=== PATIENT | male | born 1950 | race Caucasian/White ===

== ENCOUNTER → 2017-05-09 | Outpatient (CLI) | payer MEDICARE ==
--- NOTE | 2017-05-09 14:29 | NM ---
EXAMINATION TYPE: NM stress cardiolite complete DATE OF EXAM: 05/09/2017 COMPARISON: NONE HISTORY: Chest pain, R07.9 TECHNIQUE: After the intravenous administration of 10.3 mCi Tc 99m Sestamibi - Rest images obtained 45 minutes post injection. The patient exercised using a HANNAH protocol and 1 minute prior to peak exercise was injected with 27 mCi Tc 99m Sestamibi - Stress images obtained 10 minutes post injection . FINDINGS: Targeted heart rate was achieved during performance of the study. Review of stress and rest SPECT elissa ges demonstrates mild increased radio pharmaceutical uptake along the lateral wall of left ventricle at stress as compared to rest images although this could be technical. Gated analysis shows question able paradoxical wall motion at the apex with an estimated left ventricular ejection fraction of 65 % . IMPRESSION: Findings along the anterolateral wall the left ventricle is described. Consider echocardiography for evaluation of wall motion and ejection fraction which is elevated, suspect paradoxical wall motion as described. A Yellow message has been communicated to Patricio Burch DO via the [employer] system on 05/09/2017 2:26 PM, Message ID [id number].
--- NOTE | 2017-05-10 11:56 | P.STRESS ---
- Stress Test Note Stress Test Results/Findings: Exam Performed: NM stress cardiolite complete Exam Date: 05/09/17 Reason for Exam: Short of breath Height: 5 ft 11 in Weight: 79.379 kg Protocol: Cardiolite Stage: 1 Duration of Exercise: 4:00 Resting Heart Rate: 88 Resting Blood Pressure: 138/90 Maximum Achieved Heart Rate: 143 Maximum Achieved Blood Pressure: 204/107 85% PMHR: 129 100% PMHR: 152 METS: 5.8 Technologist Comment: Stress Test Results/Findings: Resting EKG shows normal sinus rhythm with normal ND interval and QRS duration and normal S Marques no ST segment depression suggestive ischemia was noted during exercise patient did not complain of any chest pain during the te Conclusion exercise EKG is not suggestive ischemia. Patient's exercise tolerance is below average. The results of the nuclear study will follow.
--- NOTE | 2017-05-10 15:56 | EST ---
Stress Test Results/Findings: Exam Performed: NM stress cardiolite complete Exam Date: 05/09/17 Reason for Exam: Short of breath Height: 5 ft 11 in Weight: 79.379 kg Protocol: Cardiolite Stage: 1 Duration of Exercise: 4:00 Resting Heart Rate: 88 Resting Blood Pressure: 138/90 Maximum Achieved Heart Rate: 143 Maximum Achieved Blood Pressure: 204/107 85% PMHR: 129 100% PMHR: 152 METS: 5.8 Technologist Comment: Stress Test Results/Findings: Resting EKG shows normal sinus rhythm with normal MT interval and QRS duration and normal S Marques no ST segment depression suggestive ischemia was noted during exercise patient did not complain of any chest pain during the te Conclusion exercise EKG is not suggestive ischemia. Patient's exercise tolerance is below average. The results of the nuclear study will follow. LE
== END | disposition home or self-care (01) ==
LOC: RADNMMAIN 10:44
PROVIDERS: ATTEND Family Medicine
DX: R07.89 Other chest pain (principal)
CPT/HCPCS: 93017; 78452; A9500

== ENCOUNTER → 2017-05-29 | Outpatient (CLI) | payer MEDICARE ==
--- NOTE | 2017-05-30 11:13 | ECHOF ---
Referral Reason:R94.39 abn results MEASUREMENTS -------- HEIGHT: 180.3 cm WEIGHT: 77.1 kg BP: 155/87 RVIDd: 3.0 cm (< 3.3) IVSd: 1.2 cm (0.6 - 1.1) LVIDd: 4.4 cm (3.9 - 5.3) LVPWd: 1.2 cm (0.6 - 1.1) IVSs: 1.5 cm LVIDs: 3.6 cm LVPWs: 1.5 cm LAESV Index (A-L): 15.59 ml/m Ao Diam: 3.4 cm (2.0 - 3.7) AV Cusp: 1.8 cm (1.5 - 2.6) LA Diam: 3.3 cm (2.7 - 3.8) MV EXCURSION: 16.659 mm (> 18.000) MV EF SLOPE: 119 mm/s (70 - 150) EPSS: 1.2 cm MV E Francisco: 0.46 m/s MV DecT: 235 ms MV A Francisco: 0.60 m/s MV E/A Ratio: 0.76 RAP: 5.00 mmHg RVSP: 8.72 mmHg FINDINGS -------- Sinus rhythm. This was a technically adequate study. There is mild concentric left ventricular hypertrophy. Overall left ventricular systolic function is normal with, an EF between 55 - 60 %. The right ventricle is normal in size and function. Normal LA size by volume 22+/-6 ml/m2. The right atrium is normal in size. Aortic valve is trileaflet and is mildly thickened. There is no evidence of aortic regurgitation. There is no evidence of aortic stenosis. The mitral valve is normal. There is trace mitral regurgitation. Trace tricuspid regurgitation present. There is no evidence of pulmonary hypertension. The right ventricular systolic pressure, as measured by Doppler, is 8.72mmHg. The pulmonic valve was not well visualized. The aortic root size is normal. Normal inferior vena cava with normal inspiratory collapse consistent with estimated right atrial pressure of 5 mmHg. The pericardium is normal. Echo free space indicative of a pericardial fat pad. There is no pericardial effusion. CONCLUSIONS -------- 1. Sinus rhythm. 2. The right ventricular systolic pressure, as measured by Doppler, is 8.72mmHg. 3. The pulmonic valve was not well visualized. 4. The aortic root size is normal. 5. There is no pericardial effusion. 6. This was a technically adequate study. 7. There is mild concentric left ventricular hypertrophy. 8. Overall left ventricular systolic function is normal with, an EF between 55 - 60 %. 9. Normal LA size by volume 22+/-6 ml/m2. 10. Aortic valve is trileaflet and is mildly thickened. 11. There is trace mitral regurgitation. 12. Trace tricuspid regurgitation present. 13. There is no evidence of pulmonary hypertension. AWNING HANGER SUPERVISOR: Nahum Epstein RDCS
== END | disposition home or self-care (01) ==
LOC: RADECHMAIN 12:47
PROVIDERS: ATTEND Family Medicine
DX: I35.8 Other nonrheumatic aortic valve disorders (principal); I51.7 Cardiomegaly
CPT/HCPCS: 93306

== ENCOUNTER 2018-02-02 18:56 | Emergency (ER) | payer MEDICARE, OTHER ==
[2018-02-02 19:03] VITALS: RESP 18
[2018-02-02] MEDS ORDERED: RX INFO: IV CONTRAST WAS GIVEN 1 EACH MISC MISCELLANE PRN (19:25)
[2018-02-02] MEDS ORDERED: IBUPROFEN IV 600 MG in SODIUM CHLORIDE 0.9% 250 ML IV STA (19:25)
[2018-02-02] MEDS ORDERED: cefTRIAXone IN SWFI 1,000 MG/10 ML SYRINGE IVP STA (19:25)
[2018-02-02] MEDS ORDERED: methylPREDNISolone SOD SUCCI 125 MG/2 ML VIAL IV STA (19:25)
--- NOTE | 2018-02-02 19:33 | ED ---
ENT HPI - General Chief complaint: ENT Stated complaint: Abscess on Throat, Sore throat Time Seen by Provider: 02/02/18 19:01 Source: patient, RN notes reviewed Mode of arrival: ambulatory Limitations: no limitations - History of Present Illness Initial comments: This is a 67-year-old male who presents to the emergency department with chief complaint of sore throat. Patient states that he has had a sore throat for the past 2 weeks. He states that [facility] [place] [facility] He states that they did a throat culture but he has not heard anything back about that. Patient states that he was evaluated at [facility] prior to arrival to the emergency department. He was told that they believed he had a peritonsillar abscess and needed to present to the emergency department for further evaluation and treatment. Patient states that he has difficulty swallowing, pain with swallowing and some difficulty breathing. He states that he has not eaten or drank anything in the last 3 days. Denies fevers or chills , chest pain or shortness breath, abdominal pain, nausea or vomiting, diarrhea or constipation, headache or dizziness. - Related Data Home Medications Medication Instructions Recorded Confirmed Aspirin 81 mg PO DAILY 08/06/14 02/02/18 Amoxic-Pot Clav 875-125Mg 1 tab PO Q12HR 02/02/18 02/02/18 [Augmentin 875-125] Previous Rx's Medication Instructions Recorded Amoxicillin/Potassium Clav 1 tab PO Q12HR #20 tab 02/02/18 [Augmentin Xr 1,000-62.5 Tab] Allergies Allergy/AdvReac Type Severity Reaction Status Date / Time No Known Allergies Allergy Verified 02/02/18 19:30 Review of Systems ROS Statement: Those systems with pertinent positive or pertinent negative responses have been documented in the HPI. ROS Other: All systems not noted in ROS Statement are negative. Past Medical History Past Medical History: CVA/TIA History of Any Multi-Drug Resistant Organisms: None Reported Past Surgical History: Orthopedic Surgery Past Anesthesia/Blood Transfusion Reactions: No Reported Reaction Past Psychological History: No Psychological Hx Reported Smoking Status: Current every day smoker Past Alcohol Use History: Occasional Past Drug Use History: None Reported General Exam - General Exam Comments Initial Comments: General: Awake and alert, well-developed; in no apparent distress. HEENT: Head atraumatic, normocephalic. Pupils are equal, round and reactive to light. Extraocular movements intact. Oropharynx moist. Left-sided soft palate and tonsil extremely erythematous and swollen with deviation of the uvula to the right side. Neck: Supple. Normal ROM. Cardiovascular: Regular rate and rhythm. No murmurs, rubs or gallops. Chest symmetrical. Respiratory: Lungs clear to auscultation bilaterally. No wheezes, rales or rhonchi. Normal respiratory effort with no use of accessory muscles. Musculoskeletal: Normal ROM, no tenderness bilateral upper and lower extremities. Ambulating normally. Skin: [place], warm and dry without rashes or lesions. Neurological: Alert and oriented x3. CN II-XII 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. Speech is fluent and answers are appropriate. No focal neuro deficits. Psychiatric: Normal mood and affect. No overt signs of depression or anxiety noted. Limitations: no limitations Course Vital Signs 02/02/18 02/02/18 02/02/18 19:01 20:08 21:44 Temperature 99 F Pulse Rate 128 H 116 H 97 Respiratory 18 18 Rate Blood Pressure 140/95 141/82 O2 Sat by Pulse 96 96 97 Oximetry 02/02/18 23:36 Temperature 98 F Pulse Rate 96 Respiratory 18 Rate Blood Pressure 164/92 O2 Sat by Pulse 97 Oximetry - Reevaluation(s) Reevaluation #1: This case was discussed with attending physician, Dr. Lanza. He was in contact with Dr. Manley who will be arriving shortly to drain peritonsillar abscess. 02/02/18 21:46 Medical Decision Making - Medical Decision Making This is a 67-year-old male who presents to the emergency department with chief complaint of sore throat. On physical examination, there appears to be a left peritonsillar mass with deviation of the uvula to the right. Patient complains of difficulty and pain while swallowing. Computed tomography scan soft tissue neck was obtained and revealed evidence for a 2.5 cm peritonsillar abscess. This case was discussed with attending physician, Dr. Lanza. He was in contact with Dr. Manley who came to the Emergency Department and drained the abscess. Recommended starting patient on Augmentin 1 g twice a day. Recommended following up with him this coming week. Wound culture was obtained and is pending. Patient's vital signs are stable and he is in no acute distress. He will be discharged home at this time. All questions answered. - Lab Data Result diagrams: 02/02/18 19:42 02/02/18 19:42 Lab Results 02/02/18 02/02/18 02/02/18 Range/Units 19:42 19:42 19:42 WBC 16.1 H (3.8-10.6) k/uL RBC 5.22 (4.30-5.90) m/uL Hgb 17.7 H (13.0-17.5) gm/dL Hct 51.8 (39.0-53.0) % MCV 99.3 (80.0-100.0) fL MCH 33.9 (25.0-35.0) pg MCHC 34.1 (31.0-37.0) g/dL RDW 12.8 (11.5-15.5) % Plt Count 255 (150-450) k/uL Neutrophils % 78 % Lymphocytes % 12 % Monocytes % 6 % Eosinophils % 2 % Basophils % 0 % Neutrophils # 12.5 H (1.3-7.7) k/uL Lymphocytes # 1.9 (1.0-4.8) k/uL Monocytes # 0.9 (0-1.0) k/uL Eosinophils # 0.4 (0-0.7) k/uL Basophils # 0.1 (0-0.2) k/uL PT (9.0-12.0) sec INR (<1.2) APTT (22.0-30.0) sec Sodium 143 (137-145) mmol/L Potassium 4.1 (3.5-5.1) mmol/L Chloride 101 (98-107) mmol/L Carbon Dioxide 23 (22-30) mmol/L Anion Gap 19 mmol/L BUN 18 (9-20) mg/dL Creatinine 1.40 H (0.66-1.25) mg/dL Est GFR (CKD-EPI)AfAm 60 (>60 ml/min/1.73 sqM) Est GFR (CKD-EPI)NonAf 51 (>60 ml/min/1.73 sqM) Glucose 101 H (74-99) mg/dL Plasma Lactic Acid Aydin 1.4 (0.7-2.0) mmol/L Calcium 9.4 (8.4-10.2) mg/dL Total Bilirubin 1.0 (0.2-1.3) mg/dL AST 24 (17-59) U/L ALT 23 (21-72) U/L Alkaline Phosphatase 112 (38-126) U/L Total Protein 7.9 (6.3-8.2) g/dL Albumin 4.5 (3.5-5.0) g/dL 02/02/18 Range/Units 19:42 WBC (3.8-10.6) k/uL RBC (4.30-5.90) m/uL Hgb (13.0-17.5) gm/dL Hct (39.0-53.0) % MCV (80.0-100.0) fL MCH (25.0-35.0) pg MCHC (31.0-37.0) g/dL RDW (11.5-15.5) % Plt Count (150-450) k/uL Neutrophils % % Lymphocytes % % Monocytes % % Eosinophils % % Basophils % % Neutrophils # (1.3-7.7) k/uL Lymphocytes # (1.0-4.8) k/uL Monocytes # (0-1.0) k/uL Eosinophils # (0-0.7) k/uL Basophils # (0-0.2) k/uL PT 9.8 (9.0-12.0) sec INR 1.0 (<1.2) APTT 25.3 (22.0-30.0) sec Sodium (137-145) mmol/L Potassium (3.5-5.1) mmol/L Chloride (98-107) mmol/L Carbon Dioxide (22-30) mmol/L Anion Gap mmol/L BUN (9-20) mg/dL Creatinine (0.66-1.25) mg/dL Est GFR (CKD-EPI)AfAm (>60 ml/min/1.73 sqM) Est GFR (CKD-EPI)NonAf (>60 ml/min/1.73 sqM) Glucose (74-99) mg/dL Plasma Lactic Acid Aydin (0.7-2.0) mmol/L Calcium (8.4-10.2) mg/dL Total Bilirubin (0.2-1.3) mg/dL AST (17-59) U/L ALT (21-72) U/L Alkaline Phosphatase (38-126) U/L Total Protein (6.3-8.2) g/dL Albumin (3.5-5.0) g/dL - Radiology Data Radiology results: report reviewed CT soft tissue neck with contrast impression: There is a mass density in the region of the left tonsil with mixed fluid and intermediate density consistent with inflammatory mass and 2.5 cm abscess. Disposition Clinical Impression: Peritonsillar abscess Disposition: HOME SELF-CARE Condition: Good Instructions: Peritonsillar Abscess (ED) Additional Instructions: Please follow-up with Dr. Manley within 1-2 days. Please take medications as prescribed. Please follow up with primary care provider within 1- 2 days. Return to emergency department if symptoms should worsen or any concerns arise. Prescriptions: Amoxicillin/Potassium Clav [Augmentin Xr 1,000-62.5 Tab] 1 tab PO Q12HR #20 tab Is patient prescribed a controlled substance at d/c from ED?: No Referrals: [facility],Clinic [Primary Care Provider] - 1-2 days Satish Manley DO [Doctor of Osteopathic Medicine] - 1-2 days Time of Disposition: 23:06
[2018-02-02 19:55] LABS: Basophils # (A) 0.1 k/uL (0-0.2); Basophils % (A) 0 %; Eosinophils # (A) 0.4 k/uL (0-0.7); Eosinophils % (A) 2 %; HCT 51.8 % (39.0-53.0); HGB 17.7 gm/dL (13.0-17.5); Lymphocytes # (A) 1.9 k/uL (1.0-4.8); Lymphocytes % (A) 12 %; MCH 33.9 pg (25.0-35.0); MCHC 34.1 g/dL (31.0-37.0); MCV 99.3 fL (80.0-100.0); Mean Platelet Volume 6.8; Monocytes # (A) 0.9 k/uL (0-1.0); Monocytes % (A) 6 %; Neutrophils # (A) 12.5 k/uL (1.3-7.7); Neutrophils % (A) 78 %; Platelet Count 255 k/uL (150-450); RBC 5.22 m/uL (4.30-5.90); RDW 12.8 % (11.5-15.5); WBC 16.1 k/uL (3.8-10.6)
[2018-02-02] MEDS: SODIUM CHLORIDE 0.9% 500 ML IV SCH ×4 (19:58→22:50)
[2018-02-02 20:04] LABS: Partial Thromboplastin Time 25.3 sec (22.0-30.0); Prothrombin Time 9.8 sec (9.0-12.0)
[2018-02-02 20:10] LABS: Albumin 4.5 g/dL (3.5-5.0); Calcium 9.4 mg/dL (8.4-10.2); Potassium 4.1 mmol/L (3.5-5.1); Total Protein 7.9 g/dL (6.3-8.2)
--- NOTE | 2018-02-02 21:07 | CT ---
EXAMINATION TYPE: CT soft tissue neck w con DATE OF EXAM: 02/02/2018 8:46 PM COMPARISON: NONE HISTORY: Throat abscess. CT DLP: 397.8 mGycm Automated exposure control for dose reduction was used. CONTRAST: CT scan of the neck is performed following with IV Contrast, patient injected with 100 mL of Isovue 3 00. Axial images are obtained, coronal and sagittal reformatted images are reviewed. FINDINGS: Parotid glands are symmetric. Submandibular salivary glands are symmetric. There is normal contrast o pacification of the carotid arteries and jugular veins. Thyroid gland is symmetric. There is arterial flow in both vertebral arteries. Trachea appears normal. Epiglottis appears normal. There is asymmet rosario increased density on the left side of the oropharynx compared to the right in the region of the l eft tonsil. This measures 3 x 2 cm. There is some hypodensity and intermediate density. The right ton tamara appears normal. There is some spondylotic change in the lower cervical spine. There is fairly normal aeration of the ethmoid maxillary and sphenoid sinuses. Evaluation of the tons ils is difficult because of the metal artifact from the dental work. IMPRESSION: There is mass density in the region of left tonsil with mixed fluid and intermediate den sity consistent with inflammatory mass and 2.5 cm abscess. Normal epiglottis. Atheromatous aorta. There is some soft plaque at the aortic arch.
[2018-02-02] MEDS ORDERED: PIPERACILLIN-TAZOBACTAM 3.375 GM in DEXTROSE/WATER 1 50ML.BAG IVPB STA (21:16)
[2018-02-02 23:37] VITALS: BP 164/92; PULSE 96; TEMP 98
--- NOTE | 2018-02-02 23:53 | CONS ---
CONSULTATION DATE OF SERVICE: 02/02/2018. CONSULTING PHYSICIAN: Satish Manley DO. CHIEF COMPLAINT: Trismus, sore throat, hot potato voice. HISTORY OF PRESENT ILLNESS: This is a 67-year-old white male who has had 3 weeks of persistent throat pain, discomfort and dysphagia. He [facility] evaluated [facility], had a throat culture, was treated. Unfortunately, he continued to worsen. He has not eaten for the last 3 days or even drank anything. He is a somewhat anxious and is complaining of throat pain and trismus. CT scan evaluation reveals a possible abscess. PAST MEDICAL HISTORY: Positive for CVA, TIA. PAST SURGICAL HISTORY: Positive for orthopedic surgery. SOCIAL HISTORY: Smoker and drinker for many years. REVIEW OF SYSTEMS: See H and P. PHYSICAL EXAMINATION: Vital signs are stable. HEAD AND FACE: Head is normocephalic. The face is symmetric. Ears: Auricles are well-formed. Nose is patent. Mouth and throat: The patient has an asymmetrical swelling with a bulging above the left tonsil. Peritonsillar abscess is noted. Trismus is noted. NECK: Cervical lymphadenopathy is noted. IMPRESSIONS: Left acute tonsillitis with associated peritonsillar abscess. PLAN OF TREATMENT: Incision and drainage is recommended for drainage of this abscess. All risks, benefits, alternative therapies and complications were discussed and the patient was verbally agreed to this drainage procedure. MMODL / IJN: [id number] /
--- NOTE | 2018-02-02 23:59 | PCN ---
PROCEDURE NOTE DATE OF SERVICE: 02/02/2018. SURGEON: Satish Manley D.O. Anesthesia is a local. PREOPERATIVE DIAGNOSES: 1. Left peritonsillar abscess. 2. Trismus. 3. Dysphagia. POSTOPERATIVE DIAGNOSES: 1. Left peritonsillar abscess. 2. Trismus. 3. Dysphagia. OPERATIVE PROCEDURE: Needle aspiration followed by an incision and drainage of a left peritonsillar abscess. OPERATIVE INDICATIONS: This patient has a very large 3-cm left peritonsillar abscess. Drainage is indicated. He has not been able to eat or drink for 3 days. PROCEDURE: This area was topically anesthetized with benzocaine. We did inject this area with lidocaine 1% with epinephrine 1:100,000. Needle aspiration was performed and 5 mL were extracted by needle aspiration. A 15 blade was placed into the abscess and opened and widened with a hemostat. A large amount of purulence was expressed from this abscess and was sent for culture. The patient tolerated this well. Followup will be in the office in 1 week. The patient is being discharged on Augmentin and pain medication. MMODL / IJN: [id number] /
== END 2018-02-02 23:36 | disposition home or self-care (01) ==
LOC: EC 18:56
DX: J36 Peritonsillar abscess (principal); F17.200 Nicotine dependence, unspecified, uncomplicated; Z86.73 Personal history of transient ischemic attack (TIA), and cerebral infarction without residual deficits; Z79.82 Long term (current) use of aspirin
CPT/HCPCS: 99284; 42700; 96365; 96366; 96367; 96375; 36415; 80053; 83605; 85025; 85610; 85730; 87040; 87070; 87205; 70491; J2930; J2543; J1741; Q9967

== ENCOUNTER → 2018-07-05 | Outpatient (CLI) | payer OTHER ==
--- NOTE | 2018-07-05 18:07 | US ---
EXAMINATION TYPE: US carotid duplex BILAT DATE OF EXAM: 07/05/2018 COMPARISON: NONE CLINICAL HISTORY: 68-year-old male Z86.73 CVA. TIA x 5 years ago. Borderline HTN and cholesterol-- n o meds. TECHNIQUE: Carotid duplex ultrasound examination. Indirect Doppler criteria was utilized. EXAM MEASUREMENTS: RIGHT: Peak Systolic Velocity (PSV) cm/sec ----- Right CCA: 63.8 ----- Right ICA: 73.2 ----- Right ECA: 191.9 ICA/CCA ratio: 1.1 RIGHT: End Diastole cm/sec ----- Right CCA: 14.7 ----- Right ICA: 23.7 ----- Right ECA: 20.0 LEFT: Peak Systolic Velocity (PSV) cm/sec ----- Left CCA: 73.3 ----- Left ICA: 94.3 ----- Left ECA: 163.6 ICA/CCA ratio: 1.3 LEFT: End Diastole cm/sec ----- Left CCA: 22.9 ----- Left ICA: 32.2 ----- Left ECA: 15.5 VERTEBRALS (direction of flow): Right Vertebral: Antegrade Left Vertebral: Antegrade Rhythm: Normal Bilateral wall thickening. No significant stenosis. Elevated bilateral ECA velocities. Mild plaque seen at bulbs. IMPRESSION: No hemodynamically significant stenosis appreciated in either internal carotid artery. Atherosclerotic narrowing is incidentally noted at the bilateral ECAs. Criteria for Assigning % of Stenosis / Diameter reduction (Estimation based on the indirect measurements of the internal carotid artery velocities (ICA PSV). 1. Normal (no stenosis)=ICA PSV < 125 cm/s: ratio < 2.0: ICA EDV<40 cm/s. 2. Less than 50% stenosis=ICA PSV < 125 cm/s: ratio < 2.0: ICA EDV<40 cm/s. 3. 50 to 69% stenosis=ICA PSV of 125 to 230 cm/s: ration 2.0 ? 4.0: ICA EDV 40-100 cm/s. 4. Greater than 70% stenosis to near occlusion= ICA PSV > 230 cm/s: ratio > 4.0: ICA EDV > 100 cm/s. 5. Near occlusion= ICA PSV velocities may be low or undetectable: variable ratio and ICA EDV. 6. Total occlusion=unable to detect flow.
== END | disposition home or self-care (01) ==
LOC: RADUSWWP 15:08
DX: Z09 Encounter for follow-up examination after completed treatment for conditions other than malignant neoplasm (principal); Z86.73 Personal history of transient ischemic attack (TIA), and cerebral infarction without residual deficits
CPT/HCPCS: 93880

== ENCOUNTER 2019-07-23 06:32 | Day surgery (SDC) | payer OTHER ==
[2019-07-19 10:19] VITALS: BMI 24.3
[~2019-07-23 06:32] MED LIST: LACTATED RINGERS 1,000 ML IV SCH
[2019-07-23 07:08] VITALS: TEMP 97.9
[2019-07-23] MEDS ORDERED: PROPOFOL 10 MG/ML 20 ML VIAL IV ONE (08:01)
[2019-07-23] MEDS ORDERED: LIDOCAINE 1% INJ 10MG/ML (20 ML MDV) ONE (08:01)
--- NOTE | 2019-07-23 08:48 | P.PCN ---
Date of Procedure: 07/23/19 Description of Procedure: BRIEF HISTORY: Patient is a 69-year-old pleasant male scheduled for an elective colonoscopy as a part of surveillance after a history of personal colon polyps on prior colonoscopy. Patient denies any change in bowel habits, blood per rectum or pain in the abdomen. He did have stool testing which was positive for blood. PROCEDURE PERFORMED: Colonoscopy with polypectomy. PREOPERATIVE DIAGNOSIS: Personal history of colon polyps, stool positive for occult blood, patient believes last colonoscopy was approximately 4 years ago. ESTIMATED BLOOD LOSS: Minimal. IV sedation per Anesthesia. PROCEDURE: After informed consent was obtained, the patient, was brought into the endoscopy unit. IV sedation was administered by Anesthesia under continuous monitoring. Digital rectal examination was normal. Initially the Olympus CF-190 flexible video colonoscope was then inserted in the rectum, gradually advanced into the cecum without any difficulty. Careful examination was performed as the scope was gradually being withdrawn. Ileocecal valve and the appendiceal orifice were visualized and appeared normal. The terminal ileum was intubated and appeared normal, and retroflexion was performed in the cecum with no polyps or masses noted. Prep was excellent. Mucosa of the cecum, ascending colon, transverse colon, descending colon, sigmoid colon, and rectum appeared normal. Diminutive 2 mm sessile polyps in the sigmoid colon and the rectum removed with cold forcep polypectomy. Retroflexion was performed in the rectum and no lesions were seen, low-grade internal hemorrhoids noted. The patient tolerated the procedure well. IMPRESSION: Two diminutive polyps removed with cold forceps from the rectum and sigmoid. Low-grade internal hemorrhoids. RECOMMENDATIONS: Findings of this examination were discussed with the patient and his friend. Okay to resume diet. Okay to resume medications. Would recommend repeat colonoscopy in 5 years for a personal history of colon polyps.
[2019-07-23 09:01] VITALS: BP 132/74; PULSE 73; RESP 18
== END 2019-07-23 09:04 | disposition home or self-care (01) ==
LOC: ORWHC2ENDO 06:32
PROVIDERS: ATTEND Internal Medicine
DX: Z12.11 Encounter for screening for malignant neoplasm of colon (principal); D12.5 Benign neoplasm of sigmoid colon; K64.8 Other hemorrhoids; Z86.010 Personal history of colon polyps; F17.200 Nicotine dependence, unspecified, uncomplicated; Z86.73 Personal history of transient ischemic attack (TIA), and cerebral infarction without residual deficits; Z79.82 Long term (current) use of aspirin
CPT/HCPCS: 88305; 45380; J2001; J2704

== ENCOUNTER 2023-08-19 16:02 | Inpatient (IN) | payer OTHER, MEDICARE ==
--- NOTE | 2023-08-19 16:31 | ED ---
General Adult HPI - General Chief complaint: Chest Pain Stated complaint: Chest pain; left arm pain Time Seen by Provider: 08/19/23 16:09 Source: patient Mode of arrival: wheelchair Limitations: no limitations - History of Present Illness Initial comments: Dictation was produced using [employer] dictation software. please excuse any grammatical, word or spelling errors. Chief Complaint: 73-year-old male presents with 2 weeks of chest pressure History of Present Illness: 73-year-old male presents emergency department for 2 weeks of chest pressure states that his pain has been ongoing for the last 2 weeks. He was seen by [facility]ral boss and was to undergo outpatient stress test. Patient denies any history of cardiac disease. He reports having had negative stress test 4-5 years ago. Describes the pain as a pressure the substernal area. Nonradiating. Not associated with shortness of breath. Not exacerbated by exertion. No associated nausea or diaphoresis. Patient states that his pain seems slightly worse whenever he lays flat. The ROS documented in this emergency department record has been reviewed and confirmed by me. Those systems with pertinent positive or negative responses have been documented in the HPI. All other systems are other negative and/or noncontributory. - Related Data Home Medications Medication Instructions Recorded Confirmed Aspirin 81 mg PO DAILY 08/06/14 07/23/19 Allergies Allergy/AdvReac Type Severity Reaction Status Date / Time No Known Allergies Allergy Verified 08/19/23 16:04 Review of Systems ROS Statement: Those systems with pertinent positive or pertinent negative responses have been documented in the HPI. ROS Other: All systems not noted in ROS Statement are negative. Past Medical History Past Medical History: CVA/TIA Additional Past Medical History / Comment(s): TIA-no residual approx 2013 History of Any Multi-Drug Resistant Organisms: None Reported Past Surgical History: Back Surgery Past Anesthesia/Blood Transfusion Reactions: No Reported Reaction Past Psychological History: No Psychological Hx Reported Past Alcohol Use History: Occasional Past Drug Use History: None Reported - Past Family History Mother Family Medical History: No Reported History General Exam - General Exam Comments Initial Comments: PHYSICAL EXAM: General Impression: Alert and oriented x3, not in acute distress HEENT: Normocephalic atraumatic, extra-ocular movements intact, pupils equal and reactive to light bilaterally, mucous membranes moist. Cardiovascular: Heart regular rate and rhythm Chest: Able to complete full sentences, no retractions, no tachypnea Abdomen: abdomen soft, non-tender, non-distended, no organomegaly Musculoskeletal: Pulses present and equal in all extremities, no peripheral edema Motor: no focal deficits noted Neurological: CN II-XII 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, no focal motor or sensory deficits noted Skin: Intact with no visualized rashes Psych: Normal affect and mood Limitations: no limitations Course Vital Signs 08/19/23 08/19/23 16:04 16:41 Temperature 98.3 F Pulse Rate 96 81 Respiratory 18 16 Rate Blood Pressure 174/82 143/89 O2 Sat by Pulse 98 98 Oximetry EKG Findings - EKG Comments: EKG Findings:: My EKG interpretation: Ventricular rate 69, sinus rhythm,. 169, QRS 86, QTC 387. No [place] prolongation, no QTC prolongation. EKG compared to EKG for comparison showing no changes. T-wave inversions in anterior precordial leads, and aVL. Overall this EKG is nonspecific over likely represents ischemic changes Medical Decision Making - Medical Decision Making Was pt. sent in by a medical professional or institution (Dr. PA, [employer], urgent care, hospital, or prison...) When possible be specific @ -No Did you speak to anyone other than the patient for history (EMS, parent, family, police, friend...)? What history was obtained from this source @ -No Did you review nursing and triage notes (agree or disagree)? Why? @ -I reviewed and agree with nursing and triage notes Were old charts reviewed (outside hosp., previous admission, EMS record, old EKG, old radiological studies, urgent care reports/EKG's, prison records)? Report findings @ -No old charts were reviewed Differential Diagnosis (chest pain, altered mental status, abdominal pain women, abdominal pain men, vaginal bleeding, musculoskeletal, weakness, fever, dyspnea, syncope, headache, dizziness, GI bleed, back pain, seizure, CVA, palpatations, mental health)? @ -Differential Chest Pain: Stable Angina, Unstable Angina, STEMI, NSTEMI Aortic Dissection, Pneumothorax, Musculoskeletal, Esophageal Spasm GERD, Cholecystitis, Pancreatitis, Zoster, this is not meant to be an all-inclusive list. EKG interpreted by me (3pts min.). @ -As above X-rays interpreted by me (1pt min.). @ -Chest x-ray shows no acute processes CT interpreted by me (1pt min.). @ -None done U/S interpreted by me (1pt. min.). @ -None done What testing was considered but not performed or refused? (CT, X-rays, U/S, labs)? Why? @ -None What meds were considered but not given or refused? Why? @ -None Did you discuss the management of the patient with other professionals (professionals i.e. DrDebo, PA, [employer], lab, RT, psych nurse, marriage and family social worker, corporate lawyer, teacher, aviation tactical readiness officer, showcase trimmer)? Give summary @ -Case discussed with hospitalist for admission Was smoking cessation discussed for >3mins.? @ -No Was critical care preformed (if so, how long)? @ -No Were there social determinants of health that impacted care today? How? (Homelessness, low income, unemployed, alcoholism, drug addiction, transportation, low edu. Level, literacy, decrease access to med. care, assisted, rehab)? @ -No Was there de-escalation of care discussed even if they declined (Discuss DNR or withdrawal of care, Hospice)? DNR status @ -No What co-morbidities impacted this encounter? (DM, HTN, Smoking, COPD, CAD, Cancer, CVA, ARF, Chemo, Hep., AIDS, mental health diagnosis, sleep apnea, morbid obesity)? @ -None Was patient admitted / discharged? Hospital course, mention meds given and route, prescriptions, significant lab abnormalities, going to OR and other pertinent info. @ -73-year-old male presents to emergency department with atypical chest pain with typical features. He does have features of worsening and persistent symptoms increasing clinical suspicion of unstable angina. Vital signs upon arrival the acceptable limits. EKG is nonspecific however can be interpreted as ischemic. Laboratory evaluation unremarkable. Patient be admitted to observation with cardiology consultation Undiagnosed new problem with uncertain prognosis? @ -No Drug Therapy requiring intensive monitoring for toxicity (Heparin, Nitro, Insulin, Cardizem)? @ -No Were any procedures done? @ -No Diagnosis/symptom? Acute, or Chronic, or Acute on Chronic? Uncomplicated (without systemic symptoms) or Complicated (systemic symptoms)? @ - Chest pain Side effects of treatment? @ -No Exacerbation, Progression, or Severe Exacerbation? @ -No Poses a threat to life or bodily function? How? (Chest pain, USA, PA, pneumonia, PE, COPD, DKA, ARF, appy, cholecystitis, CVA, Diverticulitis, Homicidal, Suicidal, threat to staff... and all critical care pts) @ -yes - Lab Data Result diagrams: 08/19/23 16:33 08/19/23 16:33 Lab Results 08/19/23 08/19/23 08/19/23 Range/Units 16:33 16:33 16:33 WBC 8.9 (3.8-10.6) k/uL RBC 4.35 (4.30-5.90) m/uL Hgb 14.2 (13.0-17.5) gm/dL Hct 42.4 (39.0-53.0) % MCV 97.4 (80.0-100.0) fL MCH 32.7 (25.0-35.0) pg MCHC 33.6 (31.0-37.0) g/dL RDW 12.2 (11.5-15.5) % Plt Count 226 (150-450) k/uL MPV 8.0 Neutrophils % 55 % Lymphocytes % 31 % Monocytes % 6 % Eosinophils % 5 % Basophils % 0 % Neutrophils # 4.9 (1.3-7.7) k/uL Lymphocytes # 2.8 (1.0-4.8) k/uL Monocytes # 0.6 (0-1.0) k/uL Eosinophils # 0.4 (0-0.7) k/uL Basophils # 0.0 (0-0.2) k/uL PT 10.2 (10.0-12.5) sec INR 0.9 (<1.2) APTT 25.2 (22.0-30.0) sec Sodium 140 (137-145) mmol/L Potassium 4.7 (3.5-5.1) mmol/L Chloride 105 (98-107) mmol/L Carbon Dioxide 23 (22-30) mmol/L Anion Gap 12 mmol/L BUN 33 H (9-20) mg/dL Creatinine 1.60 H (0.66-1.25) mg/dL Est GFR (CKD-EPI)AfAm 49 (>60 ml/min/1.73 sqM) Est GFR (CKD-EPI)NonAf 42 (>60 ml/min/1.73 sqM) Glucose 85 (74-99) mg/dL Calcium 9.2 (8.4-10.2) mg/dL Magnesium 2.0 (1.6-2.3) mg/dL Total Bilirubin 0.4 (0.2-1.3) mg/dL AST 21 (17-59) U/L ALT 18 (4-49) U/L Alkaline Phosphatase 99 (38-126) U/L Troponin I (0.000-0.034) ng/mL Total Protein 7.1 (6.3-8.2) g/dL Albumin 3.9 (3.5-5.0) g/dL 08/19/23 Range/Units 16:33 WBC (3.8-10.6) k/uL RBC (4.30-5.90) m/uL Hgb (13.0-17.5) gm/dL Hct (39.0-53.0) % MCV (80.0-100.0) fL MCH (25.0-35.0) pg MCHC (31.0-37.0) g/dL RDW (11.5-15.5) % Plt Count (150-450) k/uL MPV Neutrophils % % Lymphocytes % % Monocytes % % Eosinophils % % Basophils % % Neutrophils # (1.3-7.7) k/uL Lymphocytes # (1.0-4.8) k/uL Monocytes # (0-1.0) k/uL Eosinophils # (0-0.7) k/uL Basophils # (0-0.2) k/uL PT (10.0-12.5) sec INR (<1.2) APTT (22.0-30.0) sec Sodium (137-145) mmol/L Potassium (3.5-5.1) mmol/L Chloride (98-107) mmol/L Carbon Dioxide (22-30) mmol/L Anion Gap mmol/L BUN (9-20) mg/dL Creatinine (0.66-1.25) mg/dL Est GFR (CKD-EPI)AfAm (>60 ml/min/1.73 sqM) Est GFR (CKD-EPI)NonAf (>60 ml/min/1.73 sqM) Glucose (74-99) mg/dL Calcium (8.4-10.2) mg/dL Magnesium (1.6-2.3) mg/dL Total Bilirubin (0.2-1.3) mg/dL AST (17-59) U/L ALT (4-49) U/L Alkaline Phosphatase (38-126) U/L Troponin I <0.012 (0.000-0.034) ng/mL Total Protein (6.3-8.2) g/dL Albumin (3.5-5.0) g/dL Disposition Clinical Impression: Chest pain Disposition: ADMITTED IP TO THIS HOSP Condition: Fair Referrals: [facility],Clinic [Primary Care Provider] - 1-2 days Decision Time: 18:00
[2023-08-19 17:17] LABS: ALT 18 U/L (4-49); AST 21 U/L (17-59); African American GFR (CKD) 49 (>60 ml/min/1.73 sqM); Albumin 3.9 g/dL (3.5-5.0); Alkaline Phosphatase 99 U/L (38-126); Anion Gap 12 mmol/L; Blood Urea Nitrogen 33 mg/dL (9-20); Calcium 9.2 mg/dL (8.4-10.2); Carbon Dioxide 23 mmol/L (22-30); Chloride 105 mmol/L (98-107); Glucose 85 mg/dL (74-99); Non-African American GFR(CKD) 42 (>60 ml/min/1.73 sqM); Potassium 4.7 mmol/L (3.5-5.1); Sodium 140 mmol/L (137-145); Total Bilirubin 0.4 mg/dL (0.2-1.3); Total Protein 7.1 g/dL (6.3-8.2)
--- NOTE | 2023-08-19 17:19 | XR ---
EXAMINATION TYPE: XR chest 2V DATE OF EXAM: 08/19/2023 5:05 PM CLINICAL INDICATION:Male, 73 years old with history of Chest Pain; [facility] COMPARISON: Chest radiographs from 05/23/2014 TECHNIQUE: XR chest 2V Frontal and lateral views of the chest. FINDINGS: Lungs/Pleura: Prominent interstitial lung markings are seen scattered throughout the lungs with lalitha ening of the diaphragm and increased lucency of the lung apices. No evidence of focal consolidation, pneumothorax or pleural effusion. Similar left midlung lateral probable calcification. Pulmonary vascularity: Unremarkable. Heart/mediastinum: Cardiomediastinal silhouette is unremarkable. Musculoskeletal: No acute osseous pathology. IMPRESSION: 1. No acute cardiopulmonary disease process. 2. COPD changes.
[2023-08-19 17:36] LABS: INR 0.9 (<1.2); Partial Thromboplastin Time 25.2 sec (22.0-30.0); Prothrombin Time 10.2 sec (10.0-12.5)
[2023-08-19 17:46] LABS: Basophils % (A) 0 %; Eosinophils # (A) 0.4 k/uL (0-0.7); Eosinophils % (A) 5 %; HCT 42.4 % (39.0-53.0); HGB 14.2 gm/dL (13.0-17.5); Lymphocytes # (A) 2.8 k/uL (1.0-4.8); Lymphocytes % (A) 31 %; MCH 32.7 pg (25.0-35.0); MCHC 33.6 g/dL (31.0-37.0); MCV 97.4 fL (80.0-100.0); Monocytes # (A) 0.6 k/uL (0-1.0); Monocytes % (A) 6 %; Neutrophils # (A) 4.9 k/uL (1.3-7.7); Neutrophils % (A) 55 %; Platelet Count 226 k/uL (150-450); RBC 4.35 m/uL (4.30-5.90); RDW 12.2 % (11.5-15.5); WBC 8.9 k/uL (3.8-10.6)
[2023-08-19] MEDS ORDERED: NITROGLYCERIN SL TABS 0.4 MG TAB SUBLINGUAL PRN (18:33)
[2023-08-19] MEDS ORDERED: ATORVASTATIN 80 MG TAB PO STA (23:51)
--- NOTE | 2023-08-19 23:52 | P.HPIM ---
History of Present Illness H&P Date: 08/19/23 Patient is a 73-year-old male with a PMH of hypertension, chronic kidney disease, and BPH who presents to the emergency room with complaints of chest discomfort. The patient reports that over the past 2 weeks, he's been experiencing intermittent epigastric and substernal chest tightness, nonradiati ng, 7 out of 10 on maximal intensity, with exertional dyspnea. Also reports palpitations. Notes that the pain occurs 2-3 times a day with no clear inciting events, nonpleuritic, lasting for a few minutes at a time and then resolving spontaneously. Denies nausea, vomiting, diaphoresis, or dizziness. Patient previously had a negative stress test 5 years ago and is currently scheduled for repeat stress test versus cardiac cath. He reports being pain free at the time of interview. In the emergency room a chest x-ray was unremarkable. EKG revealed sinus rhythm at 69 bpm with T-wave inversion in leads V1 and V2 with no additional ST/T-wave changes orders reviewed by me. Laboratory evaluation revealed a troponin less than 0.012, creatinine 1.60, and BUN 33. ED documentation reviewed and case discussed with ED provider. Review of systems: Pertinent positives and negatives as discussed in HPI, a complete review of systems was performed and all other systems are negative. Physical examination: Vital signs reviewed General: non toxic, no distress, appears at stated age, normal weight Derm: no unusual rashes/lesions, warm Head: atraumatic, normocephalic, symmetric Eyes: EOMI, no lid lag, anicteric sclera, pupils equal round reactive to light ENT: Nose and ears atraumatic Neck: No cervical lymphadenopathy, trachea midline, supple Mouth: no lip lesion, mucus membranes moist Cardiovascular: S1S2 reg, no murmur, positive dorsalis pedis pulse bilateral, no edema Lungs: CTA bilateral, no rhonchi, no rales, no accessory muscle use Abdominal: soft, nontender to palpation, no guarding Ext: muscle strength 5 out of 5 in all 4 extremities grossly, no gross muscle atrophy, no contractures, Neuro: CN II-XI 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, no gross focal neuro deficits Psych: Alert, oriented, appropriate affect Assessment: Chest pain, rule out ACS Kidney injury, acute versus chronic Chronic conditions: BPH, hypertension Imaging: In the emergency room a chest x-ray was unremarkable. EKG revealed sinus rhythm at 69 bpm with T-wave inversion in leads V1 and V2 with no additional ST/T-wave changes orders reviewed by me. Data Review: Laboratory evaluation revealed a troponin less than 0.012, creatinine 1.60, and BUN 33. Plan: Trend troponin Cardiology consult Cardiac monitoring Echocardiogram Continue with aspirin, statin Continue with home medications: Flomax, Norvasc Monitor BMP DVT prophylaxis: Lovenox subcu The patient is admitted with an anticipated less than 2 midnight stay for evaluation of chest pain CODE STATUS: Full Code Discussed with: Patient Anticipated discharge place: Home Past Medical History Past Medical History: CVA/TIA Additional Past Medical History / Comment(s): TIA-no residual approx 2013 History of Any Multi-Drug Resistant Organisms: None Reported Past Surgical History: Back Surgery Past Anesthesia/Blood Transfusion Reactions: No Reported Reaction Past Psychological History: No Psychological Hx Reported Smoking Status: Former smoker Past Alcohol Use History: Occasional Additional Past Alcohol Use History / Comment(s): started smoking at age 18,<1ppd Past Drug Use History: None Reported - Past Family History Mother Family Medical History: No Reported History Medications and Allergies Home Medications Medication Instructions Recorded Confirmed Type Aspirin 81 mg PO MOWEFR 08/06/14 08/19/23 History Tamsulosin HCl [Flomax] 0.4 mg PO HS 08/19/23 08/19/23 History amLODIPine [Norvasc] 10 mg PO HS 08/19/23 08/19/23 History Allergies Allergy/AdvReac Type Severity Reaction Status Date / Time No Known Allergies Allergy Verified 08/19/23 19:22 Physical Exam Vitals: Vital Signs Temp Pulse Pulse Resp BP BP Pulse Ox 08/19/23 20:40 97.7 F 81 16 130/72 98 08/19/23 19:00 72 17 138/82 98 08/19/23 18:00 73 17 119/89 98 08/19/23 17:00 73 18 143/89 99 08/19/23 16:41 81 16 143/89 98 08/19/23 16:12 70 16 08/19/23 16:04 98.3 F 96 18 174/82 98 Intake and Output 08/19/23 08/19/23 08/20/23 14:59 22:59 06:59 Other: Weight 77.111 kg Results CBC & Chem 7: 08/19/23 16:33 08/19/23 16:33 Labs: Abnormal Lab Results - Last 24 Hours (Table) 08/19/23 Range/Units 16:33 BUN 33 H (9-20) mg/dL Creatinine 1.60 H (0.66-1.25) mg/dL Thrombosis Risk Factor Assmnt - Choose All That Apply Any of the Below Risk Factors Present?: No Other Risk Factors: Yes Each Risk Factor Represents 2 Points: Age 61-74 years Other congenital or acquired thrombophilia - If yes, enter type in comment: No Thrombosis Risk Factor Assessment Total Risk Factor Score: 2 Thrombosis Risk Factor Assessment Level: Low Risk
[2023-08-19] MEDS: amLODIPine 10 MG TAB PO SCH (23:56)
[2023-08-19] MEDS: TAMSULOSIN 0.4 MG CAP.ER.24H PO SCH (23:56)
[2023-08-20] MEDS: ENOXAPARIN 40 MG/0.4 ML SYRINGE SQ SCH (08:31)
[2023-08-20] MEDS ORDERED: SODIUM CHLORIDE 0.9% 500 ML 250 ML IV ONE (08:53)
[2023-08-20] MEDS ORDERED: ASPIRIN 325 MG TAB PO SCH (09:00)
[2023-08-20] MEDS: NITROGLYCERIN OINT 1 INCH/GM PACKET TOPICAL SCH ×2 (09:07→16:49)
[2023-08-20 10:19] LABS: LDL Cholesterol,Calculated 143.3 mg/dL (0.0-131.0)
[2023-08-20] MEDS: SODIUM CHLORIDE 0.9% 1,000 ML IV SCH ×2 (10:24→19:51)
[2023-08-20] MEDS ORDERED: LIDOCAINE 1% INJ 10MG/ML (20 ML MDV) ONE (10:30)
[2023-08-20] MEDS ORDERED: VERAPAMIL 2.5 MG/ML 2 ML AMP ONE (10:30)
--- NOTE | 2023-08-20 10:50 | P.CRDCN ---
History of Present Illness Consult date: 08/20/23 History of present illness: This pleasant 73-year-old gentleman with a known history of hypertension, BPH, chronic kidney disease, and a former smoker, quit 3 weeks ago presented to the emergency room with chest discomfort. Patient was recently seen in office by Dr. Fernandez. Patient reports his chest pain has been intermittent over the last 2 weeks pain and some epigastric, substernal area radiating into the left arm. and only lasts for a few minutes. His EKG shows sinus rhythm with an inverted T in the inferior leads. Patient underwent a stress test 5 years ago and was told everything was normal at that time. Troponin negative 3, cholesterol is elevated at 2:15, LDL is 143, triglycerides 185, HDL 34. Kidney function is elevated, BUN is 33 creatinine is 1.6. Patient has an outpatient stress test scheduled. However due to ongoing symptoms suggestive of unstable angina, labs showing hyperlipidemia, and history of hypertension and recent smoker. patient will undergo a cardiac cath today. Will hydrate patient with a 250 mL bolus, start fluids at 100 mL per hour. Patient is agreeable to the plan. Review of Systems REVIEW OF SYSTEMS At the time of my exam: CONSTITUTIONAL: Denies fever or chills. EYES: Negative for vision changes ENT: Negative for hearing loss CARDIOVASCULAR: Reports intermittent pericardial chest pain Denies shortness of breath, diaphoresis, orthopnea, PND or palpitations. VASCULAR: Denies edema RESPIRATORY: Denies cough. GASTROINTESTINAL: Denies abdominal pain, diarrhea, constipation, nausea or vomiting. MUSCULOSKELETAL: Denies myalgias. NEUROLOGIC: Denies numbness, tingling, headache or weakness. ENDOCRINE: Denies fatigue, weight change, polydipsia or polyurina. GENITOURINARY: Denies burning, hematuria or urgency with micturation. HEMATOLOGIC: Denies history of anemia or bleeding. DERMATOLOGY: Denies rash or skin sores PSYCH: Negative for depression or hallucinations. Past Medical History Past Medical History: CVA/TIA Additional Past Medical History / Comment(s): TIA-no residual approx 2013 History of Any Multi-Drug Resistant Organisms: None Reported Past Surgical History: Back Surgery Past Anesthesia/Blood Transfusion Reactions: No Reported Reaction Past Psychological History: No Psychological Hx Reported Smoking Status: Former smoker Past Alcohol Use History: Occasional Additional Past Alcohol Use History / Comment(s): started smoking at age 18,<1ppd Past Drug Use History: None Reported - Past Family History Mother Family Medical History: No Reported History Medications and Allergies Home Medications Medication Instructions Recorded Confirmed Type Aspirin 81 mg PO MOWEFR 08/06/14 08/19/23 History Tamsulosin HCl [Flomax] 0.4 mg PO HS 08/19/23 08/19/23 History amLODIPine [Norvasc] 10 mg PO HS 08/19/23 08/19/23 History Allergies Allergy/AdvReac Type Severity Reaction Status Date / Time No Known Allergies Allergy Verified 08/19/23 19:22 Physical Exam Vitals: Vital Signs Temp Pulse Pulse Resp BP BP BP 08/20/23 07:00 97.6 F 95 16 94/56 08/20/23 02:00 75 08/20/23 01:54 97.5 F L 75 16 107/59 08/19/23 23:59 75 130/73 08/19/23 22:30 75 08/19/23 20:40 97.7 F 81 16 130/72 08/19/23 19:00 72 17 138/82 08/19/23 18:00 73 17 119/89 08/19/23 17:00 73 18 143/89 08/19/23 16:41 81 16 143/89 08/19/23 16:12 70 16 08/19/23 16:04 98.3 F 96 18 174/82 Pulse Ox 08/20/23 07:00 99 08/20/23 02:00 08/20/23 01:54 97 08/19/23 23:59 08/19/23 22:30 08/19/23 20:40 98 08/19/23 19:00 98 08/19/23 18:00 98 08/19/23 17:00 99 08/19/23 16:41 98 08/19/23 16:12 08/19/23 16:04 98 Intake and Output 08/19/23 08/20/23 08/20/23 22:59 06:59 14:59 Other: # Voids 2 1 Weight 77.111 kg General: The patient is awake and alert, in no distress, and does not appear acutely ill. Skin: Skin is warm and dry and no rashes or lesions are noted. Eye: Pupils are equal, round and reactive to light, extra-ocular movements are intact; there is normal conjunctiva bilaterally. Ears, nose, mouth and throat: There are moist mucous membranes and no oral lesions. Neck: The neck is supple, there is no tenderness or JVD. Cardiovascular: There is irregular regular rate and rhythm. No murmur, rub or gallop is appreciated. Respiratory: Lungs are clear to auscultation, respirations are non-labored, breath sounds are equal. Gastrointestinal: Soft, non-distended, non-tender abdomen without masses or organomegaly noted. There is no rebound or guarding present. Bowel sounds are unremarkable. Back: There is no tenderness to palpation in the midline. There is no obvious deformity. Musculoskeletal: Normal ROM, no tenderness, There is no pedal edema. There is no calf tenderness or swelling. Extremities: Mild bilateral pitting edema Vascular: Femoral pulse is normal. Posterior tibial pulses are normal .Dorsalis pedis is palpable. Neurological: CN II-XII intact. There are no obvious motor or sensory deficits. Speech is normal. Psychiatric: Cooperative, appropriate mood & affect, normal judgment Results 08/19/23 16:33 08/19/23 16:33 Cardiac Enzymes 08/19/23 08/19/23 08/19/23 Range/Units 16:33 16:33 19:05 AST 21 (17-59) U/L Troponin I <0.012 <0.012 (0.000-0.034) ng/mL 08/19/23 Range/Units 21:13 AST (17-59) U/L Troponin I <0.012 (0.000-0.034) ng/mL Coagulation 08/19/23 Range/Units 16:33 PT 10.2 (10.0-12.5) sec APTT 25.2 (22.0-30.0) sec Lipids 08/19/23 Range/Units 16:33 Triglycerides 185.00 H (0.00-149.00) mg/dL Cholesterol 215.00 H (0.00-200.00) mg/dL HDL Cholesterol 34.70 L (40.00-60.00) mg/dL Cholesterol/HDL Ratio 6.20 Ratio CBC 08/19/23 Range/Units 16:33 WBC 8.9 (3.8-10.6) k/uL RBC 4.35 (4.30-5.90) m/uL Hgb 14.2 (13.0-17.5) gm/dL Hct 42.4 (39.0-53.0) % Plt Count 226 (150-450) k/uL Comprehensive Metabolic Panel 08/19/23 Range/Units 16:33 Sodium 140 (137-145) mmol/L Potassium 4.7 (3.5-5.1) mmol/L Chloride 105 (98-107) mmol/L Carbon Dioxide 23 (22-30) mmol/L BUN 33 H (9-20) mg/dL Creatinine 1.60 H (0.66-1.25) mg/dL Glucose 85 (74-99) mg/dL Calcium 9.2 (8.4-10.2) mg/dL AST 21 (17-59) U/L ALT 18 (4-49) U/L Alkaline Phosphatase 99 (38-126) U/L Total Protein 7.1 (6.3-8.2) g/dL Albumin 3.9 (3.5-5.0) g/dL Current Medications Generic Name Dose Route Start Last Admin Trade Name Freq PRN Reason Stop Dose Admin Amlodipine Besylate 10 mg 08/19/23 23:45 08/19/23 23:56 Amlodipine 10 Mg Tab PO 10 mg HS GOVIND Administration Aspirin 81 mg 08/21/23 09:00 Aspirin 81 Mg PO MOWEFR [facility] Atorvastatin Calcium 80 mg 08/20/23 21:00 Atorvastatin 80 Mg Tab PO HS [facility] Enoxaparin Sodium 40 mg 08/20/23 09:00 08/20/23 08:31 Enoxaparin 40 Mg/0.4 Ml Syringe SQ 40 mg DAILY GOVIND Administration Sodium Chloride 1,000 mls @ 100 mls/hr 08/20/23 09:00 08/20/23 10:24 Saline 0.9% IV 100 mls/hr .Q10H GOVIND Administration Nitroglycerin 0.4 mg 08/19/23 18:33 Nitroglycerin Sl Tabs 0.4 Mg Tab SUBLINGUAL Q5M PRN Chest Pain Nitroglycerin 1 inch 08/20/23 16:00 08/20/23 09:07 Nitroglycerin Oint 1 Inch/Gm Packet TOPICAL 1 inch Q8HR GOVIND Administration Tamsulosin HCl 0.4 mg 08/19/23 23:45 08/19/23 23:56 Tamsulosin 0.4 Mg Cap.Er.24h PO 0.4 mg HS GOVIND Administration Intake and Output 08/19/23 08/20/23 08/20/23 22:59 06:59 14:59 Other: # Voids 2 1 Weight 77.111 kg 08/19/23 16:33 08/19/23 16:33 Assessment and Plan Assessment: Pericardial chest pain Unstable angina Hypertension Hyperlipidemia History of tobacco abuse Chronic kidney disease Plan: Will hydrate patient with a 250 mL bolus and start saline at 100 mL per hour. Patient will undergo a heart catheterization today Labs reviewed The above impression and plan of care have been discussed and directed by the signing physician. Nayla Elmore, nurse practitioner, acting as scribe for signing physician.
[2023-08-20] MEDS ORDERED: IV FLUID CONTINUATION 1,000 ML IV ONE (10:55)
[2023-08-20] MEDS ORDERED: fentaNYL (PF) 50 MCG/ML 2 ML AMP ONE (10:57)
[2023-08-20] MEDS ORDERED: HEPARIN SODIUM 1,000 UN/ML (10ML VL) ONE (10:57)
[2023-08-20] MEDS ORDERED: MIDAZOLAM 2 MG/2 ML VIAL IVP ONE (11:06)
[2023-08-20] MEDS ORDERED: fentaNYL (PF) 50 MCG/ML 2 ML AMP IVP ONE (11:07)
[2023-08-20] MEDS ORDERED: LIDOCAINE 1% INJ 10MG/ML (20 ML MDV) SQ ONE (11:09)
[2023-08-20] MEDS ORDERED: VERAPAMIL SYRINGE (5 MG/10 ML) INTRAARTER ONE (11:12)
[2023-08-20] MEDS ORDERED: HEPARIN SODIUM 1,000 UN/ML (10ML VL) IV ONE (11:17)
[2023-08-20] MEDS ORDERED: IOPAMIDOL-370 200ML BTL INJ ONE (11:26)
[2023-08-20] MEDS: METOPROLOL SUCCINATE (ER) 25 MG TAB.ER.24H PO SCH (12:46)
--- NOTE | 2023-08-20 13:12 | US ---
EXAMINATION TYPE: US carotid duplex BILAT DATE OF EXAM: 08/20/2023 COMPARISON: US CLINICAL INDICATION: Male, 73 years old with history of PVD; Pre-OP CABG TECHNIQUE: Carotid duplex ultrasound examination. Indirect Doppler criteria was utilized. FINDINGS: EXAM MEASUREMENTS: RIGHT: Peak Systolic Velocity (PSV) cm/sec ----- Right CCA: 180 ----- Right ICA: 143 ----- Right ECA: 403 ICA/CCA ratio: 0.8 RIGHT: End Diastole cm/sec ----- Right CCA: 20.3 ----- Right ICA: 13.9 ----- Right ECA: 0.0 LEFT: Peak Systolic Velocity (PSV) cm/sec ----- Left CCA: 173 ----- Left ICA: 305 ----- Left ECA: 354 ICA/CCA ratio: 1.8 LEFT: End Diastole cm/sec ----- Left CCA: 27.2 ----- Left ICA: 41.3 ----- Left ECA: 22.1 VERTEBRALS (direction of flow): Right Vertebral: Unable to visualize Left Vertebral: Antegrade Rhythm: Normal HOSPICE ENTRANCE ATTENDANT NOTES: Heterogeneous plaque bilaterally with elevated velocities throughout entire hall tid system bilaterally IMPRESSION: Greater than 70% stenosis of the bilateral carotid bifurcations by peak systolic velocity. Criteria for Assigning % of Stenosis / Diameter reduction (Estimation based on the indirect measurements of the internal carotid artery velocities (ICA PSV). 1. Normal (no stenosis)=ICA PSV < 125 cm/s: ratio < 2.0: ICA EDV<40 cm/s. 2. Less than 50% stenosis=ICA PSV < 125 cm/s: ratio < 2.0: ICA EDV<40 cm/s. 3. 50 to 69% stenosis=ICA PSV of 125 to 230 cm/s: ration 2.0 ? 4.0: ICA EDV 40-100 cm/s. 4. Greater than 70% stenosis to near occlusion= ICA PSV > 230 cm/s: ratio > 4.0: ICA EDV > 100 cm/s. 5. Near occlusion= ICA PSV velocities may be low or undetectable: variable ratio and ICA EDV. 6. Total occlusion=unable to detect flow.
--- NOTE | 2023-08-20 14:16 | CC ---
CARDIAC CATHETERIZATION REPORT INDICATION: Unstable angina. A 73-year-old gentleman with hypertension and smoking, has coronary risk factors, who developed intermittent episodes of chest pain and precordial EKG changes and was evaluated by my associate Dr. Fernandez in the office, and was to undergo stress test and echocardiogram over the next 2 months. He came into hospital with chest pain, described it as intermittent episodes of precordial chest pressure with left arm pain, consistent with a diagnosis of unstable angina, due to which I advised him to undergo cardiac catheterization. Understanding the risks, benefits, and alternatives, he agreed to proceed with it. PROCEDURE NOTE: After obtaining informed consent, left heart catheterization and coronary angiogram were performed via the right radial artery using standard Codie catheters. The patient tolerated the procedure well without any obvious immediate complications, received heparin and verapamil per protocol. Right radial artery access was obtained using Seldinger technique, a 6-Yi sheath was placed. Catheters and wires were floated into the ascending aorta under fluoroscopic guidance. A TR band will be used for hemostasis. The patient received moderate conscious sedation. Total sedation time was 19 minutes. FINDINGS: 1. Hemodynamics: Left ventricular end-diastolic pressure is 18 mmHg. There is no significant gradient across the aortic valve. 2. Left ventriculogram: The left ventriculogram is not performed. 3. Angiographic data: a.Right coronary artery: Right coronary artery is a large dominant vessel that shows a long segment of narrowing in the proximal to midportion, at its worst, it is 90% stenosed. b.Left main coronary artery appears calcified, but is free of significant stenosis, divides into left anterior descending coronary artery and circumflex coronary artery. LAD shows a long segment of tubular narrowing, at its worst, it seems to be 90% stenosed. OM branch has a 90% focal stenosis. CONCLUSIONS: Severe three-vessel coronary artery disease as described above. PLAN: I reviewed angiographic data with Dr. Abrams, the on-call nuclear radiation engineer. I will consult a surgeon to evaluate him for surgical revascularization, and if they think he is not an ideal candidate for surgery, we will ask Dr. Fernandez to perform multivessel angioplasty. I discussed these issues at length with the patient. He understands and is in agreement with the plans. MMODL / IJN: [id number] /
--- NOTE | 2023-08-20 14:34 | P.GSCN ---
History of Present Illness Consult date: 08/20/23 Reason for Consult: Triple-vessel coronary artery disease Requesting physician: Clif Madrid History of present illness: This is a 73-year-old gentleman follows outpatient with the [facility] clinic for primary care. He has a previous medical history of hypertension, hyperlipidemia, chronic kidney disease stage III, previous tobacco dependence with recent cessation, TIA in 2013 with no residual, BPH, and bilateral vein stripping in the . He presented to [facility] emergency room yesterday with complaints of intermittent chest pain over the last couple of weeks with radiation to his left arm. States he is also had shortness of breath going back even further, as well as dizziness with walking fast. He saw Dr. Fernandez in the office last week, was scheduled for stress and echo but not scheduled until the end of September. He didn't think his symptoms could wait that long so he came into the emergency room. EKG demonstrated sinus rhythm with T-wave inversion in leads aVL, V1-V3. Troponins were negative. Chest x- ray demonstrated COPD changes but no acute cardiopulmonary process. The patient was admitted for evaluation and treatment. He underwent heart catheterization today by Dr. Madrid which revealed triple-vessel coronary artery disease with proximal LAD stenosis 80%, circumflex stenosis 90%, and right coronary artery stenosis 80-90%. Due to these findings consultation was placed to Dr. Jacobs from cardiothoracic surgery for revascularization recommendations. Review of Systems Review of systems was completed and was negative except as noted - Cardiovascular Reports as per HPI, Reports chest pain, Reports lightheadedness, Reports shortness of breath Past Medical History Past Medical History: Coronary Artery Disease (CAD), Chest Pain / Angina, CVA/TIA, Hyperlipidemia, Hypertension, Renal Disease Additional Past Medical History / Comment(s): TIA-no residual approx 2013 History of Any Multi-Drug Resistant Organisms: None Reported Past Surgical History: Back Surgery Past Anesthesia/Blood Transfusion Reactions: No Reported Reaction Past Psychological History: No Psychological Hx Reported Smoking Status: Former smoker Past Alcohol Use History: Occasional Additional Past Alcohol Use History / Comment(s): started smoking at age 18,<1ppd Past Drug Use History: None Reported - Past Family History Mother Family Medical History: No Reported History Medications and Allergies Home Medications Medication Instructions Recorded Confirmed Type Aspirin 81 mg PO MOWEFR 08/06/14 08/19/23 History Tamsulosin HCl [Flomax] 0.4 mg PO HS 08/19/23 08/19/23 History amLODIPine [Norvasc] 10 mg PO HS 08/19/23 08/19/23 History Allergies Allergy/AdvReac Type Severity Reaction Status Date / Time No Known Allergies Allergy Verified 08/19/23 19:22 Surgical - Exam Vital Signs Temp Pulse Resp BP Pulse Ox 98.3 F 96 18 174/82 98 08/19/23 16:04 08/19/23 16:04 08/19/23 16:04 08/19/23 16:04 08/19/23 16:04 CONSTITUTIONAL: Awake and alert, appears comfortable, cooperative, well- developed, well-nourished, no pain, no acute distress EYES: Pupils equal, round, reactive to light, normal ocular movement ENT: Moist mucous membranes without oral lesions present NECK: No masses, no bruits, trachea midline RESPIRATORY: Lungs sounds diminished to auscultation bilaterally. Respirations even, nonlabored. Currently on room air with oxygen saturation 96%. Strong cough. No chest wall deformities. No clubbing or cyanosis present CARDIOVASCULAR: S1, S2 present. Regular rate and rhythm, sinus rhythm on telemetry. Palpable peripheral pulses bilaterally. No edema present. No calf pain or tenderness noted GASTROINTESTINAL: Abdomen soft, nontender, nondistended without masses or organomegaly noted. There is no rebound or guarding present. Active bowel sounds present 4 quadrants. GENITOURINARY: Deferred INTEGUMENTARY: Skin is warm and dry with evidence of good perfusion. Right radial T band in place NEUROLOGIC: Cranial nerves II through XII intact, normal coordination, no obvious motor or sensory deficits, speech is normal MUSKULOSKELETAL: Able to move all extremities, strength equal bilaterally, normal posture PSYCHIATRIC: Alert and oriented to person place and time, appropriate affect, intact judgment and insight Results - Labs 08/19/23 16:33 08/20/23 14:54 Abnormal Lab Results - Last 24 Hours (Table) 08/19/23 08/19/23 Range/Units 16:33 16:33 BUN 33 H (9-20) mg/dL Creatinine 1.60 H (0.66-1.25) mg/dL Triglycerides 185.00 H (0.00-149.00) mg/dL Cholesterol 215.00 H (0.00-200.00) mg/dL LDL Cholesterol, Calc 143.3 H (0.0-131.0) mg/dL HDL Cholesterol 34.70 L (40.00-60.00) mg/dL Diabetes panel 08/19/23 08/19/23 Range/Units 16:33 16:33 Sodium 140 (137-145) mmol/L Potassium 4.7 (3.5-5.1) mmol/L Chloride 105 (98-107) mmol/L Carbon Dioxide 23 (22-30) mmol/L BUN 33 H (9-20) mg/dL Creatinine 1.60 H (0.66-1.25) mg/dL Glucose 85 (74-99) mg/dL Calcium 9.2 (8.4-10.2) mg/dL AST 21 (17-59) U/L ALT 18 (4-49) U/L Alkaline Phosphatase 99 (38-126) U/L Total Protein 7.1 (6.3-8.2) g/dL Albumin 3.9 (3.5-5.0) g/dL Triglycerides 185.00 H (0.00-149.00) mg/dL HDL Cholesterol 34.70 L (40.00-60.00) mg/dL Calcium panel 08/19/23 Range/Units 16:33 Calcium 9.2 (8.4-10.2) mg/dL Albumin 3.9 (3.5-5.0) g/dL Pituitary panel 08/19/23 Range/Units 16:33 Sodium 140 (137-145) mmol/L Potassium 4.7 (3.5-5.1) mmol/L Chloride 105 (98-107) mmol/L Carbon Dioxide 23 (22-30) mmol/L BUN 33 H (9-20) mg/dL Creatinine 1.60 H (0.66-1.25) mg/dL Glucose 85 (74-99) mg/dL Calcium 9.2 (8.4-10.2) mg/dL Adrenal panel 08/19/23 Range/Units 16:33 Sodium 140 (137-145) mmol/L Potassium 4.7 (3.5-5.1) mmol/L Chloride 105 (98-107) mmol/L Carbon Dioxide 23 (22-30) mmol/L BUN 33 H (9-20) mg/dL Creatinine 1.60 H (0.66-1.25) mg/dL Glucose 85 (74-99) mg/dL Calcium 9.2 (8.4-10.2) mg/dL Total Bilirubin 0.4 (0.2-1.3) mg/dL AST 21 (17-59) U/L ALT 18 (4-49) U/L Alkaline Phosphatase 99 (38-126) U/L Total Protein 7.1 (6.3-8.2) g/dL Albumin 3.9 (3.5-5.0) g/dL - Imaging Chest x-ray: report reviewed, image reviewed EKG: image reviewed Additional studies: Heart catheterization films, carotid Dopplers reviewed Assessment and Plan Assessment: Triple-vessel coronary artery disease, unstable angina Hypertension Hyperlipidemia, cholesterol 215, LDL 143, triglycerides 185 Chronic kidney disease stage III Previous tobacco dependence with recent cessation TIA in 2013 with no residual BPH on Flomax Bilateral vein stripping in the Bilateral carotid stenosis by carotid Doppler Plan: The patient was seen and examined at the bedside on the cardiac stepdown unit laying in bed in no acute distress. Denies any chest pain or shortness of breath currently. Chart/diagnostics were reviewed, the case was discussed in great detail with Dr. Jacobs who did review the patient's heart catheterization films. The usual perioperative course of open heart surgery was discussed in detail with the patient, risks and benefits were reviewed, all questions were answered. The patient does consent to surgery if that is deemed to be the most appropriate course. Preoperative testing was initiated, once completed will calculate STS risk score and discuss with the patient. 5 m walk test was completed, 4.13 seconds, 3.57 seconds, 3.77 seconds. Carotid Dopplers read as greater than 70% stenosis to bilateral carotid bifurcations with inability to visualize right vertebral flow, unable to have a CT angiogram of the head/neck at this time due to diet load from heart catheterization today as well as elevated creatinine. Patient does have a history of bilateral vein stripping which may limit conduit availability, will ultrasound radial arteries for suitability as conduits. Once all testing completed will make further determination regarding timing of surgery. Recommend continuing to maximize medical therapy with aspirin, statin, beta maria luisa therapy. Patient encouraged to continue smoking cessation. Pulmonology consulted for pulmonary clearance, bedside spirometry pending. Medical management of other comorbidities per internal medicine, cardiology. More recommendations to follow. Thank you Dr. Madrid for this consult, we will continue to follow along with you and make further recommendations as appropriate. I have personally seen and examined the patient, performed the documentation and the assessment and plan as written. Number of minutes spent on the visit: 30. Steph Tomlinson NP-C Attending Addendum: Pt seen and evaluated with POST COMMANDER above. Agree with her assessment and plan. This is a 73 y/o M with a hx of htn, hld, ckd and TIA in the past who presents with anginal symptoms and cardiac cath reveals 3v disease. We will order pre-operative testing and plan for CABG this admission. I spent 35 minutes reviewing the data and discussing the plan of care with team. Time with Patient: Greater than 30
--- NOTE | 2023-08-20 14:46 | CT ---
EXAMINATION TYPE: CT chest wo con CT DLP: 321.8 mGycm, Automated exposure control for dose reduction was used. DATE OF EXAM: 08/20/2023 1:50 PM COMPARISON: Chest radiograph from 08/19/2023. CT chest 06/04/2014 CLINICAL INDICATION:Male, 73 years old with history of eval aorta for calcification; PHH, Eval aorta for calcification TECHNIQUE: Multiple axial images were obtained through the chest. Sagittal and coronal reformats were created for review. Contrast used: mL of (None if empty) Oral contrast used: (None if empty) FINDINGS: Exam limited by lack of IV contrast. LUNGS/ PLEURA: No evidence of an acute infiltrate, pleural effusion, or pneumothorax. A few calcified pleural plaques bilaterally, one with a somewhat nodular configuration anteriorly along the left upp er lobe, suggesting sequela of prior asbestos exposure. AIRWAY: Patent and unremarkable. HEART: Size within normal limits. Mild/moderate three-vessel coronary artery calcifications. MEDIASTINUM: No gross evidence of adenopathy. VASCULATURE: Mild/moderate atherosclerotic calcification throughout the aorta and proximal left subc lavian artery. No gross evidence of aneurysm. Ascending aorta measures up to 3.3 cm. MUSCULOSKELETAL: No acute osseous abnormalities. Mild degenerative changes. SOFT TISSUES/LYMPH NODES: Unremarkable. LOWER NECK: No significant findings. UPPER ABDOMEN: Contrast seen in the bilateral renal collecting systems without hydronephrosis. Mild b ilateral perinephric stranding appears chronic. Hypodense nodules in the upper kidneys, most likely c ysts. Mild/moderate calcification of the visualized upper abdominal aorta. A 1.4 cm hypodense nodule in the right hepatic lobe appears stable to marginally increased in size since 2013, highly likely be nign. Faint sludge and/or small calculi in the gallbladder. A cystic appearing 2.8 cm nodule in the p roximal pancreatic body extends superiorly along the lesser curvature of the stomach. IMPRESSION: 1. Limited unenhanced study. 2. Mild/moderate three-vessel coronary artery calcifications. Heart is not enlarged. 3. Mild/moderate atherosclerotic calcification throughout the aorta and proximal left subclavian art soumya. No gross evidence of aneurysm. 4. A few calcified pleural plaques bilaterally, suggesting sequela of prior asbestos exposure. 5. Partially seen hypodense nodules in the upper kidneys, most likely cysts. Further evaluation coul d include outpatient ultrasound as warranted. 6. Cystic appearing 2.8 cm nodule in the proximal pancreatic body, nonspecific. Likely consideration s include side branch IPM and. Further evaluation could include pancreatic MRI as an outpatient. 7. Incidental 1.4 cm hypodense nodule in the right hepatic lobe appears stable to marginally increas ed in size since 2013, highly likely benign. 8. Faint sludge and/or small calculi in the gallbladder.
[2023-08-20 15:14] LABS: Appearance,Urine Clear (Clear); Bilirubin,Urine Negative (Negative); Blood,Urine Moderate (Negative); Color,Urine Light Yellow; Glucose,Urine (UA) Negative (Negative); Ketones,Urine Negative (Negative); Leukocyte Esterase,Urine Negative (Negative); Nitrite,Urine Negative (Negative); PH, Urine 6.5 (5.0-8.0); Protein,Urine Negative (Negative); RBC,Urine 72 /hpf (0-5); Urobilinogen,Urine <2.0 mg/dL (<2.0); WBC,Urine <1 /hpf (0-5)
[2023-08-20 15:41] LABS: African American GFR (CKD) 51 (>60 ml/min/1.73 sqM); Anion Gap 9 mmol/L; Blood Urea Nitrogen 27 mg/dL (9-20); Carbon Dioxide 23 mmol/L (22-30); Chloride 109 mmol/L (98-107); Glucose 90 mg/dL (74-99); Non-African American GFR(CKD) 44 (>60 ml/min/1.73 sqM); Potassium 4.5 mmol/L (3.5-5.1); Sodium 141 mmol/L (137-145)
[2023-08-20 15:43] LABS: Calcium 8.5 mg/dL (8.4-10.2)
--- NOTE | 2023-08-20 15:55 | P.PN ---
Subjective Progress Note Date: 08/20/23 Hospital course: Patient is a very pleasant 73-year-old male with a past medical history of hypertension, chronic kidney disease, and BPH. Patient presented to the emergency department on 08/19/23 with a chief complaint of chest pain. He underwent full evaluation in the emergency department. Vital signs upon arrival show patient to have hypertension and blood pressure 174/82, heart rate 96, respiratory rate 18, temp 98.3F, and SpO2 of 98% on room air. EKG was completed showing normal sinus rhythm at 69 bpm with T-wave inversion in leads aVL, V1, and V2 with no noted ST abnormalities showing no signs of acute ischemia. Chest x-ray completed showing changes of COPD with flattening of the diaphragms and increased lucency of the lungs, but negative for acute cardiopulmonary process. Labs completed and reviewed. CBC and coagulation profile were unremarkable. BMP revealing elevated renal function with BUN of 33, creatinine 1.60, and GFR 42 unclear baseline creatinine levels as previous labs drawn 02/02/2018 revealed creatinine level of 1.40 and patient does have history of CKD unclear stage, so these results may indicate chronic stage III PCKD or an acute kidney injury on chronic kidney disease. Liver profile unremarkable. Troponin was negative at less than 0.012. Patient was admitted to our services with consultation to cardiology. Troponins trended overnight all negative at less than 0.0123 draws. Repeat morning EKG also completed and reviewed showing normal sinus rhythm at 73 bpm again with nonspecific T-wave inversion in leads aVL, V1, V2, and V3. Pt evaluated by cardiology and they are taking patient for cardiac cath this morning. Physical exam: Patient seen and fully evaluated at bedside this morning. Patient preparing to go down for cardiac cath. He reports severe chest pain has improved but continues to have just a subtle pressure across his chest. Patient currently denies having any headache, lightheadedness, dizziness, palpitations, shortness of breath, or experiencing any numbness/tingling/weakness/swelling in his extremities. Vital signs reviewed and stable. General: Nontoxic, no distress and appears stated age. Derm: Skin warm and dry, normal coloration for ethnicity. Head: Atraumatic, normocephalic and symmetric. Eyes: EOMs intact, no lid lag, and anicteric sclera Mouth: no lip lesions, mucus membranes moist Cardiovascular: regular rate and rhythm with normal S1S2, no murmur noted, positive posterior tibial pulses bilaterally, and cap refill < 2 seconds. Lungs: Respirations even, regular, and unlabored on room air. Lungs CTA bilaterally, no rhonchi, no rales, no wheezing, and no accessory muscle usage. Abdominal: soft, nontender to palpation, no guarding, no appreciable organomegaly Ext: ROM intact. No gross muscle atrophy, no edema, no contractures Neuro: Speech clear, face symmetrical and CN II-XII 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 with no noted focal neuro deficits Psych: Alert and oriented to person, place, time, and situation. Appropriate and pleasant affect. Assessment and Plan of Care: Chest pain secondary to Unstable angina Elevated renal function, acute kidney injury on chronic kidney disease vs w orsening chronic kidney disease Hypertension BPH -Cardiology following and treating patient for cardiac catheterization this morning.. -Recent remain on continuous Telemetry monitoring -Troponins trended overnight all negative at less than 0.0123 draws. -Repeat morning EKG also completed and reviewed showing normal sinus rhythm at 73 bpm again with nonspecific T-wave inversion in leads aVL, V1, V2, and V3. -Continue daily medication regimen with aspirin 81 mg daily, amlodipine 10 mg daily, and Flomax 0.4 mg daily. Patient was started on atorvastatin 80 mg nightly pending lipid profile results and further evaluation by cardiology. -Lipid profile pending -Echocardiogram to be completed. Data and imaging reviewed: -Troponins trended overnight all negative at less than 0.0123 draws. -Repeat morning EKG also completed and reviewed showing normal sinus rhythm at 73 bpm again with nonspecific T-wave inversion in leads aVL, V1, V2, and V3. -Vital signs reviewed. Blood pressure 94/56, heart rate 95, respiratory rate 16, temperature 97.6F, SpO2 99% on room air. CODE STATUS: Full code DVT prophylaxis: Lovenox Anticipated discharge date: Clinical course to determine Anticipated discharge place: Home Patient was seen independently by Nurse Pracitioner. This document was prepared using Sgnam dictation software. Please allow for errors in community outreach coordinator, while rare they do occur. Jad Kincaid NP rendered care for this patient independently, reviewed the findings and plan as documented in the note above. I did not physically speak with or examine the patient on this date. Objective - Vital Signs Vital signs: Vital Signs Temp 97.6 F 08/20/23 07:00 Pulse 95 08/20/23 07:00 Resp 16 08/20/23 07:00 BP 94/56 08/20/23 07:00 Pulse Ox 99 08/20/23 07:00 FiO2 Intake & Output 08/19/23 08/20/23 08/20/23 18:59 06:59 18:59 Weight 77.111 kg 77.111 kg Other: # Voids 1 - Labs CBC & Chem 7: 08/21/23 07:36 08/21/23 07:36 Labs: Abnormal Lab Results - Last 24 Hours (Table) 08/19/23 Range/Units 16:33 BUN 33 H (9-20) mg/dL Creatinine 1.60 H (0.66-1.25) mg/dL
--- NOTE | 2023-08-20 16:50 | US ---
EXAMINATION TYPE: Pre-Operative Non-Invasive Evaluation of the hand for Potential Radial Artery Linda , Measurements only DATE OF EXAM: 08/20/2023 2:35 PM CLINICAL INDICATION: Male, 73 years old with history of measurements only; Pre-OP CABG SIDE PERFORMED: Left TECHNIQUE: Radial artery is measured utilizing real time linear array sonography. Dominant hand: Left Duplex Findings: Radial Artery: Color flow seen Measurements in mm, transverse view: Left Radial: Proximal: 3.2 x 3.7 mm Mid: 2.7 x 2.8 mm Distal: 2.8 x 3.1 mm IMPRESSION: 1. Left radial artery measurements listed above. 2. Performing surgeon to determine viability as conduit.
--- NOTE | 2023-08-20 16:50 | US ---
EXAMINATION TYPE: US vein mapping BILAT DATE OF EXAM: 08/20/2023 2:35 PM COMPARISON: NONE CLINICAL INDICATION: Male, 73 years old with history of triple vessel workup; Pre-OP CABG SIDE PERFORMED: Bilateral TECHNIQUE: Lower extremity saphenous vein is examined and measured utilizing real time linear array sonography. DUPLEX FINDINGS: Greater Saphenous: Not visualized- pt states prior bilateral GSV stripping Lesser Saphenous: Color flow seen Measurements in mm: Right Greater Saphenous: Not visualized Right Lesser Saphenous: Knee: 4.4 x 5.1 mm Below Knee: 4.9 x 5.9 mm Mid Calf: 2.6 x 2.7 mm At Ankle: Too small to visualize Left Greater Saphenous: Not visualized Left Lesser Saphenous: Knee: 5.7 x 6.4 mm Below Knee: 5.1 x 5.3 mm Mid Calf: 5.3 x 5.2 mm At Ankle: Tortuous varicose veins visualized IMPRESSION: 1. Bilateral LSV measurements listed above. 2. Performing surgeon to determine viability as conduit.
[2023-08-20] MEDS: amLODIPine 10 MG TAB PO SCH (19:50)
[2023-08-20] MEDS: TAMSULOSIN 0.4 MG CAP.ER.24H PO SCH (19:50)
[2023-08-20] MEDS: ATORVASTATIN 80 MG TAB PO SCH (19:51)
[2023-08-20] MEDS: MUPIROCIN 2% OINT 22 GM TUBE NASAL SCH (21:27)
[2023-08-21] MEDS: NITROGLYCERIN OINT 1 INCH/GM PACKET TOPICAL SCH ×3 (00:05→15:16)
[2023-08-21 00:09] LABS: Hepatitis A Antibody IgM Nonreactive; Hepatitis B Core IgM Nonreactive; Hepatitis B Surface Antigen Nonreactive; Hepatitis C IgG Antibody Nonreactive
[2023-08-21] MEDS: SODIUM CHLORIDE 0.9% 1,000 ML IV SCH ×3 (04:28→15:16)
--- NOTE | 2023-08-21 04:56 | P.CNPUL ---
History of Present Illness Consult date: 08/21/23 Requesting physician: Steph Tomlinson Reason for consult: other (Pulmonary clearance in preparation for open heart) Chief complaint: Chest pain History of present illness: I am seeing this patient in new consultation today 08/21/2023 in regard to pulmonary clearance for a tentative surgical myocardial revascularization. Patient is a 73-year-old white male with past medical history significant for hypertension, hyperlipidemia, TIA, chronic kidney disease stage III, and recent ex-smoker of about 3 weeks ago. He does have a significant smoking history of over 50 pack-years prior to quiting. Denies being diagnosed with any pulmonary diseases. Patient's primary care provider is a Leti Bledsoe from the [facility] in [place]. Patient presented to [facility] 2 days ago complaining of intermittent chest pain over the last 3-4 months. The pain was described as substernal radiating to his left arm. Patient states that he also had associated exertional dyspnea. Symptoms would usually subside with rest, but occasionally will occur/persist at rest. His friend, finally convinced him to come to the emergency room 2 days ago. EKG done on arrival showed T-wave inversion in leads aVL, V1 through V3. Troponins non-elevated. Chest x-ray demonstrated COPD like changes without any acute cardiopulmonary process. Patient did undergo heart catheterization yesterday which showed triple-vessel coronary artery disease with proximal LAD stenosis 90%, left circumflex stenosis 90%, and right coronary artery 90% stenosis. Patient is currently undergoing an extensive preoperative workup for a tentative cardiothoracic surgery. A pulmonary consultation was placed for this reason. Bedside spirometry was obtained showing an FEV1 2.07 L or 65% of predicted. Based on this, there is no increased operative risk based on his pulmonary status. The CT of the chest without contrast demonstrated mild to moderate atherosclerosis, a few classified pleural plaques bilaterally suggesting prior asbestosis exposure, hypodense nodules partially seen in the bilateral upper kidneys most likely cysts, a cystic appearing nodule measuring 2.8 cm within the pancreatic body, a 1.4 cm hypodense nodule in the right hepatic lobe appearing stable. patient does admit prior exposure, sleeping next to asbestos wrapped pipes while in the [place]. Patient is currently sitting in the bed, on room air, in no acute distress. He denies any significant chest pain at this time. He does have nitro paste on. He denies any heart palpitations, lightheadedness, syncope. Denies any lower extremity edema. Denies any shortness of breath. Most recent CBC from 2 days ago was unremarkable. BMP from yesterday shows sodium 141, potassium 4.5, chloride 100, serum bicarbonate 23, BUN 27, creatinine 1.53, glucose 90. Vital signs are stable. We will continue to follow the patient postoperatively in the intensive care unit and during his liberation from the mechanical ventilator. Review of Systems REVIEW OF SYSTEMS: CONSTITUTIONAL: Denies any recent significant weight loss or weight gain. Denies fevers. EYES: Denies change in vision. EARS, NOSE, MOUTH, THROAT: Denies headaches, denies sore throat. CARDIOVASCULAR: Denies palpitations, lightheadedness, syncopal episodes lower extremity swelling, orthopnea, PND. Admits intermittent chest pain that radiates down left arm as described in HPI. No current chest pain. RESPIRATORY: Denies any current shortness of breath, cough, congestion or hemoptysis. GASTROINTESTINAL: Denies change in appetite, abdominal pain, nausea and vomiting, or diarrhea GENITOURINARY: Denies hematuria, denies infections. MUSKULOSKELETAL: Denies pain, denies swelling. INTEGUMENTARY: Denies rash, denies eczema. NEUROLOGICAL: Denies recent memory loss, no recent seizure activity. PSYCHIATRIC: Denies anxiety, denies depression. HEMATOLOGIC/LYMPHATIC: Denies anemia, denies enlarged lymph node Past Medical History Past Medical History: Coronary Artery Disease (CAD), Chest Pain / Angina, CVA/TIA, Hyperlipidemia, Hypertension, Renal Disease Additional Past Medical History / Comment(s): TIA-no residual approx 2013 History of Any Multi-Drug Resistant Organisms: None Reported Past Surgical History: Back Surgery Past Anesthesia/Blood Transfusion Reactions: No Reported Reaction Past Psychological History: No Psychological Hx Reported Smoking Status: Former smoker Past Alcohol Use History: Occasional Additional Past Alcohol Use History / Comment(s): started smoking at age 18,<1ppd Past Drug Use History: None Reported - Past Family History Mother Family Medical History: No Reported History Medications and Allergies Home Medications Medication Instructions Recorded Confirmed Type Aspirin 81 mg PO MOWEFR 08/06/14 08/19/23 History Tamsulosin HCl [Flomax] 0.4 mg PO HS 08/19/23 08/19/23 History amLODIPine [Norvasc] 10 mg PO HS 08/19/23 08/19/23 History Allergies Allergy/AdvReac Type Severity Reaction Status Date / Time No Known Allergies Allergy Verified 08/19/23 19:22 Physical Exam Vitals: Vital Signs Temp Pulse Pulse Resp BP BP Pulse Ox 08/21/23 00:00 79 18 112/52 97 08/20/23 20:00 97.8 F 82 18 111/56 97 08/20/23 15:00 98 F 84 17 120/70 97 08/20/23 12:37 75 16 135/68 96 08/20/23 12:22 71 16 124/69 96 08/20/23 12:05 70 16 125/68 96 08/20/23 11:52 69 17 121/57 99 08/20/23 07:00 97.6 F 95 16 94/56 99 Intake and Output 08/20/23 08/20/23 08/21/23 14:59 22:59 06:59 Intake Total 175 240 Output Total 200 Balance -25 240 Intake: IV 175 Oral 240 Output: Urine 200 Other: # Voids 1 GENERAL EXAM: Alert, 73-year-old white male , comfortable in no apparent distress. HEAD: Normocephalic and atraumatic EYES: Normal reaction of pupils, equal size. NOSE: Clear with pink turbinates. THROAT: No erythema or exudates. NECK: No masses, no JVD. CHEST: No chest wall deformity. LUNGS: Equal air entry with no crackles, wheeze, rhonchi or dullness. On room air. No conversational dyspnea or accessory muscle use.. CVS: S1 and S2 normal with no audible murmur, regular rhythm. No extra heart sounds ABDOMEN: No hepatosplenomegaly, active bowel sounds, no guarding or rigidity. SPINE: No scoliosis or deformity SKIN: No rashes CENTRAL NERVOUS SYSTEM: No focal deficits, tone is normal in all 4 extremities. EXTREMITIES: There is no peripheral edema, clubbing, or cyanosis. Peripheral pulses are intact. Results - Laboratory Findings CBC and BMP: 08/21/23 07:36 08/21/23 07:36 PT/INR, D-dimer PT 10.2 sec (10.0-12.5) 08/19/23 16:33 INR 0.9 (<1.2) 08/19/23 16:33 Abnormal lab findings: Abnormal Labs 08/19/23 08/19/23 08/20/23 16:33 16:33 14:02 APTT Chloride BUN 33 H Creatinine 1.60 H Triglycerides 185.00 H Cholesterol 215.00 H LDL Cholesterol, Calc 143.3 H HDL Cholesterol 34.70 L Ur Specific [place] 1.050 H Urine Blood Moderate H Urine RBC 72 H Crossmatch 08/20/23 08/20/23 08/20/23 14:54 14:54 14:59 APTT 37.3 H Chloride 109 H BUN 27 H Creatinine 1.53 H Triglycerides Cholesterol LDL Cholesterol, Calc HDL Cholesterol Ur Specific [place] Urine Blood Urine RBC Crossmatch See Detail - Diagnostic Findings Chest x-ray: image reviewed CT scan - chest: image reviewed Assessment and Plan Assessment: Triple-vessel coronary artery disease, currently undergoing preoperative workup for open-heart/CABG Unstable angina, secondary to above Benign essential hypertension Hyperlipidemia History of TIA Bilateral carotid artery stenosis, with greater than 70% stenosis bilaterally per carotid duplex ultrasound Chronic kidney disease stage III Significant history of tobacco dependence, over 50 pack years History of asbestos exposure, with pleural plaquing noted on chest CT Benign prosthetic hyperplasia Plan: Patient's medications, labs, imaging reviewed Patient has tentative plan for open-heart/CABG, and is currently undergoing preoperative workup Based on the patient's limited bedside spirometry, the patient is at no increased pulmonary risk for surgery Encourage incentive spirometer Patient is being monitored on the cardiac stepdown unit. We will continue to follow, and assist in the patient's liberation from the mechanical ventilator postoperatively I have personally seen and examined the patient, performed the documentation and the assessment and plan as written. Number of minutes spent on the visit:20 r visited joint evaluation that was done along with the nurse practitioner. His evaluation was done in more than 30 minutes. The patient has symptomatic, less of coronary artery disease and the patient has exertional dyspnea and angina. Currently free of any chest pain. Clinically and hemodynamically stable. The patient is being evaluated for open-heart coronary artery bypass surgery. He is using the senna spirometer. The patient is an ex-smoker. The CAT scan of the chest also showed some few calcified pleural plaques suggestive of previous asbestos exposure. No other significant abnormalities other than some mild COPD. Awaiting a bedside spirometry. We'll continue to follow. Time with Patient: Greater than 30
[2023-08-21 08:19] LABS: HCT 36.7 % (39.0-53.0); HGB 12.2 gm/dL (13.0-17.5); MCH 32.7 pg (25.0-35.0); MCHC 33.2 g/dL (31.0-37.0); MCV 98.5 fL (80.0-100.0); Mean Platelet Volume 7.5; Platelet Count 192 k/uL (150-450); RBC 3.73 m/uL (4.30-5.90); RDW 12.5 % (11.5-15.5); WBC 7.7 k/uL (3.8-10.6)
--- NOTE | 2023-08-21 08:34 | P.PN ---
Subjective Progress Note Date: 08/21/23 Principal diagnosis: Triple-vessel coronary artery disease, unstable angina. History of hypertension, hyperlipidemia, chronic kidney disease stage III, previous tobacco dependence with recent cessation, mild COPD, TIA in 2014 with no residual, BPH, bilateral vein stripping, bilateral carotid stenosis The patient was seen and examined this morning with Dr. Jacobs sitting up in bed in no acute distress. Denies any chest pain or shortness of breath currently. Remains in sinus rhythm, hemodynamically stable. Dr. Jacobs did discuss our recommendation for open heart surgery with the patient despite his increased risk for stroke as well as renal failure. The patient does understand the risks. In addition the patient expressed concerns about discharge as he lives alone without any help, we discussed rehab at discharge which the patient is agreeable to. Timing for surgery pending Objective - Vital Signs Vital signs: Vital Signs Temp 97.8 F 08/20/23 20:00 Pulse 78 08/21/23 04:00 Resp 18 08/21/23 04:00 BP 107/59 08/21/23 04:00 Pulse Ox 98 08/21/23 04:00 FiO2 Intake & Output 08/20/23 08/21/23 08/21/23 18:59 06:59 18:59 Intake Total 415 Output Total 200 Balance 215 Intake: IV 175 Oral 240 Output: Urine 200 Other: # Voids 1 - Exam CONSTITUTIONAL: Appears comfortable, cooperative, no acute distress RESPIRATORY: Lungs sounds diminished bilaterally. Respirations even, nonlabored. Currently on room air with oxygen saturation 98%. Able to achieve 2500 mL on incentive spirometry. Strong cough. CARDIOVASCULAR: S1, S2 present. Regular rate and rhythm, sinus rhythm on telemetry. Palpable peripheral pulses bilaterally. No edema present. No calf pain or tenderness noted GASTROINTESTINAL: Abdomen soft, nontender, nondistended. Active bowel sounds present 4 quadrants. Tolerating diet GENITOURINARY: Continues to void INTEGUMENTARY: Skin is warm and dry NEUROLOGIC: Cranial nerves II through XII intact MUSKULOSKELETAL: Able to move all extremities, strength equal bilaterally, gait normal PSYCHIATRIC: Alert and oriented to person place and time, appropriate affect, intact judgment and insight - Labs CBC & Chem 7: 08/21/23 07:36 08/20/23 14:54 Labs: Abnormal Lab Results - Last 24 Hours (Table) 08/19/23 08/20/23 08/20/23 Range/Units 16:33 14:02 14:54 RBC (4.30-5.90) m/uL Hgb (13.0-17.5) gm/dL Hct (39.0-53.0) % APTT (22.0-30.0) sec Chloride 109 H (98-107) mmol/L BUN 27 H (9-20) mg/dL Creatinine 1.53 H (0.66-1.25) mg/dL Triglycerides 185.00 H (0.00-149.00) mg/dL Cholesterol 215.00 H (0.00-200.00) mg/dL LDL Cholesterol, Calc 143.3 H (0.0-131.0) mg/dL HDL Cholesterol 34.70 L (40.00-60.00) mg/dL Ur Specific [place] 1.050 H (1.001-1.035) Urine Blood Moderate H (Negative) Urine RBC 72 H (0-5) /hpf Crossmatch 08/20/23 08/20/23 08/21/23 Range/Units 14:54 14:59 07:36 RBC 3.73 L (4.30-5.90) m/uL Hgb 12.2 L (13.0-17.5) gm/dL Hct 36.7 L (39.0-53.0) % APTT 37.3 H (22.0-30.0) sec Chloride (98-107) mmol/L BUN (9-20) mg/dL Creatinine (0.66-1.25) mg/dL Triglycerides (0.00-149.00) mg/dL Cholesterol (0.00-200.00) mg/dL LDL Cholesterol, Calc (0.0-131.0) mg/dL HDL Cholesterol (40.00-60.00) mg/dL Ur Specific [place] (1.001-1.035) Urine Blood (Negative) Urine RBC (0-5) /hpf Crossmatch See Detail - Imaging and Cardiology CT scan - chest: report reviewed, image reviewed Heart catheterization and echocardiogram films reviewed with Dr. Jacobs, carotid Dopplers/vein mapping/left radial artery mapping reviewed with Dr. Jacobs Assessment and Plan Assessment: Triple-vessel coronary artery disease, unstable angina Hypertension Hyperlipidemia, cholesterol 215, LDL 143, triglycerides 185 Chronic kidney disease stage III Previous tobacco dependence with recent cessation Mild COPD, preoperative FEV1 of 65% of predicted TIA in 2013 with no residual BPH on Flomax Bilateral vein stripping in the Bilateral carotid stenosis by carotid Doppler, greater than 70% on the left, 50- 69% on the right based on velocities Plan: Continue to maximize medical therapy with aspirin, statin, beta maria luisa Increase activity, ambulate as tolerated We'll obtain blood pressures on bilateral arms as well as orthostatic blood pressures Encourage continued smoking cessation Our recommendation is for surgical myocardial revascularization, timing to be determined STS risk score calculated and discussed with the patient as well as the in creased risk of stroke and renal failure Medical management of other comorbidities per internal medicine, cardiology More recommendations to follow
[2023-08-21 08:37] LABS: ALT 15 U/L (4-49); AST 21 U/L (17-59); African American GFR (CKD) 56 (>60 ml/min/1.73 sqM); Alkaline Phosphatase 80 U/L (38-126); Anion Gap 8 mmol/L; Blood Urea Nitrogen 22 mg/dL (9-20); Calcium 8.5 mg/dL (8.4-10.2); Carbon Dioxide 22 mmol/L (22-30); Chloride 111 mmol/L (98-107); Glucose 109 mg/dL (74-99); Magnesium 1.9 mg/dL (1.6-2.3); Non-African American GFR(CKD) 49 (>60 ml/min/1.73 sqM); Potassium 4.4 mmol/L (3.5-5.1); Sodium 141 mmol/L (137-145); Total Bilirubin 0.6 mg/dL (0.2-1.3); Total Protein 5.7 g/dL (6.3-8.2)
[2023-08-21] MEDS: ENOXAPARIN 40 MG/0.4 ML SYRINGE SQ SCH (08:55)
[2023-08-21] MEDS: ASPIRIN 81 MG PO SCH (08:55)
[2023-08-21] MEDS: METOPROLOL SUCCINATE (ER) 25 MG TAB.ER.24H PO SCH (08:56)
[2023-08-21] MEDS: MUPIROCIN 2% OINT 22 GM TUBE NASAL SCH ×2 (08:56→20:30)
[2023-08-21] MEDS ORDERED: ASPIRIN 81 MG PO SCH (09:00)
--- NOTE | 2023-08-21 09:54 | CA ---
Transthoracic Echo Report Name: Judah aClvo Age: 73 Gender: M : 1950 Exam Date: 08/20/2023 13:30 Exam Location: [facility] Ht (in): 71 Wt (lb): 170 Ordering Physician: Steph Tomlinson Attending/Referring Phys: [id number], [facility] Analyst Jeanine Chase RDCS Procedure CPT: Indications: triple vessel Cardiac Hx: Technical Quality: Good Contrast 1: Total Dose (mL): Contrast 2: Total Dose (mL): MEASUREMENTS (Male / Female) Normal Values 2D ECHO LV Diastolic Diameter PLAX 4.9 cm 4.2 - 5.9 / 3.9 - 5.3 cm LV Systolic Diameter PLAX 3.2 cm IVS Diastolic Thickness 1.2 cm 0.6 - 1.0 / 0.6 - 0.9 cm LVPW Diastolic Thickness 1.3 cm 0.6 - 1.0 / 0.6 - 0.9 cm LV Relative Wall Thickness 0.5 RV Internal Dim ED PLAX 3.1 cm LA Systolic Diameter LX 3.6 cm 3.0 - 4.0 / 2.7 - 3.8 cm LV Diastolic Volume MOD 4C 77.2 cm??? LV Systolic Volume MOD 4C 35.5 cm??? LV Ejection Fraction MOD 4C 53.9 % LV Cardiac Index MOD 4C 1627.6 cm???/min???m??? LV Diastolic Length 4C 8.2 cm LV Systolic Length 4C 6.9 cm LV Diastolic Volume MOD 2C 46.9 cm??? LV Systolic Volume MOD 2C 17.4 cm??? LV Ejection Fraction MOD 2C 62.9 % LV Cardiac Index MOD 2C 1152.0 cm???/min???m??? LV Diastolic Length 2C 7.7 cm LV Systolic Length 2C 6.6 cm LA Volume 42.1 cm??? 18 - 58 / 22 - 52 cm??? LA Volume Index 21.4 cm???/m??? 16 - 28 cm???/m??? M-MODE Aortic Root Diameter MM 3.9 cm MV E Point Septal Separation 0.4 cm AV Cusp Separation MM 2.0 cm DOPPLER AV Peak Velocity 127.1 cm/s AV Peak Gradient 6.5 mmHg MV Area PHT 3.7 cm??? Mitral E Point Velocity 89.0 cm/s Mitral A Point Velocity 75.0 cm/s Mitral E to A Ratio 1.2 MV Deceleration Time 206.6 ms FINDINGS Left Ventricle Left ventricular ejection fraction is estimated at 55-60 %. Left ventricular cavity size normal. Mildly increased septal wall thickness. No obvious regional wall motion abnormalities. Right Ventricle Normal right ventricular size. Unable to estimate the right ventricular systolic pressure. Right Atrium Normal right atrial size. Left Atrium Normal left atrial size. Mitral Valve Structurally normal mitral valve. No mitral stenosis, regurgitation or prolapse. Aortic Valve Trileaflet aortic valve. No aortic valve stenosis or regurgitation. Tricuspid Valve Structurally normal tricuspid valve. No tricuspid regurgitation. Pulmonic Valve Structurally normal pulmonic valve. No pulmonic regurgitation. Pericardium Anterior fat pad noted cannot exclude small pericardial effusion Aorta Mild aortic dilatation at the level of the sinuses of valsalva 39 mm CONCLUSIONS Normal LV size and systolic function. No significant abnormality on the Doppler exam. Prominent aortic root. Small pericardial effusion or a fat pad. Previewed by: Dr. Juliana Vega MD (Electronically Signed) Final Date: 21 August 2023 09:53
--- NOTE | 2023-08-21 11:12 | P.PN ---
Subjective HISTORY OF PRESENT ILLNESS: This pleasant 73-year-old gentleman with a known history of hypertension, BPH, chronic kidney disease, and a former smoker, quit 3 weeks ago presented to the emergency room with chest discomfort. Patient was recently seen in office by Dr. Fernandez. Patient reports his chest pain has been intermittent over the last 2 weeks pain and some epigastric, substernal area radiating into the left arm. and only lasts for a few minutes. His EKG shows sinus rhythm with an inverted T in the inferior leads. Patient underwent a stress test 5 years ago and was told everything was normal at that time. Troponin negative 3, cholesterol is elevated at 2:15, LDL is 143, triglycerides 185, HDL 34. Kidney function is elevated, BUN is 33 creatinine is 1.6. Patient has an outpatient stress test scheduled. However due to ongoing symptoms suggestive of unstable angina, labs showing hyperlipidemia, and history of hypertension and recent smoker. patient will undergo a cardiac cath today. Will hydrate patient with a 250 mL bolus, start fluids at 100 mL per hour. Patient is agreeable to the plan. 08/21/2023 Patient examined this morning at the bedside. Patient denies any further episodes of chest pain or pressure. He currently denies shortness of breath. He does report some occasional dizziness with ambulation. Vital signs are stable. Telemetry reveals sinus mechanism. PHYSICAL EXAM: VITAL SIGNS: Reviewed. GENERAL: Well-developed in no acute distress. NECK: Supple. No JVD or thyromegaly LUNGS: Respirations even and unlabored. Lungs essentially clear to auscultation bilaterally. HEART: Regular rate and rhythm. S1 and S2 heard. EXTREMITIES: Normal range of motion. No clubbing or cyanosis. Peripheral pulses intact. No lower extremity edema ASSESSMENT: Unstable angina, status post cardiac catheterization revealing triple vessel coronary artery disease Hypertension Hyperlipidemia Chronic kidney disease COPD Former nicotine dependence Bilateral carotid stenosis PLAN: Continue current cardiac medications Continue nitro paste CT surgery following. Plan for CABG this admission. Timing to be determined Further recommendations pending patient's course Nurse practitioner note has been reviewed by physician. Signing provider agrees with the documented findings, assessment, and plan of care. Objective - Vital Signs Vital signs: Vital Signs Temp 97.4 F L 08/21/23 08:51 Pulse 74 08/21/23 11:03 Resp 18 08/21/23 11:03 BP 112/67 08/21/23 11:03 Pulse Ox 97 08/21/23 11:03 FiO2 Intake & Output 08/20/23 08/21/23 08/21/23 18:59 06:59 18:59 Intake Total 415 110 Output Total 200 Balance 215 110 Intake: IV 175 Oral 240 110 Output: Urine 200 Other: # Voids 1 - Labs CBC & Chem 7: 08/21/23 07:36 08/21/23 07:36 Labs: Abnormal Lab Results - Last 24 Hours (Table) 08/20/23 08/20/23 08/20/23 Range/Units 14:02 14:54 14:54 RBC (4.30-5.90) m/uL Hgb (13.0-17.5) gm/dL Hct (39.0-53.0) % APTT 37.3 H (22.0-30.0) sec Chloride 109 H (98-107) mmol/L BUN 27 H (9-20) mg/dL Creatinine 1.53 H (0.66-1.25) mg/dL Glucose (74-99) mg/dL Total Protein (6.3-8.2) g/dL Albumin (3.5-5.0) g/dL Ur Specific [place] 1.050 H (1.001-1.035) Urine Blood Moderate H (Negative) Urine RBC 72 H (0-5) /hpf Crossmatch 08/20/23 08/21/23 08/21/23 Range/Units 14:59 07:36 07:36 RBC 3.73 L (4.30-5.90) m/uL Hgb 12.2 L (13.0-17.5) gm/dL Hct 36.7 L (39.0-53.0) % APTT (22.0-30.0) sec Chloride 111 H (98-107) mmol/L BUN 22 H (9-20) mg/dL Creatinine 1.42 H (0.66-1.25) mg/dL Glucose 109 H (74-99) mg/dL Total Protein 5.7 L (6.3-8.2) g/dL Albumin 3.0 L (3.5-5.0) g/dL Ur Specific [place] (1.001-1.035) Urine Blood (Negative) Urine RBC (0-5) /hpf Crossmatch See Detail
--- NOTE | 2023-08-21 12:33 | US ---
EXAMINATION TYPE: Pre-Operative Non-Invasive Evaluation of the hand for Potential Radial Artery Linda mercedes, Measurements only DATE OF EXAM: 08/21/2023 11:17 AM CLINICAL INDICATION: Male, 73 years old with history of preop cabg-conduit; SIDE PERFORMED: Right TECHNIQUE: Radial artery is measured utilizing real time linear array sonography. Duplex Findings: Radial Artery: Color flow seen Measurements in mm, transverse view: Right Radial Proximal: 38 x 33 mm Mid: 33 x 29 mm Distal: 32 x 27 mm IMPRESSION: . 1. Performing surgeon to determine viability as conduit.
--- NOTE | 2023-08-21 13:59 | P.PN ---
Subjective Progress Note Date: 08/21/23 Hospital course: Patient is a very pleasant 73-year-old male with a past medical history of hypertension, chronic kidney disease, and BPH. Patient presented to the emergency department on 08/19/23 with a chief complaint of chest pain. He underwent full evaluation in the emergency department. Vital signs upon arrival show patient to have hypertension and blood pressure 174/82, heart rate 96, respiratory rate 18, temp 98.3F, and SpO2 of 98% on room air. EKG was completed showing normal sinus rhythm at 69 bpm with T-wave inversion in leads aVL, V1, and V2 with no noted ST abnormalities showing no signs of acute ischemia. Chest x-ray completed showing changes of COPD with flattening of the diaphragms and increased lucency of the lungs, but negative for acute cardiopulmonary process. Labs completed and reviewed. CBC and coagulation profile were unremarkable. BMP revealing elevated renal function with BUN of 33, creatinine 1.60, and GFR 42 unclear baseline creatinine levels as previous labs drawn 02/02/2018 revealed creatinine level of 1.40 and patient does have history of CKD unclear stage, so these results may indicate chronic stage III PCKD or an acute kidney injury on chronic kidney disease. Liver profile unremarkable. Troponin was negative at less than 0.012. Patient was admitted to our services with consultation to cardiology. Troponins trended overnight all negative at less than 0.0123 draws. Repeat morning EKG also completed and reviewed showing normal sinus rhythm at 73 bpm again with nonspecific T-wave inversion in leads aVL, V1, V2, and V3. Pt evaluated by cardiology and was taken for a cardiac cath on 08/20/23. Cardiac cath revealed significant multivessel coronary artery disease with findings of right coronary artery stenosis up to 90%, left main coronary artery calcification but not significant stenosis, LAD l bibi segment of stenosis up to 90%, and obtuse marginal also with area of 90% focal stenosis.. Cardiology recommended evaluation by cardiothoracic surgery for possible CABG. Carotid Dopplers were completed showing greater than 70% stenosis of bilateral carotid bifurcations. Cardiothoracic surgery evaluated and reviewed perioperative testing, calculated STS risk score and further discussed with patient the risks including increased risk of stroke and renal failure, cardiothoracic surgery recommending patient proceed with cardiac revascularization surgery and timing for surgery is pending. Physical exam: Patient seen and fully evaluated at bedside this morning. Patient reports the last 24 hours has been a lot to take in, but that he is managing well and states that his family is coming up this afternoon to see him and he definitely wants to proceed with the recommended cardiac bypass for revascularization. Patient currently denies having any complaints at this time. Reports intermittent heavy sensation to his chest but states currently resolved and denies having any shortness of breath, headache, lightheadedness, palpitations, or experiencing any numbness/tingling/weakness in his extremities. Vital signs reviewed and stable. General: Nontoxic, no distress and appears stated age. Derm: Skin warm and dry, normal coloration for ethnicity. Head: Atraumatic, normocephalic and symmetric. Eyes: EOMs intact, no lid lag, and anicteric sclera Mouth: no lip lesions, mucus membranes moist Cardiovascular: regular rate and rhythm with normal S1S2, no murmur noted, positive posterior tibial pulses bilaterally, and cap refill < 2 seconds. Lungs: Respirations even, regular, and unlabored on room air. Lungs CTA bilaterally, no rhonchi, no rales, no wheezing, and no accessory muscle usage. Abdominal: soft, nontender to palpation, no guarding, no appreciable organomegaly Ext: ROM intact. No gross muscle atrophy, no edema, no contractures Neuro: Speech clear, face symmetrical and CN II-XII 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 with no noted focal neuro deficits Psych: Alert and oriented to person, place, time, and situation. Appropriate and pleasant affect. Assessment and Plan of Care: Unstable angina with severe multivessel coronary artery disease Elevated renal function, acute kidney injury on chronic kidney disease vs worsening chronic kidney disease Hypertension -Cardiology following and took patient for a cardiac cath on 08/20/23, finding triple-vessel coronary artery disease recommending evaluation by cardiothoracic surgery for possible CABG. -Cardiac cath revealed significant multivessel coronary artery disease with findings of right coronary artery stenosis up to 90%, left main coronary artery calcification but not significant stenosis, LAD long segment of stenosis up to 90%, and obtuse marginal also with area of 90% focal stenosis.. -Cardiothoracic surgery evaluated in reviewing perioperative testing, once completed to calculate an STS risk score and further discussed with patient and he will be a candidate for cardiac revascularization surgery. -Carotid Dopplers were completed showing greater than 70% stenosis of bilateral carotid bifurcations. -Patient to remain on continuous Telemetry monitoring -Continue daily medication regimen with aspirin 81 mg daily, amlodipine 10 mg daily, metoprolol 25 mg daily, and atorvastatin 80 mg nightly. -Echocardiogram to be completed. BPH -Continue daily medication regimen with Flomax 0.4 mg nightly. Incidental findings on imaging... Renal cysts Pancreatic cyst Liver nodule CT completed during perioperative testing for potential CABG. CT revealed partially seen hypodense nodules in the upper kidneys most likely cysts recommend further evaluation via outpatient ultrasound, cystic-appearing 2.8 cm nodule in the proximal pancreatic body, recommending pancreatic MRI as an ou tpatient, and incidental 1.4 cm hypodense nodule in the right hepatic lobe reported to appear stable to marginally increased in size since 2014 likely benign. For renal cysts patient will need to follow up outpatient with PCP for outpatient renal ultrasound for further evaluation. For findings of pancreatic cyst, again patient will need to follow up outpatient with PCP for scheduling of pancreatic MRI. Per CT report liver nodule appears stable and is likely benign, however recommend continued long-term outpatient monitoring/management by PCP with repeat imaging Data and imaging reviewed: -Cardiac cath revealed significant multivessel coronary artery disease with findings of right coronary artery stenosis up to 90%, left main coronary artery calcification but not significant stenosis, LAD long segment of stenosis up to 90%, and obtuse marginal also with area of 90% focal stenosis.. -Carotid Dopplers were completed showing greater than 70% stenosis of bilateral carotid bifurcations. -Vital signs reviewed. Blood pressure 124/67, heart rate 79, respiratory rate 18, temp 97.4F, and SpO2 is 96% on room air. -Morning labs completed and reviewed. CBC showing normocytic anemia with hemoglobin of 12.2. BMP showing slightly improved renal function with BUN of 22, creatinine of 1.42, and GFR 49. Liver profile unremarkable and magnesium are also normal findings at 1.9. CODE STATUS: Full code DVT prophylaxis: Lovenox Anticipated discharge date: Clinical course to determine Anticipated discharge place: Home Patient was seen independently by Nurse Pracitioner. This document was prepared using [employer] dictation software. Please allow for errors in nutrition and dietetics instructor, while rare they do occur. Jad Kincaid NP rendered care for this patient independently, reviewed the findings and plan as documented in the note above. I did not physically speak with or examine the patient on this date. Objective - Vital Signs Vital signs: Vital Signs Temp 97.8 F 08/20/23 20:00 Pulse 78 11/13/23 04:00 Resp 18 08/21/23 04:00 BP 107/59 08/21/23 04:00 Pulse Ox 98 08/21/23 04:00 FiO2 Intake & Output 08/20/23 08/21/23 08/21/23 18:59 06:59 18:59 Intake Total 415 Output Total 200 Balance 215 Intake: IV 175 Oral 240 Output: Urine 200 Other: # Voids 1 - Labs CBC & Chem 7: 08/21/23 07:36 08/21/23 07:36 Labs: Abnormal Lab Results - Last 24 Hours (Table) 08/19/23 08/20/23 08/20/23 Range/Units 16:33 14:02 14:54 APTT (22.0-30.0) sec Chloride 109 H (98-107) mmol/L BUN 27 H (9-20) mg/dL Creatinine 1.53 H (0.66-1.25) mg/dL Triglycerides 185.00 H (0.00-149.00) mg/dL Cholesterol 215.00 H (0.00-200.00) mg/dL LDL Cholesterol, Calc 143.3 H (0.0-131.0) mg/dL HDL Cholesterol 34.70 L (40.00-60.00) mg/dL Ur Specific [place] 1.050 H (1.001-1.035) Urine Blood Moderate H (Negative) Urine RBC 72 H (0-5) /hpf Crossmatch 08/20/23 08/20/23 Range/Units 14:54 14:59 APTT 37.3 H (22.0-30.0) sec Chloride (98-107) mmol/L BUN (9-20) mg/dL Creatinine (0.66-1.25) mg/dL Triglycerides (0.00-149.00) mg/dL Cholesterol (0.00-200.00) mg/dL LDL Cholesterol, Calc (0.0-131.0) mg/dL HDL Cholesterol (40.00-60.00) mg/dL Ur Specific [place] (1.001-1.035) Urine Blood (Negative) Urine RBC (0-5) /hpf Crossmatch See Detail
--- NOTE | 2023-08-21 17:52 | CT ---
EXAMINATION TYPE: CT angio head neck CT DLP: 1634.9 mGycm, Automated exposure control for dose reduction was used. DATE OF EXAM: 08/21/2023 5:25 PM COMPARISON: Ultrasound 08/20/2023.. CLINICAL INDICATION:Male, 73 years old with history of bilateral carotid stenosis on doppler; PHH, Bi lateral carotid stenosis on doppler. TECHNIQUE: Axially acquired helical CT angiogram of the head and neck was obtained with contrast. Axi al images are supplemented with 3D reconstructions [facility]ET criteria used. Contrast used:65 mL of Isovue 370 without and with IV Contrast, Oral contrast used: None. FINDINGS: CTA HEAD: No evidence of acute intracranial hemorrhage, mass effect, or midline shift. The ventricles, sulci, a nd cisterns are unremarkable. Prior injury to the left nasal ganglia. The visualized portions of the internal carotid arteries, middle cerebral arteries, anterior cerebral arteries, and posterior cerebral arteries are patent. Hypoplastic right A1 segment. The basilar and vertebral arteries are patent. CTA NECK: Right Carotid System: Common carotid artery is patent. There is at least 25% stenosis secondary to and 25% stenosis at the carotid bifurcation and 50% stenosis at the proximal internal carotid artery. Noncalcified plaque. Th e carotid bifurcation has up to 25% stenosis at the bifurcation and 50% stenosis in the proximal port ion of the internal carotid artery secondary to noncalcified plaque. Remainder of the internal caroti d arteries patent. Calcifications of the carotid siphon with at least 25% stenosis. Left Carotid System: Severe atherosclerosis of the arterial vasculature with at least 25-50% narrowin g of the left common carotid artery near its origin. There is at least 50% stenosis at the carotid bi furcation. The internal carotid arteries patent. There is carotid siphon atherosclerosis with at leas t 25% narrowing. Vertebral arteries are patent without evidence hemodynamically significant stenosis. There is a three-vessel aortic arch. The origins of the great vessels are patent. No evidence of hemo dynamically significant stenosis. Upper thorax: Mild centrilobular emphysema changes in the lung apices. Right upper lung posterior to millimeter pulmonary nodule. IMPRESSION: 1. Left carotid system atherosclerosis with at least 25-50% stenosis of the left common carotid christina ry near its origin, 50% stenosis at the left common carotid artery bifurcation and 25% stenosis of th e carotid siphon on the left. 2. Right carotid system atherosclerosis with at least 25% stenosis of the common carotid artery and 50% stenosis of the proximal portion of the internal carotid artery secondary to noncalcified plaque. 3. No evidence for high-grade stenosis intracranially or aneurysm. 4. Mild emphysema changes.
[2023-08-21] MEDS: amLODIPine 10 MG TAB PO SCH (20:30)
[2023-08-21] MEDS: ATORVASTATIN 80 MG TAB PO SCH (20:30)
[2023-08-21] MEDS: TAMSULOSIN 0.4 MG CAP.ER.24H PO SCH (20:30)
[2023-08-22] MEDS: NITROGLYCERIN OINT 1 INCH/GM PACKET TOPICAL SCH ×3 (00:03→15:22)
[2023-08-22] MEDS: ENOXAPARIN 40 MG/0.4 ML SYRINGE SQ SCH (07:40)
[2023-08-22] MEDS: ASPIRIN 81 MG PO SCH (07:40)
[2023-08-22] MEDS: METOPROLOL SUCCINATE (ER) 25 MG TAB.ER.24H PO SCH (07:40)
[2023-08-22] MEDS: SODIUM CHLORIDE 0.9% 1,000 ML IV SCH ×2 (07:41→15:22)
[2023-08-22] MEDS: MUPIROCIN 2% OINT 22 GM TUBE NASAL SCH ×2 (07:41→21:55)
--- NOTE | 2023-08-22 08:56 | P.PN ---
Subjective Progress Note Date: 08/22/23 Principal diagnosis: Triple-vessel coronary artery disease, unstable angina. History of hypertension, hyperlipidemia, chronic kidney disease stage III, previous tobacco dependence with recent cessation, mild COPD, TIA in 2013 with no residual, BPH, bilateral vein stripping, bilateral carotid stenosis The patient was seen and examined this morning sitting up in bed in no acute distress. Denies any chest pain or shortness of breath currently, patient did have episode of chest pain last night after ambulating to the bathroom, resolved without intervention. Remains in sinus rhythm, hemodynamically stable. Dr. Jacobs did discuss our recommendation for open heart surgery with the patient despite his increased risk for stroke as well as renal failure. The patient does understand the risks. CTA of the head/neck completed yesterday, reports proximal right ICA stenosis 50%, left ICA stenosis 50% at the bifurcation with patent vertebrals bilaterally. Orthostatic BPs recorded with drop in blood pressure when going from laying to standing. Ruddy's test completed yesterday, bilateral arms are radial artery dependent so unable to use radial arteries nor greater saphenous veins for conduit. Our plan for surgery will be off pump CABG with CAZARES/MARÍA grafts, timing to be determined but anticipate in the next 24-48 hours. Objective - Vital Signs Vital signs: Vital Signs Temp 97.6 F 08/22/23 07:32 Pulse 82 08/22/23 07:32 Resp 18 08/22/23 07:32 BP 129/62 08/22/23 07:32 Pulse Ox 95 08/22/23 07:32 FiO2 Intake & Output 08/21/23 08/22/23 08/22/23 18:59 06:59 18:59 Intake Total 346 118 Output Total 0 Balance 346 0 118 Intake: Oral 346 118 Output: Stool 0 Other: # Voids 2 1 1 # Bowel Movements 1 - Exam CONSTITUTIONAL: Appears comfortable, cooperative, no acute distress RESPIRATORY: Lungs sounds diminished bilaterally. Respirations even, nonlabored. Currently on room air with oxygen saturation 95%. Able to achieve 2500 mL on incentive spirometry. Strong cough. CARDIOVASCULAR: S1, S2 present. Regular rate and rhythm, sinus rhythm on telemetry. Palpable peripheral pulses bilaterally. No edema present. No calf pain or tenderness noted GASTROINTESTINAL: Abdomen soft, nontender, nondistended. Active bowel sounds present 4 quadrants. Tolerating diet GENITOURINARY: Continues to void INTEGUMENTARY: Skin is warm and dry NEUROLOGIC: Cranial nerves II through XII intact MUSKULOSKELETAL: Able to move all extremities, strength equal bilaterally, gait normal PSYCHIATRIC: Alert and oriented to person place and time, appropriate affect, intact judgment and insight - Labs CBC & Chem 7: 08/21/23 07:36 08/21/23 07:36 - Imaging and Cardiology CT Scan - head: report reviewed, image reviewed Assessment and Plan Assessment: Triple-vessel coronary artery disease, unstable angina Hypertension Hyperlipidemia, cholesterol 215, LDL 143, triglycerides 185 Chronic kidney disease stage III Previous tobacco dependence with recent cessation Mild COPD, preoperative FEV1 of 65% of predicted TIA in 2013 with no residual BPH on Flomax Bilateral vein stripping in the Bilateral carotid stenosis by carotid Doppler, greater than 70% on the left, 50- 69% on the right based on velocities; 50% proximal ROMMEL stenosis and 50% left carotid artery stenosis at the bifurcation per CTA Plan: Continue to maximize medical therapy with aspirin, statin, beta maria luisa Increase activity, ambulate as tolerated Encourage continued smoking cessation Our recommendation is for off pump myocardial revascularization with CAZARES, MARÍA, exclusion of the left atrial appendage, timing to be determined but anticipate in the next 24-48 hours STS risk score calculated and discussed with the patient as well as the in creased risk of stroke and renal failure Medical management of other comorbidities per internal medicine, cardiology More recommendations to follow
[2023-08-22] MEDS ORDERED: METOPROLOL SUCCINATE (ER) 50 MG TAB.ER.24H PO SCH (09:00)
[2023-08-22] MEDS ORDERED: MD COMMUNICATION TO PHARMACY 1 EACH MISC PO ONE (09:31)
[2023-08-22] MEDS ORDERED: METOPROLOL SUCCINATE (ER) 25 MG TAB.ER.24H PO STA (09:36)
[2023-08-22 09:45] LABS: HCT 34.3 % (39.0-53.0); HGB 11.6 gm/dL (13.0-17.5); MCH 33.3 pg (25.0-35.0); MCHC 33.9 g/dL (31.0-37.0); MCV 98.3 fL (80.0-100.0); Mean Platelet Volume 7.8; Platelet Count 180 k/uL (150-450); RBC 3.49 m/uL (4.30-5.90); RDW 12.9 % (11.5-15.5); WBC 7.9 k/uL (3.8-10.6)
[2023-08-22 10:03] LABS: ALT 16 U/L (4-49); AST 23 U/L (17-59); African American GFR (CKD) 63 (>60 ml/min/1.73 sqM); Albumin 3.1 g/dL (3.5-5.0); Alkaline Phosphatase 81 U/L (38-126); Anion Gap 7 mmol/L; Blood Urea Nitrogen 17 mg/dL (9-20); Calcium 8.2 mg/dL (8.4-10.2); Carbon Dioxide 21 mmol/L (22-30); Chloride 113 mmol/L (98-107); Glucose 96 mg/dL (74-99); Magnesium 1.9 mg/dL (1.6-2.3); Non-African American GFR(CKD) 54 (>60 ml/min/1.73 sqM); Potassium 4.4 mmol/L (3.5-5.1); Sodium 141 mmol/L (137-145); Total Bilirubin 0.5 mg/dL (0.2-1.3); Total Protein 5.7 g/dL (6.3-8.2)
--- NOTE | 2023-08-22 10:55 | P.PN ---
Subjective Progress Note Date: 08/22/23 I am seeing this patient in new consultation today 08/21/2023 in regard to pulmonary clearance for a tentative surgical myocardial revascularization. Patient is a 73-year-old white male with past medical history significant for hypertension, hyperlipidemia, TIA, chronic kidney disease stage III, and recent ex-smoker of about 3 weeks ago. He does have a significant smoking history of over 50 pack-years prior to quiting. Denies being diagnosed with any pulmonary diseases. Patient's primary care provider is a Leti Bledsoe from the [facility] in [place]. Patient presented to [facility] 2 days ago complaining of intermittent chest pain over the last 3-4 months. The pain was described as substernal radiating to his left arm. Patient states that he also had associated exertional dyspnea. Symptoms would usually subside with rest, but occasionally will occur/persist at rest. His friend, finally convinced him to come to the emergency room 2 days ago. EKG done on arrival showed T-wave in version in leads aVL, V1 through V3. Troponins non-elevated. Chest x-ray demonstrated COPD like changes without any acute cardiopulmonary process. Patient did undergo heart catheterization yesterday which showed triple-vessel coronary artery disease with proximal LAD stenosis 90%, left circumflex stenosis 90%, and right coronary artery 90% stenosis. Patient is currently undergoing an extensive preoperative workup for a tentative cardiothoracic surgery. A pulmonary consultation was placed for this reason. Bedside spirometry was obtained showing an FEV1 2.07 L or 65% of predicted. Based on this, there is no increased operative risk based on his pulmonary status. The CT of the chest wit hout contrast demonstrated mild to moderate atherosclerosis, a few classified pleural plaques bilaterally suggesting prior asbestosis exposure, hypodense nodules partially seen in the bilateral upper kidneys most likely cysts, a cystic appearing nodule measuring 2.8 cm within the pancreatic body, a 1.4 cm hypodense nodule in the right hepatic lobe appearing stable. patient does admit prior exposure, sleeping next to asbestos wrapped pipes while in the [place]. Patient is currently sitting in the bed, on room air, in no acute distress. He denies any significant chest pain at this time. He does have nitro paste on. He denies any heart palpitations, lightheadedness, syncope. Denies any lower extremity edema. Denies any shortness of breath. Most recent CBC from 2 days ago was unremarkable. BMP from yesterday shows sodium 141, potassium 4.5, chloride 100, serum bicarbonate 23, BUN 27, creatinine 1.53, glucose 90. Vital signs are stable. We will continue to follow the patient postoperatively in the intensive care unit and during his liberation from the mechanical ventilator. On today's evaluation of 08/22/2023, the patient is stable. See of any chest pain. He is on room air oxygen. Using incentive spirometer. Hemodynamically stable. The plan is to proceed with coronary artery bypass surgery within next 24 hours. The hemoglobin 11.6, white cell count is at 7.9, BUN is at 70 with a creatinine of 1.29. The CT angiograph of the brain showed a left carotid artery stenosis in the order of 25-50% and 50% stenosis of the left common carotid artery and 25% and the carotid siphon. The right coronary artery showed 50% stenosis in the proximal internal carotid artery. Objective - Vital Signs Vital signs: Vital Signs Temp 97.6 F 08/22/23 07:32 Pulse 82 08/22/23 07:32 Resp 18 08/22/23 07:32 BP 129/62 08/22/23 07:32 Pulse Ox 95 08/22/23 07:32 FiO2 Intake & Output 08/21/23 08/22/23 08/22/23 18:59 06:59 18:59 Intake Total 346 118 Output Total 0 Balance 346 0 118 Intake: Oral 346 118 Output: Stool 0 Other: # Voids 2 1 1 # Bowel Movements 1 - Exam GENERAL EXAM: Alert, 73-year-old white male , comfortable in no apparent distress. HEAD: Normocephalic and atraumatic EYES: Normal reaction of pupils, equal size. NOSE: Clear with pink turbinates. THROAT: No erythema or exudates. NECK: No masses, no JVD. CHEST: No chest wall deformity. LUNGS: Equal air entry with no crackles, wheeze, rhonchi or dullness. On room air. No conversational dyspnea or accessory muscle use.. CVS: S1 and S2 normal with no audible murmur, regular rhythm. No extra heart sounds ABDOMEN: No hepatosplenomegaly, active bowel sounds, no guarding or rigidity. SPINE: No scoliosis or deformity SKIN: No rashes CENTRAL NERVOUS SYSTEM: No focal deficits, tone is normal in all 4 extremities. EXTREMITIES: There is no peripheral edema, clubbing, or cyanosis. Peripheral pulses are intact. - Labs CBC & Chem 7: 08/22/23 09:29 08/22/23 09:29 Assessment and Plan Assessment: Triple-vessel coronary artery disease, currently undergoing preoperative workup for open-heart/CABG Unstable angina, secondary to above Benign essential hypertension Hyperlipidemia History of TIA Chronic kidney disease stage III Significant history of tobacco dependence, over 50 pack years History of asbestos exposure, with pleural plaquing noted on chest CT Benign prosthetic hyperplasia Nonobstructive carotid artery disease based on CT angiogram, bilateral in the order of 50% Plan: Clinically stable Renal function continues to improve Cardiac workup is in progress Coronary bypass surgery within next 24 hours. The patient is an ex-smoker. The CAT scan of the chest also showed some few calcified pleural plaques suggestive of previous asbestos exposure. No other significant abnormalities other than some mild COPD. Awaiting a bedside spirometry. We'll continue to follow.
--- NOTE | 2023-08-22 11:03 | P.PN ---
Subjective HISTORY OF PRESENT ILLNESS: This pleasant 73-year-old gentleman with a known history of hypertension, BPH, chronic kidney disease, and a former smoker, quit 3 weeks ago presented to the emergency room with chest discomfort. Patient was recently seen in office by Dr. Fernandez. Patient reports his chest pain has been intermittent over the last 2 weeks pain and some epigastric, substernal area radiating into the left arm. and only lasts for a few minutes. His EKG shows sinus rhythm with an inverted T in the inferior leads. Patient underwent a stress test 5 years ago and was told everything was normal at that time. Troponin negative 3, cholesterol is elevated at 2:15, LDL is 143, triglycerides 185, HDL 34. Kidney function is elevated, BUN is 33 creatinine is 1.6. Patient has an outpatient stress test scheduled. However due to ongoing symptoms suggestive of unstable angina, labs showing hyperlipidemia, and history of hypertension and recent smoker. patient will undergo a cardiac cath today. Will hydrate patient with a 250 mL bolus, start fluids at 100 mL per hour. Patient is agreeable to the plan. 08/21/2023 Patient examined this morning at the bedside. Patient denies any further episodes of chest pain or pressure. He currently denies shortness of breath. He does report some occasional dizziness with ambulation. Vital signs are stable. Telemetry reveals sinus mechanism. 08/22/2023 Patient examined this morning at the bedside. Patient currently denies any chest pain or pressure. He denies shortness of breath. He does report having mild chest pain yesterday when he was up ambulating to the bathroom. Blood pressure this morning is stable. Monitor reveals sinus mechanism. PHYSICAL EXAM: VITAL SIGNS: Reviewed. GENERAL: Well-developed in no acute distress. NECK: Supple. No JVD or thyromegaly LUNGS: Respirations even and unlabored. Lungs essentially clear to auscultation bilaterally. HEART: Regular rate and rhythm. S1 and S2 heard. EXTREMITIES: Normal range of motion. No clubbing or cyanosis. Peripheral pulses intact. No lower extremity edema ASSESSMENT: Unstable angina, status post cardiac catheterization revealing triple vessel coronary artery disease Hypertension Hyperlipidemia Chronic kidney disease COPD Former nicotine dependence Bilateral carotid stenosis PLAN: Continue current cardiac medications Decrease amlodipine to 5 mg daily Increase metoprolol succinate to 50 mg daily Continue nitro paste CT surgery following. Plan for CABG tomorrow morning. Further recommendations pending patient's course Nurse practitioner note has been reviewed by physician. Signing provider agrees with the documented findings, assessment, and plan of care. Objective - Vital Signs Vital signs: Vital Signs Temp 97.6 F 08/22/23 09:22 Pulse 82 08/22/23 09:22 Resp 12 08/22/23 09:22 BP 129/62 08/22/23 09:22 Pulse Ox 95 08/22/23 09:22 FiO2 Intake & Output 08/21/23 08/22/23 08/22/23 18:59 06:59 18:59 Intake Total 346 118 Output Total 0 Balance 346 0 118 Intake: Oral 346 118 Output: Stool 0 Other: # Voids 2 1 1 # Bowel Movements 1 - Labs CBC & Chem 7: 08/22/23 09:29 08/22/23 09:29 Labs: Abnormal Lab Results - Last 24 Hours (Table) 08/20/23 08/22/23 08/22/23 Range/Units 14:59 09:29 09:29 RBC 3.49 L (4.30-5.90) m/uL Hgb 11.6 L (13.0-17.5) gm/dL Hct 34.3 L (39.0-53.0) % Chloride 113 H (98-107) mmol/L Carbon Dioxide 21 L (22-30) mmol/L Creatinine 1.29 H (0.66-1.25) mg/dL Calcium 8.2 L (8.4-10.2) mg/dL Total Protein 5.7 L (6.3-8.2) g/dL Albumin 3.1 L (3.5-5.0) g/dL Crossmatch See Detail Microbiology - Last 24 Hours (Table) 08/20/23 12:48 Nasal Screen MRSA/MSSA - Final Nasal Swab
--- NOTE | 2023-08-22 11:19 | P.PN ---
Subjective Progress Note Date: 08/22/23 Hospital course: Patient is a very pleasant 73-year-old male with a past medical history of hypertension, chronic kidney disease, and BPH. Patient presented to the emergency department on 08/19/23 with a chief complaint of chest pain. He underwent full evaluation in the emergency department. Vital signs upon arrival show patient to have hypertension and blood pressure 174/82, heart rate 96, respiratory rate 18, temp 98.3F, and SpO2 of 98% on room air. EKG was completed showing normal sinus rhythm at 69 bpm with T-wave inversion in leads aVL, V1, and V2 with no noted ST abnormalities showing no signs of acute ischemia. Chest x-ray completed showing changes of COPD with flattening of the diaphragms and increased lucency of the lungs, but negative for acute cardiopulmonary process. Labs completed and reviewed. CBC and coagulation profile were unremarkable. BMP revealing elevated renal function with BUN of 33, creatinine 1.60, and GFR 42 unclear baseline creatinine levels as previous labs drawn 02/02/2018 revealed creatinine level of 1.40 and patient does have history of CKD unclear stage, so these results may indicate chronic stage III PCKD or an acute kidney injury on chronic kidney disease. Liver profile unremarkable. Troponin was negative at less than 0.012. Patient was admitted to our services with consultation to cardiology. Troponins trended overnight all negative at less than 0.0123 draws. Repeat morning EKG also completed and reviewed showing normal sinus rhythm at 73 bpm again with nonspecific T-wave inversion in leads aVL, V1, V2, and V3. Pt evaluated by cardiology and was taken for a cardiac cath on 08/20/23. Cardiac cath revealed significant multivessel coronary artery disease with findings of right coronary artery stenosis up to 90%, left main coronary artery calcification but not significant stenosis, LAD l bibi segment of stenosis up to 90%, and obtuse marginal also with area of 90% focal stenosis.. Cardiology recommended evaluation by cardiothoracic surgery for possible CABG. Carotid Dopplers were completed showing greater than 70% stenosis of bilateral carotid bifurcations. Cardiothoracic surgery evaluated and reviewed perioperative testing, calculated STS risk score and further discussed with patient the risks including increased risk of stroke and renal failure, cardiothoracic surgery recommending patient proceed with cardiac revascularization surgery and pt in full agreement with this plan. CABG is scheduled for tomorrow morning. Physical exam: Patient seen and fully evaluated at bedside this morning. He was sitting up at [facility] visiting with his [id number]. Pt reports feeling good this morning and denies having any complaints of chest pain, palpitations, shortness of breath, or any other discomfort at this time. Vital signs reviewed and stable. General: Nontoxic, no distress and appears stated age. Derm: Skin warm and dry, normal coloration for ethnicity. Head: Atraumatic, normocephalic and symmetric. Eyes: EOMs intact, no lid lag, and anicteric sclera Mouth: no lip lesions, mucus membranes moist Cardiovascular: regular rate and rhythm with normal S1S2, no murmur noted, positive posterior tibial pulses bilaterally, and cap refill < 2 seconds. Lungs: Respirations even, regular, and unlabored on room air. Lungs CTA bilaterally, no rhonchi, no rales, no wheezing, and no accessory muscle usage. Abdominal: soft, nontender to palpation, no guarding, no appreciable organomegaly Ext: ROM intact. No gross muscle atrophy, no edema, no contractures Neuro: Speech clear, face symmetrical and CN II-XII 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 with no noted focal neuro deficits Psych: Alert and oriented to person, place, time, and situation. Appropriate and pleasant affect. Assessment and Plan of Care: Unstable angina with severe multivessel coronary artery disease Elevated renal function, acute kidney injury on chronic kidney disease vs worsening chronic kidney disease Hypertension Carotid artery stenosis -Cardiology following and took patient for a cardiac cath on 08/20/23, finding triple-vessel coronary artery disease recommending evaluation by cardiothoracic surgery for possible CABG. -Cardiac cath revealed significant multivessel coronary artery disease with findings of right coronary artery stenosis up to 90%, left main coronary artery calcification but not significant stenosis, LAD long segment of stenosis up to 90%, and obtuse marginal also with area of 90% focal stenosis.. -Cardiothoracic surgery following and discussed plan of care with cardiothoracic MANAGER DATABASE ADMINISTRATION, after completion of perioperative testing and calculated STS risk score, it was decided to proceed with cardiac revascularization surgery which is scheduled for tomorrow morning. -Patient to remain on continuous Telemetry monitoring -Continue daily medication regimen with aspirin 81 mg daily, amlodipine 10 mg daily, metoprolol 25 mg daily, and atorvastatin 80 mg nightly. -Echocardiogram to be completed. BPH -Continue daily medication regimen with Flomax 0.4 mg nightly. Incidental findings on imaging... Renal cysts Pancreatic cyst Liver nodule CT completed during perioperative testing for potential CABG. CT revealed partially seen hypodense nodules in the upper kidneys most likely cysts recommend further evaluation via outpatient ultrasound, cystic-appearing 2.8 cm nodule in the proximal pancreatic body, recommending pancreatic MRI as an outpatient, and incidental 1.4 cm hypodense nodule in the right hepatic lobe reported to appear stable to marginally increased in size since 2013 likely benign. For renal cysts patient will need to follow up outpatient with PCP for outpatient renal ultrasound for further evaluation. For findings of pancreatic cyst, again patient will need to follow up outpatient with PCP for scheduling of pancreatic MRI. Per CT report liver nodule appears stable and is likely benign, however recommend continued long-term outpatient monitoring/management by PCP with repeat imaging Data and imaging reviewed: -Vital signs reviewed. Blood pressure 129/62, heart rate 82, respiratory rate 12, temp 97.6F, SpO2 of 95% on room air. -Morning labs completed and reviewed. CBC showing normocytic anemia with hemoglobin stable at 11.6. BMP showing continued improvement of renal function with BUN 17, creatinine 1.29, and GFR 54.. Liver profile unremarkable and magnesium remains normal at 1.9. CODE STATUS: Full code DVT prophylaxis: Lovenox Anticipated discharge date: Clinical course to determine Anticipated discharge place: Home Patient was seen independently by Nurse Pracitioner. This document was prepared using [employer] dictation software. Please allow for errors in poising inspector, while rare they do occur. Jad Kincaid NP rendered care for this patient independently, reviewed the findings and plan as documented in the note above. I did not physically speak with or examine the patient on this date. Objective - Vital Signs Vital signs: Vital Signs Temp 97.6 F 08/22/23 07:32 Pulse 82 08/22/23 07:32 Resp 18 08/22/23 07:32 BP 129/62 08/22/23 07:32 Pulse Ox 95 08/22/23 07:32 FiO2 Intake & Output 08/21/23 08/22/23 08/22/23 18:59 06:59 18:59 Intake Total 346 118 Output Total 0 Balance 346 0 118 Intake: Oral 346 118 Output: Stool 0 Other: # Voids 2 1 1 # Bowel Movements 1 - Labs CBC & Chem 7: 08/30/23 12:00 08/30/23 03:57 Labs: Abnormal Lab Results - Last 24 Hours (Table) 08/21/23 08/21/23 Range/Units 07:36 07:36 RBC 3.73 L (4.30-5.90) m/uL Hgb 12.2 L (13.0-17.5) gm/dL Hct 36.7 L (39.0-53.0) % Chloride 111 H (98-107) mmol/L BUN 22 H (9-20) mg/dL Creatinine 1.42 H (0.66-1.25) mg/dL Glucose 109 H (74-99) mg/dL Total Protein 5.7 L (6.3-8.2) g/dL Albumin 3.0 L (3.5-5.0) g/dL
[2023-08-22] MEDS ORDERED: amLODIPine 5 MG TAB PO SCH (21:00)
[2023-08-22] MEDS: ATORVASTATIN 80 MG TAB PO SCH (21:54)
[2023-08-22] MEDS: TAMSULOSIN 0.4 MG CAP.ER.24H PO SCH (21:54)
[2023-08-23] MEDS: NITROGLYCERIN OINT 1 INCH/GM PACKET TOPICAL SCH (00:28)
[2023-08-23] MEDS ORDERED: CHLORHEXIDINE GLUCONATE 15 ML CUP MUCOUS MEM ONE (05:00)
[2023-08-23] MEDS ORDERED: SODIUM BICARB 8.4% 50 ML SYR (1 MEQ/ML) IV ONE (05:00)
[2023-08-23] MEDS ORDERED: NITROGLYCERIN-D5W PMX 25 MG/250 ML BTL IV ONE (05:00)
[2023-08-23] MEDS ORDERED: NOREPINEPHRINE 4 MG in SODIUM CHLORIDE 0.9% 250 ML IV SCH ×2 (05:00→16:00)
[2023-08-23] MEDS ORDERED: METOPROLOL TARTRATE 12.5 MG TAB PO ONE (05:00)
[2023-08-23] MEDS ORDERED: PHENYLEPHRINE 10 MG/ML VIAL IV ONE (05:00)
[2023-08-23] MEDS ORDERED: ALBUMIN HUMAN 5% 500 ML in EMPTY BAG 1 BAG IVPB ONE ×6 (05:00)
[2023-08-23] MEDS ORDERED: CLEVIDIPINE BUTYRATE 25 MG in EMPTY BAG 1 BAG IV SCH (05:00)
[2023-08-23] MEDS ORDERED: TRANEXAMIC ACID 2,000 MG in SODIUM CHLORIDE 0.9% 80 ML IV ONE (05:00)
[2023-08-23] MEDS ORDERED: CALCIUM CHLORIDE 100 MG/ML 10 ML SYRINGE IVP ONE (05:00)
[2023-08-23] MEDS ORDERED: MANNITOL 25% 12.5 GM/50 ML VIAL IV ONE ×2 (05:00)
[2023-08-23] MEDS ORDERED: LACTATED RINGERS 1,000 ML IV SCH (05:00)
[2023-08-23] MEDS ORDERED: MAGNESIUM SULFATE 16.24 MEQ in EMPTY SYRINGE 1 SYR IV ONE (05:00)
[2023-08-23] MEDS ORDERED: PHENYLEPHRINE 40 MG in SODIUM CHLORIDE 0.9% 250 ML IV ONE (05:00)
[2023-08-23] MEDS ORDERED: ATORVASTATIN 10 MG TAB PO ONE (05:00)
[2023-08-23] MEDS ORDERED: INSULIN REGULAR 100 UNIT in SODIUM CHLORIDE 0.9% 100 ML IV SCH ×2 (05:00→16:00)
[2023-08-23] MEDS ORDERED: ELECTROLYTE-A SOLUTION 1,000 ML with POTASSIUM CHLORIDE 40 MEQ, MAGNESIUM SULFATE 16 ME... IV ONE ×5 (05:00)
[2023-08-23] MEDS ORDERED: HEPARIN SODIUM,PORCINE (1 ML) 5,000 UNIT in SODIUM CHLORIDE 0.9% 500 ML 500 ML IV ONE (05:00)
[2023-08-23] MEDS ORDERED: PAPAVERINE 360 MG in SODIUM CHLORIDE 0.9% 90 ML IV ONE ×2 (05:00→08:53)
[2023-08-23] MEDS ORDERED: ceFAZolin 1,000 MG in SODIUM CHLORIDE 0.9% IRRIGATIO 1,000 ML IRRIGATION ONE (05:00)
[2023-08-23] MEDS ORDERED: NITROGLYCERIN-D5W PMX 50 MG in DEXTROSE/WATER 1 250ML.BAG IV SCH (05:00)
[2023-08-23] MEDS ORDERED: ASPIRIN 325 MG TAB PO ONE (05:00)
[2023-08-23] MEDS ORDERED: PROTAMINE SULFATE 250 MG in EMPTY BAG 1 BAG IV ONE (05:00)
[2023-08-23] MEDS ORDERED: ELECTROLYTE-A SOLUTION 1,000 ML with POTASSIUM CHLORIDE 100 MEQ, MAGNESIUM SULFATE 16 M... IV ONE ×5 (05:00)
[2023-08-23] MEDS ORDERED: ALBUMIN HUMAN 25% 50 ML in EMPTY BAG 1 BAG IVPB ONE (05:00)
[2023-08-23] MEDS ORDERED: PROTAMINE SULFATE 10 MG/ML 25 ML VIAL IV ONE ×2 (05:00→07:19)
[2023-08-23] MEDS ORDERED: HEPARIN SODIUM 1,000 UN/ML (10ML VL) IV ONE (05:00)
[2023-08-23] MEDS ORDERED: ePHEDrine 50 MG/ML 1 ML VIAL ONE (07:19)
[2023-08-23] MEDS ORDERED: SUCCINYLCHOLINE CHLORIDE 200 MG/10 ML VIAL IV ONE (07:19)
[2023-08-23] MEDS ORDERED: LIDOCAINE 2% SYG (PF) 100 MG/5 ML ONE (07:19)
[2023-08-23] MEDS ORDERED: SODIUM BICARB 8.4% 50 ML SYR (1 MEQ/ML) ONE (07:19)
[2023-08-23] MEDS ORDERED: fentaNYL (PF) 50 MCG/ML 50 ML VIAL ONE (07:19)
[2023-08-23] MEDS ORDERED: WATER FOR INJECTION, STERILE 10 ML VIAL IV ONE (07:19)
[2023-08-23] MEDS ORDERED: EPINEPHrine 10 ML SYRINGE (0.1 MG/ML) ONE (07:19)
[2023-08-23] MEDS ORDERED: PROPOFOL 10 MG/ML 20 ML VIAL IV ONE (07:19)
[2023-08-23] MEDS ORDERED: CALCIUM CHLORIDE 100 MG/ML 10 ML SYRINGE ONE (07:19)
[2023-08-23] MEDS ORDERED: MIDAZOLAM HCL 10 MG/10 ML VIAL ONE (07:19)
[2023-08-23] MEDS ORDERED: VECURONIUM 10 MG VIAL IV ONE (07:19)
[2023-08-23] MEDS ORDERED: ALBUMIN HUMAN 5% (25gm) 500 ML VIAL IVPB ONE (07:19)
[2023-08-23] MEDS ORDERED: VASOPRESSIN 20 UNIT/ML 1 ML VIAL ONE (07:19)
[2023-08-23] MEDS ORDERED: NITROGLYCERIN-D5W PMX 50 MG/250 ML BOTTLE IV ONE (07:19)
[2023-08-23] MEDS ORDERED: HEPARIN SODIUM,PORCINE 10,000 UNIT/ML 1 ML VIAL ONE (07:19)
[2023-08-23] MEDS ORDERED: GLYCOPYRROLATE 0.2 MG/ML 2 ML VIAL ONE (07:19)
[2023-08-23 08:23] LABS: ABG Glucose Whole Blood 83 mg/dL (75-99); ABG Hematocrit 33 % (34.0-46.0); ABG Ionized Calcium 4.6 mg/dL (4.5-5.3); ABG Lactic Acid Whole Blood 0.7 mmol/L (0.5-1.6); ABG PH 7.35 (7.35-7.45); ABG Potassium Whole Blood 4.7 mmol/L (3.4-4.5); ABG Sodium Whole Blood 142 mmol/L (135-146)
[2023-08-23] MEDS ORDERED: ceFAZolin 1,000 MG in SODIUM CHLORIDE 0.9% 1,000 ML IRRIGATION ONE (08:53)
[2023-08-23] MEDS ORDERED: SODIUM CHLORIDE 0.9% 500 ML 500 ML with HEPARIN SODIUM,PORCINE (1 ML) 5,000 UNIT IV ONE ×2 (08:53)
[2023-08-23 10:23] LABS: ABG Glucose Whole Blood 90 mg/dL (75-99); ABG Hematocrit 30 % (34.0-46.0); ABG Ionized Calcium 4.6 mg/dL (4.5-5.3); ABG Lactic Acid Whole Blood 0.7 mmol/L (0.5-1.6); ABG Oxygen Saturation 99.8 % (94-97); ABG PH 7.28 (7.35-7.45); ABG PO2 264 mmHg (83-108); ABG Potassium Whole Blood 4.2 mmol/L (3.4-4.5); ABG Sodium Whole Blood 142 mmol/L (135-146)
[2023-08-23 10:50] LABS: ABG Glucose Whole Blood 95 mg/dL (75-99); ABG Hematocrit 27 % (34.0-46.0); ABG Ionized Calcium 4.3 mg/dL (4.5-5.3); ABG Oxygen Saturation 99.8 % (94-97); ABG PO2 250 mmHg (83-108); ABG Potassium Whole Blood 4.1 mmol/L (3.4-4.5); ABG Sodium Whole Blood 143 mmol/L (135-146)
[2023-08-23 11:19] LABS: ABG Glucose Whole Blood 95 mg/dL (75-99); ABG Hematocrit 25 % (34.0-46.0); ABG Ionized Calcium 4.7 mg/dL (4.5-5.3); ABG Oxygen Saturation 99.9 % (94-97); ABG PH 7.35 (7.35-7.45); ABG PO2 214 mmHg (83-108); ABG Potassium Whole Blood 3.7 mmol/L (3.4-4.5); ABG Sodium Whole Blood 145 mmol/L (135-146)
[2023-08-23 11:48] LABS: ABG Glucose Whole Blood 104 mg/dL (75-99); ABG Hematocrit 25 % (34.0-46.0); ABG Ionized Calcium 4.4 mg/dL (4.5-5.3); ABG Lactic Acid Whole Blood 1.1 mmol/L (0.5-1.6); ABG Oxygen Saturation 99.6 % (94-97); ABG PH 7.37 (7.35-7.45); ABG PO2 153 mmHg (83-108); ABG Potassium Whole Blood 3.7 mmol/L (3.4-4.5); ABG Sodium Whole Blood 146 mmol/L (135-146)
[2023-08-23 12:32] LABS: ABG Base Excess -4.2 mmol/L; ABG Glucose Whole Blood 116 mg/dL (75-99); ABG HCO3 22 mmol/L (21-25); ABG Ionized Calcium 4.6 mg/dL (4.5-5.3); ABG Lactic Acid Whole Blood 1.6 mmol/L (0.5-1.6); ABG Oxygen Saturation 88.7 % (94-97); ABG PCO2 46 mmHg (35-45); ABG PH 7.29 (7.35-7.45); ABG Potassium Whole Blood 3.7 mmol/L (3.4-4.5); ABG Sodium Whole Blood 146 mmol/L (135-146); ABG TCO2 24 mmol/L (19-24)
[2023-08-23 13:12] LABS: ABG Base Excess -3.4 mmol/L; ABG Glucose Whole Blood 136 mg/dL (75-99); ABG HCO3 23 mmol/L (21-25); ABG Oxygen Saturation 96.9 % (94-97); ABG PCO2 45 mmHg (35-45); ABG PH 7.31 (7.35-7.45); ABG PO2 78 mmHg (83-108); ABG Potassium Whole Blood 3.6 mmol/L (3.4-4.5); ABG Sodium Whole Blood 147 mmol/L (135-146); ABG TCO2 24 mmol/L (19-24)
[2023-08-23 13:21] LABS: HCT 21.9 % (39.0-53.0); MCH 32.4 pg (25.0-35.0); MCHC 33.8 g/dL (31.0-37.0); MCV 95.9 fL (80.0-100.0); RBC 2.28 m/uL (4.30-5.90); RDW 12.9 % (11.5-15.5); WBC 9.8 k/uL (3.8-10.6)
[2023-08-23 13:27] LABS: HGB 7.4 gm/dL (13.0-17.5)
[2023-08-23 13:29] LABS: ABG Base Excess -6.6 mmol/L; ABG Glucose Whole Blood 146 mg/dL (75-99); ABG HCO3 20 mmol/L (21-25); ABG Ionized Calcium 4.8 mg/dL (4.5-5.3); ABG Oxygen Saturation 99.7 % (94-97); ABG PCO2 42 mmHg (35-45); ABG PH 7.28 (7.35-7.45); ABG PO2 168 mmHg (83-108); ABG Sodium Whole Blood 148 mmol/L (135-146); ABG TCO2 21 mmol/L (19-24)
[2023-08-23 13:42] LABS: ABG Base Excess -3.6 mmol/L; ABG Glucose Whole Blood 151 mg/dL (75-99); ABG HCO3 21 mmol/L (21-25); ABG Ionized Calcium 3.7 mg/dL (4.5-5.3); ABG PCO2 37 mmHg (35-45); ABG PH 7.37 (7.35-7.45); ABG Potassium Whole Blood 3.7 mmol/L (3.4-4.5); ABG Sodium Whole Blood 148 mmol/L (135-146); ABG TCO2 23 mmol/L (19-24)
[2023-08-23 13:46] LABS: ABG Base Excess -4.5 mmol/L; ABG Glucose Whole Blood 155 mg/dL (75-99); ABG HCO3 20 mmol/L (21-25); ABG Ionized Calcium 3.8 mg/dL (4.5-5.3); ABG PCO2 35 mmHg (35-45); ABG PH 7.37 (7.35-7.45); ABG Potassium Whole Blood 3.8 mmol/L (3.4-4.5); ABG Sodium Whole Blood 147 mmol/L (135-146); ABG TCO2 21 mmol/L (19-24)
[2023-08-23 13:56] LABS: Platelet Count 62 k/uL (150-450)
[2023-08-23 13:58] LABS: ABG Base Excess -5.5 mmol/L; ABG HCO3 20 mmol/L (21-25); ABG PCO2 36 mmHg (35-45); ABG PO2 >420 mmHg (83-108); ABG TCO2 21 mmol/L (19-24)
[2023-08-23 13:58] LABS: Lymphocytes % (A) 27 %; Neutrophils % (A) 64 %
[2023-08-23 13:59] LABS: Basophils % (A) 0 %; Eosinophils % (A) 2 %; Monocytes % (A) 5 %
[2023-08-23 13:59] LABS: ABG Base Excess -7.8 mmol/L; ABG HCO3 18 mmol/L (21-25); ABG PCO2 39 mmHg (35-45); ABG TCO2 20 mmol/L (19-24)
[2023-08-23 14:00] LABS: ABG HCO3 20 mmol/L (21-25); ABG PCO2 36 mmHg (35-45)
[2023-08-23 14:00] LABS: Lymphocytes # (A) 2.6 k/uL (1.0-4.8); Neutrophils # (A) 6.2 k/uL (1.3-7.7)
[2023-08-23 14:00] LABS: ABG Base Excess -7.5 mmol/L; ABG HCO3 18 mmol/L (21-25); ABG PCO2 37 mmHg (35-45); ABG TCO2 19 mmol/L (19-24)
[2023-08-23 14:01] LABS: Eosinophils # (A) 0.2 k/uL (0-0.7); Monocytes # (A) 0.5 k/uL (0-1.0)
[2023-08-23 14:01] LABS: ABG Base Excess -3.3 mmol/L; ABG HCO3 22 mmol/L (21-25); ABG PCO2 38 mmHg (35-45); ABG TCO2 23 mmol/L (19-24)
[2023-08-23 14:01] LABS: ABG Base Excess -4.9 mmol/L; ABG TCO2 21 mmol/L (19-24)
[2023-08-23 14:01] LABS: ABG Base Excess -1.6 mmol/L; ABG Glucose Whole Blood 151 mg/dL (75-99); ABG HCO3 23 mmol/L (21-25); ABG Ionized Calcium 3.8 mg/dL (4.5-5.3); ABG PCO2 35 mmHg (35-45); ABG PH 7.42 (7.35-7.45); ABG Potassium Whole Blood 3.8 mmol/L (3.4-4.5); ABG Sodium Whole Blood 149 mmol/L (135-146); ABG TCO2 24 mmol/L (19-24)
[2023-08-23 14:02] LABS: ABG Hematocrit 23 % (34.0-46.0); ABG PO2 53 mmHg (83-108)
[2023-08-23 14:02] LABS: ABG Hematocrit 22 % (34.0-46.0); ABG Lactic Acid Whole Blood 2.8 mmol/L (0.5-1.6)
[2023-08-23 14:03] LABS: ABG Hematocrit 20 % (34.0-46.0); ABG Lactic Acid Whole Blood 2.7 mmol/L (0.5-1.6); ABG Potassium Whole Blood 2.8 mmol/L (3.4-4.5)
[2023-08-23 14:04] LABS: ABG Hematocrit 20 % (34.0-46.0); ABG Lactic Acid Whole Blood 3.1 mmol/L (0.5-1.6); ABG PO2 >420 mmHg (83-108)
[2023-08-23 14:05] LABS: ABG Hematocrit 22 % (34.0-46.0); ABG PO2 >420 mmHg (83-108)
[2023-08-23 14:30] LABS: ABG Base Excess -4.4 mmol/L; ABG Glucose Whole Blood 158 mg/dL (75-99); ABG HCO3 21 mmol/L (21-25); ABG Oxygen Saturation 99.9 % (94-97); ABG PCO2 40 mmHg (35-45); ABG PH 7.33 (7.35-7.45); ABG PO2 249 mmHg (83-108); ABG Potassium Whole Blood 3.5 mmol/L (3.4-4.5); ABG Sodium Whole Blood 148 mmol/L (135-146); ABG TCO2 22 mmol/L (19-24)
[2023-08-23] MEDS ORDERED: VASOPRESSIN 60 UNIT in SODIUM CHLORIDE 0.9% 150 ML IV SCH (14:30)
[2023-08-23 14:44] LABS: ABG Hematocrit 23 % (34.0-46.0); ABG Lactic Acid Whole Blood 2.8 mmol/L (0.5-1.6)
[2023-08-23 14:45] LABS: ABG Hematocrit 24 % (34.0-46.0); ABG Lactic Acid Whole Blood 3.1 mmol/L (0.5-1.6); ABG PO2 >420 mmHg (83-108)
--- NOTE | 2023-08-23 15:02 | P.ANPRN ---
Procedure Note - Anesthesia - Invasive Line Right [place] Time Out Performed: Yes Date of Procedure: 08/23/23 Time of Procedure: 07:18 Location of Patient: PreOp Preparation: Sterile Prep, Sterile Dressing Central Line Location: Internal Jugular Ultrasound Used: No Purpose - Visualization and Identification of Vasculature: No Image Stored and Saved: No Narrative: Central line placement per sterile protocol utilized.
--- NOTE | 2023-08-23 15:02 | P.ANPRN ---
Procedure Note - Anesthesia - Invasive Line Right Central Line Time Out Performed: Yes Date of Procedure: 08/23/23 Time of Procedure: 07:14 Location of Patient: PreOp Preparation: Sterile Prep, Sterile Dressing Central Line Location: Internal Jugular Ultrasound Used: No Purpose - Visualization and Identification of Vasculature: No Image Stored and Saved: No Narrative: Central line placement per sterile protocol utilized.
[2023-08-23] MEDS ORDERED: ALBUMIN HUMAN 5% 250 ML in EMPTY BAG 1 BAG IVPB PRN (15:33)
[2023-08-23] MEDS ORDERED: CALCIUM GLUCONATE IN NACL 2 GM in SALINE 1 100ML.BAG IVPB PRN (15:33)
[2023-08-23] MEDS ORDERED: Potassium Replacement Protocol 1 EACH MISC MISCELLANE PRN (15:33)
[2023-08-23] MEDS ORDERED: Magnesium Replacement Protocol 1 EACH MISC MISCELLANE PRN (15:33)
[2023-08-23] MEDS ORDERED: DEXTROSE 50% SYRINGE 50 ML IVP PRN ×2 (15:33)
[2023-08-23] MEDS ORDERED: DEXMEDETOMIDINE/0.9% NACL(PMX) 400 MCG in EMPTY BAG 1 BAG IV SCH (15:33)
[2023-08-23] MEDS ORDERED: METOCLOPRAMIDE 5 MG/ML 2 ML VIAL IVP PRN (15:33)
[2023-08-23] MEDS ORDERED: IPRATROPIUM-ALBUTEROL 3 ML NEB INHALATION PRN (15:33)
[2023-08-23] MEDS ORDERED: BENZOCAINE/MENTHOL LOZENG 1 EACH LOZENGE MUCOUS MEM PRN (15:33)
[2023-08-23] MEDS: SODIUM CHLORIDE 0.9% 1,000 ML IV SCH (15:49)
[2023-08-23] MEDS: LACTATED RINGERS 1,000 ML IV SCH (15:52)
[2023-08-23] MEDS ORDERED: DEXTROSE/WATER 1 250ML.BAG with DOPamine DRIP 800 MG IV SCH ×2 (16:00→21:00)
[2023-08-23 16:10] LABS: Glucose,Whole Blood 178 mg/dL (70-110)
[2023-08-23] MEDS ORDERED: AMIODARONE 360 MG in DEXTROSE 5% IN WATER 200 ML IV ONE ×2 (16:10)
[2023-08-23] MEDS: VASOPRESSIN 20 UNIT in SODIUM CHLORIDE 0.9% 50 ML IV SCH (16:12)
--- NOTE | 2023-08-23 16:19 | P.OP ---
Date of Procedure: 08/23/23 Preoperative Diagnosis: 3v CAD Postoperative Diagnosis: Same Procedure(s) Performed: 1. Off pump converted to cardiopulmonary bypass assisted coronary artery bypass grafting x 3. Right internal thoracic artery (in-situ) to left anterior descending coronary artery. Left anterior descending coronary artery (in-situ) to obtuse marginal artery #3. Reversed lesser saphenous vein from aorta to distal right coronary artery. 2. Left atrial appendage ligation using #35mm AtriClip 3. Endoscopic right lesser saphenous vein harvest. 4. Graft flow measurements using the Medi-Stim flow meter 5. Trans-esophageal echo Anesthesia: GETA Surgeon: Adan Jacobs Contract Associate Manager #1: Dorian Roy Contract Associate Manager #2: Rashad Santo Estimated Blood Loss (ml): 500 IV fluids (ml): 3,500 Pathology: none sent Condition: critical Disposition: ICU Indications for Procedure: This patient is 73 year-old male with a hx of htn, hld, ckd III, TIA in 2013 who presented with chest pain over the last several weeks. He was diagnosed with N STEMI and coronary cath revealed 90% lesions in RCA, LAD and OM#3. Of note, the patient had bilateral greater saphenous vein stripping in 1974 and both of his radial arteries were dependent based on allens test. In addition, the patient underwent carotid duplex which revealed 70% bilateral carotid stenosis. CTA was obtained which revealed 50% bilateral carotid stenosis. In 2018 he did not have any carotid stenosis. Therefore off pump cabg was recommended. HIs STS risk of morbidity and mortality was discussed with the patient and he was in agreement to proceed. Operative Findings: Pt unable to tolerate positioning of heart to position proximal obtuse marginal artery requiring requiring initiation of cardiopulmonary bypass. Graft flows: MARÍA-LAD flow 50ml/min, P.I. 1.4 CAZARES-OM3 flow 39ml/min, P.I. 2.2 LSV-RCA flow 149ml/min, P.I. 2.0 Description of Procedure: The patient underwent swan paz, radial arterial line and venous access in the pre-operative suite. He was brought back to the operating room and placed in the supine position. General anesthesia was induced and the patient was prepped from the chin to the ankles in the usual sterile fashion. Bedside ultrasound evaluation of the legs did reveal some greater saphenous vein in the left thigh. Antibiotics were given. I made a midline incision and performed a median sternotomy. Hemostasis on the bone was achieved with electrocautery and minimal bone wax. The left pleura was entered and the left internal thoracic artery was harvested in a skeletonized fashion. Simultaneously an speech assistant explored the left thigh endocscopically for vein which was not suitable to be used for bypass. He then harvested the lesser saphenous vein on the right endoscopically. 3000 units of heparin was given and the SEEMA was transected and placed in a papaverine jacuzzi. Attention was then turned to the right pleura which was opened. The right internal thoracic artery was harvested in a skeletonized fashion and transected distally and placed in a papverine jacuzzi after additional 8,000 units of heparin. Bilateral aditi drains were placed. The pericardium was incised in a reverse T-fashion and pericardial stay sutures were placed. The patient did become bradycardic after mild manipulation. At this point ventricular wires were placed on the inferior RV and the patient was paced and hydrodynamics improved. Next, the targets and conduits were examined and all seemed excellent including the lesser saphenous vein. Once the ACT was > 250, a heartstring device was used to perform the proximal anastomosis between the lesser saphenous vein and ascending aorta using a running 5-0 prolene suture. Next attention was turned to the LAD which was 1.5mm and a great target. It was stabilized using the octopus stabilizer. It was opened and 1.5mm flow through inserted. An end to side anastomosis between the MARÍA and the LAD was performed using a running 7-0 prolene suture. The flow through was removed prior to tieing down the anastmosis. Next the proximal right coronary artery was exposed and stabilized using the octopus. A silastic vessel loop was placed proximally. The artery was opened, and 2.5mm flow through was inserted. It was a good target. An end to side anastomosis between the lesser saphenous vein and RCA was constructed using a running 7-0 prolene. The anstomosis was de-aired and flow through removed prior to tieing down the suture. Next a deep pericardial suture was placed in the oblique sinus to help expose the lateral wall. A 35mm AtriClip was placed on the appendage effectively ligating it. The mid to distal portion of the 3rd obtuse marginal artery was small. This artery was exposed proximally and stabilized where it was a better target. At this point, the patient was in a-fib. The OM3 was opened and 1.5mm flow through was inserted. It was a good target here measuring 1.5mm. An end to side anastmosis between the CAZARES and OM3 was begun using a running 7-0 prolene. Although prior to finishing this anastomosis the patient was hypotensive and not responding to resuscitation. The heart was left down and hemodynamics improved. In addition an attempt was made to try to cardiovert the patient which was unsuccessful. The heart was once again re-positioned and OM3 stabilized. At this point the patient was hypotensive again and fibrillated. The heart was let down and paddles were used to defibrillate which was successful. Despite this the patient continued to be hypotensive briefly so the decision was made to go on cardiopulmonary bypass. Full dose heparin was given. The ascending aorta and right atrial appendage were cannulated using pledgeted 3-0 prolene. Once ACT was > 480 CBP was initiated. The lateral wall was then exposed using the octopus stabilizer and the partial anastomosis was taken down and re-done using a running 7-0 prolene suture. The flow through was removed prior to tieing down the suture. The patient was then weaned from cardiopulmonary bypass and protamine was given to reverse heparin. The patient was decannulated and hemostasis was secured. The graft flows were measured and the were excellent. A 32F chest tube was placed in the mediastinum and the sternum was re-approximated using pioneer cables. The patient did not have any prolonged period of hypotension but did return to the ICU requiring vasopressin and levophed. Post bypass COLLIN revealed excellent LV function of 60%, and no MR. His atrial fibrillation resolved after the CPB run.
[2023-08-23 16:20] LABS: Basophils % (A) 0 %; Eosinophils # (A) 0.1 k/uL (0-0.7); Eosinophils % (A) 1 %; HCT 23.8 % (39.0-53.0); HGB 8.1 gm/dL (13.0-17.5); Lymphocytes % (A) 13 %; MCH 32.4 pg (25.0-35.0); MCV 95.1 fL (80.0-100.0); Mean Platelet Volume 9.1; Monocytes # (A) 0.6 k/uL (0-1.0); Monocytes % (A) 8 %; Neutrophils # (A) 5.7 k/uL (1.3-7.7); Neutrophils % (A) 75 %; RBC 2.51 m/uL (4.30-5.90); RDW 14.3 % (11.5-15.5); WBC 7.6 k/uL (3.8-10.6)
[2023-08-23 16:28] LABS: ABG Base Excess -2.4 mmol/L; ABG HCO3 24 mmol/L (21-25); ABG Oxygen Saturation 98.5 % (94-97); ABG PCO2 51 mmHg (35-45); ABG PH 7.28 (7.35-7.45); ABG PO2 112 mmHg (83-108); ABG TCO2 26 mmol/L (19-24)
[2023-08-23 16:29] LABS: INR 1.8 (<1.2); Ionized Calcium 4.2 mg/dL (4.5-5.3); Partial Thromboplastin Time 65.3 sec (22.0-30.0); Prothrombin Time 18.5 sec (10.0-12.5)
[2023-08-23 16:32] LABS: Allen Test Performed? no
[2023-08-23 16:34] LABS: Platelet Count 69 k/uL (150-450)
[2023-08-23 16:43] LABS: ALT 19 U/L (4-49); AST 40 U/L (17-59); African American GFR (CKD) 73 (>60 ml/min/1.73 sqM); Albumin 2.9 g/dL (3.5-5.0); Alkaline Phosphatase 21 U/L (38-126); Anion Gap 14 mmol/L; Blood Urea Nitrogen 17 mg/dL (9-20); Calcium 7.2 mg/dL (8.4-10.2); Carbon Dioxide 22 mmol/L (22-30); Chloride 111 mmol/L (98-107); Glucose 158 mg/dL (74-99); Magnesium 1.6 mg/dL (1.6-2.3); Non-African American GFR(CKD) 63 (>60 ml/min/1.73 sqM); Potassium 4.3 mmol/L (3.5-5.1); Sodium 147 mmol/L (137-145); Total Bilirubin 1.5 mg/dL (0.2-1.3); Total Protein 4.2 g/dL (6.3-8.2)
[2023-08-23] MEDS: IPRATROPIUM-ALBUTEROL 3 ML NEB INHALATION SCH ×2 (16:50→20:20)
[2023-08-23] MEDS ORDERED: PROTAMINE SULFATE 25 MG in SODIUM CHLORIDE 0.9% 50 ML IVPB STA (16:56)
--- NOTE | 2023-08-23 17:01 | XR ---
EXAMINATION TYPE: XR chest 1V portable DATE OF EXAM: 08/23/2023 4:36 PM CLINICAL INDICATION:Male, 73 years old with history of Post Operative Cardiac Surgery; [facility] COMPARISON: Chest radiographs from 08/19/2023. TECHNIQUE: XR chest 1V portable Frontal view of the chest. FINDINGS: Lungs/Pleura: There is no evidence of pleural effusion, focal consolidation, or pneumothorax. Pulmonary vascularity: Pulmonary vascular congestion. Heart/mediastinum: Cardiomediastinal silhouette is prominent in size. Left atrial appendage occlusion device is present. Musculoskeletal: No acute osseous pathology. Midline sternotomy wires are noted. Other findings: None Lines/Tubes: Endotracheal tube with distal tip 3.0 cm above the sally. Nasogastric tube with its distal tip and side-port projecting under the diaphragm. Drainage tubes with tips projecting over the mediastinum. Bilateral thoracotomy tubes are present without evidence of pneumothorax. Drainage tubes with tips projecting over the mediastinum. There is a [place] catheter with tip projecting over the spine. IMPRESSION: Postoperative change. No evidence for pneumothorax or definitive acute process.
[2023-08-23 17:16] LABS: Glucose,Whole Blood 196 mg/dL (70-110)
[2023-08-23 17:55] LABS: Glucose,Whole Blood 202 mg/dL (70-110)
[2023-08-23] MEDS: HEPARIN SODIUM,PORCINE 5,000 UNIT/ML 1 ML VIAL SQ SCH (18:09)
[2023-08-23] MEDS: ACETAMINOPHEN IV (For NPO) 1,000 MG in EMPTY BAG 1 BAG IVPB SCH (18:09)
[2023-08-23] MEDS: FUROSEMIDE 10 MG/ML 2 ML VIAL IV SCH (18:23)
[2023-08-23] MEDS: AMIODARONE 450 MG in DEXTROSE 5% IN WATER 250 ML IV SCH ×2 (18:31)
[2023-08-23 18:34] LABS: Basophils % (A) 0 %; Eosinophils % (A) 0 %; HCT 25.1 % (39.0-53.0); HGB 8.7 gm/dL (13.0-17.5); Lymphocytes # (A) 0.8 k/uL (1.0-4.8); Lymphocytes % (A) 10 %; MCH 32.6 pg (25.0-35.0); MCHC 34.8 g/dL (31.0-37.0); MCV 93.8 fL (80.0-100.0); Monocytes # (A) 0.7 k/uL (0-1.0); Monocytes % (A) 9 %; Neutrophils # (A) 6.7 k/uL (1.3-7.7); Neutrophils % (A) 79 %; RBC 2.68 m/uL (4.30-5.90); RDW 14.7 % (11.5-15.5); WBC 8.5 k/uL (3.8-10.6)
[2023-08-23 18:40] LABS: Platelet Count 78 k/uL (150-450)
--- NOTE | 2023-08-23 18:51 | P.PN ---
Subjective Progress Note Date: 08/23/23 Patient is a 73-year-old male with hypertension, chronic kidney disease, BPH initially presented to the emergency department with complaints of chest pain. He was subsequently admitted for chest pain observation. Troponins were trended and remained negative. Patient was seen by cardiology and was subsequently taken for cardiac cath on 08/20/23 which showed significant multivessel coronary artery disease. Cardiothoracic surgery was subsequently consulted and patient was worked up for possible CABG. Carotid Dopplers were completed showing greater than 75% stenosis of bilateral carotids. Patient underwent off pump coronary artery bypass grafting 3 on 08/23/23. Patient seen and examined at bedside. Sedated on vent. He got back 7 L of fluids introp, 1 of plt and 2 units of blood. Vital signs reviewed General: ill appearing, mild distress, appears at stated age Cardiovascular: S1S2 reg, no murmur Lungs: Course bs b/l bilateral, no rhonchi, no rales , no accessory muscle use Abdominal: soft, nontender to palpation, no guarding, no appreciable organomegaly Ext: no gross muscle atrophy, no edema b/l lower extremities, no contractures Psych: sedated on vent, opens eyes to touch Lines: swan via cordis, b/l Cehst tube, mediastinal tubes, b/l LE ruth wraps, ET tube Assessment/Plan: Unstable angina with severe multivessel coronary artery disease status post CABG 3 on 08/23/23 Chronic kidney disease stage III Hypertension Carotid artery stenosis, 25-50% stenosis b/l on CTA neck - CVT sugery recs - on insulin gtt with q1 hours accuchecks, titrate per BS levels -Aspirin 81 mg daily, Plavix 75 mg daily -Metoprolol 12.5 mg twice daily -Pain control with options of oxycodone 5-10 mg as needed for pain Thrombocytopenia anticipated outcome of surgery Acute blood loss anemia, anticipated outcome of surgery -Patient is status post 2 units of packed red blood cells and 1 unit of platelets. -follow CBC -Transfuse as needed BPH -hold Flomax 0.4 mg nightly. Acute kidney injury, resolved Renal cysts- further evaluation via outpatient ultrasound Pancreatic cyst -pancreatic MRI as an outpatient Liver nodule- marginally increased in size since 2013 likely benign. Imaging: CXR post-op-ET tube in place. Sternal wires noted, bilateral chest tubes and mediastinal tube noted as well as swan in appropriate position Data Review: Laboratory today included CBC, coags, and CMP postoperatively which showed hemoglobin of 8.1, platelets 69, INR 1.8, sodium 147, calcium 7.2 with ionized calcium 4.2, bilirubin 1.5, lactic acid was 2.8 intraoperatively. DVT prophylaxis: Heparin Thank you for allowing us to participate in the care of this pleasant patient. Do not hesitate to contact us with questions. Someone can be reached from the [facility] hospitalist group all hours of the day at [phone] or via [employer]. This dictation was prepared using [employer] voice recognition software. Though every attempt is made to correct errors during dictation some may still exist. Objective - Vital Signs Vital signs: Vital Signs Temp 96.3 F L 08/23/23 16:00 Pulse 109 H 08/23/23 17:15 Resp 24 08/23/23 17:15 BP 104/52 08/23/23 06:02 Pulse Ox 95 08/23/23 17:15 FiO2 100 08/23/23 16:49 Intake & Output 08/22/23 08/23/23 08/23/23 18:59 06:59 18:59 Intake Total 319 518 8693.111 Output Total 0 4965 Balance 465 100 -3894.889 Intake: IV 100 403 ACETAMINOPHEN IV (For NPO 100 ) 1,000 mg In Empty Bag 1 bag @ 400 mls/hr IVPB Q6HR GOVIND Rx#:[id number] Calcium Gluconate in NaCl 100 2 gm In Saline 1 100ml. bag @ 100 mls/hr IVPB ONCE PRN Rx#:[id number] Lactated Ringers 1,000 ml 150 @ 50 mls/hr IV .Q20H GOVIND Rx#:[id number] ceFAZolin 2 gm In Sodium 50 Chloride 0.9% 50 ml @ 100 mls/hr IVPB Q8HR GOVIND Rx# :[id number] Intake, IV Titration 30.111 Amount Insulin Regular 100 unit 5.530 In Sodium Chloride 0.9% 100 ml @ Per Protocol IV .Q0M GOVIND Rx#:[id number] Norepinephrine 4 mg In 24.581 Sodium Chloride 0.9% 250 ml @ 0.02 MCG/KG/MIN 5. 876 mls/hr IV .Q24H GOVIND Rx#:[id number] Oral 465 Blood Product 637 Platelet Pheresis Pas 327 Psoralen Unit [id number] Rc As-1 Unit 310 [id number] Rc Irr As1 Unit 0 [id number] Output: Chest Tube Drainage 300 Mediastinal 110 Right/Left Pleural 190 Urine 665 Stool 0 Estimated Blood Loss 4000 Other: # Voids 2 1 # Bowel Movements 1 ABP, PAP, CO, CI - Last Documented Arterial Blood Pressure 142/61 Pulmonary Artery Pressure 34/21 Cardiac Output 8 Cardiac Index 4.1 - Labs CBC & Chem 7: 08/23/23 18:21 08/23/23 16:03 Labs: Abnormal Lab Results - Last 24 Hours (Table) 08/20/23 08/23/23 08/23/23 Range/Units 14:59 08:15 08:22 RBC (4.30-5.90) m/uL Hgb (13.0-17.5) gm/dL Hct (39.0-53.0) % Plt Count (150-450) k/uL Lymphocytes # (1.0-4.8) k/uL PT (10.0-12.5) sec INR (<1.2) APTT (22.0-30.0) sec Fibrinogen (200-500) mg/dL ABG pH (7.35-7.45) ABG pCO2 (35-45) mmHg ABG pO2 >420 H >420 H (83-108) mmHg ABG HCO3 20 L (21-25) mmol/L ABG Total CO2 (19-24) mmol/L ABG O2 Saturation 100.0 H 100.0 H (94-97) % ABG Hematocrit 24 L 33 L (34.0-46.0) % ABG Sodium 149 H (135-146) mmol/L ABG Potassium 4.7 H (3.4-4.5) mmol/L ABG Ionized Calcium 3.8 L (4.5-5.3) mg/dL ABG Glucose 151 H (75-99) mg/dL ABG Lactic Acid 3.1 H* (0.5-1.6) mmol/L Hemoglobin 7.8 L 10.8 L (13.0-17.5) gm/dL Sodium (137-145) mmol/L Chloride (98-107) mmol/L Glucose (74-99) mg/dL POC Glucose (mg/dL) (70-110) mg/dL Calcium (8.4-10.2) mg/dL Ionized Calcium Emanuel (4.5-5.3) mg/dL Total Bilirubin (0.2-1.3) mg/dL Alkaline Phosphatase (38-126) U/L Total Protein (6.3-8.2) g/dL Albumin (3.5-5.0) g/dL Arterial Blood Potassium 4.7 H (3.4-4.5) mmol/L Arterial Blood Glucose 151 H (75-99) mg/dL Crossmatch See Detail 08/23/23 08/23/23 08/23/23 Range/Units 10:22 10:49 11:19 RBC (4.30-5.90) m/uL Hgb (13.0-17.5) gm/dL Hct (39.0-53.0) % Plt Count (150-450) k/uL Lymphocytes # (1.0-4.8) k/uL PT (10.0-12.5) sec INR (<1.2) APTT (22.0-30.0) sec Fibrinogen (200-500) mg/dL ABG pH 7.28 L 7.30 L (7.35-7.45) ABG pCO2 (35-45) mmHg ABG pO2 264 H 250 H 214 H (83-108) mmHg ABG HCO3 18 L 18 L 20 L (21-25) mmol/L ABG Total CO2 (19-24) mmol/L ABG O2 Saturation 99.8 H 99.8 H 99.9 H (94-97) % ABG Hematocrit 30 L 27 L 25 L (34.0-46.0) % ABG Sodium (135-146) mmol/L ABG Potassium (3.4-4.5) mmol/L ABG Ionized Calcium 4.3 L (4.5-5.3) mg/dL ABG Glucose (75-99) mg/dL ABG Lactic Acid (0.5-1.6) mmol/L Hemoglobin 9.7 L 8.8 L 8.1 L (13.0-17.5) gm/dL Sodium (137-145) mmol/L Chloride (98-107) mmol/L Glucose (74-99) mg/dL POC Glucose (mg/dL) (70-110) mg/dL Calcium (8.4-10.2) mg/dL Ionized Calcium Emanuel (4.5-5.3) mg/dL Total Bilirubin (0.2-1.3) mg/dL Alkaline Phosphatase (38-126) U/L Total Protein (6.3-8.2) g/dL Albumin (3.5-5.0) g/dL Arterial Blood Potassium (3.4-4.5) mmol/L Arterial Blood Glucose (75-99) mg/dL Crossmatch 08/23/23 08/23/23 08/23/23 Range/Units 11:47 12:31 13:10 RBC (4.30-5.90) m/uL Hgb (13.0-17.5) gm/dL Hct (39.0-53.0) % Plt Count (150-450) k/uL Lymphocytes # (1.0-4.8) k/uL PT (10.0-12.5) sec INR (<1.2) APTT (22.0-30.0) sec Fibrinogen (200-500) mg/dL ABG pH 7.29 L 7.28 L (7.35-7.45) ABG pCO2 46 H (35-45) mmHg ABG pO2 153 H 53 L* 168 H (83-108) mmHg ABG HCO3 20 L (21-25) mmol/L ABG Total CO2 (19-24) mmol/L ABG O2 Saturation 99.6 H 88.7 L 99.7 H (94-97) % ABG Hematocrit 25 L 23 L 20 L* (34.0-46.0) % ABG Sodium 148 H (135-146) mmol/L ABG Potassium 2.8 L* (3.4-4.5) mmol/L ABG Ionized Calcium 4.4 L (4.5-5.3) mg/dL ABG Glucose 104 H 116 H 146 H (75-99) mg/dL ABG Lactic Acid 2.7 H* (0.5-1.6) mmol/L Hemoglobin 8.0 L 7.5 L 6.6 L* (13.0-17.5) gm/dL Sodium (137-145) mmol/L Chloride (98-107) mmol/L Glucose (74-99) mg/dL POC Glucose (mg/dL) (70-110) mg/dL Calcium (8.4-10.2) mg/dL Ionized Calcium Emanuel (4.5-5.3) mg/dL Total Bilirubin (0.2-1.3) mg/dL Alkaline Phosphatase (38-126) U/L Total Protein (6.3-8.2) g/dL Albumin (3.5-5.0) g/dL Arterial Blood Potassium 2.8 L* (3.4-4.5) mmol/L Arterial Blood Glucose 104 H 116 H 146 H (75-99) mg/dL Crossmatch 08/23/23 08/23/23 08/23/23 Range/Units 13:10 13:12 13:15 RBC 2.28 L (4.30-5.90) m/uL Hgb 7.4 L D (13.0-17.5) gm/dL Hct 21.9 L (39.0-53.0) % Plt Count 62 L D (150-450) k/uL Lymphocytes # (1.0-4.8) k/uL PT (10.0-12.5) sec INR (<1.2) APTT (22.0-30.0) sec Fibrinogen (200-500) mg/dL ABG pH 7.31 L (7.35-7.45) ABG pCO2 (35-45) mmHg ABG pO2 >420 H 78 L (83-108) mmHg ABG HCO3 (21-25) mmol/L ABG Total CO2 (19-24) mmol/L ABG O2 Saturation 100.0 H (94-97) % ABG Hematocrit 20 L* 22 L (34.0-46.0) % ABG Sodium 148 H 147 H (135-146) mmol/L ABG Potassium (3.4-4.5) mmol/L ABG Ionized Calcium 3.7 L 4.0 L (4.5-5.3) mg/dL ABG Glucose 151 H 136 H (75-99) mg/dL ABG Lactic Acid 3.1 H* 2.8 H* (0.5-1.6) mmol/L Hemoglobin 6.5 L* 7.1 L (13.0-17.5) gm/dL Sodium (137-145) mmol/L Chloride (98-107) mmol/L Glucose (74-99) mg/dL POC Glucose (mg/dL) (70-110) mg/dL Calcium (8.4-10.2) mg/dL Ionized Calcium Emanuel (4.5-5.3) mg/dL Total Bilirubin (0.2-1.3) mg/dL Alkaline Phosphatase (38-126) U/L Total Protein (6.3-8.2) g/dL Albumin (3.5-5.0) g/dL Arterial Blood Potassium (3.4-4.5) mmol/L Arterial Blood Glucose 151 H 136 H (75-99) mg/dL Crossmatch 08/23/23 08/23/23 08/23/23 Range/Units 13:45 14:28 16:03 RBC 2.51 L (4.30-5.90) m/uL Hgb 8.1 L (13.0-17.5) gm/dL Hct 23.8 L (39.0-53.0) % Plt Count 69 L (150-450) k/uL Lymphocytes # (1.0-4.8) k/uL PT (10.0-12.5) sec INR (<1.2) APTT (22.0-30.0) sec Fibrinogen (200-500) mg/dL ABG pH 7.33 L (7.35-7.45) ABG pCO2 (35-45) mmHg ABG pO2 >420 H 249 H (83-108) mmHg ABG HCO3 20 L (21-25) mmol/L ABG Total CO2 (19-24) mmol/L ABG O2 Saturation 100.0 H 99.9 H (94-97) % ABG Hematocrit 22 L 23 L (34.0-46.0) % ABG Sodium 147 H 148 H (135-146) mmol/L ABG Potassium (3.4-4.5) mmol/L ABG Ionized Calcium 3.8 L 4.0 L (4.5-5.3) mg/dL ABG Glucose 155 H 158 H (75-99) mg/dL ABG Lactic Acid 3.0 H* 2.8 H* (0.5-1.6) mmol/L Hemoglobin 7.1 L 7.6 L (13.0-17.5) gm/dL Sodium (137-145) mmol/L Chloride (98-107) mmol/L Glucose (74-99) mg/dL POC Glucose (mg/dL) (70-110) mg/dL Calcium (8.4-10.2) mg/dL Ionized Calcium Emanuel (4.5-5.3) mg/dL Total Bilirubin (0.2-1.3) mg/dL Alkaline Phosphatase (38-126) U/L Total Protein (6.3-8.2) g/dL Albumin (3.5-5.0) g/dL Arterial Blood Potassium (3.4-4.5) mmol/L Arterial Blood Glucose 155 H 158 H (75-99) mg/dL Crossmatch 08/23/23 08/23/23 08/23/23 Range/Units 16:03 16:03 16:08 RBC (4.30-5.90) m/uL Hgb (13.0-17.5) gm/dL Hct (39.0-53.0) % Plt Count (150-450) k/uL Lymphocytes # (1.0-4.8) k/uL PT 18.5 H (10.0-12.5) sec INR 1.8 H (<1.2) APTT 65.3 H (22.0-30.0) sec Fibrinogen (200-500) mg/dL ABG pH (7.35-7.45) ABG pCO2 (35-45) mmHg ABG pO2 (83-108) mmHg ABG HCO3 (21-25) mmol/L ABG Total CO2 (19-24) mmol/L ABG O2 Saturation (94-97) % ABG Hematocrit (34.0-46.0) % ABG Sodium (135-146) mmol/L ABG Potassium (3.4-4.5) mmol/L ABG Ionized Calcium (4.5-5.3) mg/dL ABG Glucose (75-99) mg/dL ABG Lactic Acid (0.5-1.6) mmol/L Hemoglobin (13.0-17.5) gm/dL Sodium 147 H (137-145) mmol/L Chloride 111 H (98-107) mmol/L Glucose 158 H (74-99) mg/dL POC Glucose (mg/dL) 178 H (70-110) mg/dL Calcium 7.2 L (8.4-10.2) mg/dL Ionized Calcium Emanuel 4.2 L (4.5-5.3) mg/dL Total Bilirubin 1.5 H (0.2-1.3) mg/dL Alkaline Phosphatase 21 L (38-126) U/L Total Protein 4.2 L (6.3-8.2) g/dL Albumin 2.9 L (3.5-5.0) g/dL Arterial Blood Potassium (3.4-4.5) mmol/L Arterial Blood Glucose (75-99) mg/dL Crossmatch 08/23/23 08/23/23 08/23/23 Range/Units 16:27 17:14 17:54 RBC (4.30-5.90) m/uL Hgb (13.0-17.5) gm/dL Hct (39.0-53.0) % Plt Count (150-450) k/uL Lymphocytes # (1.0-4.8) k/uL PT (10.0-12.5) sec INR (<1.2) APTT (22.0-30.0) sec Fibrinogen (200-500) mg/dL ABG pH 7.28 L (7.35-7.45) ABG pCO2 51 H (35-45) mmHg ABG pO2 112 H (83-108) mmHg ABG HCO3 (21-25) mmol/L ABG Total CO2 26 H (19-24) mmol/L ABG O2 Saturation 98.5 H (94-97) % ABG Hematocrit (34.0-46.0) % ABG Sodium (135-146) mmol/L ABG Potassium (3.4-4.5) mmol/L ABG Ionized Calcium (4.5-5.3) mg/dL ABG Glucose (75-99) mg/dL ABG Lactic Acid (0.5-1.6) mmol/L Hemoglobin (13.0-17.5) gm/dL Sodium (137-145) mmol/L Chloride (98-107) mmol/L Glucose (74-99) mg/dL POC Glucose (mg/dL) 196 H 202 H (70-110) mg/dL Calcium (8.4-10.2) mg/dL Ionized Calcium Emanuel (4.5-5.3) mg/dL Total Bilirubin (0.2-1.3) mg/dL Alkaline Phosphatase (38-126) U/L Total Protein (6.3-8.2) g/dL Albumin (3.5-5.0) g/dL Arterial Blood Potassium (3.4-4.5) mmol/L Arterial Blood Glucose (75-99) mg/dL Crossmatch 08/23/23 08/23/23 Range/Units 17:55 18:21 RBC 2.68 L (4.30-5.90) m/uL Hgb 8.7 L (13.0-17.5) gm/dL Hct 25.1 L (39.0-53.0) % Plt Count 78 L (150-450) k/uL Lymphocytes # 0.8 L (1.0-4.8) k/uL PT (10.0-12.5) sec INR (<1.2) APTT (22.0-30.0) sec Fibrinogen 110 L (200-500) mg/dL ABG pH (7.35-7.45) ABG pCO2 (35-45) mmHg ABG pO2 (83-108) mmHg ABG HCO3 (21-25) mmol/L ABG Total CO2 (19-24) mmol/L ABG O2 Saturation (94-97) % ABG Hematocrit (34.0-46.0) % ABG Sodium (135-146) mmol/L ABG Potassium (3.4-4.5) mmol/L ABG Ionized Calcium (4.5-5.3) mg/dL ABG Glucose (75-99) mg/dL ABG Lactic Acid (0.5-1.6) mmol/L Hemoglobin (13.0-17.5) gm/dL Sodium (137-145) mmol/L Chloride (98-107) mmol/L Glucose (74-99) mg/dL POC Glucose (mg/dL) (70-110) mg/dL Calcium (8.4-10.2) mg/dL Ionized Calcium Emanuel (4.5-5.3) mg/dL Total Bilirubin (0.2-1.3) mg/dL Alkaline Phosphatase (38-126) U/L Total Protein (6.3-8.2) g/dL Albumin (3.5-5.0) g/dL Arterial Blood Potassium (3.4-4.5) mmol/L Arterial Blood Glucose (75-99) mg/dL Crossmatch
--- NOTE | 2023-08-23 19:02 | P.PN ---
Subjective Progress Note Date: 08/23/23, the patient is being seen immediately following bypass surgery. The patient a complicated surgery. The patient will Off pump converted to cardiopulmonary bypass assisted coronary artery bypass grafting x 3. Right internal thoracic artery (in-situ) to left anterior descending coronary artery. Left anterior descending coronary artery (in-situ) to obtuse marginal artery #3. Reversed lesser saphenous vein from aorta to distal right coronary artery. The patient was brought into the intensive care unit and the patient is currently on propofol running at 20 mcg/kg/m. Intubated on a mechanical ventilator. Is currently on assist control mode at a rate of 12, tidal volume of 450, FiO2 of 100% with a PEEP of 5. Blood cultures showed a pH of 7.28 with a pCO2 of 51 and pO2 112. Chest x-ray shows adequate expansion of both lungs. No pneumothorax. The patient has a right pleural, left total and mediastinal chest tube. The patient's cardiac output is currently at 8.7 with an index of 4.4. Pulmonary artery pressure 34/23. The patient is on vasopressin physiologic dose, dopamine infusion running at 0.03 microvascular kilogram per minute and norepinephrine is running at 0.05 microvascular kilogram per minutes. the cardiac rhythm Is sinus and the patient is on amiodarone at 1 mg/m. Patient is also on insulin drip at 2.5 units an hour. The patient has increased output from the chest tube. The right pleural in the left pleural chest tubes are connected output has been in the order of 400 mL and the mediastinal chest tube has drained approximately 130 mL since arrival from the operating room. Intraoperatively, the patient received a total of 2 units of packed RBC, platelet concentrate, 4.5 L of albumin, 3 L of crystalloids and 2 L of Cell Savers. Estimated blood loss was around 4 L. The patient is currently hypothermic with a temperature of 35.7C. The CBC showed a hemoglobin of 8.7, white cell count of 8.5, platelet count of 78, and electrodes are still pending for now. Meanwhile, a cognition profile showed an INR of 1.8 with a PT of 18.5 and a PTT of 65.3. The patient was also given protamine. His well sedated and is, comfortable at this point in time. Surgical one-sided dry clean and intact. Objective - Vital Signs Vital signs: Vital Signs Temp 96.3 F L 08/23/23 16:00 Pulse 109 H 08/23/23 17:15 Resp 24 08/23/23 17:15 BP 104/52 08/23/23 06:02 Pulse Ox 95 08/23/23 17:15 FiO2 100 08/23/23 16:49 Intake & Output 08/22/23 08/23/23 08/23/23 18:59 06:59 18:59 Intake Total 857 847 6711.111 Output Total 0 4965 Balance 465 100 -3894.889 Intake: IV 100 403 ACETAMINOPHEN IV (For NPO 100 ) 1,000 mg In Empty Bag 1 bag @ 400 mls/hr IVPB Q6HR GOVIND Rx#:[id number] Calcium Gluconate in NaCl 100 2 gm In Saline 1 100ml. bag @ 100 mls/hr IVPB ONCE PRN Rx#:[id number] Lactated Ringers 1,000 ml 150 @ 50 mls/hr IV .Q20H GOVIND Rx#:[id number] ceFAZolin 2 gm In Sodium 50 Chloride 0.9% 50 ml @ 100 mls/hr IVPB Q8HR GOVIND Rx# :[id number] Intake, IV Titration 30.111 Amount Insulin Regular 100 unit 5.530 In Sodium Chloride 0.9% 100 ml @ Per Protocol IV .Q0M GOVIND Rx#:[id number] Norepinephrine 4 mg In 24.581 Sodium Chloride 0.9% 250 ml @ 0.02 MCG/KG/MIN 5. 876 mls/hr IV .Q24H GOVIND Rx#:[id number] Oral 465 Blood Product 637 Platelet Pheresis Pas 327 Psoralen Unit [id number] Rc As-1 Unit 310 [id number] Rc Irr As1 Unit 0 [id number] Output: Chest Tube Drainage 300 Mediastinal 110 Right/Left Pleural 190 Urine 665 Stool 0 Estimated Blood Loss 4000 Other: # Voids 2 1 # Bowel Movements 1 ABP, PAP, CO, CI - Last Documented Arterial Blood Pressure 142/61 Pulmonary Artery Pressure 34/21 Cardiac Output 8 Cardiac Index 4.1 - Exam GENERAL EXAM: Alert, 73-year-old white male , comfortable in no apparent distress. Sedated, calm and comfortable, intubated on a mechanical ventilator. Orogastric and orotracheal tube are both in place. HEAD: Normocephalic and atraumatic EYES: Normal reaction of pupils, equal size. NOSE: Clear with pink turbinates. THROAT: No erythema or exudates. NECK: No masses, no JVD. The patient has a [place]ay catheter in the right IJ. CHEST: No chest wall deformity. LUNGS: Equal air entry with no crackles, wheeze, rhonchi or dullness. Thoracotomy scar is dry clean and intact and the patient has a right pleural, left lower limb the mediastinal chest tube. CVS: S1 and S2 normal with no audible murmur, regular rhythm. No extra heart sounds ABDOMEN: No hepatosplenomegaly, active bowel sounds, no guarding or rigidity. SPINE: No scoliosis or deformity SKIN: No rashes CENTRAL NERVOUS SYSTEM: No focal deficits, and the patient is sedated currently with propofol. EXTREMITIES: There is no peripheral edema, clubbing, or cyanosis. Peripheral pulses are intact. - Labs CBC & Chem 7: 08/23/23 18:21 08/23/23 16:03 Labs: Abnormal Lab Results - Last 24 Hours (Table) 08/20/23 08/23/23 08/23/23 Range/Units 14:59 08:15 08:22 RBC (4.30-5.90) m/uL Hgb (13.0-17.5) gm/dL Hct (39.0-53.0) % Plt Count (150-450) k/uL Lymphocytes # (1.0-4.8) k/uL PT (10.0-12.5) sec INR (<1.2) APTT (22.0-30.0) sec Fibrinogen (200-500) mg/dL ABG pH (7.35-7.45) ABG pCO2 (35-45) mmHg ABG pO2 >420 H >420 H (83-108) mmHg ABG HCO3 20 L (21-25) mmol/L ABG Total CO2 (19-24) mmol/L ABG O2 Saturation 100.0 H 100.0 H (94-97) % ABG Hematocrit 24 L 33 L (34.0-46.0) % ABG Sodium 149 H (135-146) mmol/L ABG Potassium 4.7 H (3.4-4.5) mmol/L ABG Ionized Calcium 3.8 L (4.5-5.3) mg/dL ABG Glucose 151 H (75-99) mg/dL ABG Lactic Acid 3.1 H* (0.5-1.6) mmol/L Hemoglobin 7.8 L 10.8 L (13.0-17.5) gm/dL Sodium (137-145) mmol/L Chloride (98-107) mmol/L Glucose (74-99) mg/dL POC Glucose (mg/dL) (70-110) mg/dL Calcium (8.4-10.2) mg/dL Ionized Calcium Emanuel (4.5-5.3) mg/dL Total Bilirubin (0.2-1.3) mg/dL Alkaline Phosphatase (38-126) U/L Total Protein (6.3-8.2) g/dL Albumin (3.5-5.0) g/dL Arterial Blood Potassium 4.7 H (3.4-4.5) mmol/L Arterial Blood Glucose 151 H (75-99) mg/dL Crossmatch See Detail 08/23/23 08/23/23 08/23/23 Range/Units 10:22 10:49 11:19 RBC (4.30-5.90) m/uL Hgb (13.0-17.5) gm/dL Hct (39.0-53.0) % Plt Count (150-450) k/uL Lymphocytes # (1.0-4.8) k/uL PT (10.0-12.5) sec INR (<1.2) APTT (22.0-30.0) sec Fibrinogen (200-500) mg/dL ABG pH 7.28 L 7.30 L (7.35-7.45) ABG pCO2 (35-45) mmHg ABG pO2 264 H 250 H 214 H (83-108) mmHg ABG HCO3 18 L 18 L 20 L (21-25) mmol/L ABG Total CO2 (19-24) mmol/L ABG O2 Saturation 99.8 H 99.8 H 99.9 H (94-97) % ABG Hematocrit 30 L 27 L 25 L (34.0-46.0) % ABG Sodium (135-146) mmol/L ABG Potassium (3.4-4.5) mmol/L ABG Ionized Calcium 4.3 L (4.5-5.3) mg/dL ABG Glucose (75-99) mg/dL ABG Lactic Acid (0.5-1.6) mmol/L Hemoglobin 9.7 L 8.8 L 8.1 L (13.0-17.5) gm/dL Sodium (137-145) mmol/L Chloride (98-107) mmol/L Glucose (74-99) mg/dL POC Glucose (mg/dL) (70-110) mg/dL Calcium (8.4-10.2) mg/dL Ionized Calcium Emanuel (4.5-5.3) mg/dL Total Bilirubin (0.2-1.3) mg/dL Alkaline Phosphatase (38-126) U/L Total Protein (6.3-8.2) g/dL Albumin (3.5-5.0) g/dL Arterial Blood Potassium (3.4-4.5) mmol/L Arterial Blood Glucose (75-99) mg/dL Crossmatch 08/23/23 08/23/23 08/23/23 Range/Units 11:47 12:31 13:10 RBC (4.30-5.90) m/uL Hgb (13.0-17.5) gm/dL Hct (39.0-53.0) % Plt Count (150-450) k/uL Lymphocytes # (1.0-4.8) k/uL PT (10.0-12.5) sec INR (<1.2) APTT (22.0-30.0) sec Fibrinogen (200-500) mg/dL ABG pH 7.29 L 7.28 L (7.35-7.45) ABG pCO2 46 H (35-45) mmHg ABG pO2 153 H 53 L* 168 H (83-108) mmHg ABG HCO3 20 L (21-25) mmol/L ABG Total CO2 (19-24) mmol/L ABG O2 Saturation 99.6 H 88.7 L 99.7 H (94-97) % ABG Hematocrit 25 L 23 L 20 L* (34.0-46.0) % ABG Sodium 148 H (135-146) mmol/L ABG Potassium 2.8 L* (3.4-4.5) mmol/L ABG Ionized Calcium 4.4 L (4.5-5.3) mg/dL ABG Glucose 104 H 116 H 146 H (75-99) mg/dL ABG Lactic Acid 2.7 H* (0.5-1.6) mmol/L Hemoglobin 8.0 L 7.5 L 6.6 L* (13.0-17.5) gm/dL Sodium (137-145) mmol/L Chloride (98-107) mmol/L Glucose (74-99) mg/dL POC Glucose (mg/dL) (70-110) mg/dL Calcium (8.4-10.2) mg/dL Ionized Calcium Emanuel (4.5-5.3) mg/dL Total Bilirubin (0.2-1.3) mg/dL Alkaline Phosphatase (38-126) U/L Total Protein (6.3-8.2) g/dL Albumin (3.5-5.0) g/dL Arterial Blood Potassium 2.8 L* (3.4-4.5) mmol/L Arterial Blood Glucose 104 H 116 H 146 H (75-99) mg/dL Crossmatch 08/23/23 08/23/23 08/23/23 Range/Units 13:10 13:12 13:15 RBC 2.28 L (4.30-5.90) m/uL Hgb 7.4 L D (13.0-17.5) gm/dL Hct 21.9 L (39.0-53.0) % Plt Count 62 L D (150-450) k/uL Lymphocytes # (1.0-4.8) k/uL PT (10.0-12.5) sec INR (<1.2) APTT (22.0-30.0) sec Fibrinogen (200-500) mg/dL ABG pH 7.31 L (7.35-7.45) ABG pCO2 (35-45) mmHg ABG pO2 >420 H 78 L (83-108) mmHg ABG HCO3 (21-25) mmol/L ABG Total CO2 (19-24) mmol/L ABG O2 Saturation 100.0 H (94-97) % ABG Hematocrit 20 L* 22 L (34.0-46.0) % ABG Sodium 148 H 147 H (135-146) mmol/L ABG Potassium (3.4-4.5) mmol/L ABG Ionized Calcium 3.7 L 4.0 L (4.5-5.3) mg/dL ABG Glucose 151 H 136 H (75-99) mg/dL ABG Lactic Acid 3.1 H* 2.8 H* (0.5-1.6) mmol/L Hemoglobin 6.5 L* 7.1 L (13.0-17.5) gm/dL Sodium (137-145) mmol/L Chloride (98-107) mmol/L Glucose (74-99) mg/dL POC Glucose (mg/dL) (70-110) mg/dL Calcium (8.4-10.2) mg/dL Ionized Calcium Emanuel (4.5-5.3) mg/dL Total Bilirubin (0.2-1.3) mg/dL Alkaline Phosphatase (38-126) U/L Total Protein (6.3-8.2) g/dL Albumin (3.5-5.0) g/dL Arterial Blood Potassium (3.4-4.5) mmol/L Arterial Blood Glucose 151 H 136 H (75-99) mg/dL Crossmatch 08/23/23 08/23/23 08/23/23 Range/Units 13:45 14:28 16:03 RBC 2.51 L (4.30-5.90) m/uL Hgb 8.1 L (13.0-17.5) gm/dL Hct 23.8 L (39.0-53.0) % Plt Count 69 L (150-450) k/uL Lymphocytes # (1.0-4.8) k/uL PT (10.0-12.5) sec INR (<1.2) APTT (22.0-30.0) sec Fibrinogen (200-500) mg/dL ABG pH 7.33 L (7.35-7.45) ABG pCO2 (35-45) mmHg ABG pO2 >420 H 249 H (83-108) mmHg ABG HCO3 20 L (21-25) mmol/L ABG Total CO2 (19-24) mmol/L ABG O2 Saturation 100.0 H 99.9 H (94-97) % ABG Hematocrit 22 L 23 L (34.0-46.0) % ABG Sodium 147 H 148 H (135-146) mmol/L ABG Potassium (3.4-4.5) mmol/L ABG Ionized Calcium 3.8 L 4.0 L (4.5-5.3) mg/dL ABG Glucose 155 H 158 H (75-99) mg/dL ABG Lactic Acid 3.0 H* 2.8 H* (0.5-1.6) mmol/L Hemoglobin 7.1 L 7.6 L (13.0-17.5) gm/dL Sodium (137-145) mmol/L Chloride (98-107) mmol/L Glucose (74-99) mg/dL POC Glucose (mg/dL) (70-110) mg/dL Calcium (8.4-10.2) mg/dL Ionized Calcium Emanuel (4.5-5.3) mg/dL Total Bilirubin (0.2-1.3) mg/dL Alkaline Phosphatase (38-126) U/L Total Protein (6.3-8.2) g/dL Albumin (3.5-5.0) g/dL Arterial Blood Potassium (3.4-4.5) mmol/L Arterial Blood Glucose 155 H 158 H (75-99) mg/dL Crossmatch 08/23/23 08/23/23 08/23/23 Range/Units 16:03 16:03 16:08 RBC (4.30-5.90) m/uL Hgb (13.0-17.5) gm/dL Hct (39.0-53.0) % Plt Count (150-450) k/uL Lymphocytes # (1.0-4.8) k/uL PT 18.5 H (10.0-12.5) sec INR 1.8 H (<1.2) APTT 65.3 H (22.0-30.0) sec Fibrinogen (200-500) mg/dL ABG pH (7.35-7.45) ABG pCO2 (35-45) mmHg ABG pO2 (83-108) mmHg ABG HCO3 (21-25) mmol/L ABG Total CO2 (19-24) mmol/L ABG O2 Saturation (94-97) % ABG Hematocrit (34.0-46.0) % ABG Sodium (135-146) mmol/L ABG Potassium (3.4-4.5) mmol/L ABG Ionized Calcium (4.5-5.3) mg/dL ABG Glucose (75-99) mg/dL ABG Lactic Acid (0.5-1.6) mmol/L Hemoglobin (13.0-17.5) gm/dL Sodium 147 H (137-145) mmol/L Chloride 111 H (98-107) mmol/L Glucose 158 H (74-99) mg/dL POC Glucose (mg/dL) 178 H (70-110) mg/dL Calcium 7.2 L (8.4-10.2) mg/dL Ionized Calcium Emanuel 4.2 L (4.5-5.3) mg/dL Total Bilirubin 1.5 H (0.2-1.3) mg/dL Alkaline Phosphatase 21 L (38-126) U/L Total Protein 4.2 L (6.3-8.2) g/dL Albumin 2.9 L (3.5-5.0) g/dL Arterial Blood Potassium (3.4-4.5) mmol/L Arterial Blood Glucose (75-99) mg/dL Crossmatch 08/23/23 08/23/23 08/23/23 Range/Units 16:27 17:14 17:54 RBC (4.30-5.90) m/uL Hgb (13.0-17.5) gm/dL Hct (39.0-53.0) % Plt Count (150-450) k/uL Lymphocytes # (1.0-4.8) k/uL PT (10.0-12.5) sec INR (<1.2) APTT (22.0-30.0) sec Fibrinogen (200-500) mg/dL ABG pH 7.28 L (7.35-7.45) ABG pCO2 51 H (35-45) mmHg ABG pO2 112 H (83-108) mmHg ABG HCO3 (21-25) mmol/L ABG Total CO2 26 H (19-24) mmol/L ABG O2 Saturation 98.5 H (94-97) % ABG Hematocrit (34.0-46.0) % ABG Sodium (135-146) mmol/L ABG Potassium (3.4-4.5) mmol/L ABG Ionized Calcium (4.5-5.3) mg/dL ABG Glucose (75-99) mg/dL ABG Lactic Acid (0.5-1.6) mmol/L Hemoglobin (13.0-17.5) gm/dL Sodium (137-145) mmol/L Chloride (98-107) mmol/L Glucose (74-99) mg/dL POC Glucose (mg/dL) 196 H 202 H (70-110) mg/dL Calcium (8.4-10.2) mg/dL Ionized Calcium Emanuel (4.5-5.3) mg/dL Total Bilirubin (0.2-1.3) mg/dL Alkaline Phosphatase (38-126) U/L Total Protein (6.3-8.2) g/dL Albumin (3.5-5.0) g/dL Arterial Blood Potassium (3.4-4.5) mmol/L Arterial Blood Glucose (75-99) mg/dL Crossmatch 08/23/23 08/23/23 Range/Units 17:55 18:21 RBC 2.68 L (4.30-5.90) m/uL Hgb 8.7 L (13.0-17.5) gm/dL Hct 25.1 L (39.0-53.0) % Plt Count 78 L (150-450) k/uL Lymphocytes # 0.8 L (1.0-4.8) k/uL PT (10.0-12.5) sec INR (<1.2) APTT (22.0-30.0) sec Fibrinogen 110 L (200-500) mg/dL ABG pH (7.35-7.45) ABG pCO2 (35-45) mmHg ABG pO2 (83-108) mmHg ABG HCO3 (21-25) mmol/L ABG Total CO2 (19-24) mmol/L ABG O2 Saturation (94-97) % ABG Hematocrit (34.0-46.0) % ABG Sodium (135-146) mmol/L ABG Potassium (3.4-4.5) mmol/L ABG Ionized Calcium (4.5-5.3) mg/dL ABG Glucose (75-99) mg/dL ABG Lactic Acid (0.5-1.6) mmol/L Hemoglobin (13.0-17.5) gm/dL Sodium (137-145) mmol/L Chloride (98-107) mmol/L Glucose (74-99) mg/dL POC Glucose (mg/dL) (70-110) mg/dL Calcium (8.4-10.2) mg/dL Ionized Calcium Emanuel (4.5-5.3) mg/dL Total Bilirubin (0.2-1.3) mg/dL Alkaline Phosphatase (38-126) U/L Total Protein (6.3-8.2) g/dL Albumin (3.5-5.0) g/dL Arterial Blood Potassium (3.4-4.5) mmol/L Arterial Blood Glucose (75-99) mg/dL Crossmatch Assessment and Plan Assessment: Triple-vessel coronary artery disease, and the patient is status post Off pump converted to cardiopulmonary bypass assisted coronary artery bypass grafting x 3. Right internal thoracic artery (in-situ) to left anterior descending coronary artery. Left anterior descending coronary artery (in-situ) to obtuse marginal artery #3. Reversed lesser saphenous vein from aorta to distal right coronary artery. The patient is currently postop day #1. The patient is on a combination of pressors and the patient is currently on vasopressin, norepinephrine and dopamine. Patient is also on amiodarone for A. fib prophylaxis. Adequate cardiac output and index of this point in time Postthoracotomy, currently intubated on a mechanical ventilator. Chest x-ray was noted. Blood gas was noted and the necessity ventilator changes to be done. Coagulopathy, treated with protamine, fresh frozen plasma and platelet concentrate Hyperglycemia, expected outcome of surgery and the patient is currently on insulin drip at 2.5 units an hour for blood sugar control Blood loss Anemia, expected outcome of surgery and the patient was transfused with a total of 2 units of packed RBC, hemoglobin is stable for now Benign essential hypertension Hyperlipidemia History of TIA Chronic kidney disease stage III Significant history of tobacco dependence, over 50 pack years History of asbestos exposure, with pleural plaquing noted on chest CT Benign prosthetic hyperplasia Nonobstructive carotid artery disease based on CT angiogram, bilateral in the order of 50% Plan: Keep the patient sedated on propofol Increase the respiratory rate of 24 Gradually dropped down FiO2 to maintain a saturation above 90% Monitor output from the chest tube Monitor hemodynamics Continue pressors and the patient is currently on a combination of physiologic dose of vasopressin, dopamine renal dose and norepinephrine. Continue amiodarone drip at 1 mg an hour Titrate insulin drip for tight blood sugar control Monitor hemoglobin Obtain a set of electrolytes Chest x-ray was reviewed We'll obtain another blood gases within next few hours Condition is critical and we'll continue to follow, collaborate with the surgical team and will make further recommendations. Will consider extubation if his condition stabilizes further. Critical care evaluation that was done in more than 30 minutes. Time with Patient: Greater than 30
[2023-08-23 19:04] LABS: Glucose,Whole Blood 178 mg/dL (70-110)
[2023-08-23 19:56] LABS: Glucose,Whole Blood 150 mg/dL (70-110)
[2023-08-23 19:57] LABS: ABG Base Excess -0.5 mmol/L; ABG HCO3 24 mmol/L (21-25); ABG Oxygen Saturation 99.8 % (94-97); ABG PCO2 36 mmHg (35-45); ABG PH 7.43 (7.35-7.45); ABG PO2 268 mmHg (83-108); ABG TCO2 25 mmol/L (19-24); Allen Test Performed? Yes
[2023-08-23] MEDS: DEXTROSE 5% IN WATER 100 ML with AMIODARONE 150 MG IV PRN (20:31)
[2023-08-23 21:04] LABS: Glucose,Whole Blood 166 mg/dL (70-110)
[2023-08-23] MEDS: MAGNESIUM SULFATE-D5W PMX 1 GM in DEXTROSE/WATER 1 100ML.BAG IVPB SCH ×2 (21:07→21:56)
[2023-08-23] MEDS: SENNOSIDES-DOCUSATE SODIUM 1 EACH TAB PO SCH (21:08)
[2023-08-23 21:33] LABS: Basophils % (A) 0 %; Eosinophils % (A) 1 %; HCT 24.7 % (39.0-53.0); HGB 8.6 gm/dL (13.0-17.5); Lymphocytes # (A) 0.9 k/uL (1.0-4.8); Lymphocytes % (A) 10 %; MCH 32.5 pg (25.0-35.0); MCHC 34.8 g/dL (31.0-37.0); MCV 93.3 fL (80.0-100.0); Mean Platelet Volume 8.7; Monocytes # (A) 0.7 k/uL (0-1.0); Monocytes % (A) 8 %; Neutrophils # (A) 6.5 k/uL (1.3-7.7); Neutrophils % (A) 79 %; RBC 2.65 m/uL (4.30-5.90); WBC 8.2 k/uL (3.8-10.6)
[2023-08-23 21:39] LABS: Platelet Count 85 k/uL (150-450)
[2023-08-23 22:08] LABS: Glucose,Whole Blood 159 mg/dL (70-110)
[2023-08-23 23:08] LABS: Glucose,Whole Blood 142 mg/dL (70-110)
[2023-08-23] MEDS: ONDANSETRON 4 MG/2 ML VIAL IVP PRN (23:26)
[2023-08-23 23:42] LABS: ABG Base Excess 0.6 mmol/L; ABG HCO3 25 mmol/L (21-25); ABG Oxygen Saturation 98.1 % (94-97); ABG PCO2 39 mmHg (35-45); ABG PH 7.42 (7.35-7.45); ABG PO2 95 mmHg (83-108); ABG TCO2 26 mmol/L (19-24); Allen Test Performed? Yes
[2023-08-24 00:23] LABS: Glucose,Whole Blood 113 mg/dL (70-110)
[2023-08-24] MEDS: ACETAMINOPHEN IV (For NPO) 1,000 MG in EMPTY BAG 1 BAG IVPB SCH (00:37)
[2023-08-24] MEDS: HEPARIN SODIUM,PORCINE 5,000 UNIT/ML 1 ML VIAL SQ SCH ×3 (00:38→15:51)
[2023-08-24] MEDS: FUROSEMIDE 10 MG/ML 2 ML VIAL IV SCH ×3 (01:00→15:27)
[2023-08-24 01:31] LABS: Glucose,Whole Blood 131 mg/dL (70-110)
[2023-08-24 02:47] LABS: Glucose,Whole Blood 134 mg/dL (70-110)
[2023-08-24 03:34] LABS: Glucose,Whole Blood 123 mg/dL (70-110)
[2023-08-24] MEDS: VASOPRESSIN 20 UNIT in SODIUM CHLORIDE 0.9% 50 ML IV SCH (03:56)
[2023-08-24 04:36] LABS: Glucose,Whole Blood 92 mg/dL (70-110)
[2023-08-24 05:15] LABS: ALT 23 U/L (4-49); AST 83 U/L (17-59); African American GFR (CKD) 56 (>60 ml/min/1.73 sqM); Albumin 3.5 g/dL (3.5-5.0); Alkaline Phosphatase 33 U/L (38-126); Anion Gap 13 mmol/L; Blood Urea Nitrogen 18 mg/dL (9-20); Calcium 8.1 mg/dL (8.4-10.2); Carbon Dioxide 24 mmol/L (22-30); Chloride 108 mmol/L (98-107); Glucose 112 mg/dL (74-99); Non-African American GFR(CKD) 48 (>60 ml/min/1.73 sqM); Potassium 3.3 mmol/L (3.5-5.1); Sodium 145 mmol/L (137-145); Total Bilirubin 0.9 mg/dL (0.2-1.3); Total Protein 4.8 g/dL (6.3-8.2)
[2023-08-24 05:20] LABS: Glucose,Whole Blood 84 mg/dL (70-110)
[2023-08-24 05:20] LABS: Basophils % (A) 0 %; Eosinophils % (A) 0 %; HCT 27.5 % (39.0-53.0); HGB 9.4 gm/dL (13.0-17.5); Lymphocytes # (A) 0.8 k/uL (1.0-4.8); Lymphocytes % (A) 9 %; MCH 32.4 pg (25.0-35.0); MCHC 34.4 g/dL (31.0-37.0); MCV 94.3 fL (80.0-100.0); Mean Platelet Volume 8.3; Monocytes # (A) 0.6 k/uL (0-1.0); Monocytes % (A) 7 %; Neutrophils # (A) 6.9 k/uL (1.3-7.7); Neutrophils % (A) 83 %; RBC 2.91 m/uL (4.30-5.90); RDW 14.7 % (11.5-15.5); WBC 8.4 k/uL (3.8-10.6)
[2023-08-24 05:21] LABS: Platelet Count 99 k/uL (150-450)
[2023-08-24 05:23] LABS: Ionized Calcium 4.5 mg/dL (4.5-5.3)
[2023-08-24 06:28] LABS: Glucose,Whole Blood 94 mg/dL (70-110)
[2023-08-24 07:19] LABS: Glucose,Whole Blood 111 mg/dL (70-110)
[2023-08-24] MEDS: POTASSIUM CHLORIDE ER 20 MEQ TAB.ER PO SCH ×2 (07:33→08:54)
[2023-08-24] MEDS: IPRATROPIUM-ALBUTEROL 3 ML NEB INHALATION SCH ×4 (08:10→20:25)
--- NOTE | 2023-08-24 08:28 | XR ---
EXAMINATION TYPE: XR chest 1V portable DATE OF EXAM: 08/24/2023 COMPARISON: 08/23/2023 HISTORY: Postop TECHNIQUE: Single frontal view of the chest is obtained. FINDINGS: ET and NG tube have been removed. Postoperative change with cardiomegaly. Mediastinal drai n and chest tube noted. Interstitial pattern seen. Calcification of the left hemithorax likely relate d to granuloma. Lower lobe consolidation noted. Epicardial leads seen. IMPRESSION: 1. CHF with left lower lobe infiltrate.
[2023-08-24] MEDS: ASPIRIN 325 MG TAB PO SCH (08:53)
[2023-08-24] MEDS: METOPROLOL TARTRATE 12.5 MG TAB PO SCH ×2 (08:54→20:10)
[2023-08-24] MEDS: ONDANSETRON 4 MG/2 ML VIAL IVP PRN (08:54)
[2023-08-24] MEDS: CLOPIDOGREL 75 MG TAB PO SCH (08:54)
[2023-08-24] MEDS: AMIODARONE 200 MG TAB PO SCH ×2 (08:57→20:11)
[2023-08-24] MEDS ORDERED: PANTOPRAZOLE 40 MG/10 ML VIAL IVP SCH (09:00)
[2023-08-24] MEDS ORDERED: bisacodyL 10 MG SUPP RECTAL PRN (09:00)
--- NOTE | 2023-08-24 09:11 | P.PN ---
Subjective Progress Note Date: 08/24/23 The patient is 73-year-old male who follows in the office with Dr. Fernandez. He initially presented to the hospital with unstable angina. He underwent coronary angiogram revealing triple vessel disease. On 08/23/23 he underwent coronary bypass grafting 3 with left internal thoracic artery to LAD, OM1, and SVG to RCA. Intraoperative complications include converting from off-pump 2 on pump bypass as well as atrial fibrillation requiring defibrillation. The patient was successfully weaned from the ventilator and weaned from vasopressors. He remains on low-dose dopamine as well as amiodarone drip. Patient was interviewed and examined resting comfortably in the recliner chair. He reports some mild discomfort in his left lower extremity at his graft site. He also reports having some nausea this morning. No chest pain or difficulty breathing. GENERAL: Well-appearing, well-nourished and in no acute distress. NECK: Supple without JVD or thyromegaly. LUNGS: Breath sounds diminished to auscultation bilaterally. Respiration equal and unlabored. No wheezes, rales or rhonchi. HEART: Regular rate and rhythm without murmurs, rubs or gallops. S1 and S2 heard. EXTREMITIES: Normal range of motion, no edema. No clubbing or cyanosis. Peripheral pulses intact and strong. TELEMETRY: Currently in sinus rhythm LABS: WBC 8.4, hemoglobin 9.4, hematocrit 27.5, platelet 99, sodium 145, potassium 3.3, BUN 18, creatinine 1.43, magnesium 2.0, AST 83, ALT 23 IMPRESSION: Multivessel coronary artery disease Status post CABG 3 Hypertension Hyperlipidemia Chronic kidney disease COPD Bilateral carotid stenosis PLAN: Continue supportive treatment Aggressive pulmonary hygiene Further recommendations will be based on clinical course I am dictating on behalf of Dr Ken Capps's history/physical and assessment/plan. Objective - Vital Signs Vital signs: Vital Signs Temp 97.0 F L 08/24/23 04:00 Pulse 94 08/24/23 08:23 Resp 24 08/24/23 07:30 BP 126/57 08/24/23 07:30 Pulse Ox 99 08/24/23 07:30 FiO2 50 08/24/23 00:45 Intake & Output 08/23/23 08/24/23 08/24/23 18:59 06:59 18:59 Intake Total 0355.912 5500.860 59 Output Total 4965 2935 95 Balance -3884.478 -1703.140 -36 Weight 79.9 kg Intake: IV 403 1118 59 .9NS Pressure bag 108 9 ACETAMINOPHEN IV (For NPO 100 100 ) 1,000 mg In Empty Bag 1 bag @ 400 mls/hr IVPB Q6HR GOVIND Rx#:[id number] CO/CI 260 Calcium Gluconate in NaCl 100 2 gm In Saline 1 100ml. bag @ 100 mls/hr IVPB ONCE PRN Rx#:[id number] Lactated Ringers 1,000 ml 150 600 50 @ 50 mls/hr IV .Q20H GOVIND Rx#:[id number] ceFAZolin 2 gm In Sodium 50 50 Chloride 0.9% 50 ml @ 100 mls/hr IVPB Q8HR GOVIND Rx# :[id number] Intake, IV Titration 40.522 113.860 Amount Insulin Regular 100 unit 5.530 35.367 In Sodium Chloride 0.9% 100 ml @ Per Protocol IV .Q0M GOVIND Rx#:[id number] Norepinephrine 4 mg In 24.581 Sodium Chloride 0.9% 250 ml @ 0.02 MCG/KG/MIN 5. 876 mls/hr IV .Q24H GOV[facility] Rx#:[id number] Vasopressin 20 unit In 42.483 Sodium Chloride 0.9% 50 ml @ 0.03 UNITS/MIN 4.59 mls/hr IV .Q11H7M [facility] Rx# :[id number] propofoL 1,000 mg In 10.411 36.010 Empty Bag 1 bag @ Titrate IV .Q0M GOVIND Rx#: [id number] Blood Product 637 Platelet Pheresis Pas 327 Psoralen Unit [id number] Rc As-1 Unit 310 [id number] Rc Irr As1 Unit 0 [id number] Output: Chest Tube Drainage 300 580 20 Mediastinal 110 210 0 Right/Left Pleural 190 370 20 Urine 665 2355 75 Estimated Blood Loss 4000 Other: Voiding Method Indwelling Catheter Indwelling Catheter ABP, PAP, CO, CI - Last Documented Arterial Blood Pressure 92/57 Pulmonary Artery Pressure 26/9 Cardiac Output 5.3 Cardiac Index 2.7 - Labs CBC & Chem 7: 08/24/23 03:29 08/24/23 03:29 Labs: Abnormal Lab Results - Last 24 Hours (Table) 08/20/23 08/23/23 08/23/23 Range/Units 14:59 08:15 08:22 RBC (4.30-5.90) m/uL Hgb (13.0-17.5) gm/dL Hct (39.0-53.0) % Plt Count (150-450) k/uL Lymphocytes # (1.0-4.8) k/uL PT (10.0-12.5) sec INR (<1.2) APTT (22.0-30.0) sec Fibrinogen (200-500) mg/dL ABG pH (7.35-7.45) ABG pCO2 (35-45) mmHg ABG pO2 >420 H >420 H (83-108) mmHg ABG HCO3 20 L (21-25) mmol/L ABG Total CO2 (19-24) mmol/L ABG O2 Saturation 100.0 H 100.0 H (94-97) % ABG Hematocrit 24 L 33 L (34.0-46.0) % ABG Sodium 149 H (135-146) mmol/L ABG Potassium 4.7 H (3.4-4.5) mmol/L ABG Ionized Calcium 3.8 L (4.5-5.3) mg/dL ABG Glucose 151 H (75-99) mg/dL ABG Lactic Acid 3.1 H* (0.5-1.6) mmol/L Hemoglobin 7.8 L 10.8 L (13.0-17.5) gm/dL Sodium (137-145) mmol/L Potassium (3.5-5.1) mmol/L Chloride (98-107) mmol/L Creatinine (0.66-1.25) mg/dL Glucose (74-99) mg/dL POC Glucose (mg/dL) (70-110) mg/dL Calcium (8.4-10.2) mg/dL Ionized Calcium Emanuel (4.5-5.3) mg/dL Total Bilirubin (0.2-1.3) mg/dL AST (17-59) U/L Alkaline Phosphatase (38-126) U/L Total Protein (6.3-8.2) g/dL Albumin (3.5-5.0) g/dL Arterial Blood Potassium 4.7 H (3.4-4.5) mmol/L Arterial Blood Glucose 151 H (75-99) mg/dL Crossmatch See Detail 08/23/23 08/23/23 08/23/23 Range/Units 10:22 10:49 11:19 RBC (4.30-5.90) m/uL Hgb (13.0-17.5) gm/dL Hct (39.0-53.0) % Plt Count (150-450) k/uL Lymphocytes # (1.0-4.8) k/uL PT (10.0-12.5) sec INR (<1.2) APTT (22.0-30.0) sec Fibrinogen (200-500) mg/dL ABG pH 7.28 L 7.30 L (7.35-7.45) ABG pCO2 (35-45) mmHg ABG pO2 264 H 250 H 214 H (83-108) mmHg ABG HCO3 18 L 18 L 20 L (21-25) mmol/L ABG Total CO2 (19-24) mmol/L ABG O2 Saturation 99.8 H 99.8 H 99.9 H (94-97) % ABG Hematocrit 30 L 27 L 25 L (34.0-46.0) % ABG Sodium (135-146) mmol/L ABG Potassium (3.4-4.5) mmol/L ABG Ionized Calcium 4.3 L (4.5-5.3) mg/dL ABG Glucose (75-99) mg/dL ABG Lactic Acid (0.5-1.6) mmol/L Hemoglobin 9.7 L 8.8 L 8.1 L (13.0-17.5) gm/dL Sodium (137-145) mmol/L Potassium (3.5-5.1) mmol/L Chloride (98-107) mmol/L Creatinine (0.66-1.25) mg/dL Glucose (74-99) mg/dL POC Glucose (mg/dL) (70-110) mg/dL Calcium (8.4-10.2) mg/dL Ionized Calcium Emanuel (4.5-5.3) mg/dL Total Bilirubin (0.2-1.3) mg/dL AST (17-59) U/L Alkaline Phosphatase (38-126) U/L Total Protein (6.3-8.2) g/dL Albumin (3.5-5.0) g/dL Arterial Blood Potassium (3.4-4.5) mmol/L Arterial Blood Glucose (75-99) mg/dL Crossmatch 08/23/23 08/23/23 08/23/23 Range/Units 11:47 12:31 13:10 RBC (4.30-5.90) m/uL Hgb (13.0-17.5) gm/dL Hct (39.0-53.0) % Plt Count (150-450) k/uL Lymphocytes # (1.0-4.8) k/uL PT (10.0-12.5) sec INR (<1.2) APTT (22.0-30.0) sec Fibrinogen (200-500) mg/dL ABG pH 7.29 L 7.28 L (7.35-7.45) ABG pCO2 46 H (35-45) mmHg ABG pO2 153 H 53 L* 168 H (83-108) mmHg ABG HCO3 20 L (21-25) mmol/L ABG Total CO2 (19-24) mmol/L ABG O2 Saturation 99.6 H 88.7 L 99.7 H (94-97) % ABG Hematocrit 25 L 23 L 20 L* (34.0-46.0) % ABG Sodium 148 H (135-146) mmol/L ABG Potassium 2.8 L* (3.4-4.5) mmol/L ABG Ionized Calcium 4.4 L (4.5-5.3) mg/dL ABG Glucose 104 H 116 H 146 H (75-99) mg/dL ABG Lactic Acid 2.7 H* (0.5-1.6) mmol/L Hemoglobin 8.0 L 7.5 L 6.6 L* (13.0-17.5) gm/dL Sodium (137-145) mmol/L Potassium (3.5-5.1) mmol/L Chloride (98-107) mmol/L Creatinine (0.66-1.25) mg/dL Glucose (74-99) mg/dL POC Glucose (mg/dL) (70-110) mg/dL Calcium (8.4-10.2) mg/dL Ionized Calcium Emanuel (4.5-5.3) mg/dL Total Bilirubin (0.2-1.3) mg/dL AST (17-59) U/L Alkaline Phosphatase (38-126) U/L Total Protein (6.3-8.2) g/dL Albumin (3.5-5.0) g/dL Arterial Blood Potassium 2.8 L* (3.4-4.5) mmol/L Arterial Blood Glucose 104 H 116 H 146 H (75-99) mg/dL Crossmatch 08/23/23 08/23/23 08/23/23 Range/Units 13:10 13:12 13:15 RBC 2.28 L (4.30-5.90) m/uL Hgb 7.4 L D (13.0-17.5) gm/dL Hct 21.9 L (39.0-53.0) % Plt Count 62 L D (150-450) k/uL Lymphocytes # (1.0-4.8) k/uL PT (10.0-12.5) sec INR (<1.2) APTT (22.0-30.0) sec Fibrinogen (200-500) mg/dL ABG pH 7.31 L (7.35-7.45) ABG pCO2 (35-45) mmHg ABG pO2 >420 H 78 L (83-108) mmHg ABG HCO3 (21-25) mmol/L ABG Total CO2 (19-24) mmol/L ABG O2 Saturation 100.0 H (94-97) % ABG Hematocrit 20 L* 22 L (34.0-46.0) % ABG Sodium 148 H 147 H (135-146) mmol/L ABG Potassium (3.4-4.5) mmol/L ABG Ionized Calcium 3.7 L 4.0 L (4.5-5.3) mg/dL ABG Glucose 151 H 136 H (75-99) mg/dL ABG Lactic Acid 3.1 H* 2.8 H* (0.5-1.6) mmol/L Hemoglobin 6.5 L* 7.1 L (13.0-17.5) gm/dL Sodium (137-145) mmol/L Potassium (3.5-5.1) mmol/L Chloride (98-107) mmol/L Creatinine (0.66-1.25) mg/dL Glucose (74-99) mg/dL POC Glucose (mg/dL) (70-110) mg/dL Calcium (8.4-10.2) mg/dL Ionized Calcium Emanuel (4.5-5.3) mg/dL Total Bilirubin (0.2-1.3) mg/dL AST (17-59) U/L Alkaline Phosphatase (38-126) U/L Total Protein (6.3-8.2) g/dL Albumin (3.5-5.0) g/dL Arterial Blood Potassium (3.4-4.5) mmol/L Arterial Blood Glucose 151 H 136 H (75-99) mg/dL Crossmatch 08/23/23 08/23/23 08/23/23 Range/Units 13:45 14:28 16:03 RBC 2.51 L (4.30-5.90) m/uL Hgb 8.1 L (13.0-17.5) gm/dL Hct 23.8 L (39.0-53.0) % Plt Count 69 L (150-450) k/uL Lymphocytes # (1.0-4.8) k/uL PT (10.0-12.5) sec INR (<1.2) APTT (22.0-30.0) sec Fibrinogen (200-500) mg/dL ABG pH 7.33 L (7.35-7.45) ABG pCO2 (35-45) mmHg ABG pO2 >420 H 249 H (83-108) mmHg ABG HCO3 20 L (21-25) mmol/L ABG Total CO2 (19-24) mmol/L ABG O2 Saturation 100.0 H 99.9 H (94-97) % ABG Hematocrit 22 L 23 L (34.0-46.0) % ABG Sodium 147 H 148 H (135-146) mmol/L ABG Potassium (3.4-4.5) mmol/L ABG Ionized Calcium 3.8 L 4.0 L (4.5-5.3) mg/dL ABG Glucose 155 H 158 H (75-99) mg/dL ABG Lactic Acid 3.0 H* 2.8 H* (0.5-1.6) mmol/L Hemoglobin 7.1 L 7.6 L (13.0-17.5) gm/dL Sodium (137-145) mmol/L Potassium (3.5-5.1) mmol/L Chloride (98-107) mmol/L Creatinine (0.66-1.25) mg/dL Glucose (74-99) mg/dL POC Glucose (mg/dL) (70-110) mg/dL Calcium (8.4-10.2) mg/dL Ionized Calcium Emanuel (4.5-5.3) mg/dL Total Bilirubin (0.2-1.3) mg/dL AST (17-59) U/L Alkaline Phosphatase (38-126) U/L Total Protein (6.3-8.2) g/dL Albumin (3.5-5.0) g/dL Arterial Blood Potassium (3.4-4.5) mmol/L Arterial Blood Glucose 155 H 158 H (75-99) mg/dL Crossmatch 08/23/23 08/23/23 08/23/23 Range/Units 16:03 16:03 16:08 RBC (4.30-5.90) m/uL Hgb (13.0-17.5) gm/dL Hct (39.0-53.0) % Plt Count (150-450) k/uL Lymphocytes # (1.0-4.8) k/uL PT 18.5 H (10.0-12.5) sec INR 1.8 H (<1.2) APTT 65.3 H (22.0-30.0) sec Fibrinogen (200-500) mg/dL ABG pH (7.35-7.45) ABG pCO2 (35-45) mmHg ABG pO2 (83-108) mmHg ABG HCO3 (21-25) mmol/L ABG Total CO2 (19-24) mmol/L ABG O2 Saturation (94-97) % ABG Hematocrit (34.0-46.0) % ABG Sodium (135-146) mmol/L ABG Potassium (3.4-4.5) mmol/L ABG Ionized Calcium (4.5-5.3) mg/dL ABG Glucose (75-99) mg/dL ABG Lactic Acid (0.5-1.6) mmol/L Hemoglobin (13.0-17.5) gm/dL Sodium 147 H (137-145) mmol/L Potassium (3.5-5.1) mmol/L Chloride 111 H (98-107) mmol/L Creatinine (0.66-1.25) mg/dL Glucose 158 H (74-99) mg/dL POC Glucose (mg/dL) 178 H (70-110) mg/dL Calcium 7.2 L (8.4-10.2) mg/dL Ionized Calcium Emanuel 4.2 L (4.5-5.3) mg/dL Total Bilirubin 1.5 H (0.2-1.3) mg/dL AST (17-59) U/L Alkaline Phosphatase 21 L (38-126) U/L Total Protein 4.2 L (6.3-8.2) g/dL Albumin 2.9 L (3.5-5.0) g/dL Arterial Blood Potassium (3.4-4.5) mmol/L Arterial Blood Glucose (75-99) mg/dL Crossmatch 08/23/23 08/23/23 08/23/23 Range/Units 16:27 17:14 17:54 RBC (4.30-5.90) m/uL Hgb (13.0-17.5) gm/dL Hct (39.0-53.0) % Plt Count (150-450) k/uL Lymphocytes # (1.0-4.8) k/uL PT (10.0-12.5) sec INR (<1.2) APTT (22.0-30.0) sec Fibrinogen (200-500) mg/dL ABG pH 7.28 L (7.35-7.45) ABG pCO2 51 H (35-45) mmHg ABG pO2 112 H (83-108) mmHg ABG HCO3 (21-25) mmol/L ABG Total CO2 26 H (19-24) mmol/L ABG O2 Saturation 98.5 H (94-97) % ABG Hematocrit (34.0-46.0) % ABG Sodium (135-146) mmol/L ABG Potassium (3.4-4.5) mmol/L ABG Ionized Calcium (4.5-5.3) mg/dL ABG Glucose (75-99) mg/dL ABG Lactic Acid (0.5-1.6) mmol/L Hemoglobin (13.0-17.5) gm/dL Sodium (137-145) mmol/L Potassium (3.5-5.1) mmol/L Chloride (98-107) mmol/L Creatinine (0.66-1.25) mg/dL Glucose (74-99) mg/dL POC Glucose (mg/dL) 196 H 202 H (70-110) mg/dL Calcium (8.4-10.2) mg/dL Ionized Calcium Emanuel (4.5-5.3) mg/dL Total Bilirubin (0.2-1.3) mg/dL AST (17-59) U/L Alkaline Phosphatase (38-126) U/L Total Protein (6.3-8.2) g/dL Albumin (3.5-5.0) g/dL Arterial Blood Potassium (3.4-4.5) mmol/L Arterial Blood Glucose (75-99) mg/dL Crossmatch 08/23/23 08/23/23 08/23/23 Range/Units 17:55 18:21 19:03 RBC 2.68 L (4.30-5.90) m/uL Hgb 8.7 L (13.0-17.5) gm/dL Hct 25.1 L (39.0-53.0) % Plt Count 78 L (150-450) k/uL Lymphocytes # 0.8 L (1.0-4.8) k/uL PT (10.0-12.5) sec INR (<1.2) APTT (22.0-30.0) sec Fibrinogen 110 L (200-500) mg/dL ABG pH (7.35-7.45) ABG pCO2 (35-45) mmHg ABG pO2 (83-108) mmHg ABG HCO3 (21-25) mmol/L ABG Total CO2 (19-24) mmol/L ABG O2 Saturation (94-97) % ABG Hematocrit (34.0-46.0) % ABG Sodium (135-146) mmol/L ABG Potassium (3.4-4.5) mmol/L ABG Ionized Calcium (4.5-5.3) mg/dL ABG Glucose (75-99) mg/dL ABG Lactic Acid (0.5-1.6) mmol/L Hemoglobin (13.0-17.5) gm/dL Sodium (137-145) mmol/L Potassium (3.5-5.1) mmol/L Chloride (98-107) mmol/L Creatinine (0.66-1.25) mg/dL Glucose (74-99) mg/dL POC Glucose (mg/dL) 178 H (70-110) mg/dL Calcium (8.4-10.2) mg/dL Ionized Calcium Emanuel (4.5-5.3) mg/dL Total Bilirubin (0.2-1.3) mg/dL AST (17-59) U/L Alkaline Phosphatase (38-126) U/L Total Protein (6.3-8.2) g/dL Albumin (3.5-5.0) g/dL Arterial Blood Potassium (3.4-4.5) mmol/L Arterial Blood Glucose (75-99) mg/dL Crossmatch 08/23/23 08/23/23 08/23/23 Range/Units 19:53 19:55 20:57 RBC (4.30-5.90) m/uL Hgb (13.0-17.5) gm/dL Hct (39.0-53.0) % Plt Count (150-450) k/uL Lymphocytes # (1.0-4.8) k/uL PT (10.0-12.5) sec INR (<1.2) APTT (22.0-30.0) sec Fibrinogen (200-500) mg/dL ABG pH (7.35-7.45) ABG pCO2 (35-45) mmHg ABG pO2 268 H (83-108) mmHg ABG HCO3 (21-25) mmol/L ABG Total CO2 25 H (19-24) mmol/L ABG O2 Saturation 99.8 H (94-97) % ABG Hematocrit (34.0-46.0) % ABG Sodium (135-146) mmol/L ABG Potassium (3.4-4.5) mmol/L ABG Ionized Calcium (4.5-5.3) mg/dL ABG Glucose (75-99) mg/dL ABG Lactic Acid (0.5-1.6) mmol/L Hemoglobin (13.0-17.5) gm/dL Sodium (137-145) mmol/L Potassium (3.5-5.1) mmol/L Chloride (98-107) mmol/L Creatinine (0.66-1.25) mg/dL Glucose (74-99) mg/dL POC Glucose (mg/dL) 150 H 166 H (70-110) mg/dL Calcium (8.4-10.2) mg/dL Ionized Calcium Emanuel (4.5-5.3) mg/dL Total Bilirubin (0.2-1.3) mg/dL AST (17-59) U/L Alkaline Phosphatase (38-126) U/L Total Protein (6.3-8.2) g/dL Albumin (3.5-5.0) g/dL Arterial Blood Potassium (3.4-4.5) mmol/L Arterial Blood Glucose (75-99) mg/dL Crossmatch 08/23/23 08/23/23 08/23/23 Range/Units 21:24 22:07 23:07 RBC 2.65 L (4.30-5.90) m/uL Hgb 8.6 L (13.0-17.5) gm/dL Hct 24.7 L (39.0-53.0) % Plt Count 85 L (150-450) k/uL Lymphocytes # 0.9 L (1.0-4.8) k/uL PT (10.0-12.5) sec INR (<1.2) APTT (22.0-30.0) sec Fibrinogen (200-500) mg/dL ABG pH (7.35-7.45) ABG pCO2 (35-45) mmHg ABG pO2 (83-108) mmHg ABG HCO3 (21-25) mmol/L ABG Total CO2 (19-24) mmol/L ABG O2 Saturation (94-97) % ABG Hematocrit (34.0-46.0) % ABG Sodium (135-146) mmol/L ABG Potassium (3.4-4.5) mmol/L ABG Ionized Calcium (4.5-5.3) mg/dL ABG Glucose (75-99) mg/dL ABG Lactic Acid (0.5-1.6) mmol/L Hemoglobin (13.0-17.5) gm/dL Sodium (137-145) mmol/L Potassium (3.5-5.1) mmol/L Chloride (98-107) mmol/L Creatinine (0.66-1.25) mg/dL Glucose (74-99) mg/dL POC Glucose (mg/dL) 159 H 142 H (70-110) mg/dL Calcium (8.4-10.2) mg/dL Ionized Calcium Emanuel (4.5-5.3) mg/dL Total Bilirubin (0.2-1.3) mg/dL AST (17-59) U/L Alkaline Phosphatase (38-126) U/L Total Protein (6.3-8.2) g/dL Albumin (3.5-5.0) g/dL Arterial Blood Potassium (3.4-4.5) mmol/L Arterial Blood Glucose (75-99) mg/dL Crossmatch 08/23/23 08/24/23 08/24/23 Range/Units 23:38 00:21 01:29 RBC (4.30-5.90) m/uL Hgb (13.0-17.5) gm/dL Hct (39.0-53.0) % Plt Count (150-450) k/uL Lymphocytes # (1.0-4.8) k/uL PT (10.0-12.5) sec INR (<1.2) APTT (22.0-30.0) sec Fibrinogen (200-500) mg/dL ABG pH (7.35-7.45) ABG pCO2 (35-45) mmHg ABG pO2 (83-108) mmHg ABG HCO3 (21-25) mmol/L ABG Total CO2 26 H (19-24) mmol/L ABG O2 Saturation 98.1 H (94-97) % ABG Hematocrit (34.0-46.0) % ABG Sodium (135-146) mmol/L ABG Potassium (3.4-4.5) mmol/L ABG Ionized Calcium (4.5-5.3) mg/dL ABG Glucose (75-99) mg/dL ABG Lactic Acid (0.5-1.6) mmol/L Hemoglobin (13.0-17.5) gm/dL Sodium (137-145) mmol/L Potassium (3.5-5.1) mmol/L Chloride (98-107) mmol/L Creatinine (0.66-1.25) mg/dL Glucose (74-99) mg/dL POC Glucose (mg/dL) 113 H 131 H (70-110) mg/dL Calcium (8.4-10.2) mg/dL Ionized Calcium Emanuel (4.5-5.3) mg/dL Total Bilirubin (0.2-1.3) mg/dL AST (17-59) U/L Alkaline Phosphatase (38-126) U/L Total Protein (6.3-8.2) g/dL Albumin (3.5-5.0) g/dL Arterial Blood Potassium (3.4-4.5) mmol/L Arterial Blood Glucose (75-99) mg/dL Crossmatch 08/24/23 08/24/23 08/24/23 Range/Units 02:45 03:29 03:29 RBC 2.91 L (4.30-5.90) m/uL Hgb 9.4 L (13.0-17.5) gm/dL Hct 27.5 L (39.0-53.0) % Plt Count 99 L (150-450) k/uL Lymphocytes # 0.8 L (1.0-4.8) k/uL PT (10.0-12.5) sec INR (<1.2) APTT (22.0-30.0) sec Fibrinogen (200-500) mg/dL ABG pH (7.35-7.45) ABG pCO2 (35-45) mmHg ABG pO2 (83-108) mmHg ABG HCO3 (21-25) mmol/L ABG Total CO2 (19-24) mmol/L ABG O2 Saturation (94-97) % ABG Hematocrit (34.0-46.0) % ABG Sodium (135-146) mmol/L ABG Potassium (3.4-4.5) mmol/L ABG Ionized Calcium (4.5-5.3) mg/dL ABG Glucose (75-99) mg/dL ABG Lactic Acid (0.5-1.6) mmol/L Hemoglobin (13.0-17.5) gm/dL Sodium (137-145) mmol/L Potassium 3.3 L (3.5-5.1) mmol/L Chloride 108 H (98-107) mmol/L Creatinine 1.43 H (0.66-1.25) mg/dL Glucose 112 H (74-99) mg/dL POC Glucose (mg/dL) 134 H (70-110) mg/dL Calcium 8.1 L (8.4-10.2) mg/dL Ionized Calcium Emanuel (4.5-5.3) mg/dL Total Bilirubin (0.2-1.3) mg/dL AST 83 H (17-59) U/L Alkaline Phosphatase 33 L (38-126) U/L Total Protein 4.8 L (6.3-8.2) g/dL Albumin (3.5-5.0) g/dL Arterial Blood Potassium (3.4-4.5) mmol/L Arterial Blood Glucose (75-99) mg/dL Crossmatch 08/24/23 08/24/23 Range/Units 03:33 07:06 RBC (4.30-5.90) m/uL Hgb (13.0-17.5) gm/dL Hct (39.0-53.0) % Plt Count (150-450) k/uL Lymphocytes # (1.0-4.8) k/uL PT (10.0-12.5) sec INR (<1.2) APTT (22.0-30.0) sec Fibrinogen (200-500) mg/dL ABG pH (7.35-7.45) ABG pCO2 (35-45) mmHg ABG pO2 (83-108) mmHg ABG HCO3 (21-25) mmol/L ABG Total CO2 (19-24) mmol/L ABG O2 Saturation (94-97) % ABG Hematocrit (34.0-46.0) % ABG Sodium (135-146) mmol/L ABG Potassium (3.4-4.5) mmol/L ABG Ionized Calcium (4.5-5.3) mg/dL ABG Glucose (75-99) mg/dL ABG Lactic Acid (0.5-1.6) mmol/L Hemoglobin (13.0-17.5) gm/dL Sodium (137-145) mmol/L Potassium (3.5-5.1) mmol/L Chloride (98-107) mmol/L Creatinine (0.66-1.25) mg/dL Glucose (74-99) mg/dL POC Glucose (mg/dL) 123 H 111 H (70-110) mg/dL Calcium (8.4-10.2) mg/dL Ionized Calcium Emanuel (4.5-5.3) mg/dL Total Bilirubin (0.2-1.3) mg/dL AST (17-59) U/L Alkaline Phosphatase (38-126) U/L Total Protein (6.3-8.2) g/dL Albumin (3.5-5.0) g/dL Arterial Blood Potassium (3.4-4.5) mmol/L Arterial Blood Glucose (75-99) mg/dL Crossmatch
[2023-08-24 09:13] LABS: Glucose,Whole Blood 129 mg/dL (70-110)
--- NOTE | 2023-08-24 09:48 | P.PN ---
Subjective Progress Note Date: 08/24/23, the patient is being seen immediately following bypass surgery. The patient a complicated surgery. The patient will Off pump converted to cardiopulmonary bypass assisted coronary artery bypass grafting x 3. Right internal thoracic artery (in-situ) to left anterior descending coronary artery. Left anterior descending coronary artery (in-situ) to obtuse marginal artery #3. Reversed lesser saphenous vein from aorta to distal right coronary artery. The patient was brought into the intensive care unit and the patient is currently on propofol running at 20 mcg/kg/m. Intubated on a mechanical ventilator. Is currently on assist control mode at a rate of 12, tidal volume of 450, FiO2 of 100% with a PEEP of 5. Blood cultures showed a pH of 7.28 with a pCO2 of 51 and pO2 112. Chest x-ray shows adequate expansion of both lungs. No pneumothorax. The patient has a right pleural, left total and mediastinal chest tube. The patient's cardiac output is currently at 8.7 with an index of 4.4. Pulmonary artery pressure 34/23. The patient is on vasopressin physiologic dose, dopamine infusion running at 0.03 microvascular kilogram per minute and norepinephrine is running at 0.05 microvascular kilogram per minutes. the cardiac rhythm Is sinus and the patient is on amiodarone at 1 mg/m. Patient is also on insulin drip at 2.5 units an hour. The patient has increased output from the chest tube. The right pleural in the left pleural chest tubes are connected output has been in the order of 400 mL and the mediastinal chest tube has drained approximately 130 mL since arrival from the operating room. Intraoperatively, the patient received a total of 2 units of packed RBC, platelet concentrate, 4.5 L of albumin, 3 L of crystalloids and 2 L of Cell Savers. Estimated blood loss was around 4 L. The patient is currently hypothermic with a temperature of 35.7C. The CBC showed a hemoglobin of 8.7, white cell count of 8.5, platelet count of 78, and electrodes are still pending for now. Meanwhile, a cognition profile showed an INR of 1.8 with a PT of 18.5 and a PTT of 65.3. The patient was also given protamine. His well sedated and is, comfortable at this point in time. Surgical one-sided dry clean and intact. On 08/24/2023, the patient is extubated and sitting up on a chair and currently he is on oxygen at 4 L. He was quite unstable after he came into the ICU. His condition progressively stabilized with output from the chest to progressively dropped. His vaccination improved. He was gradually weaned off the mechanical ventilator and he was extubated without having any major difficulties. The chest x-ray from today shows atelectatic changes in the right upper lobe. Harriman- Vijay catheter still in place. He has cardiomegaly. He also has some mild pulm onary vascular congestion. The Harriman-Vijay catheter is in place. PA pressures are 24/10. Cardiac output is 5.8 with an index of 3.0. Adequate urine output. All of the pressors have been discontinued. He remains on insulin drip at 3 units an hour. Amiodarone drip has been discontinued and the patient is currently on oral amiodarone. He is also in a normal sinus rhythm. Is using the incentive spirometer. He is falling approximately 1250 mL. His only complaint is some nausea for which the patient was given Zofran. Chest tubes are in place. The patient has a right pleural, left pleural chest tube which are connected and there is no evidence of any air leak. The patient also has a mediastinal chest tube. Output from the chest tubes have been slowing down progressively. Objective - Vital Signs Vital signs: Vital Signs Temp 97.9 F 08/24/23 08:00 Pulse 98 08/24/23 09:00 Resp 29 H 08/24/23 09:00 BP 132/68 08/24/23 09:00 Pulse Ox 92 L 08/24/23 09:00 FiO2 50 08/24/23 00:45 Intake & Output 08/23/23 08/24/23 08/24/23 18:59 06:59 18:59 Intake Total 6142.829 4538.860 247 Output Total 4965 2935 465 Balance -3884.478 -1703.140 -218 Weight 79.9 kg Intake: IV 403 1118 247 .9NS Pressure bag 108 27 ACETAMINOPHEN IV (For NPO 100 100 ) 1,000 mg In Empty Bag 1 bag @ 400 mls/hr IVPB Q6HR [facility] Rx#:[id number] CO/CI 260 20 Calcium Gluconate in NaCl 100 2 gm In Saline 1 100ml. bag @ 100 mls/hr IVPB ONCE PRN Rx#:[id number] Lactated Ringers 1,000 ml 150 600 150 @ 20 mls/hr IV .Q24H [facility] Rx#:[id number] ceFAZolin 2 gm In Sodium 50 50 50 Chloride 0.9% 50 ml @ 100 mls/hr IVPB Q8HR [facility] Rx# :[id number] Intake, IV Titration 40.522 113.860 0 Amount Insulin Regular 100 unit 5.530 35.367 0 In Sodium Chloride 0.9% 100 ml @ Per Protocol IV .Q0M [facility] Rx#:[id number] Norepinephrine 4 mg In 24.581 Sodium Chloride 0.9% 250 ml @ 0.02 MCG/KG/MIN 5. 876 mls/hr IV .Q24H [facility] Rx#:[id number] Vasopressin 20 unit In 42.483 Sodium Chloride 0.9% 50 ml @ 0.03 UNITS/MIN 4.59 mls/hr IV .Q11H7M [facility] Rx# :[id number] propofoL 1,000 mg In 10.411 36.010 Empty Bag 1 bag @ Titrate IV .Q0M [facility] Rx#: [id number] Blood Product 637 Platelet Pheresis Pas 327 Psoralen Unit [id number] Rc As-1 Unit 310 [id number] Rc Irr As1 Unit 0 [id number] Output: Chest Tube Drainage 300 580 190 Mediastinal 110 210 80 Right/Left Pleural 190 370 110 Urine 665 2355 275 Estimated Blood Loss 4000 Other: Voiding Method Indwelling Catheter Indwelling Catheter ABP, PAP, CO, CI - Last Documented Arterial Blood Pressure 57/50 Pulmonary Artery Pressure 26/9 Cardiac Output 5.8 Cardiac Index 3.0 - Exam GENERAL EXAM: Alert, 73-year-old white male , comfortable in no apparent dist ress. , 4 liters/min HEAD: Normocephalic and atraumatic EYES: Normal reaction of pupils, equal size. NOSE: Clear with pink turbinates. THROAT: No erythema or exudates. NECK: No masses, no JVD. The patient has a Harriman-Vijay catheter in the right IJ. CHEST: No chest wall deformity. LUNGS: Equal air entry with no crackles, wheeze, rhonchi or dullness. Thoracotomy scar is dry clean and intact and the patient has a right pleural, left lower limb the mediastinal chest tube. CVS: S1 and S2 normal with no audible murmur, regular rhythm. No extra heart sounds ABDOMEN: No hepatosplenomegaly, active bowel sounds, no guarding or rigidity. SPINE: No scoliosis or deformity SKIN: No rashes CENTRAL NERVOUS SYSTEM: No focal deficits EXTREMITIES: There is no peripheral edema, clubbing, or cyanosis. Peripheral pulses are intact. - Labs CBC & Chem 7: 08/24/23 03:29 08/24/23 03:29 Labs: Abnormal Lab Results - Last 24 Hours (Table) 08/20/23 08/23/23 08/23/23 Range/Units 14:59 08:15 08:22 RBC (4.30-5.90) m/uL Hgb (13.0-17.5) gm/dL Hct (39.0-53.0) % Plt Count (150-450) k/uL Lymphocytes # (1.0-4.8) k/uL PT (10.0-12.5) sec INR (<1.2) APTT (22.0-30.0) sec Fibrinogen (200-500) mg/dL ABG pH (7.35-7.45) ABG pCO2 (35-45) mmHg ABG pO2 >420 H >420 H (83-108) mmHg ABG HCO3 20 L (21-25) mmol/L ABG Total CO2 (19-24) mmol/L ABG O2 Saturation 100.0 H 100.0 H (94-97) % ABG Hematocrit 24 L 33 L (34.0-46.0) % ABG Sodium 149 H (135-146) mmol/L ABG Potassium 4.7 H (3.4-4.5) mmol/L ABG Ionized Calcium 3.8 L (4.5-5.3) mg/dL ABG Glucose 151 H (75-99) mg/dL ABG Lactic Acid 3.1 H* (0.5-1.6) mmol/L Hemoglobin 7.8 L 10.8 L (13.0-17.5) gm/dL Sodium (137-145) mmol/L Potassium (3.5-5.1) mmol/L Chloride (98-107) mmol/L Creatinine (0.66-1.25) mg/dL Glucose (74-99) mg/dL POC Glucose (mg/dL) (70-110) mg/dL Calcium (8.4-10.2) mg/dL Ionized Calcium Emanuel (4.5-5.3) mg/dL Total Bilirubin (0.2-1.3) mg/dL AST (17-59) U/L Alkaline Phosphatase (38-126) U/L Total Protein (6.3-8.2) g/dL Albumin (3.5-5.0) g/dL Arterial Blood Potassium 4.7 H (3.4-4.5) mmol/L Arterial Blood Glucose 151 H (75-99) mg/dL Crossmatch See Detail 08/23/23 08/23/23 08/23/23 Range/Units 10:22 10:49 11:19 RBC (4.30-5.90) m/uL Hgb (13.0-17.5) gm/dL Hct (39.0-53.0) % Plt Count (150-450) k/uL Lymphocytes # (1.0-4.8) k/uL PT (10.0-12.5) sec INR (<1.2) APTT (22.0-30.0) sec Fibrinogen (200-500) mg/dL ABG pH 7.28 L 7.30 L (7.35-7.45) ABG pCO2 (35-45) mmHg ABG pO2 264 H 250 H 214 H (83-108) mmHg ABG HCO3 18 L 18 L 20 L (21-25) mmol/L ABG Total CO2 (19-24) mmol/L ABG O2 Saturation 99.8 H 99.8 H 99.9 H (94-97) % ABG Hematocrit 30 L 27 L 25 L (34.0-46.0) % ABG Sodium (135-146) mmol/L ABG Potassium (3.4-4.5) mmol/L ABG Ionized Calcium 4.3 L (4.5-5.3) mg/dL ABG Glucose (75-99) mg/dL ABG Lactic Acid (0.5-1.6) mmol/L Hemoglobin 9.7 L 8.8 L 8.1 L (13.0-17.5) gm/dL Sodium (137-145) mmol/L Potassium (3.5-5.1) mmol/L Chloride (98-107) mmol/L Creatinine (0.66-1.25) mg/dL Glucose (74-99) mg/dL POC Glucose (mg/dL) (70-110) mg/dL Calcium (8.4-10.2) mg/dL Ionized Calcium Emanuel (4.5-5.3) mg/dL Total Bilirubin (0.2-1.3) mg/dL AST (17-59) U/L Alkaline Phosphatase (38-126) U/L Total Protein (6.3-8.2) g/dL Albumin (3.5-5.0) g/dL Arterial Blood Potassium (3.4-4.5) mmol/L Arterial Blood Glucose (75-99) mg/dL Crossmatch 08/23/23 08/23/23 08/23/23 Range/Units 11:47 12:31 13:10 RBC (4.30-5.90) m/uL Hgb (13.0-17.5) gm/dL Hct (39.0-53.0) % Plt Count (150-450) k/uL Lymphocytes # (1.0-4.8) k/uL PT (10.0-12.5) sec INR (<1.2) APTT (22.0-30.0) sec Fibrinogen (200-500) mg/dL ABG pH 7.29 L 7.28 L (7.35-7.45) ABG pCO2 46 H (35-45) mmHg ABG pO2 153 H 53 L* 168 H (83-108) mmHg ABG HCO3 20 L (21-25) mmol/L ABG Total CO2 (19-24) mmol/L ABG O2 Saturation 99.6 H 88.7 L 99.7 H (94-97) % ABG Hematocrit 25 L 23 L 20 L* (34.0-46.0) % ABG Sodium 148 H (135-146) mmol/L ABG Potassium 2.8 L* (3.4-4.5) mmol/L ABG Ionized Calcium 4.4 L (4.5-5.3) mg/dL ABG Glucose 104 H 116 H 146 H (75-99) mg/dL ABG Lactic Acid 2.7 H* (0.5-1.6) mmol/L Hemoglobin 8.0 L 7.5 L 6.6 L* (13.0-17.5) gm/dL Sodium (137-145) mmol/L Potassium (3.5-5.1) mmol/L Chloride (98-107) mmol/L Creatinine (0.66-1.25) mg/dL Glucose (74-99) mg/dL POC Glucose (mg/dL) (70-110) mg/dL Calcium (8.4-10.2) mg/dL Ionized Calcium Emanuel (4.5-5.3) mg/dL Total Bilirubin (0.2-1.3) mg/dL AST (17-59) U/L Alkaline Phosphatase (38-126) U/L Total Protein (6.3-8.2) g/dL Albumin (3.5-5.0) g/dL Arterial Blood Potassium 2.8 L* (3.4-4.5) mmol/L Arterial Blood Glucose 104 H 116 H 146 H (75-99) mg/dL Crossmatch 08/23/23 08/23/23 08/23/23 Range/Units 13:10 13:12 13:15 RBC 2.28 L (4.30-5.90) m/uL Hgb 7.4 L D (13.0-17.5) gm/dL Hct 21.9 L (39.0-53.0) % Plt Count 62 L D (150-450) k/uL Lymphocytes # (1.0-4.8) k/uL PT (10.0-12.5) sec INR (<1.2) APTT (22.0-30.0) sec Fibrinogen (200-500) mg/dL ABG pH 7.31 L (7.35-7.45) ABG pCO2 (35-45) mmHg ABG pO2 >420 H 78 L (83-108) mmHg ABG HCO3 (21-25) mmol/L ABG Total CO2 (19-24) mmol/L ABG O2 Saturation 100.0 H (94-97) % ABG Hematocrit 20 L* 22 L (34.0-46.0) % ABG Sodium 148 H 147 H (135-146) mmol/L ABG Potassium (3.4-4.5) mmol/L ABG Ionized Calcium 3.7 L 4.0 L (4.5-5.3) mg/dL ABG Glucose 151 H 136 H (75-99) mg/dL ABG Lactic Acid 3.1 H* 2.8 H* (0.5-1.6) mmol/L Hemoglobin 6.5 L* 7.1 L (13.0-17.5) gm/dL Sodium (137-145) mmol/L Potassium (3.5-5.1) mmol/L Chloride (98-107) mmol/L Creatinine (0.66-1.25) mg/dL Glucose (74-99) mg/dL POC Glucose (mg/dL) (70-110) mg/dL Calcium (8.4-10.2) mg/dL Ionized Calcium Emanuel (4.5-5.3) mg/dL Total Bilirubin (0.2-1.3) mg/dL AST (17-59) U/L Alkaline Phosphatase (38-126) U/L Total Protein (6.3-8.2) g/dL Albumin (3.5-5.0) g/dL Arterial Blood Potassium (3.4-4.5) mmol/L Arterial Blood Glucose 151 H 136 H (75-99) mg/dL Crossmatch 08/23/23 08/23/23 08/23/23 Range/Units 13:45 14:28 16:03 RBC 2.51 L (4.30-5.90) m/uL Hgb 8.1 L (13.0-17.5) gm/dL Hct 23.8 L (39.0-53.0) % Plt Count 69 L (150-450) k/uL Lymphocytes # (1.0-4.8) k/uL PT (10.0-12.5) sec INR (<1.2) APTT (22.0-30.0) sec Fibrinogen (200-500) mg/dL ABG pH 7.33 L (7.35-7.45) ABG pCO2 (35-45) mmHg ABG pO2 >420 H 249 H (83-108) mmHg ABG HCO3 20 L (21-25) mmol/L ABG Total CO2 (19-24) mmol/L ABG O2 Saturation 100.0 H 99.9 H (94-97) % ABG Hematocrit 22 L 23 L (34.0-46.0) % ABG Sodium 147 H 148 H (135-146) mmol/L ABG Potassium (3.4-4.5) mmol/L ABG Ionized Calcium 3.8 L 4.0 L (4.5-5.3) mg/dL ABG Glucose 155 H 158 H (75-99) mg/dL ABG Lactic Acid 3.0 H* 2.8 H* (0.5-1.6) mmol/L Hemoglobin 7.1 L 7.6 L (13.0-17.5) gm/dL Sodium (137-145) mmol/L Potassium (3.5-5.1) mmol/L Chloride (98-107) mmol/L Creatinine (0.66-1.25) mg/dL Glucose (74-99) mg/dL POC Glucose (mg/dL) (70-110) mg/dL Calcium (8.4-10.2) mg/dL Ionized Calcium Emanuel (4.5-5.3) mg/dL Total Bilirubin (0.2-1.3) mg/dL AST (17-59) U/L Alkaline Phosphatase (38-126) U/L Total Protein (6.3-8.2) g/dL Albumin (3.5-5.0) g/dL Arterial Blood Potassium (3.4-4.5) mmol/L Arterial Blood Glucose 155 H 158 H (75-99) mg/dL Crossmatch 08/23/23 08/23/23 08/23/23 Range/Units 16:03 16:03 16:08 RBC (4.30-5.90) m/uL Hgb (13.0-17.5) gm/dL Hct (39.0-53.0) % Plt Count (150-450) k/uL Lymphocytes # (1.0-4.8) k/uL PT 18.5 H (10.0-12.5) sec INR 1.8 H (<1.2) APTT 65.3 H (22.0-30.0) sec Fibrinogen (200-500) mg/dL ABG pH (7.35-7.45) ABG pCO2 (35-45) mmHg ABG pO2 (83-108) mmHg ABG HCO3 (21-25) mmol/L ABG Total CO2 (19-24) mmol/L ABG O2 Saturation (94-97) % ABG Hematocrit (34.0-46.0) % ABG Sodium (135-146) mmol/L ABG Potassium (3.4-4.5) mmol/L ABG Ionized Calcium (4.5-5.3) mg/dL ABG Glucose (75-99) mg/dL ABG Lactic Acid (0.5-1.6) mmol/L Hemoglobin (13.0-17.5) gm/dL Sodium 147 H (137-145) mmol/L Potassium (3.5-5.1) mmol/L Chloride 111 H (98-107) mmol/L Creatinine (0.66-1.25) mg/dL Glucose 158 H (74-99) mg/dL POC Glucose (mg/dL) 178 H (70-110) mg/dL Calcium 7.2 L (8.4-10.2) mg/dL Ionized Calcium Emanuel 4.2 L (4.5-5.3) mg/dL Total Bilirubin 1.5 H (0.2-1.3) mg/dL AST (17-59) U/L Alkaline Phosphatase 21 L (38-126) U/L Total Protein 4.2 L (6.3-8.2) g/dL Albumin 2.9 L (3.5-5.0) g/dL Arterial Blood Potassium (3.4-4.5) mmol/L Arterial Blood Glucose (75-99) mg/dL Crossmatch 08/23/23 08/23/23 08/23/23 Range/Units 16:27 17:14 17:54 RBC (4.30-5.90) m/uL Hgb (13.0-17.5) gm/dL Hct (39.0-53.0) % Plt Count (150-450) k/uL Lymphocytes # (1.0-4.8) k/uL PT (10.0-12.5) sec INR (<1.2) APTT (22.0-30.0) sec Fibrinogen (200-500) mg/dL ABG pH 7.28 L (7.35-7.45) ABG pCO2 51 H (35-45) mmHg ABG pO2 112 H (83-108) mmHg ABG HCO3 (21-25) mmol/L ABG Total CO2 26 H (19-24) mmol/L ABG O2 Saturation 98.5 H (94-97) % ABG Hematocrit (34.0-46.0) % ABG Sodium (135-146) mmol/L ABG Potassium (3.4-4.5) mmol/L ABG Ionized Calcium (4.5-5.3) mg/dL ABG Glucose (75-99) mg/dL ABG Lactic Acid (0.5-1.6) mmol/L Hemoglobin (13.0-17.5) gm/dL Sodium (137-145) mmol/L Potassium (3.5-5.1) mmol/L Chloride (98-107) mmol/L Creatinine (0.66-1.25) mg/dL Glucose (74-99) mg/dL POC Glucose (mg/dL) 196 H 202 H (70-110) mg/dL Calcium (8.4-10.2) mg/dL Ionized Calcium Emanuel (4.5-5.3) mg/dL Total Bilirubin (0.2-1.3) mg/dL AST (17-59) U/L Alkaline Phosphatase (38-126) U/L Total Protein (6.3-8.2) g/dL Albumin (3.5-5.0) g/dL Arterial Blood Potassium (3.4-4.5) mmol/L Arterial Blood Glucose (75-99) mg/dL Crossmatch 08/23/23 08/23/23 08/23/23 Range/Units 17:55 18:21 19:03 RBC 2.68 L (4.30-5.90) m/uL Hgb 8.7 L (13.0-17.5) gm/dL Hct 25.1 L (39.0-53.0) % Plt Count 78 L (150-450) k/uL Lymphocytes # 0.8 L (1.0-4.8) k/uL PT (10.0-12.5) sec INR (<1.2) APTT (22.0-30.0) sec Fibrinogen 110 L (200-500) mg/dL ABG pH (7.35-7.45) ABG pCO2 (35-45) mmHg ABG pO2 (83-108) mmHg ABG HCO3 (21-25) mmol/L ABG Total CO2 (19-24) mmol/L ABG O2 Saturation (94-97) % ABG Hematocrit (34.0-46.0) % ABG Sodium (135-146) mmol/L ABG Potassium (3.4-4.5) mmol/L ABG Ionized Calcium (4.5-5.3) mg/dL ABG Glucose (75-99) mg/dL ABG Lactic Acid (0.5-1.6) mmol/L Hemoglobin (13.0-17.5) gm/dL Sodium (137-145) mmol/L Potassium (3.5-5.1) mmol/L Chloride (98-107) mmol/L Creatinine (0.66-1.25) mg/dL Glucose (74-99) mg/dL POC Glucose (mg/dL) 178 H (70-110) mg/dL Calcium (8.4-10.2) mg/dL Ionized Calcium Emanuel (4.5-5.3) mg/dL Total Bilirubin (0.2-1.3) mg/dL AST (17-59) U/L Alkaline Phosphatase (38-126) U/L Total Protein (6.3-8.2) g/dL Albumin (3.5-5.0) g/dL Arterial Blood Potassium (3.4-4.5) mmol/L Arterial Blood Glucose (75-99) mg/dL Crossmatch 08/23/23 08/23/23 08/23/23 Range/Units 19:53 19:55 20:57 RBC (4.30-5.90) m/uL Hgb (13.0-17.5) gm/dL Hct (39.0-53.0) % Plt Count (150-450) k/uL Lymphocytes # (1.0-4.8) k/uL PT (10.0-12.5) sec INR (<1.2) APTT (22.0-30.0) sec Fibrinogen (200-500) mg/dL ABG pH (7.35-7.45) ABG pCO2 (35-45) mmHg ABG pO2 268 H (83-108) mmHg ABG HCO3 (21-25) mmol/L ABG Total CO2 25 H (19-24) mmol/L ABG O2 Saturation 99.8 H (94-97) % ABG Hematocrit (34.0-46.0) % ABG Sodium (135-146) mmol/L ABG Potassium (3.4-4.5) mmol/L ABG Ionized Calcium (4.5-5.3) mg/dL ABG Glucose (75-99) mg/dL ABG Lactic Acid (0.5-1.6) mmol/L Hemoglobin (13.0-17.5) gm/dL Sodium (137-145) mmol/L Potassium (3.5-5.1) mmol/L Chloride (98-107) mmol/L Creatinine (0.66-1.25) mg/dL Glucose (74-99) mg/dL POC Glucose (mg/dL) 150 H 166 H (70-110) mg/dL Calcium (8.4-10.2) mg/dL Ionized Calcium Emanuel (4.5-5.3) mg/dL Total Bilirubin (0.2-1.3) mg/dL AST (17-59) U/L Alkaline Phosphatase (38-126) U/L Total Protein (6.3-8.2) g/dL Albumin (3.5-5.0) g/dL Arterial Blood Potassium (3.4-4.5) mmol/L Arterial Blood Glucose (75-99) mg/dL Crossmatch 08/23/23 08/23/23 08/23/23 Range/Units 21:24 22:07 23:07 RBC 2.65 L (4.30-5.90) m/uL Hgb 8.6 L (13.0-17.5) gm/dL Hct 24.7 L (39.0-53.0) % Plt Count 85 L (150-450) k/uL Lymphocytes # 0.9 L (1.0-4.8) k/uL PT (10.0-12.5) sec INR (<1.2) APTT (22.0-30.0) sec Fibrinogen (200-500) mg/dL ABG pH (7.35-7.45) ABG pCO2 (35-45) mmHg ABG pO2 (83-108) mmHg ABG HCO3 (21-25) mmol/L ABG Total CO2 (19-24) mmol/L ABG O2 Saturation (94-97) % ABG Hematocrit (34.0-46.0) % ABG Sodium (135-146) mmol/L ABG Potassium (3.4-4.5) mmol/L ABG Ionized Calcium (4.5-5.3) mg/dL ABG Glucose (75-99) mg/dL ABG Lactic Acid (0.5-1.6) mmol/L Hemoglobin (13.0-17.5) gm/dL Sodium (137-145) mmol/L Potassium (3.5-5.1) mmol/L Chloride (98-107) mmol/L Creatinine (0.66-1.25) mg/dL Glucose (74-99) mg/dL POC Glucose (mg/dL) 159 H 142 H (70-110) mg/dL Calcium (8.4-10.2) mg/dL Ionized Calcium Emanuel (4.5-5.3) mg/dL Total Bilirubin (0.2-1.3) mg/dL AST (17-59) U/L Alkaline Phosphatase (38-126) U/L Total Protein (6.3-8.2) g/dL Albumin (3.5-5.0) g/dL Arterial Blood Potassium (3.4-4.5) mmol/L Arterial Blood Glucose (75-99) mg/dL Crossmatch 08/23/23 08/24/23 08/24/23 Range/Units 23:38 00:21 01:29 RBC (4.30-5.90) m/uL Hgb (13.0-17.5) gm/dL Hct (39.0-53.0) % Plt Count (150-450) k/uL Lymphocytes # (1.0-4.8) k/uL PT (10.0-12.5) sec INR (<1.2) APTT (22.0-30.0) sec Fibrinogen (200-500) mg/dL ABG pH (7.35-7.45) ABG pCO2 (35-45) mmHg ABG pO2 (83-108) mmHg ABG HCO3 (21-25) mmol/L ABG Total CO2 26 H (19-24) mmol/L ABG O2 Saturation 98.1 H (94-97) % ABG Hematocrit (34.0-46.0) % ABG Sodium (135-146) mmol/L ABG Potassium (3.4-4.5) mmol/L ABG Ionized Calcium (4.5-5.3) mg/dL ABG Glucose (75-99) mg/dL ABG Lactic Acid (0.5-1.6) mmol/L Hemoglobin (13.0-17.5) gm/dL Sodium (137-145) mmol/L Potassium (3.5-5.1) mmol/L Chloride (98-107) mmol/L Creatinine (0.66-1.25) mg/dL Glucose (74-99) mg/dL POC Glucose (mg/dL) 113 H 131 H (70-110) mg/dL Calcium (8.4-10.2) mg/dL Ionized Calcium Emanuel (4.5-5.3) mg/dL Total Bilirubin (0.2-1.3) mg/dL AST (17-59) U/L Alkaline Phosphatase (38-126) U/L Total Protein (6.3-8.2) g/dL Albumin (3.5-5.0) g/dL Arterial Blood Potassium (3.4-4.5) mmol/L Arterial Blood Glucose (75-99) mg/dL Crossmatch 08/24/23 08/24/23 08/24/23 Range/Units 02:45 03:29 03:29 RBC 2.91 L (4.30-5.90) m/uL Hgb 9.4 L (13.0-17.5) gm/dL Hct 27.5 L (39.0-53.0) % Plt Count 99 L (150-450) k/uL Lymphocytes # 0.8 L (1.0-4.8) k/uL PT (10.0-12.5) sec INR (<1.2) APTT (22.0-30.0) sec Fibrinogen (200-500) mg/dL ABG pH (7.35-7.45) ABG pCO2 (35-45) mmHg ABG pO2 (83-108) mmHg ABG HCO3 (21-25) mmol/L ABG Total CO2 (19-24) mmol/L ABG O2 Saturation (94-97) % ABG Hematocrit (34.0-46.0) % ABG Sodium (135-146) mmol/L ABG Potassium (3.4-4.5) mmol/L ABG Ionized Calcium (4.5-5.3) mg/dL ABG Glucose (75-99) mg/dL ABG Lactic Acid (0.5-1.6) mmol/L Hemoglobin (13.0-17.5) gm/dL Sodium (137-145) mmol/L Potassium 3.3 L (3.5-5.1) mmol/L Chloride 108 H (98-107) mmol/L Creatinine 1.43 H (0.66-1.25) mg/dL Glucose 112 H (74-99) mg/dL POC Glucose (mg/dL) 134 H (70-110) mg/dL Calcium 8.1 L (8.4-10.2) mg/dL Ionized Calcium Emanuel (4.5-5.3) mg/dL Total Bilirubin (0.2-1.3) mg/dL AST 83 H (17-59) U/L Alkaline Phosphatase 33 L (38-126) U/L Total Protein 4.8 L (6.3-8.2) g/dL Albumin (3.5-5.0) g/dL Arterial Blood Potassium (3.4-4.5) mmol/L Arterial Blood Glucose (75-99) mg/dL Crossmatch 08/24/23 08/24/23 08/24/23 Range/Units 03:33 07:06 09:11 RBC (4.30-5.90) m/uL Hgb (13.0-17.5) gm/dL Hct (39.0-53.0) % Plt Count (150-450) k/uL Lymphocytes # (1.0-4.8) k/uL PT (10.0-12.5) sec INR (<1.2) APTT (22.0-30.0) sec Fibrinogen (200-500) mg/dL ABG pH (7.35-7.45) ABG pCO2 (35-45) mmHg ABG pO2 (83-108) mmHg ABG HCO3 (21-25) mmol/L ABG Total CO2 (19-24) mmol/L ABG O2 Saturation (94-97) % ABG Hematocrit (34.0-46.0) % ABG Sodium (135-146) mmol/L ABG Potassium (3.4-4.5) mmol/L ABG Ionized Calcium (4.5-5.3) mg/dL ABG Glucose (75-99) mg/dL ABG Lactic Acid (0.5-1.6) mmol/L Hemoglobin (13.0-17.5) gm/dL Sodium (137-145) mmol/L Potassium (3.5-5.1) mmol/L Chloride (98-107) mmol/L Creatinine (0.66-1.25) mg/dL Glucose (74-99) mg/dL POC Glucose (mg/dL) 123 H 111 H 129 H (70-110) mg/dL Calcium (8.4-10.2) mg/dL Ionized Calcium Emanuel (4.5-5.3) mg/dL Total Bilirubin (0.2-1.3) mg/dL AST (17-59) U/L Alkaline Phosphatase (38-126) U/L Total Protein (6.3-8.2) g/dL Albumin (3.5-5.0) g/dL Arterial Blood Potassium (3.4-4.5) mmol/L Arterial Blood Glucose (75-99) mg/dL Crossmatch Assessment and Plan Assessment: Triple-vessel coronary artery disease, and the patient is status post Off pump converted to cardiopulmonary bypass assisted coronary artery bypass grafting x 3. Right internal thoracic artery (in-situ) to left anterior descending coronary artery. Left anterior descending coronary artery (in-situ) to obtuse marginal artery #3. Reversed lesser saphenous vein from aorta to distal right coronary artery. The patient is currently postop day #2. The patient is on a combin ation of pressors and the patient is currently on vasopressin, norepinephrine and dopamine. Patient is also on amiodarone for A. fib prophylaxis. Adequate cardiac output and index of this point in time Postthoracotomy, currently intubated on a mechanical ventilator. Chest x-ray was noted. The patient is currently extubated on 4 L of oxygen by nasal cannula Coagulopathy, treated with protamine, fresh frozen plasma and platelet concentrate, improved Hyperglycemia, expected outcome of surgery and the patient is currently on insulin drip at 3 units an hour for blood sugar control Blood loss Anemia, expected outcome of surgery and the patient was transfused with a total of 2 units of packed RBC, hemoglobin is stable for now at 9.4 Benign essential hypertension Hyperlipidemia History of TIA Chronic kidney disease stage III Significant history of tobacco dependence, over 50 pack years History of asbestos exposure, with pleural plaquing noted on chest CT Benign prosthetic hyperplasia Nonobstructive carotid artery disease based on CT angiogram, bilateral in the order of 50% Plan: Incentive spirometer Continue 4 L of action by nasal cannula wean it off Gradually dropped down FiO2 to maintain a saturation above 90% Monitor output from the chest tube Monitor hemodynamics Harriman-Vijay catheter can be removed Patient is currently off pressors Patient is currently on oral amiodarone Patient was started on metoprolol 12.5 mg twice a day Titrate insulin drip for tight blood sugar control Monitor hemoglobin Chest x-ray was reviewed We'll obtain another blood gases within next few hours Condition is critical and we'll continue to follow, collaborate with the surgical team and will make further recommendations. Will consider extubation if his condition stabilizes further.
--- NOTE | 2023-08-24 09:50 | P.PN ---
Subjective Progress Note Date: 08/24/23 Principal diagnosis: Triple-vessel coronary artery disease, unstable angina. History of hypertension, hyperlipidemia, chronic kidney disease stage III, previous tobacco dependence with recent cessation, mild COPD, TIA in 2014 with no residual, BPH, bilateral vein stripping, bilateral carotid stenosis POD #1 off pump converted to cardiopulmonary bypass assisted coronary artery bypass grafting 3, right internal thoracic artery in situ to the left anterior descending coronary artery, left anterior coronary artery in situ to the third obtuse marginal artery, reverse lesser saphenous vein from the aorta to the distal right coronary artery, left atrial appendage ligation using a 35 mm AtriClip, endoscopic right tennis vein harvest, graft flow measurements using the Medistim flowmeter, intraoperative transesophageal echocardiogram Post operative acute blood loss anemia and thrombocytopenia, expected given significant hemodilution Intraoperative atrial fibrillation, unexpected but common after open heart surgery Intraoperative and postoperative hypotension expected due to vasoplegia, atrial fibrillation The patient was seen and examined this morning sitting up in a recliner in no acute distress. He was successfully extubated at 0100 this morning. Denies any chest pain or shortness of breath currently. Remains in sinus rhythm, hemodynamically stable on low dose dopamine only, weaned off levo and vaso. Was started on IV lasix due to the significant volume he received during surgery. Currently on IV amio for afib prophylaxis, will transition to oral. Currently on 2 LPM NC with oxygen saturation in the mid 90s, able to achieve 2306-9170 ml on incentive spirometry. Labs, CXR reviewed. Right internal jugular swan/cordis, right radial line, medastinal/right/left chest tubes remain although arterial line not functioning. No other new concerns. Objective - Vital Signs Vital signs: Vital Signs Temp 97.0 F L 08/24/23 04:00 Pulse 94 08/24/23 08:23 Resp 24 08/24/23 07:30 BP 126/57 08/24/23 07:30 Pulse Ox 99 08/24/23 07:30 FiO2 50 08/24/23 00:45 Intake & Output 08/23/23 08/24/23 08/24/23 18:59 06:59 18:59 Intake Total 8306.794 9783.860 59 Output Total 4965 2935 95 Balance -3884.478 -1703.140 -36 Weight 79.9 kg Intake: IV 403 1118 59 .9NS Pressure bag 108 9 ACETAMINOPHEN IV (For NPO 100 100 ) 1,000 mg In Empty Bag 1 bag @ 400 mls/hr IVPB Q6HR GOVIND Rx#:[id number] CO/CI 260 Calcium Gluconate in NaCl 100 2 gm In Saline 1 100ml. bag @ 100 mls/hr IVPB ONCE PRN Rx#:[id number] Lactated Ringers 1,000 ml 150 600 50 @ 50 mls/hr IV .Q20H GOVIND Rx#:[id number] ceFAZolin 2 gm In Sodium 50 50 Chloride 0.9% 50 ml @ 100 mls/hr IVPB Q8HR GOVIND Rx# :[id number] Intake, IV Titration 40.522 113.860 Amount Insulin Regular 100 unit 5.530 35.367 In Sodium Chloride 0.9% 100 ml @ Per Protocol IV .Q0M GOVIND Rx#:[id number] Norepinephrine 4 mg In 24.581 Sodium Chloride 0.9% 250 ml @ 0.02 MCG/KG/MIN 5. 876 mls/hr IV .Q24H GOVIND Rx#:[id number] Vasopressin 20 unit In 42.483 Sodium Chloride 0.9% 50 ml @ 0.03 UNITS/MIN 4.59 mls/hr IV .Q11H7M GOVIND Rx# :[id number] propofoL 1,000 mg In 10.411 36.010 Empty Bag 1 bag @ Titrate IV .Q0M GOVIND Rx#: [id number] Blood Product 637 Platelet Pheresis Pas 327 Psoralen Unit [id number] Rc As-1 Unit 310 [id number] Rc Irr As1 Unit 0 [id number] Output: Chest Tube Drainage 300 580 20 Mediastinal 110 210 0 Right/Left Pleural 190 370 20 Urine 665 2355 75 Estimated Blood Loss 4000 Other: Voiding Method Indwelling Catheter Indwelling Catheter ABP, PAP, CO, CI - Last Documented Arterial Blood Pressure 92/57 Pulmonary Artery Pressure 26/9 Cardiac Output 5.3 Cardiac Index 2.7 - Exam CONSTITUTIONAL: Appears comfortable, cooperative, no acute distress RESPIRATORY: Lungs sounds diminished bilaterally. Respirations even, nonlabored. Currently on 2 LPM NC with oxygen saturation 96%. Able to achieve 8470-2563 mL on incentive spirometry. Strong cough. CARDIOVASCULAR: S1, S2 present. Regular rate and rhythm, sinus rhythm on telemetry. Sternum stable. Palpable peripheral pulses bilaterally. No edema present. No calf pain or tenderness noted. Heart hugger in place with patient demonstrating appropriate use. Antiembolism stockings, SCDs present. GASTROINTESTINAL: Abdomen soft, nontender, nondistended. Hypoactive bowel sounds present 4 quadrants. Tolerating minimal clear liquids. Denies flatus GENITOURINARY: Rincon present draining clear, yellow urine. Output overnight 75-300 mL per hour INTEGUMENTARY: Skin is warm and dry with evidence of good perfusion. Anterior chest incision well approximated and covered with dry intact dressing. Right lower extremity EVH site well approximated without redness or drainage. NEUROLOGIC: Cranial nerves II through XII intact MUSKULOSKELETAL: Able to move all extremities, strength equal bilaterally PSYCHIATRIC: Alert and oriented to person place and time, appropriate affect, intact judgment and insight INVASIVE LINES AND TUBES: Mediastinal/left/right pleural chest tubes present and connected to wall suction, no air leaks present. Mediastinal tube with 120 mL serosanguineous drainage overnight, 400 mL since surgery. Left/right pleural chest tubes with 240 mL serosanguineous drainage overnight, 950 mL since surgery. V epicardial pacemaker wires present, connected to generator, backup rate 50 bpm. Right internal jugular Sanford/Cordis, right radial arterial line present. Last CO/CI 5.3/2.7, PA 26/10, CVP 6. - Allied health notes Allied health notes reviewed: nursing - Labs CBC & Chem 7: 08/24/23 03:29 08/24/23 03:29 Labs: Abnormal Lab Results - Last 24 Hours (Table) 08/20/23 08/23/23 08/23/23 Range/Units 14:59 08:15 08:22 RBC (4.30-5.90) m/uL Hgb (13.0-17.5) gm/dL Hct (39.0-53.0) % Plt Count (150-450) k/uL Lymphocytes # (1.0-4.8) k/uL PT (10.0-12.5) sec INR (<1.2) APTT (22.0-30.0) sec Fibrinogen (200-500) mg/dL ABG pH (7.35-7.45) ABG pCO2 (35-45) mmHg ABG pO2 >420 H >420 H (83-108) mmHg ABG HCO3 20 L (21-25) mmol/L ABG Total CO2 (19-24) mmol/L ABG O2 Saturation 100.0 H 100.0 H (94-97) % ABG Hematocrit 24 L 33 L (34.0-46.0) % ABG Sodium 149 H (135-146) mmol/L ABG Potassium 4.7 H (3.4-4.5) mmol/L ABG Ionized Calcium 3.8 L (4.5-5.3) mg/dL ABG Glucose 151 H (75-99) mg/dL ABG Lactic Acid 3.1 H* (0.5-1.6) mmol/L Hemoglobin 7.8 L 10.8 L (13.0-17.5) gm/dL Sodium (137-145) mmol/L Potassium (3.5-5.1) mmol/L Chloride (98-107) mmol/L Creatinine (0.66-1.25) mg/dL Glucose (74-99) mg/dL POC Glucose (mg/dL) (70-110) mg/dL Calcium (8.4-10.2) mg/dL Ionized Calcium Emanuel (4.5-5.3) mg/dL Total Bilirubin (0.2-1.3) mg/dL AST (17-59) U/L Alkaline Phosphatase (38-126) U/L Total Protein (6.3-8.2) g/dL Albumin (3.5-5.0) g/dL Arterial Blood Potassium 4.7 H (3.4-4.5) mmol/L Arterial Blood Glucose 151 H (75-99) mg/dL Crossmatch See Detail 08/23/23 08/23/23 08/23/23 Range/Units 10:22 10:49 11:19 RBC (4.30-5.90) m/uL Hgb (13.0-17.5) gm/dL Hct (39.0-53.0) % Plt Count (150-450) k/uL Lymphocytes # (1.0-4.8) k/uL PT (10.0-12.5) sec INR (<1.2) APTT (22.0-30.0) sec Fibrinogen (200-500) mg/dL ABG pH 7.28 L 7.30 L (7.35-7.45) ABG pCO2 (35-45) mmHg ABG pO2 264 H 250 H 214 H (83-108) mmHg ABG HCO3 18 L 18 L 20 L (21-25) mmol/L ABG Total CO2 (19-24) mmol/L ABG O2 Saturation 99.8 H 99.8 H 99.9 H (94-97) % ABG Hematocrit 30 L 27 L 25 L (34.0-46.0) % ABG Sodium (135-146) mmol/L ABG Potassium (3.4-4.5) mmol/L ABG Ionized Calcium 4.3 L (4.5-5.3) mg/dL ABG Glucose (75-99) mg/dL ABG Lactic Acid (0.5-1.6) mmol/L Hemoglobin 9.7 L 8.8 L 8.1 L (13.0-17.5) gm/dL Sodium (137-145) mmol/L Potassium (3.5-5.1) mmol/L Chloride (98-107) mmol/L Creatinine (0.66-1.25) mg/dL Glucose (74-99) mg/dL POC Glucose (mg/dL) (70-110) mg/dL Calcium (8.4-10.2) mg/dL Ionized Calcium Emanuel (4.5-5.3) mg/dL Total Bilirubin (0.2-1.3) mg/dL AST (17-59) U/L Alkaline Phosphatase (38-126) U/L Total Protein (6.3-8.2) g/dL Albumin (3.5-5.0) g/dL Arterial Blood Potassium (3.4-4.5) mmol/L Arterial Blood Glucose (75-99) mg/dL Crossmatch 08/23/23 08/23/23 08/23/23 Range/Units 11:47 12:31 13:10 RBC (4.30-5.90) m/uL Hgb (13.0-17.5) gm/dL Hct (39.0-53.0) % Plt Count (150-450) k/uL Lymphocytes # (1.0-4.8) k/uL PT (10.0-12.5) sec INR (<1.2) APTT (22.0-30.0) sec Fibrinogen (200-500) mg/dL ABG pH 7.29 L 7.28 L (7.35-7.45) ABG pCO2 46 H (35-45) mmHg ABG pO2 153 H 53 L* 168 H (83-108) mmHg ABG HCO3 20 L (21-25) mmol/L ABG Total CO2 (19-24) mmol/L ABG O2 Saturation 99.6 H 88.7 L 99.7 H (94-97) % ABG Hematocrit 25 L 23 L 20 L* (34.0-46.0) % ABG Sodium 148 H (135-146) mmol/L ABG Potassium 2.8 L* (3.4-4.5) mmol/L ABG Ionized Calcium 4.4 L (4.5-5.3) mg/dL ABG Glucose 104 H 116 H 146 H (75-99) mg/dL ABG Lactic Acid 2.7 H* (0.5-1.6) mmol/L Hemoglobin 8.0 L 7.5 L 6.6 L* (13.0-17.5) gm/dL Sodium (137-145) mmol/L Potassium (3.5-5.1) mmol/L Chloride (98-107) mmol/L Creatinine (0.66-1.25) mg/dL Glucose (74-99) mg/dL POC Glucose (mg/dL) (70-110) mg/dL Calcium (8.4-10.2) mg/dL Ionized Calcium Emanuel (4.5-5.3) mg/dL Total Bilirubin (0.2-1.3) mg/dL AST (17-59) U/L Alkaline Phosphatase (38-126) U/L Total Protein (6.3-8.2) g/dL Albumin (3.5-5.0) g/dL Arterial Blood Potassium 2.8 L* (3.4-4.5) mmol/L Arterial Blood Glucose 104 H 116 H 146 H (75-99) mg/dL Crossmatch 08/23/23 08/23/23 08/23/23 Range/Units 13:10 13:12 13:15 RBC 2.28 L (4.30-5.90) m/uL Hgb 7.4 L D (13.0-17.5) gm/dL Hct 21.9 L (39.0-53.0) % Plt Count 62 L D (150-450) k/uL Lymphocytes # (1.0-4.8) k/uL PT (10.0-12.5) sec INR (<1.2) APTT (22.0-30.0) sec Fibrinogen (200-500) mg/dL ABG pH 7.31 L (7.35-7.45) ABG pCO2 (35-45) mmHg ABG pO2 >420 H 78 L (83-108) mmHg ABG HCO3 (21-25) mmol/L ABG Total CO2 (19-24) mmol/L ABG O2 Saturation 100.0 H (94-97) % ABG Hematocrit 20 L* 22 L (34.0-46.0) % ABG Sodium 148 H 147 H (135-146) mmol/L ABG Potassium (3.4-4.5) mmol/L ABG Ionized Calcium 3.7 L 4.0 L (4.5-5.3) mg/dL ABG Glucose 151 H 136 H (75-99) mg/dL ABG Lactic Acid 3.1 H* 2.8 H* (0.5-1.6) mmol/L Hemoglobin 6.5 L* 7.1 L (13.0-17.5) gm/dL Sodium (137-145) mmol/L Potassium (3.5-5.1) mmol/L Chloride (98-107) mmol/L Creatinine (0.66-1.25) mg/dL Glucose (74-99) mg/dL POC Glucose (mg/dL) (70-110) mg/dL Calcium (8.4-10.2) mg/dL Ionized Calcium Emanuel (4.5-5.3) mg/dL Total Bilirubin (0.2-1.3) mg/dL AST (17-59) U/L Alkaline Phosphatase (38-126) U/L Total Protein (6.3-8.2) g/dL Albumin (3.5-5.0) g/dL Arterial Blood Potassium (3.4-4.5) mmol/L Arterial Blood Glucose 151 H 136 H (75-99) mg/dL Crossmatch 08/23/23 08/23/23 08/23/23 Range/Units 13:45 14:28 16:03 RBC 2.51 L (4.30-5.90) m/uL Hgb 8.1 L (13.0-17.5) gm/dL Hct 23.8 L (39.0-53.0) % Plt Count 69 L (150-450) k/uL Lymphocytes # (1.0-4.8) k/uL PT (10.0-12.5) sec INR (<1.2) APTT (22.0-30.0) sec Fibrinogen (200-500) mg/dL ABG pH 7.33 L (7.35-7.45) ABG pCO2 (35-45) mmHg ABG pO2 >420 H 249 H (83-108) mmHg ABG HCO3 20 L (21-25) mmol/L ABG Total CO2 (19-24) mmol/L ABG O2 Saturation 100.0 H 99.9 H (94-97) % ABG Hematocrit 22 L 23 L (34.0-46.0) % ABG Sodium 147 H 148 H (135-146) mmol/L ABG Potassium (3.4-4.5) mmol/L ABG Ionized Calcium 3.8 L 4.0 L (4.5-5.3) mg/dL ABG Glucose 155 H 158 H (75-99) mg/dL ABG Lactic Acid 3.0 H* 2.8 H* (0.5-1.6) mmol/L Hemoglobin 7.1 L 7.6 L (13.0-17.5) gm/dL Sodium (137-145) mmol/L Potassium (3.5-5.1) mmol/L Chloride (98-107) mmol/L Creatinine (0.66-1.25) mg/dL Glucose (74-99) mg/dL POC Glucose (mg/dL) (70-110) mg/dL Calcium (8.4-10.2) mg/dL Ionized Calcium Emanuel (4.5-5.3) mg/dL Total Bilirubin (0.2-1.3) mg/dL AST (17-59) U/L Alkaline Phosphatase (38-126) U/L Total Protein (6.3-8.2) g/dL Albumin (3.5-5.0) g/dL Arterial Blood Potassium (3.4-4.5) mmol/L Arterial Blood Glucose 155 H 158 H (75-99) mg/dL Crossmatch 08/23/23 08/23/23 08/23/23 Range/Units 16:03 16:03 16:08 RBC (4.30-5.90) m/uL Hgb (13.0-17.5) gm/dL Hct (39.0-53.0) % Plt Count (150-450) k/uL Lymphocytes # (1.0-4.8) k/uL PT 18.5 H (10.0-12.5) sec INR 1.8 H (<1.2) APTT 65.3 H (22.0-30.0) sec Fibrinogen (200-500) mg/dL ABG pH (7.35-7.45) ABG pCO2 (35-45) mmHg ABG pO2 (83-108) mmHg ABG HCO3 (21-25) mmol/L ABG Total CO2 (19-24) mmol/L ABG O2 Saturation (94-97) % ABG Hematocrit (34.0-46.0) % ABG Sodium (135-146) mmol/L ABG Potassium (3.4-4.5) mmol/L ABG Ionized Calcium (4.5-5.3) mg/dL ABG Glucose (75-99) mg/dL ABG Lactic Acid (0.5-1.6) mmol/L Hemoglobin (13.0-17.5) gm/dL Sodium 147 H (137-145) mmol/L Potassium (3.5-5.1) mmol/L Chloride 111 H (98-107) mmol/L Creatinine (0.66-1.25) mg/dL Glucose 158 H (74-99) mg/dL POC Glucose (mg/dL) 178 H (70-110) mg/dL Calcium 7.2 L (8.4-10.2) mg/dL Ionized Calcium Emanuel 4.2 L (4.5-5.3) mg/dL Total Bilirubin 1.5 H (0.2-1.3) mg/dL AST (17-59) U/L Alkaline Phosphatase 21 L (38-126) U/L Total Protein 4.2 L (6.3-8.2) g/dL Albumin 2.9 L (3.5-5.0) g/dL Arterial Blood Potassium (3.4-4.5) mmol/L Arterial Blood Glucose (75-99) mg/dL Crossmatch 08/23/23 08/23/23 08/23/23 Range/Units 16:27 17:14 17:54 RBC (4.30-5.90) m/uL Hgb (13.0-17.5) gm/dL Hct (39.0-53.0) % Plt Count (150-450) k/uL Lymphocytes # (1.0-4.8) k/uL PT (10.0-12.5) sec INR (<1.2) APTT (22.0-30.0) sec Fibrinogen (200-500) mg/dL ABG pH 7.28 L (7.35-7.45) ABG pCO2 51 H (35-45) mmHg ABG pO2 112 H (83-108) mmHg ABG HCO3 (21-25) mmol/L ABG Total CO2 26 H (19-24) mmol/L ABG O2 Saturation 98.5 H (94-97) % ABG Hematocrit (34.0-46.0) % ABG Sodium (135-146) mmol/L ABG Potassium (3.4-4.5) mmol/L ABG Ionized Calcium (4.5-5.3) mg/dL ABG Glucose (75-99) mg/dL ABG Lactic Acid (0.5-1.6) mmol/L Hemoglobin (13.0-17.5) gm/dL Sodium (137-145) mmol/L Potassium (3.5-5.1) mmol/L Chloride (98-107) mmol/L Creatinine (0.66-1.25) mg/dL Glucose (74-99) mg/dL POC Glucose (mg/dL) 196 H 202 H (70-110) mg/dL Calcium (8.4-10.2) mg/dL Ionized Calcium Emanuel (4.5-5.3) mg/dL Total Bilirubin (0.2-1.3) mg/dL AST (17-59) U/L Alkaline Phosphatase (38-126) U/L Total Protein (6.3-8.2) g/dL Albumin (3.5-5.0) g/dL Arterial Blood Potassium (3.4-4.5) mmol/L Arterial Blood Glucose (75-99) mg/dL Crossmatch 08/23/23 08/23/23 08/23/23 Range/Units 17:55 18:21 19:03 RBC 2.68 L (4.30-5.90) m/uL Hgb 8.7 L (13.0-17.5) gm/dL Hct 25.1 L (39.0-53.0) % Plt Count 78 L (150-450) k/uL Lymphocytes # 0.8 L (1.0-4.8) k/uL PT (10.0-12.5) sec INR (<1.2) APTT (22.0-30.0) sec Fibrinogen 110 L (200-500) mg/dL ABG pH (7.35-7.45) ABG pCO2 (35-45) mmHg ABG pO2 (83-108) mmHg ABG HCO3 (21-25) mmol/L ABG Total CO2 (19-24) mmol/L ABG O2 Saturation (94-97) % ABG Hematocrit (34.0-46.0) % ABG Sodium (135-146) mmol/L ABG Potassium (3.4-4.5) mmol/L ABG Ionized Calcium (4.5-5.3) mg/dL ABG Glucose (75-99) mg/dL ABG Lactic Acid (0.5-1.6) mmol/L Hemoglobin (13.0-17.5) gm/dL Sodium (137-145) mmol/L Potassium (3.5-5.1) mmol/L Chloride (98-107) mmol/L Creatinine (0.66-1.25) mg/dL Glucose (74-99) mg/dL POC Glucose (mg/dL) 178 H (70-110) mg/dL Calcium (8.4-10.2) mg/dL Ionized Calcium Emanuel (4.5-5.3) mg/dL Total Bilirubin (0.2-1.3) mg/dL AST (17-59) U/L Alkaline Phosphatase (38-126) U/L Total Protein (6.3-8.2) g/dL Albumin (3.5-5.0) g/dL Arterial Blood Potassium (3.4-4.5) mmol/L Arterial Blood Glucose (75-99) mg/dL Crossmatch 08/23/23 08/23/23 08/23/23 Range/Units 19:53 19:55 20:57 RBC (4.30-5.90) m/uL Hgb (13.0-17.5) gm/dL Hct (39.0-53.0) % Plt Count (150-450) k/uL Lymphocytes # (1.0-4.8) k/uL PT (10.0-12.5) sec INR (<1.2) APTT (22.0-30.0) sec Fibrinogen (200-500) mg/dL ABG pH (7.35-7.45) ABG pCO2 (35-45) mmHg ABG pO2 268 H (83-108) mmHg ABG HCO3 (21-25) mmol/L ABG Total CO2 25 H (19-24) mmol/L ABG O2 Saturation 99.8 H (94-97) % ABG Hematocrit (34.0-46.0) % ABG Sodium (135-146) mmol/L ABG Potassium (3.4-4.5) mmol/L ABG Ionized Calcium (4.5-5.3) mg/dL ABG Glucose (75-99) mg/dL ABG Lactic Acid (0.5-1.6) mmol/L Hemoglobin (13.0-17.5) gm/dL Sodium (137-145) mmol/L Potassium (3.5-5.1) mmol/L Chloride (98-107) mmol/L Creatinine (0.66-1.25) mg/dL Glucose (74-99) mg/dL POC Glucose (mg/dL) 150 H 166 H (70-110) mg/dL Calcium (8.4-10.2) mg/dL Ionized Calcium Emanuel (4.5-5.3) mg/dL Total Bilirubin (0.2-1.3) mg/dL AST (17-59) U/L Alkaline Phosphatase (38-126) U/L Total Protein (6.3-8.2) g/dL Albumin (3.5-5.0) g/dL Arterial Blood Potassium (3.4-4.5) mmol/L Arterial Blood Glucose (75-99) mg/dL Crossmatch 08/23/23 08/23/23 08/23/23 Range/Units 21:24 22:07 23:07 RBC 2.65 L (4.30-5.90) m/uL Hgb 8.6 L (13.0-17.5) gm/dL Hct 24.7 L (39.0-53.0) % Plt Count 85 L (150-450) k/uL Lymphocytes # 0.9 L (1.0-4.8) k/uL PT (10.0-12.5) sec INR (<1.2) APTT (22.0-30.0) sec Fibrinogen (200-500) mg/dL ABG pH (7.35-7.45) ABG pCO2 (35-45) mmHg ABG pO2 (83-108) mmHg ABG HCO3 (21-25) mmol/L ABG Total CO2 (19-24) mmol/L ABG O2 Saturation (94-97) % ABG Hematocrit (34.0-46.0) % ABG Sodium (135-146) mmol/L ABG Potassium (3.4-4.5) mmol/L ABG Ionized Calcium (4.5-5.3) mg/dL ABG Glucose (75-99) mg/dL ABG Lactic Acid (0.5-1.6) mmol/L Hemoglobin (13.0-17.5) gm/dL Sodium (137-145) mmol/L Potassium (3.5-5.1) mmol/L Chloride (98-107) mmol/L Creatinine (0.66-1.25) mg/dL Glucose (74-99) mg/dL POC Glucose (mg/dL) 159 H 142 H (70-110) mg/dL Calcium (8.4-10.2) mg/dL Ionized Calcium Emanuel (4.5-5.3) mg/dL Total Bilirubin (0.2-1.3) mg/dL AST (17-59) U/L Alkaline Phosphatase (38-126) U/L Total Protein (6.3-8.2) g/dL Albumin (3.5-5.0) g/dL Arterial Blood Potassium (3.4-4.5) mmol/L Arterial Blood Glucose (75-99) mg/dL Crossmatch 08/23/23 08/24/23 08/24/23 Range/Units 23:38 00:21 01:29 RBC (4.30-5.90) m/uL Hgb (13.0-17.5) gm/dL Hct (39.0-53.0) % Plt Count (150-450) k/uL Lymphocytes # (1.0-4.8) k/uL PT (10.0-12.5) sec INR (<1.2) APTT (22.0-30.0) sec Fibrinogen (200-500) mg/dL ABG pH (7.35-7.45) ABG pCO2 (35-45) mmHg ABG pO2 (83-108) mmHg ABG HCO3 (21-25) mmol/L ABG Total CO2 26 H (19-24) mmol/L ABG O2 Saturation 98.1 H (94-97) % ABG Hematocrit (34.0-46.0) % ABG Sodium (135-146) mmol/L ABG Potassium (3.4-4.5) mmol/L ABG Ionized Calcium (4.5-5.3) mg/dL ABG Glucose (75-99) mg/dL ABG Lactic Acid (0.5-1.6) mmol/L Hemoglobin (13.0-17.5) gm/dL Sodium (137-145) mmol/L Potassium (3.5-5.1) mmol/L Chloride (98-107) mmol/L Creatinine (0.66-1.25) mg/dL Glucose (74-99) mg/dL POC Glucose (mg/dL) 113 H 131 H (70-110) mg/dL Calcium (8.4-10.2) mg/dL Ionized Calcium Emanuel (4.5-5.3) mg/dL Total Bilirubin (0.2-1.3) mg/dL AST (17-59) U/L Alkaline Phosphatase (38-126) U/L Total Protein (6.3-8.2) g/dL Albumin (3.5-5.0) g/dL Arterial Blood Potassium (3.4-4.5) mmol/L Arterial Blood Glucose (75-99) mg/dL Crossmatch 08/24/23 08/24/23 08/24/23 Range/Units 02:45 03:29 03:29 RBC 2.91 L (4.30-5.90) m/uL Hgb 9.4 L (13.0-17.5) gm/dL Hct 27.5 L (39.0-53.0) % Plt Count 99 L (150-450) k/uL Lymphocytes # 0.8 L (1.0-4.8) k/uL PT (10.0-12.5) sec INR (<1.2) APTT (22.0-30.0) sec Fibrinogen (200-500) mg/dL ABG pH (7.35-7.45) ABG pCO2 (35-45) mmHg ABG pO2 (83-108) mmHg ABG HCO3 (21-25) mmol/L ABG Total CO2 (19-24) mmol/L ABG O2 Saturation (94-97) % ABG Hematocrit (34.0-46.0) % ABG Sodium (135-146) mmol/L ABG Potassium (3.4-4.5) mmol/L ABG Ionized Calcium (4.5-5.3) mg/dL ABG Glucose (75-99) mg/dL ABG Lactic Acid (0.5-1.6) mmol/L Hemoglobin (13.0-17.5) gm/dL Sodium (137-145) mmol/L Potassium 3.3 L (3.5-5.1) mmol/L Chloride 108 H (98-107) mmol/L Creatinine 1.43 H (0.66-1.25) mg/dL Glucose 112 H (74-99) mg/dL POC Glucose (mg/dL) 134 H (70-110) mg/dL Calcium 8.1 L (8.4-10.2) mg/dL Ionized Calcium Emanuel (4.5-5.3) mg/dL Total Bilirubin (0.2-1.3) mg/dL AST 83 H (17-59) U/L Alkaline Phosphatase 33 L (38-126) U/L Total Protein 4.8 L (6.3-8.2) g/dL Albumin (3.5-5.0) g/dL Arterial Blood Potassium (3.4-4.5) mmol/L Arterial Blood Glucose (75-99) mg/dL Crossmatch 08/24/23 08/24/23 Range/Units 03:33 07:06 RBC (4.30-5.90) m/uL Hgb (13.0-17.5) gm/dL Hct (39.0-53.0) % Plt Count (150-450) k/uL Lymphocytes # (1.0-4.8) k/uL PT (10.0-12.5) sec INR (<1.2) APTT (22.0-30.0) sec Fibrinogen (200-500) mg/dL ABG pH (7.35-7.45) ABG pCO2 (35-45) mmHg ABG pO2 (83-108) mmHg ABG HCO3 (21-25) mmol/L ABG Total CO2 (19-24) mmol/L ABG O2 Saturation (94-97) % ABG Hematocrit (34.0-46.0) % ABG Sodium (135-146) mmol/L ABG Potassium (3.4-4.5) mmol/L ABG Ionized Calcium (4.5-5.3) mg/dL ABG Glucose (75-99) mg/dL ABG Lactic Acid (0.5-1.6) mmol/L Hemoglobin (13.0-17.5) gm/dL Sodium (137-145) mmol/L Potassium (3.5-5.1) mmol/L Chloride (98-107) mmol/L Creatinine (0.66-1.25) mg/dL Glucose (74-99) mg/dL POC Glucose (mg/dL) 123 H 111 H (70-110) mg/dL Calcium (8.4-10.2) mg/dL Ionized Calcium Emanuel (4.5-5.3) mg/dL Total Bilirubin (0.2-1.3) mg/dL AST (17-59) U/L Alkaline Phosphatase (38-126) U/L Total Protein (6.3-8.2) g/dL Albumin (3.5-5.0) g/dL Arterial Blood Potassium (3.4-4.5) mmol/L Arterial Blood Glucose (75-99) mg/dL Crossmatch - Imaging and Cardiology Chest x-ray: report reviewed, image reviewed Assessment and Plan Assessment: Triple-vessel coronary artery disease, unstable angina, status post 3V CABG History of hypertension Hyperlipidemia, cholesterol 215, LDL 143, triglycerides 185 Chronic kidney disease stage III Previous tobacco dependence with recent cessation Mild COPD, preoperative FEV1 of 65% of predicted TIA in 2013 with no residual BPH on [place] Bilateral vein stripping in the Bilateral carotid stenosis by carotid Doppler, greater than 70% on the left, 50- 69% on the right based on velocities; 50% proximal ROMMEL stenosis and 50% left carotid artery stenosis at the bifurcation per CTA Post operative acute blood loss anemia and thrombocytopenia, expected given significant hemodilution Intraoperative atrial fibrillation, unexpected but common after open heart surgery Intraoperative and postoperative hypotension expected due to vasoplegia, atrial fibrillation Plan: Continue to maximize medical therapy with aspirin, statin, plavix, beta maria luisa. Will increase beta maria luisa as tolerated, Discontinue dopamine Continue amiodarone for afib prophylaxis, will transition to oral Wean oxygen as tolerated, encourage incentive spirometer use 10x every hour while awake, bronchodilators per pulmonology Increase activity, ambulate as tolerated. PT/OT/cardiac rehab consulted Will monitor daily labs/CXR. Electrolyte replacement per protocol. Continue IV lasix, potassium supplementation Pain control with current medication regimen, no toradol due to CKD Insulin management per internal medicine. Patient should remain on insulin gtt for 48 hours for tight blood sugar control, then may transition to subq insulin per protocol Likely will discontinue swan, connect cordis to continuous cvp monitoring DC arterial line as it is non-functioning Encourage continued smoking cessation Continue chest tubes for another 24 hours, monitor drainage Continue rincon for another 24 hours, continue to record strict accurate intake and output Daily weights More recommendations to follow
[2023-08-24 10:05] LABS: Glucose,Whole Blood 125 mg/dL (70-110)
[2023-08-24 10:26] VITALS: BMI 24.5
[2023-08-24 11:01] LABS: Glucose,Whole Blood 90 mg/dL (70-110)
[2023-08-24] MEDS ORDERED: POTASSIUM BICARBONATE/CIT AC 20 MEQ TABLET.EFF PO STA (12:22)
[2023-08-24 13:19] LABS: Glucose,Whole Blood 96 mg/dL (70-110)
[2023-08-24] MEDS: AMIODARONE 450 MG in DEXTROSE 5% IN WATER 250 ML IV SCH ×2 (13:55)
[2023-08-24] MEDS: ACETAMINOPHEN TAB 325 MG TAB PO PRN (14:07)
[2023-08-24 15:04] LABS: Glucose,Whole Blood 100 mg/dL (70-110)
[2023-08-24 15:56] LABS: Glucose,Whole Blood 109 mg/dL (70-110)
[2023-08-24] MEDS: LACTATED RINGERS 1,000 ML IV SCH (15:57)
[2023-08-24 17:56] LABS: Glucose,Whole Blood 121 mg/dL (70-110)
[2023-08-24] MEDS: TAMSULOSIN 0.4 MG CAP.ER.24H PO SCH (18:55)
[2023-08-24] MEDS: SENNOSIDES-DOCUSATE SODIUM 1 EACH TAB PO SCH (20:10)
[2023-08-24 20:18] LABS: Glucose,Whole Blood 100 mg/dL (70-110)
[2023-08-24] MEDS ORDERED: ATORVASTATIN 80 MG TAB PO SCH (21:00)
[2023-08-24] MEDS ORDERED: POTASSIUM BICARBONATE/CIT AC 20 MEQ TABLET.EFF PO SCH ×2 (21:00)
--- NOTE | 2023-08-24 21:02 | P.PN ---
Subjective Progress Note Date: 08/24/23 (delayed charating seen at 1115) Patient is a 73-year-old male with hypertension, chronic kidney disease, BPH initially presented to the emergency department with complaints of chest pain. He was subsequently admitted for chest pain observation. Troponins were trended and remained negative. Patient was seen by cardiology and was subsequently taken for cardiac cath on 08/20/23 which showed significant multivessel coronary artery disease. Cardiothoracic surgery was subsequently consulted and patient was worked up for possible CABG. Carotid Dopplers were completed showing greater than 75% stenosis of bilateral carotids. Patient underwent off pump coronary artery bypass grafting 3 on 08/23/23. Patient seen and examined at bedside. He is extubated. He is having mild shortness of breath and some chest discomfort but his oral medications are working well. He has no other complaints currently. Vital signs reviewed General:non toxic, no distress, appears at stated age Cardiovascular: S1S2 reg, no murmur Lungs: Course bs b/l bilateral, no rhonchi, no rales , no accessory muscle use Abdominal: soft, nontender to palpation, no guarding, no appreciable organomegaly Ext: no gross muscle atrophy, no edema b/l lower extremities, no contractures Psych: sedated on vent, opens eyes to touch Lines: swan via cordis, b/l Cehst tube, mediastinal tubes, b/l LE ruth wraps, ET tube Assessment/Plan: Unstable angina with severe multivessel coronary artery disease status post CABG 3 on 08/23/23 Chronic kidney disease stage III Hypertension Carotid artery stenosis, 25-50% stenosis b/l on CTA neck -Pulmonary note reviewed: Continue to wean O2 -CT surgery note reviewed: Continue to maximize medical therapy -Insulin drip for 48 hours. -Cardiology note reviewed: Continue supportive treatment. - on insulin gtt with q1 hours accuchecks, titrate per BS levels-- continue for another [address] surgery -Aspirin 81 mg daily, Plavix 75 mg daily, atorvstatin 80 mg at night -Metoprolol 12.5 mg twice daily -Pain control with options of oxycodone 5-10 mg as needed for pain - Lasix 20 mg IVP q8 hours Thrombocytopenia anticipated outcome of surgery Acute blood loss anemia, anticipated outcome of surgery -Patient is status post 2 units of packed red blood cells and 1 unit of platelets. -follow CBC -Transfuse as needed BPH -Flomax 0.4 mg nightly. Acute kidney injury, resolved Renal cysts- further evaluation via outpatient ultrasound Pancreatic cyst -pancreatic MRI as an outpatient Liver nodule- marginally increased in size since 2014 likely benign. Imaging: Data Review: Labs reviewed today include CBC, basic metabolic profile, and liver enzymes which are remarkable for hemoglobin 9.4, platelets 99, creatinine 1.43. DVT prophylaxis: Heparin Thank you for allowing us to participate in the care of this pleasant patient. Do not hesitate to contact us with questions. Someone can be reached from the [facility] hospitalist group all hours of the day at [phone] or via [employer]. This dictation was prepared using [employer] voice recognition software. Though every attempt is made to correct errors during dictation some may still exist. \ Active Medications Acetaminophen (Acetaminophen Tab 325 Mg Tab) 650 mg PO Q4HR PRN PRN Reason: Fever and/ or Pain Last Admin: 08/24/23 14:07 Dose: 650 mg Albuterol/Ipratropium (Ipratropium-Albuterol 3 Ml Neb) 3 ml INHALATION RT-Q2H PRN PRN Reason: Shortness Of Breath Or Wheezing Albuterol/Ipratropium (Ipratropium-Albuterol 3 Ml Neb) 3 ml INHALATION RT-QID [facility] Last Admin: 08/24/23 20:25 Dose: 3 ml Amiodarone HCl (Amiodarone 200 Mg Tab) 400 mg PO BID [facility] Last Admin: 08/24/23 20:11 Dose: 400 mg Aspirin (Aspirin 325 Mg Tab) 325 mg PO DAILY [facility] Last Admin: 08/24/23 08:53 Dose: 325 mg Atorvastatin Calcium (Atorvastatin 80 Mg Tab) 80 mg PO HS [facility] Last Admin: 08/24/23 20:10 Dose: 80 mg Benzocaine/Menthol (Benzocaine/Menthol Lozeng 1 Each Lozenge) 1 each MUCOUS MEM Q2H PRN PRN Reason: Sore Throat Bisacodyl (Bisacodyl 10 Mg Supp) 10 mg RECTAL DAILY PRN PRN Reason: Constipation Clopidogrel Bisulfate (Clopidogrel 75 Mg Tab) 75 mg PO DAILY [facility] Last Admin: 08/24/23 08:54 Dose: 75 mg Dextrose/Water (Dextrose 50% Syringe 50 Ml) 25 ml IVP PER PROTOCOL PRN; Protocol PRN Reason: Hypoglycemia Dextrose/Water (Dextrose 50% Syringe 50 Ml) 50 ml IVP PER PROTOCOL PRN; Protocol PRN Reason: Hypoglycemia Furosemide (Furosemide 10 Mg/Ml 2 Ml Vial) 20 mg IV Q8HR [facility] Last Admin: 08/24/23 15:27 Dose: 20 mg Heparin Sodium (Porcine) (Heparin Sodium,Porcine 5,000 Unit/Ml 1 Ml Vial) 5,000 unit SQ Q8HR [facility] Last Admin: 08/24/23 15:51 Dose: 5,000 unit Amiodarone HCl 150 mg/ (Dextrose/Water) 103 mls @ 618 mls/hr IV .Q10M PRN PRN Reason: A.FIB/FLUTTER Last Admin: 08/23/23 20:31 Dose: 618 mls/hr Albumin Human 250 ml/ IV (Solution) 250 mls @ 250 mls/hr IVPB Q1HR PRN; Protocol PRN Reason: For Volume Stop: 08/25/23 15:34 Lactated Ringer's (Lactated Ringers) 1,000 mls @ 20 mls/hr IV .Q24H [facility] Last Admin: 08/24/23 15:57 Dose: 20 mls/hr Insulin Human Regular 100 unit (/ Sodium Chloride) 101 mls @ 0 mls/hr IV .Q0M [facility]; Protocol Last Titration: 08/24/23 17:56 Dose: 2 units/hr, 2.02 mls/hr Magnesium Hydroxide (Magnesium Hydroxide 2,400 Mg/30 Ml Cup) 2,400 mg PO BID PRN PRN Reason: Constipation Metoclopramide HCl (Metoclopramide 5 Mg/Ml 2 Ml Vial) 10 mg IVP Q4H PRN PRN Reason: Nausea And Vomiting Last Admin: 08/24/23 06:42 Dose: 10 mg Metoprolol Tartrate (Metoprolol Tartrate 12.5 Mg Tab) 12.5 mg PO BID [facility] Last Admin: 08/24/23 20:10 Dose: 12.5 mg Miscellaneous Information (Potassium Replacement Protocol 1 Each Misc) 1 each MISCELLANE DAILY PRN; Protocol PRN Reason: Per Protocol Miscellaneous Information (Magnesium Replacement Protocol 1 Each Misc) 1 each MISCELLANE DAILY PRN; Protocol PRN Reason: Per Protocol Ondansetron HCl (Ondansetron 4 Mg/2 Ml Vial) 4 mg IVP Q6HR PRN PRN Reason: Nausea And Vomiting Last Admin: 08/24/23 08:54 Dose: 4 mg Oxycodone HCl (Oxycodone Hcl 5 Mg Tab) 5 mg PO Q4HR PRN PRN Reason: Moderate Pain (Scale 4 to 6) Last Admin: 08/24/23 18:54 Dose: 5 mg Oxycodone HCl (Oxycodone Hcl 5 Mg Tab) 10 mg PO Q4HR PRN PRN Reason: Severe Pain (Scale 7 to 10) Last Admin: 08/24/23 07:56 Dose: 10 mg Pantoprazole Sodium (Pantoprazole 40 Mg Tablet) 40 mg PO AC-BRKFST [facility] Potassium Bicarbonate (Potassium Bicarbonate/Cit Ac 20 Meq Tablet.Eff) 40 meq PO BID [facility] Last Admin: 08/24/23 20:11 Dose: 40 meq Senna/Docusate Sodium (Sennosides-Docusate Sodium 1 Each Tab) 2 each PO HS [facility] Last Admin: 08/24/23 20:10 Dose: 2 each Sodium Chloride (Sodium Chloride 0.9% Flush 10 Ml Syringe) 10 ml IV BID [facility] Last Admin: 08/24/23 20:11 Dose: 10 ml Tamsulosin HCl (Tamsulosin 0.4 Mg Cap.Er.24h) 0.4 mg PO PC-SUPPER [facility] Last Admin: 08/24/23 18:55 Dose: 0.4 mg Objective - Vital Signs Vital signs: Vital Signs Temp 97.6 F 08/24/23 16:00 Pulse 96 08/24/23 20:36 Resp 17 08/24/23 18:00 BP 101/50 08/24/23 18:00 Pulse Ox 93 L 08/24/23 18:00 FiO2 50 08/24/23 00:45 Intake & Output 08/24/23 08/24/23 08/25/23 06:59 18:59 06:59 Intake Total 1231.860 699.848 Output Total 2935 1045 Balance -1703.140 -345.152 Weight 79.9 kg 79.9 kg Intake: IV 1118 695 .9NS Pressure bag 108 75 ACETAMINOPHEN IV (For NPO 100 ) 1,000 mg In Empty Bag 1 bag @ 400 mls/hr IVPB Q6HR [facility] Rx#:[id number] CO/CI 260 20 Lactated Ringers 1,000 ml 600 550 @ 20 mls/hr IV .Q24H [facility] Rx#:[id number] ceFAZolin 2 gm In Sodium 50 50 Chloride 0.9% 50 ml @ 100 mls/hr IVPB Q8HR [facility] Rx# :[id number] Intake, IV Titration 113.860 4.848 Amount Insulin Regular 100 unit 35.367 4.848 In Sodium Chloride 0.9% 100 ml @ Per Protocol IV .Q0M [facility] Rx#:[id number] Vasopressin 20 unit In 42.483 Sodium Chloride 0.9% 50 ml @ 0.03 UNITS/MIN 4.59 mls/hr IV .Q11H7M [facility] Rx# :[id number] propofoL 1,000 mg In 36.010 Empty Bag 1 bag @ Titrate IV .Q0M [facility] Rx#: [id number] Output: Chest Tube Drainage 580 370 Mediastinal 210 170 Right/Left Pleural 370 200 Urine 2355 675 Other: Voiding Method Indwelling Catheter Indwelling Catheter ABP, PAP, CO, CI - Last Documented Arterial Blood Pressure 43/40 Pulmonary Artery Pressure 29/14 Cardiac Output 4.4 Cardiac Index 2.2 - Labs CBC & Chem 7: 08/24/23 03:29 08/24/23 11:29 Labs: Abnormal Lab Results - Last 24 Hours (Table) 08/23/23 08/23/23 08/23/23 Range/Units 20:57 21:24 22:07 RBC 2.65 L (4.30-5.90) m/uL Hgb 8.6 L (13.0-17.5) gm/dL Hct 24.7 L (39.0-53.0) % Plt Count 85 L (150-450) k/uL Lymphocytes # 0.9 L (1.0-4.8) k/uL ABG Total CO2 (19-24) mmol/L ABG O2 Saturation (94-97) % Potassium (3.5-5.1) mmol/L Chloride (98-107) mmol/L Creatinine (0.66-1.25) mg/dL Glucose (74-99) mg/dL POC Glucose (mg/dL) 166 H 159 H (70-110) mg/dL Calcium (8.4-10.2) mg/dL AST (17-59) U/L Alkaline Phosphatase (38-126) U/L Total Protein (6.3-8.2) g/dL 08/23/23 08/23/23 08/24/23 Range/Units 23:07 23:38 00:21 RBC (4.30-5.90) m/uL Hgb (13.0-17.5) gm/dL Hct (39.0-53.0) % Plt Count (150-450) k/uL Lymphocytes # (1.0-4.8) k/uL ABG Total CO2 26 H (19-24) mmol/L ABG O2 Saturation 98.1 H (94-97) % Potassium (3.5-5.1) mmol/L Chloride (98-107) mmol/L Creatinine (0.66-1.25) mg/dL Glucose (74-99) mg/dL POC Glucose (mg/dL) 142 H 113 H (70-110) mg/dL Calcium (8.4-10.2) mg/dL AST (17-59) U/L Alkaline Phosphatase (38-126) U/L Total Protein (6.3-8.2) g/dL 08/24/23 08/24/23 08/24/23 Range/Units 01:29 02:45 03:29 RBC 2.91 L (4.30-5.90) m/uL Hgb 9.4 L (13.0-17.5) gm/dL Hct 27.5 L (39.0-53.0) % Plt Count 99 L (150-450) k/uL Lymphocytes # 0.8 L (1.0-4.8) k/uL ABG Total CO2 (19-24) mmol/L ABG O2 Saturation (94-97) % Potassium (3.5-5.1) mmol/L Chloride (98-107) mmol/L Creatinine (0.66-1.25) mg/dL Glucose (74-99) mg/dL POC Glucose (mg/dL) 131 H 134 H (70-110) mg/dL Calcium (8.4-10.2) mg/dL AST (17-59) U/L Alkaline Phosphatase (38-126) U/L Total Protein (6.3-8.2) g/dL 08/24/23 08/24/23 08/24/23 Range/Units 03:29 03:33 07:06 RBC (4.30-5.90) m/uL Hgb (13.0-17.5) gm/dL Hct (39.0-53.0) % Plt Count (150-450) k/uL Lymphocytes # (1.0-4.8) k/uL ABG Total CO2 (19-24) mmol/L ABG O2 Saturation (94-97) % Potassium 3.3 L (3.5-5.1) mmol/L Chloride 108 H (98-107) mmol/L Creatinine 1.43 H (0.66-1.25) mg/dL Glucose 112 H (74-99) mg/dL POC Glucose (mg/dL) 123 H 111 H (70-110) mg/dL Calcium 8.1 L (8.4-10.2) mg/dL AST 83 H (17-59) U/L Alkaline Phosphatase 33 L (38-126) U/L Total Protein 4.8 L (6.3-8.2) g/dL 08/24/23 08/24/23 08/24/23 Range/Units 09:11 10:04 17:53 RBC (4.30-5.90) m/uL Hgb (13.0-17.5) gm/dL Hct (39.0-53.0) % Plt Count (150-450) k/uL Lymphocytes # (1.0-4.8) k/uL ABG Total CO2 (19-24) mmol/L ABG O2 Saturation (94-97) % Potassium (3.5-5.1) mmol/L Chloride (98-107) mmol/L Creatinine (0.66-1.25) mg/dL Glucose (74-99) mg/dL POC Glucose (mg/dL) 129 H 125 H 121 H (70-110) mg/dL Calcium (8.4-10.2) mg/dL AST (17-59) U/L Alkaline Phosphatase (38-126) U/L Total Protein (6.3-8.2) g/dL
[2023-08-24 21:57] LABS: Glucose,Whole Blood 95 mg/dL (70-110)
[2023-08-25 00:38] LABS: Glucose,Whole Blood 117 mg/dL (70-110)
[2023-08-25] MEDS: ACETAMINOPHEN TAB 325 MG TAB PO PRN ×2 (00:39→07:28)
[2023-08-25] MEDS: HEPARIN SODIUM,PORCINE 5,000 UNIT/ML 1 ML VIAL SQ SCH ×3 (00:40→16:01)
[2023-08-25] MEDS: FUROSEMIDE 10 MG/ML 2 ML VIAL IV SCH (00:40)
[2023-08-25 02:23] LABS: Glucose,Whole Blood 101 mg/dL (70-110)
[2023-08-25 04:06] LABS: Glucose,Whole Blood 97 mg/dL (70-110)
[2023-08-25 06:13] LABS: Glucose,Whole Blood 103 mg/dL (70-110)
[2023-08-25 06:52] LABS: Basophils % (A) 0 %; Eosinophils # (A) 0.1 k/uL (0-0.7); Eosinophils % (A) 1 %; HCT 26.5 % (39.0-53.0); HGB 9.1 gm/dL (13.0-17.5); Lymphocytes # (A) 1.6 k/uL (1.0-4.8); Lymphocytes % (A) 12 %; MCH 32.4 pg (25.0-35.0); MCHC 34.2 g/dL (31.0-37.0); MCV 94.6 fL (80.0-100.0); Mean Platelet Volume 8.6; Monocytes # (A) 0.8 k/uL (0-1.0); Monocytes % (A) 7 %; Neutrophils # (A) 10.1 k/uL (1.3-7.7); Neutrophils % (A) 78 %; Platelet Count 100 k/uL (150-450); RDW 14.8 % (11.5-15.5)
[2023-08-25] MEDS: PANTOPRAZOLE 40 MG TABLET PO SCH (06:55)
[2023-08-25] MEDS: IPRATROPIUM-ALBUTEROL 3 ML NEB INHALATION SCH ×4 (08:05→20:05)
[2023-08-25 08:06] LABS: AST 222 U/L (17-59); African American GFR (CKD) 30 (>60 ml/min/1.73 sqM); Albumin 3.3 g/dL (3.5-5.0); Alkaline Phosphatase 48 U/L (38-126); Anion Gap 11 mmol/L; Blood Urea Nitrogen 31 mg/dL (9-20); Calcium 7.9 mg/dL (8.4-10.2); Carbon Dioxide 25 mmol/L (22-30); Chloride 101 mmol/L (98-107); Glucose 94 mg/dL (74-99); Non-African American GFR(CKD) 26 (>60 ml/min/1.73 sqM); Potassium 4.5 mmol/L (3.5-5.1); Sodium 137 mmol/L (137-145); Total Bilirubin 0.9 mg/dL (0.2-1.3); Total Protein 5.2 g/dL (6.3-8.2)
[2023-08-25 08:07] LABS: Glucose,Whole Blood 92 mg/dL (70-110)
[2023-08-25 08:22] LABS: ALT 44 U/L (4-49)
[2023-08-25] MEDS ORDERED: HYDROcodone/APAP 5-325MG 1 EACH TAB PO PRN ×2 (08:35)
[2023-08-25] MEDS ORDERED: SODIUM CHLORIDE 0.9% 500 ML 500 ML IV SCH (08:45)
[2023-08-25] MEDS ORDERED: ALBUMIN HUMAN 5% 250 ML in EMPTY BAG 1 BAG IVPB ONE (09:00)
[2023-08-25] MEDS: AMIODARONE 200 MG TAB PO SCH ×2 (09:04→20:08)
--- NOTE | 2023-08-25 09:11 | P.PN ---
Subjective Progress Note Date: 08/25/23 The patient is 73-year-old male who follows in the office with Dr. Fernandez. He initially presented to the hospital with unstable angina. He underwent coronary angiogram revealing triple vessel disease. On 08/23/23 he underwent coronary bypass grafting 3 with left internal thoracic artery to LAD, left anterior coronary artery in situ to OM1, and SVG to RCA. Intraoperative complications include converting from off-pump 2 on pump bypass as well as atrial fibrillation requiring defibrillation. The patient was successfully weaned from the ventilator and weaned from vasopressors. He has been weaned off of all vasopressors and transition to oral amiodarone and beta blockers. Patient was interviewed and examined resting comfortably in the recliner chair. He is quite concerned this morning as he has been experiencing some confusion. He also reports having some pain from his graft sites. Denies any chest pain. No difficulty breathing. GENERAL: Well-appearing, well-nourished and in no acute distress. NECK: Supple without JVD or thyromegaly. LUNGS: Breath sounds diminished to auscultation bilaterally. Respiration equal and unlabored. No wheezes, rales or rhonchi. HEART: Regular rate and rhythm without murmurs, rubs or gallops. S1 and S2 heard. EXTREMITIES: Normal range of motion, no edema. No clubbing or cyanosis. Peripheral pulses intact and strong. TELEMETRY: Currently in sinus rhythm LABS: WBC 13.0, hemoglobin 9.1, hematocrit 26.5, platelet 100, sodium 137, potassium 4.5, BUN 31, creatinine 2.41, AST 222, ALT 44 IMPRESSION: Multivessel coronary artery disease Status post CABG 3 Hypertension Hyperlipidemia Chronic kidney disease COPD Bilateral carotid stenosis PLAN: Continue supportive treatment Aggressive pulmonary hygiene Further recommendations will be based on clinical course I am dictating on behalf of Dr Ken Capps's history/physical and assessment/plan. Objective - Vital Signs Vital signs: Vital Signs Temp 98.7 F 08/25/23 04:00 Pulse 102 H 08/25/23 08:20 Resp 16 08/25/23 07:00 BP 106/45 08/25/23 07:00 Pulse Ox 96 08/25/23 08:08 FiO2 50 08/24/23 00:45 Intake & Output 08/24/23 08/25/23 08/25/23 18:59 06:59 18:59 Intake Total 699.848 363 66 Output Total 1045 775 60 Balance -345.152 -412 6 Weight 79.9 kg 82.1 kg Intake: IV 695 363 66 .9NS Pressure bag 75 33 6 CO/CI 20 Lactated Ringers 1,000 ml 550 330 60 @ 20 mls/hr IV .Q24H [facility] Rx#:[id number] ceFAZolin 2 gm In Sodium 50 Chloride 0.9% 50 ml @ 100 mls/hr IVPB Q8HR [facility] Rx# :[id number] Intake, IV Titration 4.848 Amount Insulin Regular 100 unit 4.848 In Sodium Chloride 0.9% 100 ml @ Per Protocol IV .Q0M [facility] Rx#:[id number] Output: Chest Tube Drainage 370 270 0 Mediastinal 170 140 0 Right/Left Pleural 200 130 0 Urine 675 505 60 Other: Voiding Method Indwelling Catheter Indwelling Catheter ABP, PAP, CO, CI - Last Documented Arterial Blood Pressure 43/40 Pulmonary Artery Pressure 29/14 Cardiac Output 4.4 Cardiac Index 2.2 - Labs CBC & Chem 7: 08/25/23 05:52 08/25/23 05:52 Labs: Abnormal Lab Results - Last 24 Hours (Table) 08/20/23 08/24/23 08/24/23 Range/Units 14:59 09:11 10:04 WBC (3.8-10.6) k/uL RBC (4.30-5.90) m/uL Hgb (13.0-17.5) gm/dL Hct (39.0-53.0) % Plt Count (150-450) k/uL Neutrophils # (1.3-7.7) k/uL BUN (9-20) mg/dL Creatinine (0.66-1.25) mg/dL POC Glucose (mg/dL) 129 H 125 H (70-110) mg/dL Calcium (8.4-10.2) mg/dL AST (17-59) U/L Total Protein (6.3-8.2) g/dL Albumin (3.5-5.0) g/dL Crossmatch See Detail 08/24/23 08/25/23 08/25/23 Range/Units 17:53 00:37 05:52 WBC 13.0 H (3.8-10.6) k/uL RBC 2.80 L (4.30-5.90) m/uL Hgb 9.1 L (13.0-17.5) gm/dL Hct 26.5 L (39.0-53.0) % Plt Count 100 L (150-450) k/uL Neutrophils # 10.1 H (1.3-7.7) k/uL BUN (9-20) mg/dL Creatinine (0.66-1.25) mg/dL POC Glucose (mg/dL) 121 H 117 H (70-110) mg/dL Calcium (8.4-10.2) mg/dL AST (17-59) U/L Total Protein (6.3-8.2) g/dL Albumin (3.5-5.0) g/dL Crossmatch 08/25/23 Range/Units 05:52 WBC (3.8-10.6) k/uL RBC (4.30-5.90) m/uL Hgb (13.0-17.5) gm/dL Hct (39.0-53.0) % Plt Count (150-450) k/uL Neutrophils # (1.3-7.7) k/uL BUN 31 H (9-20) mg/dL Creatinine 2.41 H (0.66-1.25) mg/dL POC Glucose (mg/dL) (70-110) mg/dL Calcium 7.9 L (8.4-10.2) mg/dL AST 222 H (17-59) U/L Total Protein 5.2 L (6.3-8.2) g/dL Albumin 3.3 L (3.5-5.0) g/dL Crossmatch
[2023-08-25 09:14] LABS: Glucose,Whole Blood 98 mg/dL (70-110)
[2023-08-25] MEDS: METOPROLOL TARTRATE 25 MG TAB PO SCH ×2 (09:16→20:08)
[2023-08-25] MEDS: CLOPIDOGREL 75 MG TAB PO SCH (09:21)
[2023-08-25] MEDS: ASPIRIN 325 MG TAB PO SCH (09:21)
[2023-08-25] MEDS: DEXTROSE 5% IN WATER 100 ML with AMIODARONE 150 MG IV PRN ×2 (09:21→11:12)
--- NOTE | 2023-08-25 09:31 | P.PN ---
Subjective Progress Note Date: 08/25/23, the patient is being seen immediately following bypass surgery. The patient a complicated surgery. The patient will Off pump converted to cardiopulmonary bypass assisted coronary artery bypass grafting x 3. Right internal thoracic artery (in-situ) to left anterior descending coronary artery. Left anterior descending coronary artery (in-situ) to obtuse marginal artery #3. Reversed lesser saphenous vein from aorta to distal right coronary artery. The patient was brought into the intensive care unit and the patient is currently on propofol running at 20 mcg/kg/m. Intubated on a mechanical ventilator. Is currently on assist control mode at a rate of 12, tidal volume of 450, FiO2 of 100% with a PEEP of 5. Blood cultures showed a pH of 7.28 with a pCO2 of 51 and pO2 112. Chest x-ray shows adequate expansion of both lungs. No pneumothorax. The patient has a right pleural, left total and mediastinal chest tube. The patient's cardiac output is currently at 8.7 with an index of 4.4. Pulmonary artery pressure 34/23. The patient is on vasopressin physiologic dose, dopamine infusion running at 0.03 microvascular kilogram per minute and norepinephrine is running at 0.05 microvascular kilogram per minutes. the cardiac rhythm Is sinus and the patient is on amiodarone at 1 mg/m. Patient is also on insulin drip at 2.5 units an hour. The patient has increased output from the chest tube. The right pleural in the left pleural chest tubes are connected output has been in the order of 400 mL and the mediastinal chest tube has drained approximately 130 mL since arrival from the operating room. Intraoperatively, the patient received a total of 2 units of packed RBC, platelet concentrate, 4.5 L of albumin, 3 L of crystalloids and 2 L of Cell Savers. Estimated blood loss was around 4 L. The patient is currently hypothermic with a temperature of 35.7C. The CBC showed a hemoglobin of 8.7, white cell count of 8.5, platelet count of 78, and electrodes are still pending for now. Meanwhile, a cognition profile showed an INR of 1.8 with a PT of 18.5 and a PTT of 65.3. The patient was also given protamine. His well sedated and is, comfortable at this point in time. Surgical one-sided dry clean and intact. On 08/24/2023, the patient is extubated and sitting up on a chair and currently he is on oxygen at 4 L. He was quite unstable after he came into the ICU. His condition progressively stabilized with output from the chest to progressively dropped. His vaccination improved. He was gradually weaned off the mechanical ventilator and he was extubated without having any major difficulties. The chest x-ray from today shows atelectatic changes in the right upper lobe. [place]- Vijay catheter still in place. He has cardiomegaly. He also has some mild pulm onary vascular congestion. The [place]Vijay catheter is in place. PA pressures are 24/10. Cardiac output is 5.8 with an index of 3.0. Adequate urine output. All of the pressors have been discontinued. He remains on insulin drip at 3 units an hour. Amiodarone drip has been discontinued and the patient is currently on oral amiodarone. He is also in a normal sinus rhythm. Is using the incentive spirometer. He is falling approximately 1250 mL. His only complaint is some nausea for which the patient was given Zofran. Chest tubes are in place. The patient has a right pleural, left pleural chest tube which are connected and there is no evidence of any air leak. The patient also has a mediastinal chest tube. Output from the chest tubes have been slowing down progressively. On today's evaluation of 08/25/2022, the patient is slightly confused. Is having some difficulties in finding appropriate words. His we'll go 4 extremities. I feel that his mentation is waxing and waning. On certain occasions, is very much appropriate. Other times, he was noted to have some difficulties noted during words. No aphasia. No facial asymmetry. No headaches. In fact his blood pressure is soft and the patient is atrial fibrillation with a heart rate between 110 and 1:30, irregular. In same time the patient has of an acute kidney injury. Creatinine is up to 2.4 with a BUN of 31 and his sodium levels of 137. Hemoglobin stable at 9.1. The patient continues to have a right and a left pleural chest tube and a mediastinal chest tube. No evidence of any pneumothorax. Output from the chest abdomen 250 mL from MEDIASTINAL and the pleural chest tubes and there is no evidence of any air leak. Chest x-ray shows atelectatic changes in the right lung and the patient has a congested cough. Suspect a component of mucus plugging as the patient had some right upper lobe atelectasis immediately postop. He is currently on 7 L of oxygen high flow with a pulse ox of 92%. He is receiving a dose of IV albumin, 2 50 mL, 12.5 g. Urine output is in order of 30 mL an hour and the patient was given oxycodone 5 mg on 2 separate occasions for pain control. Using the incentive spirometer. Sternum is stable clean and intact. Objective - Vital Signs Vital signs: Vital Signs Temp 98.7 F 08/25/23 04:00 Pulse 102 H 08/25/23 08:20 Resp 16 08/25/23 07:00 BP 106/45 08/25/23 07:00 Pulse Ox 96 08/25/23 08:08 FiO2 50 08/24/23 00:45 Intake & Output 08/24/23 08/25/23 08/25/23 18:59 06:59 18:59 Intake Total 699.848 363 66 Output Total 1045 775 60 Balance -345.152 -412 6 Weight 79.9 kg 82.1 kg Intake: IV 695 363 66 .9NS Pressure bag 75 33 6 CO/CI 20 Lactated Ringers 1,000 ml 550 330 60 @ 20 mls/hr IV .Q24H [facility] Rx#:[id number] ceFAZolin 2 gm In Sodium 50 Chloride 0.9% 50 ml @ 100 mls/hr IVPB Q8HR [facility] Rx# :[id number] Intake, IV Titration 4.848 Amount Insulin Regular 100 unit 4.848 In Sodium Chloride 0.9% 100 ml @ Per Protocol IV .Q0M [facility] Rx#:[id number] Output: Chest Tube Drainage 370 270 0 Mediastinal 170 140 0 Right/Left Pleural 200 130 0 Urine 675 505 60 Other: Voiding Method Indwelling Catheter Indwelling Catheter ABP, PAP, CO, CI - Last Documented Arterial Blood Pressure 43/40 Pulmonary Artery Pressure 29/14 Cardiac Output 4.4 Cardiac Index 2.2 - Exam GENERAL EXAM: Alert, 73-year-old white male , comfortable in no apparent distress. ,7 liters/min HEAD: Normocephalic and atraumatic EYES: Normal reaction of pupils, equal size. NOSE: Clear with pink turbinates. THROAT: No erythema or exudates. NECK: No masses, no JVD. The patient has a [place]Vijay catheter in the right IJ. CHEST: No chest wall deformity. LUNGS: Equal air entry with no crackles, wheeze, rhonchi or dullness. Thoracotomy scar is dry clean and intact and the patient has a right pleural, left lower limb the mediastinal chest tube. CVS: S1 and S2 normal with no audible murmur, regular rhythm. No extra heart sounds ABDOMEN: No hepatosplenomegaly, active bowel sounds, no guarding or rigidity. SPINE: No scoliosis or deformity SKIN: No rashes CENTRAL NERVOUS SYSTEM: No focal deficits multiple occasional confusion is noted without any focal neurological deficits. EXTREMITIES: There is no peripheral edema, clubbing, or cyanosis. Peripheral pulses are intact. - Labs CBC & Chem 7: 08/25/23 05:52 08/25/23 05:52 Labs: Abnormal Lab Results - Last 24 Hours (Table) 08/20/23 08/24/23 08/24/23 Range/Units 14:59 10:04 17:53 WBC (3.8-10.6) k/uL RBC (4.30-5.90) m/uL Hgb (13.0-17.5) gm/dL Hct (39.0-53.0) % Plt Count (150-450) k/uL Neutrophils # (1.3-7.7) k/uL BUN (9-20) mg/dL Creatinine (0.66-1.25) mg/dL POC Glucose (mg/dL) 125 H 121 H (70-110) mg/dL Calcium (8.4-10.2) mg/dL AST (17-59) U/L Total Protein (6.3-8.2) g/dL Albumin (3.5-5.0) g/dL Crossmatch See Detail 08/25/23 08/25/23 08/25/23 Range/Units 00:37 05:52 05:52 WBC 13.0 H (3.8-10.6) k/uL RBC 2.80 L (4.30-5.90) m/uL Hgb 9.1 L (13.0-17.5) gm/dL Hct 26.5 L (39.0-53.0) % Plt Count 100 L (150-450) k/uL Neutrophils # 10.1 H (1.3-7.7) k/uL BUN 31 H (9-20) mg/dL Creatinine 2.41 H (0.66-1.25) mg/dL POC Glucose (mg/dL) 117 H (70-110) mg/dL Calcium 7.9 L (8.4-10.2) mg/dL AST 222 H (17-59) U/L Total Protein 5.2 L (6.3-8.2) g/dL Albumin 3.3 L (3.5-5.0) g/dL Crossmatch Assessment and Plan Assessment: Triple-vessel coronary artery disease, and the patient is status post Off pump converted to cardiopulmonary bypass assisted coronary artery bypass grafting x 3. Right internal thoracic artery (in-situ) to left anterior descending coronary artery. Left anterior descending coronary artery (in-situ) to obtuse marginal artery #3. Reversed lesser saphenous vein from aorta to distal right coronary ar peterson. The patient is currently postop day #3. No pressors for now. Postthoracotomy, currently intubated on a mechanical ventilator. Chest x-ray was noted. The patient is currently extubated on 7 L of oxygen by nasal cannula, chest tubes are still in place acute kidney injury, nonoliguric and the patient is producing 30 mL an hour of urine output Hyperglycemia, the patient is currently off insulin drip and he is on sliding- scale insulin coverage Blood loss Anemia, expected outcome of surgery and the patient was transfused with a total of 2 units of packed RBC, hemoglobin is stable since yesterday at 9.1 Benign essential hypertension Hyperlipidemia History of TIA Chronic kidney disease stage III Significant history of tobacco dependence, over 50 pack years History of asbestos exposure, with pleural plaquing noted on chest CT Benign prosthetic hyperplasia Nonobstructive carotid artery disease based on CT angiogram, bilateral in the order of 50% Encephalopathy, mild, no focal neurological deficit at this point in time. Plan: Incentive spirometer Continue 7 L of action by nasal cannula wean it off Gradually dropped down FiO2 to maintain a saturation above 90% Monitor output from the chest tube Stop Lasix for now Agree with IV albumin Metoprolol as been increased up to 25 mg twice a day Continue amiodarone Continue Plavix, no anticoagulants otherwise for now. Mucinex for pulmonary toileting and congestion Monitor the mental status. We believe that he is slightly encephalopathic related to oxycodone and development of an acute kidney injury. Monitor hemoglobin Chest x-ray was reviewed Condition is critical and we'll continue to follow, collaborate with the surgical team and will make further recommendations.
--- NOTE | 2023-08-25 09:39 | XR ---
EXAMINATION TYPE: XR chest 1V portable DATE OF EXAM: 08/25/2023 COMPARISON: 08/24/2023 HISTORY: Postop TECHNIQUE: Single frontal view of the chest is obtained. FINDINGS: Postoperative change with cardiomegaly. Mediastinal drain and chest tube noted. Interstiti al pattern seen. Calcification of the left hemithorax likely related to granuloma. Lower lobe consoli dation noted. Epicardial leads seen. [place]-Vijay catheter is been removed. Increasing consolidation rig ht midlung and left lower lobe. IMPRESSION: 1. Stable left lower lobe consolidation. 2. New or increasing right upper lobe area of atelectasis or infiltrate.
[2023-08-25] MEDS: guaiFENesin 600 MG TABLET.ER PO SCH ×2 (09:42→20:08)
[2023-08-25 10:29] LABS: Glucose,Whole Blood 96 mg/dL (70-110)
--- NOTE | 2023-08-25 11:01 | P.NPCON ---
History of Present Illness - Reason for Consult acute renal failure, chronic renal failure - History of Present Illness Reason for consultation: Acute kidney injury on chronic kidney disease History of present illness: Patient is a 73-year-old male seen in renal consultation for acute kidney injury on chronic kidney disease. Patient's creatinine in January 2018 was 1.4. This admission patient's creatinine was 1.6 and improved to 1.14 and is back up to 2.4 today. Patient has history of coronary artery disease and underwent CABG on 08/23/2023. Prior to that patient had been in A. fib and had received amiodarone bolus. He was changed to oral amiodarone but went back into A. fib and required amiodarone drip. This morning he received another amiodarone bolus. During CABG patient also had episodes of V. fib. He also received IV contrast dye for CT angiogram in 08/21/2023. Patient's urine output is 30-50 mL an hour. He was receiving IV Lasix 20 mg 3 times daily and was stopped last night. Patient also had 4 L blood loss during surgery and has received albumin FFP and packed red cells. He is currently on nasal cannula. Hemoglobin this morning was 9.1. He admits to soreness at the surgical site. Oral intake is poor. She isn't a clear liquid diet. He denies history of diabetes. Denies family history of renal disease. Vital signs are stable. General: No acute distress. HEENT: On nasal cannula. LUNGS: No audible rhonchi or wheezes. HEART: Irregular rate and rhythm. ABDOMEN: Nontender. EXTREMITITES: No edema. Past Medical History Past Medical History: Coronary Artery Disease (CAD), Chest Pain / Angina, CVA/TIA, Hyperlipidemia, Hypertension, Renal Disease Additional Past Medical History / Comment(s): TIA-no residual approx 2013 History of Any Multi-Drug Resistant Organisms: None Reported Past Surgical History: Back Surgery Past Anesthesia/Blood Transfusion Reactions: No Reported Reaction Past Psychological History: No Psychological Hx Reported Smoking Status: Former smoker Past Alcohol Use History: Occasional Additional Past Alcohol Use History / Comment(s): started smoking at age 18,<1ppd Past Drug Use History: None Reported - Past Family History Mother Family Medical History: No Reported History Medications and Allergies Home Medications Medication Instructions Recorded Confirmed Type Aspirin 81 mg PO MOWEFR 08/06/14 08/19/23 History Tamsulosin HCl [Flomax] 0.4 mg PO HS 08/19/23 08/19/23 History amLODIPine [Norvasc] 10 mg PO HS 08/19/23 08/19/23 History Allergies Allergy/AdvReac Type Severity Reaction Status Date / Time No Known Allergies Allergy Verified 08/19/23 19:22 Physical Exam Vitals: Vital Signs Temp Pulse Resp BP Pulse Ox 08/25/23 10:30 109 H 18 111/55 95 08/25/23 10:00 124 H 25 H 104/52 94 L 08/25/23 09:30 117 H 14 100/67 08/25/23 09:00 115 H 33 H 105/69 95 08/25/23 08:30 107 H 22 103/52 87 L 08/25/23 08:20 102 H 08/25/23 08:08 96 08/25/23 08:05 99 08/25/23 08:00 101 H 13 90/43 90 L 08/25/23 07:30 101 H 12 105/57 90 L 08/25/23 07:00 101 H 16 106/45 92 L 08/25/23 06:30 101 H 23 108/57 94 L 08/25/23 06:00 106 H 20 122/56 08/25/23 05:30 101 H 11 L 117/57 91 L 08/25/23 05:00 97 23 103/70 90 L 08/25/23 04:30 101 H 25 H 104/70 92 L 08/25/23 04:00 98.7 F 98 29 H 93 L 08/25/23 03:30 101 H 15 118/66 90 L 08/25/23 03:00 95 19 120/56 88 L 08/25/23 02:30 92 24 124/61 95 08/25/23 02:00 93 22 113/72 90 L 08/25/23 01:30 92 22 112/57 92 L 08/25/23 01:00 95 28 H 116/62 94 L 08/25/23 00:30 94 15 99/51 93 L 08/25/23 00:00 98.7 F 90 15 83/52 94 L 08/24/23 23:30 91 16 114/69 94 L 08/24/23 23:02 93 19 114/69 93 L 08/24/23 23:00 96 12 106/51 91 L 08/24/23 22:30 92 22 105/52 93 L 08/24/23 22:00 93 24 111/51 94 L 08/24/23 21:30 98 18 115/52 93 L 08/24/23 21:00 95 19 112/56 90 L 08/24/23 20:36 96 08/24/23 20:30 90 11 L 104/58 92 L 08/24/23 20:25 92 08/24/23 20:00 98.7 F 93 26 H 109/63 93 L 08/24/23 18:00 85 17 101/50 93 L 08/24/23 17:30 90 14 92/46 95 08/24/23 17:00 89 13 100/49 96 08/24/23 16:30 84 21 99/51 95 08/24/23 16:00 97.6 F 93 17 113/55 94 L 08/24/23 15:30 98 18 106/50 94 L 08/24/23 15:03 85 08/24/23 15:00 80 12 95/51 93 L 08/24/23 14:53 84 08/24/23 14:30 82 13 113/53 91 L 08/24/23 14:00 88 13 106/53 90 L 08/24/23 13:30 87 20 93/61 91 L 08/24/23 13:00 89 24 103/61 90 L 08/24/23 12:30 89 13 105/53 93 L 08/24/23 12:00 98.4 F 80 20 107/48 96 08/24/23 11:30 93 16 105/56 86 L 08/24/23 11:15 88 08/24/23 11:01 87 08/24/23 11:00 86 27 H 93/79 95 Intake and Output 08/24/23 08/25/23 08/25/23 22:59 06:59 14:59 Intake Total 271 264 452 Output Total 335 590 200 Balance -64 -326 252 Intake: IV 271 264 102 .9NS Pressure bag 21 24 12 Lactated Ringers 1,000 ml 250 240 90 @ 20 mls/hr IV .Q24H [facility] Rx#:[id number] Intake, IV Titration 0 350 Amount Albumin Human 5% 250 ml 250 In Empty Bag 1 bag @ 250 mls/hr IVPB ONCE ONE Rx#: [id number] Dextrose 5% in Water 100 100 ml @ 618 mls/hr IV .Q10M PRN with Amiodarone 150 mg Rx#:[id number] Insulin Regular 100 unit 0 In Sodium Chloride 0.9% 100 ml @ Per Protocol IV .Q0M [facility] Rx#:[id number] Output: Chest Tube Drainage 180 150 80 Mediastinal 90 80 30 Right/Left Pleural 90 70 50 Urine 155 440 120 Other: Voiding Method Indwelling Catheter Indwelling Catheter Weight 82.1 kg ABP, PAP, CO, CI - Last 8 Hours Cardiac Output 4.4 Cardiac Output 4.4 Cardiac Index 2.2 Cardiac Index 2.2 Results - Lab Results Most recent lab results ABG pH 7.42 (7.35-7.45) 08/23/23 23:38 ABG pCO2 39 mmHg (35-45) 08/23/23 23:38 ABG pO2 95 mmHg (83-108) 08/23/23 23:38 ABG HCO3 25 mmol/L (21-25) 08/23/23 23:38 ABG O2 Saturation 98.1 % (94-97) H 08/23/23 23:38 Calcium 7.9 mg/dL (8.4-10.2) L 08/25/23 05:52 Magnesium 2.0 mg/dL (1.6-2.3) 08/24/23 03:29 08/25/23 05:52 08/25/23 05:52 Assessment and Plan Plan: Assessment: 1. Acute kidney injury secondary to hemodynamic ATN. Also received IV contrast dye for a CTA done 08/21/2023. Creatinine 2.4 today. Nonoliguric. 2. Chronic kidney disease stage IIIa with creatinine near 1.4 in January 2018. Suspect nephrosclerosis. No proteinuria on UA. 3. Coronary artery disease status post CABG 08/23/2023. 4. A. fib with RVR maintained on oral amiodarone and received amiodarone bolus this morning. Plan: Status post IV albumin this morning. Continue to hold diuretics. Avoid nephrotoxins. Check renal ultrasound. Continue to monitor renal function and urine output. Thank you for the consultation. I will continue to follow the patient with you during his hospital stay.
[2023-08-25] MEDS: ACETYLCYSTEINE 800 MG/4 ML VIAL INHALATION SCH ×3 (11:07→20:05)
[2023-08-25] MEDS ORDERED: SODIUM CHLORIDE 0.9% 500 ML 500 ML IV ONE (11:13)
[2023-08-25] MEDS ORDERED: CALCIUM GLUCONATE IN NACL 2 GM in SALINE 1 100ML.BAG IVPB PRN (11:40)
--- NOTE | 2023-08-25 11:44 | P.PN ---
Subjective Progress Note Date: 08/25/23 Principal diagnosis: Triple-vessel coronary artery disease, unstable angina. History of hypertension, hyperlipidemia, chronic kidney disease stage III, previous tobacco dependence with recent cessation, mild COPD, TIA in 2014 with no residual, BPH, bilateral vein stripping, bilateral carotid stenosis POD #2 off pump converted to cardiopulmonary bypass assisted coronary artery bypass grafting 3, right internal thoracic artery in situ to the left anterior descending coronary artery, left anterior coronary artery in situ to the third obtuse marginal artery, reverse lesser saphenous vein from the aorta to the distal right coronary artery, left atrial appendage ligation using a 35 mm AtriClip, endoscopic right tennis vein harvest, graft flow measurements using the Medistim flowmeter, intraoperative transesophageal echocardiogram Post operative acute blood loss anemia and thrombocytopenia, expected given significant hemodilution. Paroxysmal atrial fibrillation, unexpected but a known common occurrence after open heart surgery. Intraoperative and postoperative hypotension expected due to vasoplegia, atrial fibrillation. The patient was seen and examined in follow-up today 08/25/2023 at his bedside in the intensive care unit. Currently sitting up to the bedside chair, is awake, alert, oriented 3, he is having episodes of some confusion and is in no acute distress. The patient has no focal neurological deficits. Oxygen saturations are 93% on 2 L nasal cannula and he is achieving 7790-8708 mL on his incentive spirometry with encouragement. Bedside telemetry showing normal sinus rhythm heart rate 98 BPM. Ventricular epicardial pacemaker wires remain in place are connected to bedside backup pacemaker generator on a VVI 50. Remains on amiodarone 400 mg by mouth twice a day for atrial fibrillation prophylaxis. He remains hemodynamically stable and is currently on no inotropic pressor support. Right IJ cordis remains in place with continuous CVP monitoring, current CVP pressure is 6 mmHg. The patient reports he has been up ambulating in the intensive care unit hallway with standby assistance of nursing and therapy staff. Laboratory results reviewed, his BUN and creatinine have trended up, and his BUN today is 31, creatinine 2.41. Mediastinal, left and right pleural chest tubes remain in place to low continuous wall suction -20 cm H2O. No air leak is present. Draining thin serosanguineous drainage. Mediastinal chest tube drained 80 mL output in the last 8 hours and 250 mL output in the last 24 hours. Right/left pleural chest tube drained 70 mL output in the last 8 hours and 250 mL output in the last 24 hours. Rincon catheter remains in place for accurate I's and O's, urine output 440 mL in the last 8 hours. Chest x-ray results reviewed. He's been afebrile the last 24 hours. Objective - Vital Signs Vital signs: Vital Signs Temp 98.7 F 08/25/23 04:00 Pulse 102 H 08/25/23 08:20 Resp 16 08/25/23 07:00 BP 106/45 08/25/23 07:00 Pulse Ox 96 08/25/23 08:08 FiO2 50 08/24/23 00:45 Intake & Output 08/24/23 08/25/23 08/25/23 18:59 06:59 18:59 Intake Total 699.848 363 66 Output Total 1045 775 60 Balance -345.152 -412 6 Weight 79.9 kg 82.1 kg Intake: IV 695 363 66 .9NS Pressure bag 75 33 6 CO/CI 20 Lactated Ringers 1,000 ml 550 330 60 @ 20 mls/hr IV .Q24H GOVIND Rx#:[id number] ceFAZolin 2 gm In Sodium 50 Chloride 0.9% 50 ml @ 100 mls/hr IVPB Q8HR GOVIND Rx# :[id number] Intake, IV Titration 4.848 Amount Insulin Regular 100 unit 4.848 In Sodium Chloride 0.9% 100 ml @ Per Protocol IV .Q0M GOVIND Rx#:[id number] Output: Chest Tube Drainage 370 270 0 Mediastinal 170 140 0 Right/Left Pleural 200 130 0 Urine 675 505 60 Other: Voiding Method Indwelling Catheter Indwelling Catheter ABP, PAP, CO, CI - Last Documented Arterial Blood Pressure 43/40 Pulmonary Artery Pressure 29/14 Cardiac Output 4.4 Cardiac Index 2.2 - Exam CONSTITUTIONAL: Sitting up to the bedside chair in the intensive care unit, appears comfortable, cooperative, no apparent acute distress. HEENT: Neck is supple, no JVD, no lymphadenopathy. Right IJ Cordis in place and functioning. RESPIRATORY: Lungs sounds essentially clear throughout, diminished to his bilateral bases, right greater than left. Respirations are symmetrical and nonlabored. Currently on 2 L nasal cannula with oxygen saturations 92%. Able to achieve 0506-1597 mL on his incentive spirometry. Strong cough, nonproductive and loose. CARDIOVASCULAR: Regular rhythm and rate. S1 and S2 present, negative for S3, gallop or murmur. Sternum is stable. Palpable peripheral pulses bilaterally, trace edema to his bilateral lower extremities. No calf pain or tenderness noted. Heart hugger in place with patient demonstrating appropriate use. Knee-high ALBERT hose and sequential compression devices in place to his bilateral lower extremities. GASTROINTESTINAL: Abdomen soft, nontender, nondistended. Active bowel sounds present 4 quadrants. Tolerating diet. Passing flatus. No guarding or rigidity. GENITOURINARY: Rincon present draining clear, yellow urine. 440 mL urine output in the last 8 hours. INTEGUMENTARY: Skin is warm and dry with no evidence of clubbing or cyanosis. Midline sternal incision clean dry and well approximated, covered with dry intact dressing. Bilateral lower extremity EVH sites well approximated without redness or drainage. No drainage or redness is present. NEUROLOGIC: Cranial nerves II through XII intact. No focal deficits. Episodes of confusion. MUSKULOSKELETAL: Able to move all extremities, strength equal bilaterally, generalized weakness. PSYCHIATRIC: Alert and oriented to person place and time, appropriate affect, intact judgment and insight. Episodes of confusion. INVASIVE LINES AND TUBES: Mediastinal/left/right pleural chest tubes present and connected to low continuous wall suction, no air leaks present. Mediastinal tube with 80 mL of thin serosanguineous drainage overnight, 250 mL output in the last 24 hours. Left/right pleural chest tube with 70 mL of thin serosanguineous drainage overnight, 250 mL output in the last 24 hours. Ventricular epicardial pacemaker wires present, connected to generator, VVI backup rate 50 bpm. Right internal jugular [place]/Cordis, right radial arterial line present. Current CVP 6 mmHg. - Allied health notes Allied health notes reviewed: nursing - Labs CBC & Chem 7: 08/25/23 05:52 08/25/23 05:52 Labs: Abnormal Lab Results - Last 24 Hours (Table) 08/20/23 08/24/23 08/24/23 Range/Units 14:59 09:11 10:04 WBC (3.8-10.6) k/uL RBC (4.30-5.90) m/uL Hgb (13.0-17.5) gm/dL Hct (39.0-53.0) % Plt Count (150-450) k/uL Neutrophils # (1.3-7.7) k/uL BUN (9-20) mg/dL Creatinine (0.66-1.25) mg/dL POC Glucose (mg/dL) 129 H 125 H (70-110) mg/dL Calcium (8.4-10.2) mg/dL AST (17-59) U/L Total Protein (6.3-8.2) g/dL Albumin (3.5-5.0) g/dL Crossmatch See Detail 08/24/23 08/25/23 08/25/23 Range/Units 17:53 00:37 05:52 WBC 13.0 H (3.8-10.6) k/uL RBC 2.80 L (4.30-5.90) m/uL Hgb 9.1 L (13.0-17.5) gm/dL Hct 26.5 L (39.0-53.0) % Plt Count 100 L (150-450) k/uL Neutrophils # 10.1 H (1.3-7.7) k/uL BUN (9-20) mg/dL Creatinine (0.66-1.25) mg/dL POC Glucose (mg/dL) 121 H 117 H (70-110) mg/dL Calcium (8.4-10.2) mg/dL AST (17-59) U/L Total Protein (6.3-8.2) g/dL Albumin (3.5-5.0) g/dL Crossmatch 08/25/23 Range/Units 05:52 WBC (3.8-10.6) k/uL RBC (4.30-5.90) m/uL Hgb (13.0-17.5) gm/dL Hct (39.0-53.0) % Plt Count (150-450) k/uL Neutrophils # (1.3-7.7) k/uL BUN 31 H (9-20) mg/dL Creatinine 2.41 H (0.66-1.25) mg/dL POC Glucose (mg/dL) (70-110) mg/dL Calcium 7.9 L (8.4-10.2) mg/dL AST 222 H (17-59) U/L Total Protein 5.2 L (6.3-8.2) g/dL Albumin 3.3 L (3.5-5.0) g/dL Crossmatch - Imaging and Cardiology Chest x-ray: report reviewed, image reviewed Assessment and Plan Assessment: Triple-vessel coronary artery disease, unstable angina, status post 3 vessel CABG History of hypertension Hyperlipidemia, cholesterol 215, LDL 143, triglycerides 185 Chronic kidney disease stage III, with a baseline creatinine of 1.4-1.6 Remote history of tobacco dependence with recent cessation Mild COPD, preoperative FEV1 of 65% of predicted TIA in 2013 with no residual BPH on Flomax Bilateral vein stripping in the Bilateral carotid stenosis by carotid Doppler, greater than 70% on the left, 50- 69% on the right based on velocities; 50% proximal ROMMEL stenosis and 50% left carotid artery stenosis at the bifurcation per CTA Post operative acute blood loss anemia and thrombocytopenia, expected given significant hemodilution Paroxysmal intraoperative and postoperative atrial fibrillation, unexpected but common after open heart surgery, status post exclusion left atrial appendage with a 35 mm Atriclip Intraoperative and postoperative hypotension expected due to vasoplegia, atrial fibrillation Acute kidney injury, nonoliguric, BUN 31 and creatinine 2.41 today Plan: Continue to maximize medical therapy with aspirin, statin, plavix, and beta maria luisa. Will increase metoprolol to artery to 25 mg by mouth twice a day with hold parameters. Continue amiodarone 400 mg by mouth twice a day for afib prophylaxis. Discontinue Lasix. Give albumin 5% 250 mL IV piggyback 1 now. Wean oxygen as tolerated, encourage incentive spirometer use 10x every hour while awake, bronchodilators per pulmonology. Start Mucinex and Mucomyst. Increase activity, ambulate as tolerated. PT/OT/cardiac rehab following. Will monitor daily labs and chest x-ray. Electrolyte replacement per protocol. Repeat CMP at 2 PM today. Consult nephrology for BUN and creatinine trending up. Baseline creatinine 1.4- 1.6. History of stage III chronic kidney disease. Pain control with current medication regimen, no toradol due to CKD. Discontinue oxycodone due to some episodes of confusion and start [place] 5/325 mg every 4 hours when necessary pain. Insulin management per internal medicine. Patient should remain on insulin gtt for 48 hours for tight blood sugar control, then may transition to subq insulin per protocol. Hemoglobin A1c 5.9% preoperatively. Keep right IJ Cordis in place with continuous CVP monitoring. Discussed the importance of risk modification including encouragement of Continued smoking cessation. Continue right/left pleural chest tubes for another 24 hours, monitor drainage. We will discontinue his mediastinal chest tube. Continue rincon for another 24 hours, continue to record strict accurate intake and output Daily weights. More recommendations to follow based on patient's clinical course. Time with Patient: Greater than 30
[2023-08-25] MEDS ORDERED: SODIUM CHLORIDE 0.9% 500 ML 250 ML IV ONE (11:45)
[2023-08-25 12:08] LABS: Glucose,Whole Blood 97 mg/dL (70-110)
[2023-08-25] MEDS ORDERED: CALCIUM GLUCONATE IN NACL 2 GM in SALINE 1 100ML.BAG IVPB ONE (12:45)
--- NOTE | 2023-08-25 13:01 | US ---
EXAMINATION TYPE: US kidneys/renal and bladder DATE OF EXAM: 08/25/2023 COMPARISON: None CLINICAL INDICATION: Male, 73 years old with history of bakari; EXAM MEASUREMENTS: Right Kidney: 11.2 x 6.2 x 5.3 cm indentation mid lower pole; patient denies any injuries or surger ies Left Kidney: 10.6 x 5.0 x 4.6 cm cyst - 5.6 x 4.6 x 5.5 cm Bladder: Not fully distended - rincon noted within Bilateral Jets seen: not able to assess Normal Post Void Residual: not able to assess There is no evidence for hydronephrosis at this point in time. No nephrolithiasis is seen. IMPRESSION: 1. No evidence for obstructive uropathy. Cortical medullary differentiation maintained. 2. Simple appearing renal cysts. 3. Limited evaluation of bladder due to Rincon catheter.
[2023-08-25 14:21] LABS: Glucose,Whole Blood 88 mg/dL (70-110)
[2023-08-25 14:51] LABS: Basophils % (A) 0 %; Eosinophils # (A) 0.1 k/uL (0-0.7); Eosinophils % (A) 1 %; HCT 21.1 % (39.0-53.0); HGB 7.3 gm/dL (13.0-17.5); Lymphocytes # (A) 1.4 k/uL (1.0-4.8); Lymphocytes % (A) 13 %; MCH 32.6 pg (25.0-35.0); MCHC 34.5 g/dL (31.0-37.0); MCV 94.7 fL (80.0-100.0); Mean Platelet Volume 8.6; Monocytes # (A) 0.6 k/uL (0-1.0); Monocytes % (A) 6 %; Neutrophils % (A) 77 %; RBC 2.23 m/uL (4.30-5.90); RDW 14.6 % (11.5-15.5); WBC 10.5 k/uL (3.8-10.6)
[2023-08-25 14:53] LABS: ALT 26 U/L (4-49); AST 195 U/L (17-59); African American GFR (CKD) 27 (>60 ml/min/1.73 sqM); Albumin 3.1 g/dL (3.5-5.0); Alkaline Phosphatase 37 U/L (38-126); Anion Gap 11 mmol/L; Blood Urea Nitrogen 34 mg/dL (9-20); Calcium 8.3 mg/dL (8.4-10.2); Carbon Dioxide 23 mmol/L (22-30); Chloride 100 mmol/L (98-107); Glucose 76 mg/dL (74-99); Non-African American GFR(CKD) 24 (>60 ml/min/1.73 sqM); Potassium 4.5 mmol/L (3.5-5.1); Sodium 134 mmol/L (137-145); Total Bilirubin 1.3 mg/dL (0.2-1.3); Total Protein 4.7 g/dL (6.3-8.2)
[2023-08-25] MEDS ORDERED: FUROSEMIDE 10 MG/ML 10 ML VIAL IV STA (15:28)
[2023-08-25 15:38] LABS: Large Platelets Present; Platelet Count 81 k/uL (150-450); Polychromasia Present
--- NOTE | 2023-08-25 15:44 | XR ---
EXAMINATION TYPE: XR chest 1V portable DATE OF EXAM: 08/25/2023 Comparison: Earlier today Clinical History: 73-year-old male shortness of breath, assess lungs Findings: Median sternotomy wires are present post CABG clips. Bilateral chest tubes remain in place. No apprec iable pneumothorax. Right IJ sheath noted. Heart mildly enlarged. Focal retrocardiac and left basilar opacity as well as focal right midlung airspace disease both persist without significant change. Ret ained epicardial pacer lead. Hyperinflation. Impression: Similar cardiomegaly and COPD. Airspace disease right mid lung and left base are unchanged.
--- NOTE | 2023-08-25 15:53 | P.PN ---
Subjective Progress Note Date: 08/25/23 Patient is a 73-year-old male with hypertension, chronic kidney disease, BPH initially presented to the emergency department with complaints of chest pain. He was subsequently admitted for chest pain observation. Troponins were trended and remained negative. Patient was seen by cardiology and was subsequently taken for cardiac cath on 08/20/23 which showed significant multivessel coronary artery disease. Cardiothoracic surgery was subsequently consulted and patient was worked up for possible CABG. Carotid Dopplers were completed showing greater than 75% stenosis of bilateral carotids. Patient underwent off pump coronary artery bypass grafting 3 on 08/23/23. Patient seen and examined at bedside. He is pleasantly confused. Apparently earlier he disconnected the tubing from his cordis. denies any chest pain, SOB, or nausea. Vital signs reviewed General:non toxic, no distress, appears at stated age Cardiovascular: S1S2 reg, no murmur Lungs: Course bs b/l bilateral, no rhonchi, no rales , no accessory muscle use Abdominal: soft, nontender to palpation, no guarding, no appreciable organomegaly Ext: no gross muscle atrophy, no edema b/l lower extremities, no contractures Psych: Awake, follows commands, unable to answer year Lines: cordis, b/l Chest tube, mediastinal tubes Assessment/Plan: Unstable angina with severe multivessel coronary artery disease status post CABG 3 on 08/23/23 KATHY on chronic kidney disease stage IIIA, likely secondary to ATN versus contrast-induced Hypertension Carotid artery stenosis, 25-50% stenosis b/l on CTA neck -Pulmonary note reviewed: Continue to wean oxygen as able, stop Lasix, IV albumin -CT surgery note reviewed: Continue to maximize medical therapy -Nephrology consultation reviewed: Continue to hold diuretics, check renal ultrasound -CT surgery no reviewed: Increase metoprolol to 25 mg twice daily, DC Lasix, mediastinal chest tube discontinued -Cardiology note reviewed: Continue current course -Aspirin 81 mg daily, Plavix 75 mg daily, atorvstatin 80 mg at night -Metoprolol 25 mg twice daily Thrombocytopenia anticipated outcome of surgery Acute blood loss anemia, anticipated outcome of surgery Coagulopathy AST elevation -Patient is status post 2 units of packed red blood cells and 1 unit of platelets. - follow CBC - Stat pt/ptt/fibrinogen, stat CK given AST elevation BPH -Flomax 0.4 mg nightly. Renal cysts- further evaluation via outpatient ultrasound Pancreatic cyst -pancreatic MRI as an outpatient Liver nodule- marginally increased in size since 2014 likely benign. Data Review: Labs reviewed today include CBC, CMP which are remarkable for hemoglobin 7.3, platelets 100, sodium 134, BUN 34, creatinine 2.58, AST 195 DVT prophylaxis: Heparin Thank you for allowing us to participate in the care of this pleasant patient. Do not hesitate to contact us with questions. Someone can be reached from the [facility] hospitalist group all hours of the day at [phone] or via [employer]. This dictation was prepared using [employer] voice recognition software. Though every attempt is made to correct errors during dictation some may still exist. Active Medications Generic Name Dose Route Start Last Admin Trade Name Freq PRN Reason Stop Dose Admin Acetaminophen 1,000 mg 08/25/23 15:47 Acetaminophen Tab 500 Mg Tab PO Q6HR PRN Fever and/ or Pain Acetylcysteine 200 mg 08/25/23 12:00 08/25/23 14:43 Acetylcysteine 800 Mg/4 Ml Vial INHALATION Not Given RT-QID GOVIND Albuterol/Ipratropium 3 ml 08/23/23 15:33 Ipratropium-Albuterol 3 Ml Neb INHALATION RT-Q2H PRN Shortness Of Breath Or Wheezing Albuterol/Ipratropium 3 ml 08/24/23 08:00 08/25/23 14:43 Ipratropium-Albuterol 3 Ml Neb INHALATION Not Given RT-QID GOVIND Amiodarone HCl 400 mg 08/24/23 09:00 08/25/23 09:04 Amiodarone 200 Mg Tab PO 400 mg BID GOVIND Administration Aspirin 325 mg 08/24/23 09:00 08/25/23 09:21 Aspirin 325 Mg Tab PO 325 mg DAILY GOVIND Administration Atorvastatin Calcium 80 mg 08/24/23 21:00 08/24/23 20:10 Atorvastatin 80 Mg Tab PO 80 mg HS GOVIND Administration Benzocaine/Menthol 1 each 08/23/23 15:33 Benzocaine/Menthol Lozeng 1 Each Lozenge MUCOUS MEM Q2H PRN Sore Throat Bisacodyl 10 mg 08/24/23 09:00 Bisacodyl 10 Mg Supp RECTAL DAILY PRN Constipation Clopidogrel Bisulfate 75 mg 08/24/23 09:00 08/25/23 09:21 Clopidogrel 75 Mg Tab PO 75 mg DAILY GOVIND Administration Dextrose/Water 25 ml 08/23/23 15:33 Dextrose 50% Syringe 50 Ml IVP PER PROTOCOL PRN Hypoglycemia Protocol Dextrose/Water 50 ml 08/23/23 15:33 Dextrose 50% Syringe 50 Ml IVP PER PROTOCOL PRN Hypoglycemia Protocol Folic Acid 1 mg 08/25/23 15:45 Folic Acid 1 Mg Tab PO DAILY GOVIND Guaifenesin 1,200 mg 08/25/23 09:00 08/25/23 09:42 Guaifenesin 600 Mg Tablet.Er PO 1,200 mg Q12HR GOVIND Administration Heparin Sodium (Porcine) 5,000 unit 08/23/23 16:00 08/25/23 08:30 Heparin Sodium,Porcine 5,000 Unit/Ml 1 Ml Vial SQ 5,000 unit Q8HR GOVIND Administration Amiodarone HCl 150 mg/ 103 mls @ 618 mls/hr 08/23/23 16:00 08/25/23 11:12 Dextrose/Water IV 618 mls/hr .Q10M PRN Administration A.FIB/FLUTTER Insulin Human Regular 100 unit 101 mls @ 0 mls/hr 08/23/23 16:00 08/24/23 17:56 / Sodium Chloride IV 2 units/hr .Q0M GOVIND 2.02 mls/hr Titration Protocol Per Protocol Sodium Chloride 500 mls @ 20 mls/hr 08/25/23 08:45 08/25/23 09:44 Saline 0.9% IV 20 mls/hr .Q24H GOVIND Administration Calcium Gluconate/Sodium 100 mls @ 100 mls/hr 08/25/23 11:40 Chloride 2 gm/ IV Solution IVPB 08/29/23 11:41 ONCE PRN Ionized Calcium less than 4.4 Magnesium Hydroxide 2,400 mg 08/24/23 09:00 Magnesium Hydroxide 2,400 Mg/30 Ml Cup PO BID PRN Constipation Metoclopramide HCl 10 mg 08/23/23 15:33 08/24/23 06:42 Metoclopramide 5 Mg/Ml 2 Ml Vial IVP 10 mg Q4H PRN Administration Nausea And Vomiting Metoprolol Tartrate 25 mg 08/25/23 09:00 08/25/23 09:16 Metoprolol Tartrate 25 Mg Tab PO 25 mg BID GOVIND Administration Miscellaneous Information 1 each 08/23/23 15:33 Potassium Replacement Protocol 1 Each Mis MISCELLANE DAILY PRN Per Protocol Protocol Miscellaneous Information 1 each 08/23/23 15:33 Magnesium Replacement Protocol 1 Each [facility] MISCELLANE DAILY PRN Per Protocol Protocol Ondansetron HCl 4 mg 08/23/23 15:33 08/24/23 08:54 Ondansetron 4 Mg/2 Ml Vial IVP 4 mg Q6HR PRN Administration Nausea And Vomiting Pantoprazole Sodium 40 mg 08/25/23 07:30 08/25/23 06:55 Pantoprazole 40 Mg Tablet PO 40 mg [id number] GOVIND Administration Senna/Docusate Sodium 2 each 08/23/23 21:00 08/24/23 20:10 Sennosides-Docusate Sodium 1 Each Tab PO 2 each HS GOVIND Administration Sodium Chloride 10 ml 08/23/23 21:00 08/25/23 09:43 Sodium Chloride 0.9% Flush 10 Ml Syringe IV 10 ml BID GOVIND Administration Tamsulosin HCl 0.4 mg 08/24/23 18:30 08/24/23 18:55 Tamsulosin 0.4 Mg Cap.Er.24h PO 0.4 mg PC-SUPPER GOVIND Administration Thiamine HCl 100 mg 08/25/23 15:45 Thiamine 100 Mg Tab PO DAILY GOVIND Objective - Vital Signs Vital signs: Vital Signs Temp 98.5 F 08/25/23 15:00 Pulse 85 08/25/23 15:00 Resp 25 H 08/25/23 15:00 BP 98/50 08/25/23 15:00 Pulse Ox 95 08/25/23 15:00 FiO2 50 08/24/23 00:45 Intake & Output 08/24/23 08/25/23 08/25/23 18:59 06:59 18:59 Intake Total 699.848 363 937 Output Total 1045 775 355 Balance -345.152 -412 582 Weight 79.9 kg 82.1 kg Intake: IV 695 363 237 .9NS Pressure bag 75 33 27 CO/CI 20 Lactated Ringers 1,000 ml 550 330 210 @ 20 mls/hr IV .Q24H GOVIND Rx#:[id number] ceFAZolin 2 gm In Sodium 50 Chloride 0.9% 50 ml @ 100 mls/hr IVPB Q8HR GOVIND Rx# :[id number] Intake, IV Titration 4.848 700 Amount Albumin Human 5% 250 ml 250 In Empty Bag 1 bag @ 250 mls/hr IVPB ONCE ONE Rx#: [id number] Calcium Gluconate in NaCl 100 2 gm In Saline 1 100ml. bag @ 100 mls/hr IVPB ONCE ONE Rx#:[id number] Dextrose 5% in Water 100 100 ml @ 618 mls/hr IV .Q10M PRN with Amiodarone 150 mg Rx#:[id number] Insulin Regular 100 unit 4.848 In Sodium Chloride 0.9% 100 ml @ Per Protocol IV .Q0M GOVIND Rx#:[id number] Sodium Chloride 0.9% 500 250 ml 250 ml @ 999 mls/hr IV .Q16M ONE Rx#:[id number] Output: Chest Tube Drainage 370 270 170 Left Pleural Chest Tube 30 Mediastinal 170 140 50 Right Pleural Chest Tube 30 Right/Left Pleural 200 130 60 Urine 675 505 185 Other: Voiding Method Indwelling Catheter Indwelling Catheter Indwelling Catheter ABP, PAP, CO, CI - Last Documented Arterial Blood Pressure 43/40 Pulmonary Artery Pressure 29/14 Cardiac Output 4.4 Cardiac Index 2.2 - Labs CBC & Chem 7: 08/25/23 14:26 08/25/23 14:26 Labs: Abnormal Lab Results - Last 24 Hours (Table) 08/20/23 08/24/23 08/25/23 Range/Units 14:59 17:53 00:37 WBC (3.8-10.6) k/uL RBC (4.30-5.90) m/uL Hgb (13.0-17.5) gm/dL Hct (39.0-53.0) % Plt Count (150-450) k/uL Neutrophils # (1.3-7.7) k/uL Sodium (137-145) mmol/L BUN (9-20) mg/dL Creatinine (0.66-1.25) mg/dL POC Glucose (mg/dL) 121 H 117 H (70-110) mg/dL Calcium (8.4-10.2) mg/dL Ionized Calcium Emanuel (4.5-5.3) mg/dL AST (17-59) U/L Alkaline Phosphatase (38-126) U/L Total Protein (6.3-8.2) g/dL Albumin (3.5-5.0) g/dL Crossmatch See Detail 08/25/23 08/25/23 08/25/23 Range/Units 05:52 05:52 10:58 WBC 13.0 H (3.8-10.6) k/uL RBC 2.80 L (4.30-5.90) m/uL Hgb 9.1 L (13.0-17.5) gm/dL Hct 26.5 L (39.0-53.0) % Plt Count 100 L (150-450) k/uL Neutrophils # 10.1 H (1.3-7.7) k/uL Sodium (137-145) mmol/L BUN 31 H (9-20) mg/dL Creatinine 2.41 H (0.66-1.25) mg/dL POC Glucose (mg/dL) (70-110) mg/dL Calcium 7.9 L (8.4-10.2) mg/dL Ionized Calcium Emanuel 4.3 L (4.5-5.3) mg/dL AST 222 H (17-59) U/L Alkaline Phosphatase (38-126) U/L Total Protein 5.2 L (6.3-8.2) g/dL Albumin 3.3 L (3.5-5.0) g/dL Crossmatch 08/25/23 08/25/23 Range/Units 14:26 14:26 WBC (3.8-10.6) k/uL RBC 2.23 L (4.30-5.90) m/uL Hgb 7.3 L D (13.0-17.5) gm/dL Hct 21.1 L (39.0-53.0) % Plt Count 81 L (150-450) k/uL Neutrophils # 8.0 H (1.3-7.7) k/uL Sodium 134 L (137-145) mmol/L BUN 34 H (9-20) mg/dL Creatinine 2.58 H (0.66-1.25) mg/dL POC Glucose (mg/dL) (70-110) mg/dL Calcium 8.3 L (8.4-10.2) mg/dL Ionized Calcium Emanuel (4.5-5.3) mg/dL AST 195 H (17-59) U/L Alkaline Phosphatase 37 L (38-126) U/L Total Protein 4.7 L (6.3-8.2) g/dL Albumin 3.1 L (3.5-5.0) g/dL Crossmatch
[2023-08-25] MEDS: FOLIC ACID 1 MG TAB PO SCH (16:00)
[2023-08-25] MEDS: THIAMINE 100 MG TAB PO SCH (16:00)
[2023-08-25 16:12] LABS: INR 1.1 (<1.2); Partial Thromboplastin Time 39.8 sec (22.0-30.0); Prothrombin Time 11.5 sec (10.0-12.5)
[2023-08-25 16:46] LABS: Glucose,Whole Blood 79 mg/dL (70-110)
[2023-08-25 16:46] LABS: Glucose,Whole Blood 57 mg/dL (70-110)
[2023-08-25 17:52] LABS: Glucose,Whole Blood 162 mg/dL (70-110)
[2023-08-25] MEDS: SODIUM CHLORIDE 0.9% 1,000 ML IV SCH (18:17)
[2023-08-25] MEDS ORDERED: DEXTROSE 50% SYRINGE 50 ML IVP PRN ×2 (18:19)
[2023-08-25] MEDS: TAMSULOSIN 0.4 MG CAP.ER.24H PO SCH (18:50)
[2023-08-25 19:43] LABS: Glucose,Whole Blood 110 mg/dL (70-110)
[2023-08-25] MEDS: INSULIN ASPART (NovoLOG) 100 UNIT/ML VIAL SQ SCH (20:04)
[2023-08-25] MEDS: SENNOSIDES-DOCUSATE SODIUM 1 EACH TAB PO SCH (20:08)
[2023-08-25 20:38] LABS: Glucose,Whole Blood 95 mg/dL (70-110)
[2023-08-26] MEDS: HEPARIN SODIUM,PORCINE 5,000 UNIT/ML 1 ML VIAL SQ SCH ×3 (00:14→16:39)
[2023-08-26] MEDS: ACETAMINOPHEN TAB 500 MG TAB PO PRN (06:04)
[2023-08-26 06:36] LABS: ALT 33 U/L (4-49); AST 269 U/L (17-59); African American GFR (CKD) 28 (>60 ml/min/1.73 sqM); Albumin 2.9 g/dL (3.5-5.0); Alkaline Phosphatase 47 U/L (38-126); Anion Gap 9 mmol/L; Blood Urea Nitrogen 39 mg/dL (9-20); Calcium 7.8 mg/dL (8.4-10.2); Carbon Dioxide 25 mmol/L (22-30); Chloride 100 mmol/L (98-107); Glucose 77 mg/dL (74-99); Magnesium 1.8 mg/dL (1.6-2.3); Non-African American GFR(CKD) 25 (>60 ml/min/1.73 sqM); Potassium 4.1 mmol/L (3.5-5.1); Sodium 134 mmol/L (137-145); Total Protein 4.8 g/dL (6.3-8.2)
[2023-08-26] MEDS: SODIUM CHLORIDE 0.9% 1,000 ML IV SCH ×2 (06:41→21:59)
[2023-08-26] MEDS: PANTOPRAZOLE 40 MG TABLET PO SCH (06:42)
[2023-08-26 06:45] LABS: Basophils % (A) 0 %; Eosinophils # (A) 0.2 k/uL (0-0.7); Eosinophils % (A) 2 %; HCT 23.2 % (39.0-53.0); HGB 7.8 gm/dL (13.0-17.5); Lymphocytes # (A) 1.1 k/uL (1.0-4.8); Lymphocytes % (A) 11 %; MCH 32.3 pg (25.0-35.0); MCHC 33.5 g/dL (31.0-37.0); MCV 96.6 fL (80.0-100.0); Mean Platelet Volume 9.5; Monocytes # (A) 0.6 k/uL (0-1.0); Monocytes % (A) 6 %; Neutrophils # (A) 7.7 k/uL (1.3-7.7); Neutrophils % (A) 79 %; Platelet Count 88 k/uL (150-450); RDW 14.6 % (11.5-15.5); WBC 9.8 k/uL (3.8-10.6)
[2023-08-26] MEDS ORDERED: MAGNESIUM SULFATE-D5W PMX 1 GM in DEXTROSE/WATER 1 100ML.BAG IVPB ONE ×2 (06:56→08:00)
[2023-08-26 06:58] LABS: Glucose,Whole Blood 82 mg/dL (70-110)
[2023-08-26 07:52] LABS: Creatine Kinase 12963 U/L (55-170)
[2023-08-26] MEDS: INSULIN ASPART (NovoLOG) 100 UNIT/ML VIAL SQ SCH ×4 (07:59→21:45)
[2023-08-26] MEDS: IPRATROPIUM-ALBUTEROL 3 ML NEB INHALATION SCH ×4 (09:18→20:28)
[2023-08-26] MEDS: ACETYLCYSTEINE 800 MG/4 ML VIAL INHALATION SCH ×4 (09:18→20:27)
--- NOTE | 2023-08-26 09:26 | XR ---
EXAMINATION TYPE: XR chest 1V portable DATE OF EXAM: 08/26/2023 Comparison: 08/25/2023 Clinical History: 73-year-old male Post op CABG Findings: Right IJ sheath. Venous sternotomy wires and post-CABG clips. Bilateral chest tubes. No appreciable p neumothorax. Cardiomegaly persists. Interstitial density. Left basilar and right midlung opacities ar e improving. Impression: Cardiomegaly, pulmonary vascular congestion, and COPD. Improving airspace disease right midlung and l eft base.
--- NOTE | 2023-08-26 09:49 | P.PN ---
Subjective Progress Note Date: 08/26/23, the patient is being seen immediately following bypass surgery. The patient a complicated surgery. The patient will Off pump converted to cardiopulmonary bypass assisted coronary artery bypass grafting x 3. Right internal thoracic artery (in-situ) to left anterior descending coronary artery. Left anterior descending coronary artery (in-situ) to obtuse marginal artery #3. Reversed lesser saphenous vein from aorta to distal right coronary artery. The patient was brought into the intensive care unit and the patient is currently on propofol running at 20 mcg/kg/m. Intubated on a mechanical ventilator. Is currently on assist control mode at a rate of 12, tidal volume of 450, FiO2 of 100% with a PEEP of 5. Blood cultures showed a pH of 7.28 with a pCO2 of 51 and pO2 112. Chest x-ray shows adequate expansion of both lungs. No pneumothorax. The patient has a right pleural, left total and mediastinal chest tube. The patient's cardiac output is currently at 8.7 with an index of 4.4. Pulmonary artery pressure 34/23. The patient is on vasopressin physiologic dose, dopamine infusion running at 0.03 microvascular kilogram per minute and norepinephrine is running at 0.05 microvascular kilogram per minutes. the cardiac rhythm Is sinus and the patient is on amiodarone at 1 mg/m. Patient is also on insulin drip at 2.5 units an hour. The patient has increased output from the chest tube. The right pleural in the left pleural chest tubes are connected output has been in the order of 400 mL and the mediastinal chest tube has drained approximately 130 mL since arrival from the operating room. Intraoperatively, the patient received a total of 2 units of packed RBC, platelet concentrate, 4.5 L of albumin, 3 L of crystalloids and 2 L of Cell Savers. Estimated blood loss was around 4 L. The patient is currently hypothermic with a temperature of 35.7C. The CBC showed a hemoglobin of 8.7, white cell count of 8.5, platelet count of 78, and electrodes are still pending for now. Meanwhile, a cognition profile showed an INR of 1.8 with a PT of 18.5 and a PTT of 65.3. The patient was also given protamine. His well sedated and is, comfortable at this point in time. Surgical one-sided dry clean and intact. On 08/24/2023, the patient is extubated and sitting up on a chair and currently he is on oxygen at 4 L. He was quite unstable after he came into the ICU. His condition progressively stabilized with output from the chest to progressively dropped. His vaccination improved. He was gradually weaned off the mechanical ventilator and he was extubated without having any major difficulties. The chest x-ray from today shows atelectatic changes in the right upper lobe. Westlake- Vijay catheter still in place. He has cardiomegaly. He also has some mild pulm onary vascular congestion. The Westlake-Vijay catheter is in place. PA pressures are 24/10. Cardiac output is 5.8 with an index of 3.0. Adequate urine output. All of the pressors have been discontinued. He remains on insulin drip at 3 units an hour. Amiodarone drip has been discontinued and the patient is currently on oral amiodarone. He is also in a normal sinus rhythm. Is using the incentive spirometer. He is falling approximately 1250 mL. His only complaint is some nausea for which the patient was given Zofran. Chest tubes are in place. The patient has a right pleural, left pleural chest tube which are connected and there is no evidence of any air leak. The patient also has a mediastinal chest tube. Output from the chest tubes have been slowing down progressively. On today's evaluation of 08/25/2022, the patient is slightly confused. Is having some difficulties in finding appropriate words. His we'll go 4 extremities. I feel that his mentation is waxing and waning. On certain occasions, is very much appropriate. Other times, he was noted to have some difficulties noted during words. No aphasia. No facial asymmetry. No headaches. In fact his blood pressure is soft and the patient is atrial fibrillation with a heart rate between 110 and 1:30, irregular. In same time the patient has of an acute kidney injury. Creatinine is up to 2.4 with a BUN of 31 and his sodium levels of 137. Hemoglobin stable at 9.1. The patient continues to have a right and a left pleural chest tube and a mediastinal chest tube. No evidence of any pneumothorax. Output from the chest abdomen 250 mL from MEDIASTINAL and the pleural chest tubes and there is no evidence of any air leak. Chest x-ray shows atelectatic changes in the right lung and the patient has a congested cough. Suspect a component of mucus plugging as the patient had some right upper lobe atelectasis immediately postop. He is currently on 7 L of oxygen high flow with a pulse ox of 92%. He is receiving a dose of IV albumin, 2 50 mL, 12.5 g. Urine output is in order of 30 mL an hour and the patient was given oxycodone 5 mg on 2 separate occasions for pain control. Using the incentive spirometer. Sternum is stable clean and intact. On 08/26/2023, the patient is being seen for a follow-up. The patient is oxygen at 4 L/m nasal cannula. Breathing is labored and the patient is unable to perform adequate pulmonary toileting. He is trying to use incentive spirometer. He has a congested cough. Surgical one-sided dry clean and intact. The chest x-ray from today shows some volume loss in the lung bases. Limited atelectatic changes in the right midlung area. He does have some increased gaseous distention of the bowel in the abdomen. His chest tubes are split. Mediastinal chest tubes are out and the patient continues to have a right pleural left lower chest tube. I do not appreciate any pneumothorax. Meanwhile, he was found to have a component of rhabdomyolysis. CPK level was as high as 13,000 and is currently slightly lower compared to yesterday. He has sustained an acute k idney injury. Creatinine 2.4 and the patient is currently on normal saline at rate of 75 mL an hour. His overall fluid balance has been -757 mL over the past 24 hours. His diuretics are currently on hold. His cardiac rhythm is sinus. He remains on amiodarone. He remains on metoprolol 25 mg by mouth 3 times a day. Statins were discontinued. He remains on aspirin. Is working on his incentive spirometer. Objective - Vital Signs Vital signs: Vital Signs Temp 99.2 F 08/26/23 04:00 Pulse 92 08/26/23 09:36 Resp 18 08/26/23 09:36 BP 105/51 08/26/23 07:00 Pulse Ox 92 L 08/26/23 07:00 FiO2 50 08/24/23 00:45 Intake & Output 08/25/23 08/26/23 08/26/23 18:59 06:59 18:59 Intake Total 1036 858 78 Output Total 710 1035 50 Balance 326 -177 28 Weight 81.9 kg Intake: IV 336 858 78 .9NS Pressure bag 36 33 3 Lactated Ringers 1,000 ml 300 @ 20 mls/hr IV .Q24H [facility] Rx#:[id number] Sodium Chloride 0.9% 1, 825 75 000 ml @ 75 mls/hr IV . [id number] [facility] Rx#:[id number] Intake, IV Titration 700 Amount Albumin Human 5% 250 ml 250 In Empty Bag 1 bag @ 250 mls/hr IVPB ONCE ONE Rx#: [id number] Calcium Gluconate in NaCl 100 2 gm In Saline 1 100ml. bag @ 100 mls/hr IVPB ONCE ONE Rx#:[id number] Dextrose 5% in Water 100 100 ml @ 618 mls/hr IV .Q10M PRN with Amiodarone 150 mg Rx#:[id number] Sodium Chloride 0.9% 500 250 ml 250 ml @ 999 mls/hr IV .Q16M ONE Rx#:[id number] Output: Chest Tube Drainage 200 295 Left Pleural Chest Tube 45 100 Mediastinal 50 Right Pleural Chest Tube 45 195 Right/Left Pleural 60 Urine 510 740 50 Other: Voiding Method Indwelling Catheter Indwelling Catheter ABP, PAP, CO, CI - Last Documented Arterial Blood Pressure 43/40 Pulmonary Artery Pressure 29/14 Cardiac Output 4.4 Cardiac Index 2.2 - Exam GENERAL EXAM: Alert, 73-year-old white male , comfortable in no apparent distress. 4 liters/min HEAD: Normocephalic and atraumatic EYES: Normal reaction of pupils, equal size. NOSE: Clear with pink turbinates. THROAT: No erythema or exudates. NECK: No masses, no JVD. The patient has a Westlake-Vijay catheter in the right IJ. CHEST: No chest wall deformity. LUNGS: Equal air entry with no crackles, wheeze, rhonchi or dullness. Thoracotomy scar is dry clean and intact and the patient has a right pleural, left lower limb the mediastinal chest tube ahas been removed CVS: S1 and S2 normal with no audible murmur, regular rhythm. No extra heart sounds ABDOMEN: No hepatosplenomegaly, active bowel sounds, no guarding or rigidity. SPINE: No scoliosis or deformity SKIN: No rashes CENTRAL NERVOUS SYSTEM: No focal deficits multiple occasional confusion is noted without any focal neurological deficits. EXTREMITIES: There is no peripheral edema, clubbing, or cyanosis. Peripheral pulses are intact. - Labs CBC & Chem 7: 08/26/23 05:22 08/26/23 05:22 Labs: Abnormal Lab Results - Last 24 Hours (Table) 08/25/23 08/25/23 08/25/23 Range/Units 10:58 14:26 14:26 RBC 2.23 L (4.30-5.90) m/uL Hgb 7.3 L D (13.0-17.5) gm/dL Hct 21.1 L (39.0-53.0) % Plt Count 81 L (150-450) k/uL Neutrophils # 8.0 H (1.3-7.7) k/uL APTT (22.0-30.0) sec Sodium 134 L (137-145) mmol/L BUN 34 H (9-20) mg/dL Creatinine 2.58 H (0.66-1.25) mg/dL POC Glucose (mg/dL) (70-110) mg/dL Calcium 8.3 L (8.4-10.2) mg/dL Ionized Calcium Emanuel 4.3 L (4.5-5.3) mg/dL AST 195 H (17-59) U/L Alkaline Phosphatase 37 L (38-126) U/L Lactate Dehydrogenase (120-246) U/L Creatine Kinase (55-170) U/L Total Protein 4.7 L (6.3-8.2) g/dL Albumin 3.1 L (3.5-5.0) g/dL Procalcitonin (0.02-0.09) ng/mL 08/25/23 08/25/23 08/25/23 Range/Units 15:48 15:48 15:48 RBC (4.30-5.90) m/uL Hgb (13.0-17.5) gm/dL Hct (39.0-53.0) % Plt Count (150-450) k/uL Neutrophils # (1.3-7.7) k/uL APTT 39.8 H (22.0-30.0) sec Sodium (137-145) mmol/L BUN (9-20) mg/dL Creatinine (0.66-1.25) mg/dL POC Glucose (mg/dL) (70-110) mg/dL Calcium (8.4-10.2) mg/dL Ionized Calcium Emanuel (4.5-5.3) mg/dL AST (17-59) U/L Alkaline Phosphatase (38-126) U/L Lactate Dehydrogenase 447 H (120-246) U/L Creatine Kinase 68828 H* (55-170) U/L Total Protein (6.3-8.2) g/dL Albumin (3.5-5.0) g/dL Procalcitonin (0.02-0.09) ng/mL 08/25/23 08/25/23 08/25/23 Range/Units 16:13 16:42 17:50 RBC (4.30-5.90) m/uL Hgb (13.0-17.5) gm/dL Hct (39.0-53.0) % Plt Count (150-450) k/uL Neutrophils # (1.3-7.7) k/uL APTT (22.0-30.0) sec Sodium (137-145) mmol/L BUN (9-20) mg/dL Creatinine (0.66-1.25) mg/dL POC Glucose (mg/dL) 57 L 162 H (70-110) mg/dL Calcium (8.4-10.2) mg/dL Ionized Calcium Emanuel (4.5-5.3) mg/dL AST (17-59) U/L Alkaline Phosphatase (38-126) U/L Lactate Dehydrogenase (120-246) U/L Creatine Kinase (55-170) U/L Total Protein (6.3-8.2) g/dL Albumin (3.5-5.0) g/dL Procalcitonin 3.90 H (0.02-0.09) ng/mL 08/25/23 08/26/23 08/26/23 Range/Units 22:40 05:22 05:22 RBC 2.40 L (4.30-5.90) m/uL Hgb 7.8 L (13.0-17.5) gm/dL Hct 23.2 L (39.0-53.0) % Plt Count 88 L (150-450) k/uL Neutrophils # (1.3-7.7) k/uL APTT (22.0-30.0) sec Sodium 134 L (137-145) mmol/L BUN 39 H (9-20) mg/dL Creatinine 2.49 H (0.66-1.25) mg/dL POC Glucose (mg/dL) (70-110) mg/dL Calcium 7.8 L (8.4-10.2) mg/dL Ionized Calcium Emanuel (4.5-5.3) mg/dL AST 269 H (17-59) U/L Alkaline Phosphatase (38-126) U/L Lactate Dehydrogenase (120-246) U/L Creatine Kinase 66732 H* 55768 H* (55-170) U/L Total Protein 4.8 L (6.3-8.2) g/dL Albumin 2.9 L (3.5-5.0) g/dL Procalcitonin (0.02-0.09) ng/mL Assessment and Plan Assessment: Triple-vessel coronary artery disease, and the patient is status post Off pump converted to cardiopulmonary bypass assisted coronary artery bypass grafting x 3. Right internal thoracic artery (in-situ) to left anterior descending coronary artery. Left anterior descending coronary artery (in-situ) to obtuse marginal artery #3. Reversed lesser saphenous vein from aorta to distal right coronary artery. The patient is currently postop day #4. Postthoracotomy, currently intubated on a mechanical ventilator. Chest x-ray was noted. The patient is currently extubated on 4 L of oxygen by nasal rae stewart, chest tubes are still in place acute kidney injury, nonoliguric and the patient is producing 30 mL an hour of urine output Acute rhabdomyolysis Hyperglycemia, the patient is currently off insulin drip and he is on sliding- scale insulin coverage COPD, FEV1 65% Blood loss Anemia, expected outcome of surgery and the patient was transfused with a total of 2 units of packed RBC, hemoglobin is stable since yesterday at 7.8 Benign essential hypertension Hyperlipidemia History of TIA Chronic kidney disease stage III Significant history of tobacco dependence, over 50 pack years History of asbestos exposure, with pleural plaquing noted on chest CT Benign prosthetic hyperplasia Nonobstructive carotid artery disease based on CT angiogram, bilateral in the order of 50% Encephalopathy, mild, no focal neurological deficit at this point in time. stable Plan: Incentive spirometer Continue 4 L of action by nasal cannula wean it off Gradually dropped down FiO2 to maintain a saturation above 90% Monitor output from the chest tube chest mediastinal tubes are out and the patient has the pleural chest tubes being split Stop Lasix for now Hold statins Metoprolol as been increased up to 25 mg TID a day Continue amiodarone Continue Plavix, no anticoagulants otherwise for now. Mucinex for pulmonary toileting and congestion Monitor the mental status. Monitor hemoglobin Chest x-ray was reviewed Condition is critical and we'll continue to follow, collaborate with the surgical team and will make further recommendations.
--- NOTE | 2023-08-26 09:56 | P.PN ---
Subjective Progress Note Date: 08/26/23 Principal diagnosis: Triple-vessel coronary artery disease, unstable angina. History of hypertension, hyperlipidemia, chronic kidney disease stage III, previous tobacco dependence with recent cessation, mild COPD, TIA in 2014 with no residual, BPH, bilateral vein stripping, bilateral carotid stenosis POD #3 off pump converted to cardiopulmonary bypass assisted coronary artery bypass grafting 3, right internal thoracic artery in situ to the left anterior descending coronary artery, left anterior coronary artery in situ to the third obtuse marginal artery, reverse lesser saphenous vein from the aorta to the distal right coronary artery, left atrial appendage ligation using a 35 mm AtriClip, endoscopic right tennis vein harvest, graft flow measurements using the Medistim flowmeter, intraoperative transesophageal echocardiogram Post operative acute blood loss anemia and thrombocytopenia, expected given significant hemodilution. Intraoperative and postoperative paroxysmal atrial fibrillation, unexpected but a known common occurrence after open heart surgery. Intraoperative and postoperative hypotension expected due to vasoplegia, atrial fibrillation. The patient was seen and examined in follow-up today 08/26/2023 at his bedside in the intensive care unit. He is currently sitting up to the bedside chair, is awake, alert, oriented 3 and is in no acute apparent distress. The patient's bedside nurse states that his confusion has cleared throughout the night. The patient denies any complaints of shortness of breath at this time, although is complaining of some surgical type pain to his pleural chest tube insertion sites, currently rating his pain 5 out of 10 on the pain scale. He remains hemodynamically stable and is currently on no inotropic or pressor support. Right IJ Cordis remains in place with continuous CVP monitoring, current CVP pressure 7 mmHg. He was started on normal saline 0.9% IV fluids currently running at 75 mL per hour due to elevated CK level of 12,324, and this morning his CK level is 12,963. Laboratory results this morning show a WBC count of 9.8, hemoglobin 7.8, hematocrit 23.2, platelets 88, sodium 134, potassium 4.1, chloride 100, CO2 25, BUN 39, creatinine 2.49, glucose 77, calcium 7.8, magnesium 1.8, phosphorus 3.7, total bilirubin 1.0, and AST 269. Bedside telemetry showing normal sinus rhythm heart rate 97 BPM. No further episodes of atrial fibrillation reported. He remains on amiodarone 400 mg by mouth twice a day and metoprolol 25 mg by mouth twice a day. The patient's abdomen is slightly distended this morning, he does have active bowel sounds throughout his abdominal quadrants and he states that he has been passing some gas. Oxygen saturations are 94% on 4 L nasal cannula and he is achieving 750 mL on his incentive spirometry with much encouragement. Right/left pleural chest tubes remain in place to low continuous wall suction -20 cm H2O. No air leak is present. Draining thin serosanguineous drainage. The left pleural chest tube draining 90 mL output in the last 8 hours and 170 mL output in the last 24 hours. Right pleural chest tube drained 120 mL output in the last 8 hours and 280 mL output in the last 24 hours. Ventricular epicardial pacemaker wires remain in place and are connected to bedside backup pacemaker generator on a VVI mode of 50 BPM. Laboratory and chest x-ray results reviewed. Rincon catheter remains in place for accurate I's and O's and his urine output was 565 mL in the last 8 hours. His T-max temperature in the last 24 hours is 99.2F. Objective - Vital Signs Vital signs: Vital Signs Temp 99.2 F 08/26/23 04:00 Pulse 97 08/26/23 07:00 Resp 28 H 08/26/23 07:00 BP 105/51 08/26/23 07:00 Pulse Ox 92 L 08/26/23 07:00 FiO2 50 08/24/23 00:45 Intake & Output 08/25/23 08/26/23 08/26/23 18:59 06:59 18:59 Intake Total 1036 858 78 Output Total 710 1035 50 Balance 326 -177 28 Weight 81.9 kg Intake: IV 336 858 78 .9NS Pressure bag 36 33 3 Lactated Ringers 1,000 ml 300 @ 20 mls/hr IV .Q24H [facility] Rx#:[id number] Sodium Chloride 0.9% 1, 825 75 000 ml @ 75 mls/hr IV . [id number] [facility] Rx#:[id number] Intake, IV Titration 700 Amount Albumin Human 5% 250 ml 250 In Empty Bag 1 bag @ 250 mls/hr IVPB ONCE ONE Rx#: [id number] Calcium Gluconate in NaCl 100 2 gm In Saline 1 100ml. bag @ 100 mls/hr IVPB ONCE ONE Rx#:[id number] Dextrose 5% in Water 100 100 ml @ 618 mls/hr IV .Q10M PRN with Amiodarone 150 mg Rx#:[id number] Sodium Chloride 0.9% 500 250 ml 250 ml @ 999 mls/hr IV .Q16M [facility] Rx#:[id number] Output: Chest Tube Drainage 200 295 Left Pleural Chest Tube 45 100 Mediastinal 50 Right Pleural Chest Tube 45 195 Right/Left Pleural 60 Urine 510 740 50 Other: Voiding Method Indwelling Catheter Indwelling Catheter ABP, PAP, CO, CI - Last Documented Arterial Blood Pressure 43/40 Pulmonary Artery Pressure 29/14 Cardiac Output 4.4 Cardiac Index 2.2 - Exam CONSTITUTIONAL: Sitting up to the bedside chair in the intensive care unit, appears comfortable, cooperative, no apparent acute distress. HEENT: Neck is supple, no JVD, no lymphadenopathy. Right IJ Cordis in place and functioning. RESPIRATORY: Lungs sounds coarse rhonchi throughout, diminished to his bilateral bases, right greater than left. Respirations are symmetrical and non labored. Currently on 4 L nasal cannula with oxygen saturations 94%. Able to achieve 750 mL on his incentive spirometry. Strong cough, nonproductive and loose. CARDIOVASCULAR: Regular rhythm and rate. S1 and S2 present, negative for S3, gallop or murmur. Sternum is stable. Palpable peripheral pulses bilaterally, trace generalized edema. No calf pain or tenderness noted. Heart hugger in place with patient demonstrating appropriate use. Knee-high ALBERT hose and sequential compression devices in place to his bilateral lower extremities. GASTROINTESTINAL: Abdomen soft, nontender, and slightly distended. Active bowel sounds present 4 quadrants. Tolerating diet. Passing flatus. No guarding or rigidity. GENITOURINARY: Rincon present draining clear, yellow urine. 565 mL urine out put in the last 8 hours. INTEGUMENTARY: Skin is warm and dry with no evidence of clubbing or cyanosis. Midline sternal incision clean dry and well approximated, covered with dry intact dressing. Bilateral lower extremity EVH sites well approximated without redness or drainage. No drainage or redness is present. NEUROLOGIC: Cranial nerves II through XII intact. No focal deficits. MUSKULOSKELETAL: Able to move all extremities, strength equal bilaterally, generalized weakness. PSYCHIATRIC: Alert and oriented to person place and time, appropriate affect, intact judgment and insight. INVASIVE LINES AND TUBES: Left/right pleural chest tubes present and connected to low continuous wall suction, no air leaks present. Left pleural chest tube with 90 mL of thin serosanguineous drainage overnight, 170 mL output in the last 24 hours. Right pleural chest tube with 120 mL of thin serosanguineous drainage overnight, 280 mL output in the last 24 hours. Ventricular epicardial pacemaker wires present, connected to generator, VVI backup rate 50 bpm. Right internal jugular Cordis, Current CVP 7 mmHg. - Allied health notes Allied health notes reviewed: nursing - Labs CBC & Chem 7: 08/26/23 05:22 08/26/23 05:22 Labs: Abnormal Lab Results - Last 24 Hours (Table) 08/25/23 08/25/23 08/25/23 Range/Units 05:52 10:58 14:26 RBC (4.30-5.90) m/uL Hgb (13.0-17.5) gm/dL Hct (39.0-53.0) % Plt Count (150-450) k/uL Neutrophils # (1.3-7.7) k/uL APTT (22.0-30.0) sec Sodium 134 L (137-145) mmol/L BUN 31 H 34 H (9-20) mg/dL Creatinine 2.41 H 2.58 H (0.66-1.25) mg/dL POC Glucose (mg/dL) (70-110) mg/dL Calcium 7.9 L 8.3 L (8.4-10.2) mg/dL Ionized Calcium Emanuel 4.3 L (4.5-5.3) mg/dL AST 222 H 195 H (17-59) U/L Alkaline Phosphatase 37 L (38-126) U/L Lactate Dehydrogenase (120-246) U/L Creatine Kinase (55-170) U/L Total Protein 5.2 L 4.7 L (6.3-8.2) g/dL Albumin 3.3 L 3.1 L (3.5-5.0) g/dL Procalcitonin (0.02-0.09) ng/mL 08/25/23 08/25/23 08/25/23 Range/Units 14:26 15:48 15:48 RBC 2.23 L (4.30-5.90) m/uL Hgb 7.3 L D (13.0-17.5) gm/dL Hct 21.1 L (39.0-53.0) % Plt Count 81 L (150-450) k/uL Neutrophils # 8.0 H (1.3-7.7) k/uL APTT 39.8 H (22.0-30.0) sec Sodium (137-145) mmol/L BUN (9-20) mg/dL Creatinine (0.66-1.25) mg/dL POC Glucose (mg/dL) (70-110) mg/dL Calcium (8.4-10.2) mg/dL Ionized Calcium Emanuel (4.5-5.3) mg/dL AST (17-59) U/L Alkaline Phosphatase (38-126) U/L Lactate Dehydrogenase (120-246) U/L Creatine Kinase 07015 H* (55-170) U/L Total Protein (6.3-8.2) g/dL Albumin (3.5-5.0) g/dL Procalcitonin (0.02-0.09) ng/mL 08/25/23 08/25/23 08/25/23 Range/Units 15:48 16:13 16:42 RBC (4.30-5.90) m/uL Hgb (13.0-17.5) gm/dL Hct (39.0-53.0) % Plt Count (150-450) k/uL Neutrophils # (1.3-7.7) k/uL APTT (22.0-30.0) sec Sodium (137-145) mmol/L BUN (9-20) mg/dL Creatinine (0.66-1.25) mg/dL POC Glucose (mg/dL) 57 L (70-110) mg/dL Calcium (8.4-10.2) mg/dL Ionized Calcium Emanuel (4.5-5.3) mg/dL AST (17-59) U/L Alkaline Phosphatase (38-126) U/L Lactate Dehydrogenase 447 H (120-246) U/L Creatine Kinase (55-170) U/L Total Protein (6.3-8.2) g/dL Albumin (3.5-5.0) g/dL Procalcitonin 3.90 H (0.02-0.09) ng/mL 08/25/23 08/25/23 08/26/23 Range/Units 17:50 22:40 05:22 RBC 2.40 L (4.30-5.90) m/uL Hgb 7.8 L (13.0-17.5) gm/dL Hct 23.2 L (39.0-53.0) % Plt Count 88 L (150-450) k/uL Neutrophils # (1.3-7.7) k/uL APTT (22.0-30.0) sec Sodium (137-145) mmol/L BUN (9-20) mg/dL Creatinine (0.66-1.25) mg/dL POC Glucose (mg/dL) 162 H (70-110) mg/dL Calcium (8.4-10.2) mg/dL Ionized Calcium Emanuel (4.5-5.3) mg/dL AST (17-59) U/L Alkaline Phosphatase (38-126) U/L Lactate Dehydrogenase (120-246) U/L Creatine Kinase 71659 H* (55-170) U/L Total Protein (6.3-8.2) g/dL Albumin (3.5-5.0) g/dL Procalcitonin (0.02-0.09) ng/mL 08/26/23 Range/Units 05:22 RBC (4.30-5.90) m/uL Hgb (13.0-17.5) gm/dL Hct (39.0-53.0) % Plt Count (150-450) k/uL Neutrophils # (1.3-7.7) k/uL APTT (22.0-30.0) sec Sodium 134 L (137-145) mmol/L BUN 39 H (9-20) mg/dL Creatinine 2.49 H (0.66-1.25) mg/dL POC Glucose (mg/dL) (70-110) mg/dL Calcium 7.8 L (8.4-10.2) mg/dL Ionized Calcium Emanuel (4.5-5.3) mg/dL AST 269 H (17-59) U/L Alkaline Phosphatase (38-126) U/L Lactate Dehydrogenase (120-246) U/L Creatine Kinase 47560 H* (55-170) U/L Total Protein 4.8 L (6.3-8.2) g/dL Albumin 2.9 L (3.5-5.0) g/dL Procalcitonin (0.02-0.09) ng/mL - Imaging and Cardiology Chest x-ray: report reviewed, image reviewed Assessment and Plan Assessment: Triple-vessel coronary artery disease, unstable angina, status post 3 vessel CABG History of hypertension Hyperlipidemia, cholesterol 215, LDL 143, triglycerides 185 Chronic kidney disease stage III, with a baseline creatinine of 1.4-1.6 Remote history of tobacco dependence with recent cessation Mild COPD, preoperative FEV1 of 65% of predicted History of asbestosis exposure, CT of the chest showing pleural plaquing TIA in 2013 with no residual BPH on Flomax Bilateral vein stripping in the Bilateral carotid stenosis by carotid Doppler, greater than 70% on the left, 50- 69% on the right based on velocities; 50% proximal ROMMEL stenosis and 50% left carotid artery stenosis at the bifurcation per CTA Post operative acute blood loss anemia and thrombocytopenia, expected given significant hemodilution Paroxysmal intraoperative and postoperative atrial fibrillation, unexpected but common after open heart surgery, status post exclusion left atrial appendage with a 35 mm Atriclip Intraoperative and postoperative hypotension expected due to vasoplegia, atrial fibrillation Acute kidney injury, nonoliguric, BUN 39 and creatinine 2.49 today Acute rhabdomyolysis, CK this morning 12,963, unknown etiology Plan: Continue to maximize medical therapy with aspirin, plavix, and beta maria luisa. Will increase metoprolol to artery to 25 mg by mouth 3 times a day with hold parameters. Continue amiodarone 400 mg by mouth twice a day for afib prophylaxis. Statin is on hold due to the rhabdomyolysis Continue IV fluids 0.9% normal saline at 75 mL per hour managed by nephrology. CK 12,963 this morning. Wean oxygen as tolerated, encourage incentive spirometer use 10x every hour while awake, bronchodilators per pulmonology. Continue Mucinex and Mucomyst. Flutter valve ordered and chest physiotherapy ordered. Increase activity, ambulate as tolerated. PT/OT/cardiac rehab following. Will monitor daily labs and chest x-ray. Electrolyte replacement per protocol. Nephrology noted and appreciated. Baseline creatinine 1.4-1.6. History of stage III chronic kidney disease. Pain control with current medication regimen, no toradol due to CKD. Narcotics have been discontinued due to the patient's confusion. Continue to use Tylenol for pain control. Insulin management per internal medicine. Patient should remain on insulin gtt for 48 hours for tight blood sugar control, then may transition to subq insulin per protocol. Hemoglobin A1c 5.9% preoperatively. Keep right IJ Cordis in place with continuous CVP monitoring. Discussed the importance of risk modification including encouragement of Continued smoking cessation. Continue right/left pleural chest tubes for another 24 hours, monitor drainage. Continue rincon for another 24 hours, continue to record strict accurate intake and output Daily weights. Dulcolax suppository 1 now. More recommendations to follow based on patient's clinical course. Time with Patient: Greater than 30
[2023-08-26] MEDS: guaiFENesin 600 MG TABLET.ER PO SCH ×2 (10:04→21:59)
[2023-08-26] MEDS: FOLIC ACID 1 MG TAB PO SCH (10:05)
[2023-08-26] MEDS: THIAMINE 100 MG TAB PO SCH ×2 (10:05→10:06)
[2023-08-26] MEDS: AMIODARONE 200 MG TAB PO SCH ×2 (10:05→21:59)
[2023-08-26] MEDS: ASPIRIN 325 MG TAB PO SCH (10:05)
[2023-08-26] MEDS: METOPROLOL TARTRATE 25 MG TAB PO SCH ×3 (10:05→21:59)
[2023-08-26] MEDS: CLOPIDOGREL 75 MG TAB PO SCH (10:05)
[2023-08-26 11:14] LABS: Glucose,Whole Blood 85 mg/dL (70-110)
--- NOTE | 2023-08-26 12:26 | P.PN ---
Subjective Progress Note Date: 08/26/23 This is Rui Pacheco NP, I'm dictating on behalf of Dr. Capps's H&P and A&P. Patient was interviewed and examined. Patient's a pleasant 73-year-old male who presented to the hospital with unstable angina, and underwent coronary angiogram revealing triple-vessel disease. On 08/23/2023, the patient underwent coronary bypass grafting 3 with left internal thoracic artery to LAD, left anterior coronary artery in situ to OM1, and SVG to RCA. Patient had intraoperative complications to include converting from off-pump to on pump bypass as well as A. fib requiring defibrillation. Patient has been weaned off of vasopressors and transitioned to oral amiodarone and beta blockers and has been doing well. Patient is morning reports that he is feeling okay. He is denying chest pain, shortness of breath, heart palpitations. Patient was started on beta blockers yesterday, and appears to be tolerating these well. GENERAL: Well-appearing, well-nourished and in no acute distress. NECK: Supple without JVD or thyromegaly. LUNGS: Breath sounds diminished with scattered rhonchi. Respiration equal and unlabored. No wheezes, rales or rhonchi. HEART: Regular rate and rhythm without murmurs, rubs or gallops. S1 and S2 heard. EXTREMITIES: Normal range of motion, no edema. No clubbing or cyanosis. Peripheral pulses intact and strong. VITALS: Temp 99.2, pulse 86, respirations 18, blood pressure 105/51, O2 saturation 92% on 4 L TELEMETRY: Normal sinus rhythm LABS: White count 9.8, hemoglobin 7.8, platelets 88, sodium 134, potassium 4.1, B1 39, creatinine 2.49, magnesium 1.8, creatinine kinase 12,963 IMPRESSION: 1. Multivessel coronary artery disease 2. Status post CABG 3 3. Hypertension 4. Hyperlipidemia 5. Chronic kidney disease 6. COPD 7. Bilateral carotid stenosis PLAN: Continue supportive treatment Aggressive pulmonary hygiene Further recommendations based on patient's clinical course Objective - Vital Signs Vital signs: Vital Signs Temp 99.2 F 08/26/23 04:00 Pulse 84 08/26/23 12:13 Resp 18 08/26/23 12:13 BP 105/51 08/26/23 07:00 Pulse Ox 92 L 08/26/23 07:00 FiO2 50 08/24/23 00:45 Intake & Output 08/25/23 08/26/23 08/26/23 18:59 06:59 18:59 Intake Total 1036 858 78 Output Total 710 1035 50 Balance 326 -177 28 Weight 81.9 kg Intake: IV 336 858 78 .9NS Pressure bag 36 33 3 Lactated Ringers 1,000 ml 300 @ 20 mls/hr IV .Q24H [facility] Rx#:[id number] Sodium Chloride 0.9% 1, 825 75 000 ml @ 75 mls/hr IV . [id number] [facility] Rx#:[id number] Intake, IV Titration 700 Amount Albumin Human 5% 250 ml 250 In Empty Bag 1 bag @ 250 mls/hr IVPB ONCE ONE Rx#: [id number] Calcium Gluconate in NaCl 100 2 gm In Saline 1 100ml. bag @ 100 mls/hr IVPB ONCE ONE Rx#:[id number] Dextrose 5% in Water 100 100 ml @ 618 mls/hr IV .Q10M PRN with Amiodarone 150 mg Rx#:[id number] Sodium Chloride 0.9% 500 250 ml 250 ml @ 999 mls/hr IV .Q16M [facility] Rx#:[id number] Output: Chest Tube Drainage 200 295 Left Pleural Chest Tube 45 100 Mediastinal 50 Right Pleural Chest Tube 45 195 Right/Left Pleural 60 Urine 510 740 50 Other: Voiding Method Indwelling Catheter Indwelling Catheter ABP, PAP, CO, CI - Last Documented Arterial Blood Pressure 43/40 Pulmonary Artery Pressure 29/14 Cardiac Output 4.4 Cardiac Index 2.2 - Labs CBC & Chem 7: 08/26/23 05:22 08/26/23 05:22 Labs: Abnormal Lab Results - Last 24 Hours (Table) 08/25/23 08/25/23 08/25/23 Range/Units 14:26 14:26 15:48 RBC 2.23 L (4.30-5.90) m/uL Hgb 7.3 L D (13.0-17.5) gm/dL Hct 21.1 L (39.0-53.0) % Plt Count 81 L (150-450) k/uL Neutrophils # 8.0 H (1.3-7.7) k/uL APTT (22.0-30.0) sec Sodium 134 L (137-145) mmol/L BUN 34 H (9-20) mg/dL Creatinine 2.58 H (0.66-1.25) mg/dL POC Glucose (mg/dL) (70-110) mg/dL Calcium 8.3 L (8.4-10.2) mg/dL AST 195 H (17-59) U/L Alkaline Phosphatase 37 L (38-126) U/L Lactate Dehydrogenase (120-246) U/L Creatine Kinase 22131 H* (55-170) U/L Total Protein 4.7 L (6.3-8.2) g/dL Albumin 3.1 L (3.5-5.0) g/dL Procalcitonin (0.02-0.09) ng/mL 08/25/23 08/25/23 08/25/23 Range/Units 15:48 15:48 16:13 RBC (4.30-5.90) m/uL Hgb (13.0-17.5) gm/dL Hct (39.0-53.0) % Plt Count (150-450) k/uL Neutrophils # (1.3-7.7) k/uL APTT 39.8 H (22.0-30.0) sec Sodium (137-145) mmol/L BUN (9-20) mg/dL Creatinine (0.66-1.25) mg/dL POC Glucose (mg/dL) (70-110) mg/dL Calcium (8.4-10.2) mg/dL AST (17-59) U/L Alkaline Phosphatase (38-126) U/L Lactate Dehydrogenase 447 H (120-246) U/L Creatine Kinase (55-170) U/L Total Protein (6.3-8.2) g/dL Albumin (3.5-5.0) g/dL Procalcitonin 3.90 H (0.02-0.09) ng/mL 08/25/23 08/25/23 08/25/23 Range/Units 16:42 17:50 22:40 RBC (4.30-5.90) m/uL Hgb (13.0-17.5) gm/dL Hct (39.0-53.0) % Plt Count (150-450) k/uL Neutrophils # (1.3-7.7) k/uL APTT (22.0-30.0) sec Sodium (137-145) mmol/L BUN (9-20) mg/dL Creatinine (0.66-1.25) mg/dL POC Glucose (mg/dL) 57 L 162 H (70-110) mg/dL Calcium (8.4-10.2) mg/dL AST (17-59) U/L Alkaline Phosphatase (38-126) U/L Lactate Dehydrogenase (120-246) U/L Creatine Kinase 04253 H* (55-170) U/L Total Protein (6.3-8.2) g/dL Albumin (3.5-5.0) g/dL Procalcitonin (0.02-0.09) ng/mL 08/26/23 08/26/23 Range/Units 05:22 05:22 RBC 2.40 L (4.30-5.90) m/uL Hgb 7.8 L (13.0-17.5) gm/dL Hct 23.2 L (39.0-53.0) % Plt Count 88 L (150-450) k/uL Neutrophils # (1.3-7.7) k/uL APTT (22.0-30.0) sec Sodium 134 L (137-145) mmol/L BUN 39 H (9-20) mg/dL Creatinine 2.49 H (0.66-1.25) mg/dL POC Glucose (mg/dL) (70-110) mg/dL Calcium 7.8 L (8.4-10.2) mg/dL AST 269 H (17-59) U/L Alkaline Phosphatase (38-126) U/L Lactate Dehydrogenase (120-246) U/L Creatine Kinase 76907 H* (55-170) U/L Total Protein 4.8 L (6.3-8.2) g/dL Albumin 2.9 L (3.5-5.0) g/dL Procalcitonin (0.02-0.09) ng/mL
--- NOTE | 2023-08-26 12:45 | P.PN ---
Subjective Progress Note Date: 08/26/23 Follow-up for acute kidney injury. Urine output of 1.7 L in the last 24 hours. Objective - Vital Signs Vital signs: Vital Signs Temp 99.2 F 08/26/23 04:00 Pulse 84 08/26/23 12:13 Resp 18 08/26/23 12:13 BP 105/51 08/26/23 07:00 Pulse Ox 92 L 08/26/23 07:00 FiO2 50 08/24/23 00:45 Intake & Output 08/25/23 08/26/23 08/26/23 18:59 06:59 18:59 Intake Total 1036 858 78 Output Total 710 1035 50 Balance 326 -177 28 Weight 81.9 kg Intake: IV 336 858 78 .9NS Pressure bag 36 33 3 Lactated Ringers 1,000 ml 300 @ 20 mls/hr IV .Q24H [facility] Rx#:[id number] Sodium Chloride 0.9% 1, 825 75 000 ml @ 75 mls/hr IV . [id number] [facility] Rx#:[id number] Intake, IV Titration 700 Amount Albumin Human 5% 250 ml 250 In Empty Bag 1 bag @ 250 mls/hr IVPB ONCE ONE Rx#: [id number] Calcium Gluconate in NaCl 100 2 gm In Saline 1 100ml. bag @ 100 mls/hr IVPB ONCE ONE Rx#:[id number] Dextrose 5% in Water 100 100 ml @ 618 mls/hr IV .Q10M PRN with Amiodarone 150 mg Rx#:[id number] Sodium Chloride 0.9% 500 250 ml 250 ml @ 999 mls/hr IV .Q16M [facility] Rx#:[id number] Output: Chest Tube Drainage 200 295 Left Pleural Chest Tube 45 100 Mediastinal 50 Right Pleural Chest Tube 45 195 Right/Left Pleural 60 Urine 510 740 50 Other: Voiding Method Indwelling Catheter Indwelling Catheter ABP, PAP, CO, CI - Last Documented Arterial Blood Pressure 43/40 Pulmonary Artery Pressure 29/14 Cardiac Output 4.4 Cardiac Index 2.2 - Exam No acute distress S1-S2 heard Decreased breath sounds Edema - Labs CBC & Chem 7: 08/26/23 05:22 08/26/23 05:22 Labs: Abnormal Lab Results - Last 24 Hours (Table) 08/25/23 08/25/23 08/25/23 Range/Units 14:26 14:26 15:48 RBC 2.23 L (4.30-5.90) m/uL Hgb 7.3 L D (13.0-17.5) gm/dL Hct 21.1 L (39.0-53.0) % Plt Count 81 L (150-450) k/uL Neutrophils # 8.0 H (1.3-7.7) k/uL APTT (22.0-30.0) sec Sodium 134 L (137-145) mmol/L BUN 34 H (9-20) mg/dL Creatinine 2.58 H (0.66-1.25) mg/dL POC Glucose (mg/dL) (70-110) mg/dL Calcium 8.3 L (8.4-10.2) mg/dL AST 195 H (17-59) U/L Alkaline Phosphatase 37 L (38-126) U/L Lactate Dehydrogenase (120-246) U/L Creatine Kinase 33009 H* (55-170) U/L Total Protein 4.7 L (6.3-8.2) g/dL Albumin 3.1 L (3.5-5.0) g/dL Procalcitonin (0.02-0.09) ng/mL 08/25/23 08/25/23 08/25/23 Range/Units 15:48 15:48 16:13 RBC (4.30-5.90) m/uL Hgb (13.0-17.5) gm/dL Hct (39.0-53.0) % Plt Count (150-450) k/uL Neutrophils # (1.3-7.7) k/uL APTT 39.8 H (22.0-30.0) sec Sodium (137-145) mmol/L BUN (9-20) mg/dL Creatinine (0.66-1.25) mg/dL POC Glucose (mg/dL) (70-110) mg/dL Calcium (8.4-10.2) mg/dL AST (17-59) U/L Alkaline Phosphatase (38-126) U/L Lactate Dehydrogenase 447 H (120-246) U/L Creatine Kinase (55-170) U/L Total Protein (6.3-8.2) g/dL Albumin (3.5-5.0) g/dL Procalcitonin 3.90 H (0.02-0.09) ng/mL 08/25/23 08/25/23 08/25/23 Range/Units 16:42 17:50 22:40 RBC (4.30-5.90) m/uL Hgb (13.0-17.5) gm/dL Hct (39.0-53.0) % Plt Count (150-450) k/uL Neutrophils # (1.3-7.7) k/uL APTT (22.0-30.0) sec Sodium (137-145) mmol/L BUN (9-20) mg/dL Creatinine (0.66-1.25) mg/dL POC Glucose (mg/dL) 57 L 162 H (70-110) mg/dL Calcium (8.4-10.2) mg/dL AST (17-59) U/L Alkaline Phosphatase (38-126) U/L Lactate Dehydrogenase (120-246) U/L Creatine Kinase 06490 H* (55-170) U/L Total Protein (6.3-8.2) g/dL Albumin (3.5-5.0) g/dL Procalcitonin (0.02-0.09) ng/mL 08/26/23 08/26/23 Range/Units 05:22 05:22 RBC 2.40 L (4.30-5.90) m/uL Hgb 7.8 L (13.0-17.5) gm/dL Hct 23.2 L (39.0-53.0) % Plt Count 88 L (150-450) k/uL Neutrophils # (1.3-7.7) k/uL APTT (22.0-30.0) sec Sodium 134 L (137-145) mmol/L BUN 39 H (9-20) mg/dL Creatinine 2.49 H (0.66-1.25) mg/dL POC Glucose (mg/dL) (70-110) mg/dL Calcium 7.8 L (8.4-10.2) mg/dL AST 269 H (17-59) U/L Alkaline Phosphatase (38-126) U/L Lactate Dehydrogenase (120-246) U/L Creatine Kinase 61215 H* (55-170) U/L Total Protein 4.8 L (6.3-8.2) g/dL Albumin 2.9 L (3.5-5.0) g/dL Procalcitonin (0.02-0.09) ng/mL Assessment and Plan Assessment: #1 acute kidney injury secondary to multifactorial ATN. -Hemodynamics/contrast -Baseline creatinine 1.4 MG per DL in 2018. -Urine analysis hematuria. No proteinuria. -Renal ultrasound no hydronephrosis. #2 chronic kidney disease stage III a suspected nephrosclerosis. #3 coronary artery disease status post CABG #4 atrial fibrillation with RVR #5 rhabdomyolysis Plan: #1 renal function stable. Good urine output. #2 continue with IV fluids for now. #3 avoid nephrotoxic agents and hypotensive episodes. #4 ICU care
--- NOTE | 2023-08-26 16:00 | P.PN ---
Subjective Progress Note Date: 08/26/23 Patient is a 73-year-old male with hypertension, chronic kidney disease, BPH initially presented to the emergency department with complaints of chest pain. He was subsequently admitted for chest pain observation. Troponins were trended and remained negative. Patient was seen by cardiology and was subsequently taken for cardiac cath on 08/20/23 which showed significant multivessel coronary artery disease. Cardiothoracic surgery was subsequently consulted and patient was worked up for possible CABG. Carotid Dopplers were completed showing greater than 75% stenosis of bilateral carotids. Patient underwent off pump coronary artery bypass grafting 3 on 08/23/23. Patient seen and examined at bedside. He is significantly confused, but is following commands better than yesterday. Per nursing he just got up and walking the hallways. He is to follow-up with that and will be receiving a suppository Vital signs reviewed General:non toxic, no distress, appears at stated age Cardiovascular: S1S2 reg, no murmur Lungs: Course bs b/l bilateral, no rhonchi, no rales , no accessory muscle use Abdominal: soft, nontender to palpation, no guarding, no appreciable organomegaly Ext: no gross muscle atrophy, no edema b/l lower extremities, no contractures Psych: Awake, follows commands, unable to answer year Assessment/Plan: Unstable angina with severe multivessel coronary artery disease status post CABG 3 on 08/23/23 KATHY on chronic kidney disease stage IIIA, likely secondary to ATN versus contrast-induced Mild Rhabdo Hypertension Carotid artery stenosis, 25-50% stenosis b/l on CTA neck -Case discussed with cardiothoracic nurse practitioner as well as lead oracle developer. Continue with normal saline at 75 mL/h, continue to trend CK. Pathology does recommend staying off of statin therapy at this time due to elevated CK levels. -Cardiology note reviewed: Continue supportive care -Pulmonary note reviewed: Continue current care, hold statin -Aspirin 81 mg daily, Plavix 75 mg daily, atorvstatin 80 mg at night -Metoprolol 25 mg twice daily - mucinex, mucomyst Thrombocytopenia anticipated outcome of surgery Acute blood loss anemia, anticipated outcome of surgery AST elevation -Patient is status post 2 units of packed red blood cells and 1 unit of platelets. - follow CBC and BMP BPH -Flomax 0.4 mg nightly. Renal cysts- further evaluation via outpatient ultrasound Pancreatic cyst -pancreatic MRI as an outpatient Liver nodule- marginally increased in size since 2014 likely benign. Coagulopathy, resolved Data Review: Labs reviewed from today including CBC, basic metabolic profile, liver enzymes, CK which are remarkable for hemoglobin 7.8, platelets 88, sodium 134, BUN 39, creatinine 2.49[place] [address] Chest x-ray reviewed by myself, improvement in right lung wedge shaped density DVT prophylaxis: Heparin Thank you for allowing us to participate in the care of this pleasant patient. Do not hesitate to contact us with questions. Someone can be reached from the [facility] hospitalist group all hours of the day at [phone] or via [employer]Import. This dictation was prepared using [employer] voice recognition software. Though every attempt is made to correct errors during dictation some may still exist. Active Medications Acetaminophen (Acetaminophen Tab 500 Mg Tab) 1,000 mg PO Q6HR PRN PRN Reason: Fever and/ or Pain Last Admin: 08/26/23 06:04 Dose: 1,000 mg Acetylcysteine (Acetylcysteine 800 Mg/4 Ml Vial) 200 mg INHALATION RT-QID [facility] Last Admin: 08/26/23 11:56 Dose: 200 mg Albuterol/Ipratropium (Ipratropium-Albuterol 3 Ml Neb) 3 ml INHALATION RT-Q2H PRN PRN Reason: Shortness Of Breath Or Wheezing Albuterol/Ipratropium (Ipratropium-Albuterol 3 Ml Neb) 3 ml INHALATION RT-QID [facility] Last Admin: 08/26/23 11:56 Dose: 3 ml Amiodarone HCl (Amiodarone 200 Mg Tab) 400 mg PO BID [facility] Last Admin: 08/26/23 10:05 Dose: 400 mg Aspirin (Aspirin 325 Mg Tab) 325 mg PO DAILY [facility] Last Admin: 08/26/23 10:05 Dose: 325 mg Benzocaine/Menthol (Benzocaine/Menthol Lozeng 1 Each Lozenge) 1 each MUCOUS MEM Q2H PRN PRN Reason: Sore Throat Bisacodyl (Bisacodyl 10 Mg Supp) 10 mg RECTAL DAILY PRN PRN Reason: Constipation Last Admin: 08/26/23 10:05 Dose: 10 mg Clopidogrel Bisulfate (Clopidogrel 75 Mg Tab) 75 mg PO DAILY [facility] Last Admin: 08/26/23 10:05 Dose: 75 mg Dextrose/Water (Dextrose 50% Syringe 50 Ml) 25 ml IVP PER PROTOCOL PRN; Protocol PRN Reason: Hypoglycemia Dextrose/Water (Dextrose 50% Syringe 50 Ml) 50 ml IVP PER PROTOCOL PRN; Protocol PRN Reason: Hypoglycemia Folic Acid (Folic Acid 1 Mg Tab) 1 mg PO DAILY [facility] Last Admin: 08/26/23 10:05 Dose: 1 mg Guaifenesin (Guaifenesin 600 Mg Tablet.Er) 1,200 mg PO Q12HR [facility] Last Admin: 08/26/23 10:04 Dose: 1,200 mg Heparin Sodium (Porcine) (Heparin Sodium,Porcine 5,000 Unit/Ml 1 Ml Vial) 5,000 unit SQ Q8HR [facility] Last Admin: 08/26/23 10:04 Dose: 5,000 unit Amiodarone HCl 150 mg/ (Dextrose/Water) 103 mls @ 618 mls/hr IV .Q10M PRN PRN Reason: A.FIB/FLUTTER Last Admin: 08/25/23 11:12 Dose: 618 mls/hr Calcium Gluconate/Sodium (Chloride 2 gm/ IV Solution) 100 mls @ 100 mls/hr IVPB ONCE PRN PRN Reason: Ionized Calcium less than 4.4 Stop: 08/29/23 11:41 Sodium Chloride (Saline 0.9%) 1,000 mls @ 75 mls/hr IV .[id number] [facility] Last Admin: 08/26/23 06:41 Dose: 75 mls/hr Insulin Aspart (Insulin Aspart (Novolog) 100 Unit/Ml Vial) 0 unit SQ ACHS [facility]; Protocol Last Admin: 08/26/23 12:09 Dose: Not Given Magnesium Hydroxide (Magnesium Hydroxide 2,400 Mg/30 Ml Cup) 2,400 mg PO BID PRN PRN Reason: Constipation Metoclopramide HCl (Metoclopramide 5 Mg/Ml 2 Ml Vial) 10 mg IVP Q4H PRN PRN Reason: Nausea And Vomiting Last Admin: 08/24/23 06:42 Dose: 10 mg Metoprolol Tartrate (Metoprolol Tartrate 25 Mg Tab) 25 mg PO TID [facility] Last Admin: 08/26/23 10:05 Dose: 25 mg Miscellaneous Information (Potassium Replacement Protocol 1 Each Misc) 1 each MISCELLANE DAILY PRN; Protocol PRN Reason: Per Protocol Miscellaneous Information (Magnesium Replacement Protocol 1 Each Misc) 1 each MISCELLANE DAILY PRN; Protocol PRN Reason: Per Protocol Ondansetron HCl (Ondansetron 4 Mg/2 Ml Vial) 4 mg IVP Q6HR PRN PRN Reason: Nausea And Vomiting Last Admin: 08/24/23 08:54 Dose: 4 mg Pantoprazole Sodium (Pantoprazole 40 Mg Tablet) 40 mg PO AC-BRKFST [facility] Last Admin: 08/26/23 06:42 Dose: 40 mg Senna/Docusate Sodium (Sennosides-Docusate Sodium 1 Each Tab) 2 each PO HS [facility] Last Admin: 08/25/23 20:08 Dose: 2 each Sodium Chloride (Sodium Chloride 0.9% Flush 10 Ml Syringe) 10 ml IV BID [facility] Last Admin: 08/25/23 20:08 Dose: 10 ml Tamsulosin HCl (Tamsulosin 0.4 Mg Cap.Er.24h) 0.4 mg PO PC-SUPPER [facility] Last Admin: 08/25/23 18:50 Dose: 0.4 mg Thiamine HCl (Thiamine 100 Mg Tab) 100 mg PO DAILY [facility] Last Admin: 08/26/23 10:06 Dose: 100 mg Objective - Vital Signs Vital signs: Vital Signs Temp 99.2 F 08/26/23 04:00 Pulse 84 08/26/23 12:13 Resp 18 08/26/23 12:13 BP 105/51 08/26/23 07:00 Pulse Ox 92 L 08/26/23 07:00 FiO2 50 08/24/23 00:45 Intake & Output 08/25/23 08/26/23 08/26/23 18:59 06:59 18:59 Intake Total 1036 858 78 Output Total 710 1035 50 Balance 326 -177 28 Weight 81.9 kg Intake: IV 336 858 78 .9NS Pressure bag 36 33 3 Lactated Ringers 1,000 ml 300 @ 20 mls/hr IV .Q24H [facility] Rx#:[id number] Sodium Chloride 0.9% 1, 825 75 000 ml @ 75 mls/hr IV . [id number] [facility] Rx#:[id number] Intake, IV Titration 700 Amount Albumin Human 5% 250 ml 250 In Empty Bag 1 bag @ 250 mls/hr IVPB ONCE ONE Rx#: [id number] Calcium Gluconate in NaCl 100 2 gm In Saline 1 100ml. bag @ 100 mls/hr IVPB ONCE ONE Rx#:[id number] Dextrose 5% in Water 100 100 ml @ 618 mls/hr IV .Q10M PRN with Amiodarone 150 mg Rx#:[id number] Sodium Chloride 0.9% 500 250 ml 250 ml @ 999 mls/hr IV .Q16M ONE Rx#:[id number] Output: Chest Tube Drainage 200 295 Left Pleural Chest Tube 45 100 Mediastinal 50 Right Pleural Chest Tube 45 195 Right/Left Pleural 60 Urine 510 740 50 Other: Voiding Method Indwelling Catheter Indwelling Catheter ABP, PAP, CO, CI - Last Documented Arterial Blood Pressure 43/40 Pulmonary Artery Pressure 29/14 Cardiac Output 4.4 Cardiac Index 2.2 - Labs CBC & Chem 7: 08/26/23 05:22 08/26/23 05:22 Labs: Abnormal Lab Results - Last 24 Hours (Table) 08/25/23 08/25/23 08/25/23 Range/Units 15:48 15:48 15:48 RBC (4.30-5.90) m/uL Hgb (13.0-17.5) gm/dL Hct (39.0-53.0) % Plt Count (150-450) k/uL APTT 39.8 H (22.0-30.0) sec Sodium (137-145) mmol/L BUN (9-20) mg/dL Creatinine (0.66-1.25) mg/dL POC Glucose (mg/dL) (70-110) mg/dL Calcium (8.4-10.2) mg/dL AST (17-59) U/L Lactate Dehydrogenase 447 H (120-246) U/L Creatine Kinase 41453 H* (55-170) U/L Total Protein (6.3-8.2) g/dL Albumin (3.5-5.0) g/dL Procalcitonin (0.02-0.09) ng/mL 08/25/23 08/25/23 08/25/23 Range/Units 16:13 16:42 17:50 RBC (4.30-5.90) m/uL Hgb (13.0-17.5) gm/dL Hct (39.0-53.0) % Plt Count (150-450) k/uL APTT (22.0-30.0) sec Sodium (137-145) mmol/L BUN (9-20) mg/dL Creatinine (0.66-1.25) mg/dL POC Glucose (mg/dL) 57 L 162 H (70-110) mg/dL Calcium (8.4-10.2) mg/dL AST (17-59) U/L Lactate Dehydrogenase (120-246) U/L Creatine Kinase (55-170) U/L Total Protein (6.3-8.2) g/dL Albumin (3.5-5.0) g/dL Procalcitonin 3.90 H (0.02-0.09) ng/mL 08/25/23 08/26/23 08/26/23 Range/Units 22:40 05:22 05:22 RBC 2.40 L (4.30-5.90) m/uL Hgb 7.8 L (13.0-17.5) gm/dL Hct 23.2 L (39.0-53.0) % Plt Count 88 L (150-450) k/uL APTT (22.0-30.0) sec Sodium 134 L (137-145) mmol/L BUN 39 H (9-20) mg/dL Creatinine 2.49 H (0.66-1.25) mg/dL POC Glucose (mg/dL) (70-110) mg/dL Calcium 7.8 L (8.4-10.2) mg/dL AST 269 H (17-59) U/L Lactate Dehydrogenase (120-246) U/L Creatine Kinase 15779 H* 11443 H* (55-170) U/L Total Protein 4.8 L (6.3-8.2) g/dL Albumin 2.9 L (3.5-5.0) g/dL Procalcitonin (0.02-0.09) ng/mL
[2023-08-26 16:48] LABS: Glucose,Whole Blood 105 mg/dL (70-110)
[2023-08-26] MEDS: TAMSULOSIN 0.4 MG CAP.ER.24H PO SCH (18:36)
[2023-08-26 20:22] LABS: Glucose,Whole Blood 74 mg/dL (70-110)
[2023-08-26] MEDS: SENNOSIDES-DOCUSATE SODIUM 1 EACH TAB PO SCH (21:59)
[2023-08-26] MEDS: MAGNESIUM HYDROXIDE 2,400 MG/30 ML CUP PO PRN (22:01)
[2023-08-27] MEDS: HEPARIN SODIUM,PORCINE 5,000 UNIT/ML 1 ML VIAL SQ SCH ×3 (00:12→16:00)
[2023-08-27 04:50] LABS: ALT 34 U/L (4-49); AST 206 U/L (17-59); African American GFR (CKD) 33 (>60 ml/min/1.73 sqM); Albumin 2.8 g/dL (3.5-5.0); Alkaline Phosphatase 55 U/L (38-126); Anion Gap 10 mmol/L; Blood Urea Nitrogen 49 mg/dL (9-20); Calcium 7.6 mg/dL (8.4-10.2); Carbon Dioxide 21 mmol/L (22-30); Chloride 104 mmol/L (98-107); Glucose 70 mg/dL (74-99); Magnesium 2.3 mg/dL (1.6-2.3); Non-African American GFR(CKD) 29 (>60 ml/min/1.73 sqM); Sodium 135 mmol/L (137-145); Total Bilirubin 1.1 mg/dL (0.2-1.3); Total Protein 4.8 g/dL (6.3-8.2)
[2023-08-27 05:44] LABS: Basophils % (A) 0 %; Eosinophils # (A) 0.2 k/uL (0-0.7); Eosinophils % (A) 2 %; HGB 7.3 gm/dL (13.0-17.5); Lymphocytes % (A) 10 %; MCH 32.2 pg (25.0-35.0); MCV 97.3 fL (80.0-100.0); Monocytes # (A) 0.7 k/uL (0-1.0); Monocytes % (A) 7 %; Neutrophils # (A) 7.6 k/uL (1.3-7.7); Neutrophils % (A) 78 %; RBC 2.27 m/uL (4.30-5.90); RDW 14.3 % (11.5-15.5); WBC 9.8 k/uL (3.8-10.6)
[2023-08-27 05:45] LABS: Platelet Count 134 k/uL (150-450)
[2023-08-27 06:42] LABS: Glucose,Whole Blood 67 mg/dL (70-110)
[2023-08-27] MEDS: INSULIN ASPART (NovoLOG) 100 UNIT/ML VIAL SQ SCH ×4 (07:20→21:20)
--- NOTE | 2023-08-27 07:34 | XR ---
EXAMINATION TYPE: XR chest 1V portable DATE OF EXAM: 08/27/2023 5:42 AM CLINICAL INDICATION:Male, 73 years old with history of Postop CABG; [facility] COMPARISON: Chest radiograph 08/26/2023. TECHNIQUE: XR chest 1V portable Frontal view of the chest. FINDINGS: Redemonstration of a right IJ sheath as well as sternotomy wires and post-CABG clips. Bilateral chest tubes are again identified and stable in position. No appreciable pneumothorax is identified. No lar ge pleural effusions. Minimal hazy airspace disease which may represent atelectasis. Mild cardiomegal y. The osseous structures remain intact. IMPRESSION: Stable exam demonstrating mild cardiomegaly, postoperative changes, and stable position of support li helena/tubes.
[2023-08-27 07:42] LABS: Glucose,Whole Blood 72 mg/dL (70-110)
[2023-08-27] MEDS: AMIODARONE 200 MG TAB PO SCH ×2 (07:44→21:25)
[2023-08-27] MEDS: PANTOPRAZOLE 40 MG TABLET PO SCH (07:45)
[2023-08-27] MEDS: ASPIRIN 325 MG TAB PO SCH (07:45)
[2023-08-27] MEDS: guaiFENesin 600 MG TABLET.ER PO SCH ×2 (07:45→21:25)
[2023-08-27] MEDS: CLOPIDOGREL 75 MG TAB PO SCH (07:45)
[2023-08-27] MEDS: FOLIC ACID 1 MG TAB PO SCH (07:45)
[2023-08-27] MEDS: MAGNESIUM HYDROXIDE 2,400 MG/30 ML CUP PO PRN (07:46)
[2023-08-27] MEDS: METOPROLOL TARTRATE 25 MG TAB PO SCH ×3 (07:46→21:25)
[2023-08-27] MEDS: THIAMINE 100 MG TAB PO SCH (07:53)
[2023-08-27] MEDS: ACETYLCYSTEINE 800 MG/4 ML VIAL INHALATION SCH ×2 (09:20→10:54)
[2023-08-27] MEDS: IPRATROPIUM-ALBUTEROL 3 ML NEB INHALATION SCH ×4 (09:21→20:25)
[2023-08-27] MEDS: SODIUM CHLORIDE 0.9% 1,000 ML IV SCH ×2 (09:39→21:25)
--- NOTE | 2023-08-27 11:17 | P.PN ---
Subjective Progress Note Date: 08/27/23 Patient is a 73-year-old male with hypertension, chronic kidney disease, BPH initially presented to the emergency department with complaints of chest pain. He was subsequently admitted for chest pain observation. Troponins were trended and remained negative. Patient was seen by cardiology and was subsequently taken for cardiac cath on 08/20/23 which showed significant multivessel coronary artery disease. Cardiothoracic surgery was subsequently consulted and patient was worked up for possible CABG. Carotid Dopplers were completed showing greater than 75% stenosis of bilateral carotids. Patient underwent off pump coronary artery bypass grafting 3 on 08/23/23. He did develop some KATHY. Patient seen and examined at bedside. He is more alert today, mild chest pain, no shortness of breath. No complaints. Vital signs reviewed General:non toxic, no distress, appears at stated age Cardiovascular: S1S2 reg, no murmur Lungs: Course bs b/l bilateral, no rhonchi, no rales , no accessory muscle use Abdominal: soft, nontender to palpation, no guarding, no appreciable organo megaly Ext: no gross muscle atrophy, no edema b/l lower extremities, no contractures Psych: Awake, follows commands, unable to answer year Assessment/Plan: Unstable angina with severe multivessel coronary artery disease status post CABG 3 on 08/23/23 KATHY on chronic kidney disease stage IIIA, likely secondary to Rhabdo versus contrast-induced Mild Rhabdo Hypertension Carotid artery stenosis, 25-50% stenosis b/l on CTA neck -Case discussed with cardiothoracic nurse practitioner will continue with IVF and await repeat CPK, if falling would resume statin. -Await further Cardiology recs -Await further Pulmonary no recs -Aspirin 81 mg daily, Plavix 75 mg daily, statin on hold -Metoprolol 25 mg tTID - mucinex Thrombocytopenia anticipated outcome of surgery Acute blood loss anemia, anticipated outcome of surgery AST elevation -Patient is status post 2 units of packed red blood cells and 1 unit of platelets. - follow CBC and CMP BPH -Flomax 0.4 mg nightly. Renal cysts- further evaluation via outpatient ultrasound Pancreatic cyst -pancreatic MRI as an outpatient Liver nodule- marginally increased in size since 2013 likely benign. Coagulopathy, resolved Data Review: Urine output 1085 Labs reviewed and remarkable for hemoglobin 7.3, platelets 134, sodium 135, carbon dioxide 21, BUN 49, creatinine 219. Patient did have an episode of hypoglycemia this morning with blood sugar 67 Chest x-ray reviewed by myself- Hazy right-sided wedge-shaped density improving DVT prophylaxis: Heparin Thank you for allowing us to participate in the care of this pleasant patient. Do not hesitate to contact us with questions. Someone can be reached from the [facility] hospitalist group all hours of the day at [phone] or via perfect serve. This dictation was prepared using [employer] voice recognition software. Though every attempt is made to correct errors during dictation some may still exist. Objective - Vital Signs Vital signs: Vital Signs Temp 98.3 F 08/27/23 08:00 Pulse 88 08/27/23 11:11 Resp 18 08/27/23 11:11 BP 97/56 08/27/23 10:00 Pulse Ox 97 08/27/23 10:00 FiO2 50 08/24/23 00:45 Intake & Output 08/26/23 08/27/23 08/27/23 18:59 06:59 18:59 Intake Total 1036 1086 231 Output Total 890 565 245 Balance 146 521 -14 Weight 76.7 kg Intake: IV 1036 936 231 .9NS Pressure bag 36 36 6 Magnesium Sulfate-D5w Pmx 100 1 gm In Dextrose/Water 1 100ml.bag @ 100 mls/hr IVPB ONCE ONE Rx#: [id number] Sodium Chloride 0.9% 1, 900 900 225 000 ml @ 75 mls/hr IV . [id number] [facility] Rx#:[id number] Oral 150 Output: Chest Tube Drainage 240 130 90 Left Pleural Chest Tube 160 50 40 Right Pleural Chest Tube 80 80 50 Urine 650 435 155 Other: Voiding Method Indwelling Catheter Indwelling Catheter ABP, PAP, CO, CI - Last Documented Arterial Blood Pressure 43/40 Pulmonary Artery Pressure 29/14 Cardiac Output 4.4 Cardiac Index 2.2 - Labs CBC & Chem 7: 08/27/23 04:23 08/27/23 04:23 Labs: Abnormal Lab Results - Last 24 Hours (Table) 08/27/23 08/27/23 08/27/23 Range/Units 04:23 04:23 06:41 RBC 2.27 L (4.30-5.90) m/uL Hgb 7.3 L (13.0-17.5) gm/dL Hct 22.0 L (39.0-53.0) % Plt Count 134 L D (150-450) k/uL Sodium 135 L (137-145) mmol/L Carbon Dioxide 21 L (22-30) mmol/L BUN 49 H (9-20) mg/dL Creatinine 2.19 H (0.66-1.25) mg/dL Glucose 70 L (74-99) mg/dL POC Glucose (mg/dL) 67 L (70-110) mg/dL Calcium 7.6 L (8.4-10.2) mg/dL AST 206 H (17-59) U/L Total Protein 4.8 L (6.3-8.2) g/dL Albumin 2.8 L (3.5-5.0) g/dL
--- NOTE | 2023-08-27 11:23 | P.PN ---
Subjective Progress Note Date: 08/27/23 This is Rui Pacheco NP, I'm dictating on behalf of Dr. Capps's H&P and A&P. Patient was interviewed and examined. Patient's a pleasant 73-year-old male who presented to the hospital with unstable angina, and underwent coronary angiogram revealing triple-vessel disease. On 08/23/2023, the patient underwent coronary bypass grafting 3 with left internal thoracic artery to LAD, left anterior coronary artery in situ to OM1, and SVG to RCA. Patient had intraoperative complications to include converting from off-pump to on pump bypass as well as A. fib requiring defibrillation. Patient has been weaned off of vasopressors and transitioned to oral amiodarone and beta blockers and has been doing well. Nursing reports patient ambulated over half of the unit today. Patient does report that he is feeling okay today. His hemoglobin is a little bit lower than yesterday, and his blood pressure is noted to be a little bit soft. GENERAL: Well-appearing, well-nourished and in no acute distress. NECK: Supple without JVD or thyromegaly. LUNGS: Mild crackles with expiratory wheezing noted throughout all lung santos. Respiration equal and unlabored. No rales or rhonchi. HEART: Regular rate and rhythm without murmurs, rubs or gallops. S1 and S2 heard. EXTREMITIES: Normal range of motion, no edema. No clubbing or cyanosis. Peripheral pulses intact and strong. VITALS: Temp 98.3, pulse 95, respirations 22, blood pressure 106/56, O2 saturation 93% on 4 L TELEMETRY: Normal sinus rhythm LABS: White count 9.8, hemoglobin 7.3, platelets 134, sodium 135, potassium 4.0, BUN 49, creatinine 2.19, magnesium 2.3 IMPRESSION: 1. Multivessel coronary artery disease 2. Status post CABG 3 3. Hypertension 4. Hyperlipidemia 5. Chronic kidney disease 6. COPD 7. Bilateral carotid stenosis PLAN: No changes from a cardiac standpoint at this time. We'll continue to monitor patient. Further recommendations based on patient's clinical course. Objective - Vital Signs Vital signs: Vital Signs Temp 98.3 F 08/27/23 08:00 Pulse 88 08/27/23 11:11 Resp 18 08/27/23 11:11 BP 97/56 08/27/23 10:00 Pulse Ox 97 08/27/23 10:00 FiO2 50 08/24/23 00:45 Intake & Output 08/26/23 08/27/23 08/27/23 18:59 06:59 18:59 Intake Total 1036 1086 231 Output Total 890 565 245 Balance 146 521 -14 Weight 76.7 kg Intake: IV 1036 936 231 .9NS Pressure bag 36 36 6 Magnesium Sulfate-D5w Pmx 100 1 gm In Dextrose/Water 1 100ml.bag @ 100 mls/hr IVPB ONCE ONE Rx#: [id number] Sodium Chloride 0.9% 1, 900 900 225 000 ml @ 75 mls/hr IV . [id number] [facility] Rx#:[id number] Oral 150 Output: Chest Tube Drainage 240 130 90 Left Pleural Chest Tube 160 50 40 Right Pleural Chest Tube 80 80 50 Urine 650 435 155 Other: Voiding Method Indwelling Catheter Indwelling Catheter ABP, PAP, CO, CI - Last Documented Arterial Blood Pressure 43/40 Pulmonary Artery Pressure 29/14 Cardiac Output 4.4 Cardiac Index 2.2 - Labs CBC & Chem 7: 08/27/23 04:23 08/27/23 04:23 Labs: Abnormal Lab Results - Last 24 Hours (Table) 08/27/23 08/27/23 08/27/23 Range/Units 04:23 04:23 06:41 RBC 2.27 L (4.30-5.90) m/uL Hgb 7.3 L (13.0-17.5) gm/dL Hct 22.0 L (39.0-53.0) % Plt Count 134 L D (150-450) k/uL Sodium 135 L (137-145) mmol/L Carbon Dioxide 21 L (22-30) mmol/L BUN 49 H (9-20) mg/dL Creatinine 2.19 H (0.66-1.25) mg/dL Glucose 70 L (74-99) mg/dL POC Glucose (mg/dL) 67 L (70-110) mg/dL Calcium 7.6 L (8.4-10.2) mg/dL AST 206 H (17-59) U/L Total Protein 4.8 L (6.3-8.2) g/dL Albumin 2.8 L (3.5-5.0) g/dL
[2023-08-27 11:30] LABS: Glucose,Whole Blood 74 mg/dL (70-110)
--- NOTE | 2023-08-27 12:12 | P.PN ---
Subjective Progress Note Date: 08/27/23, the patient is being seen immediately following bypass surgery. The patient a complicated surgery. The patient will Off pump converted to cardiopulmonary bypass assisted coronary artery bypass grafting x 3. Right internal thoracic artery (in-situ) to left anterior descending coronary artery. Left anterior descending coronary artery (in-situ) to obtuse marginal artery #3. Reversed lesser saphenous vein from aorta to distal right coronary artery. The patient was brought into the intensive care unit and the patient is currently on propofol running at 20 mcg/kg/m. Intubated on a mechanical ventilator. Is currently on assist control mode at a rate of 12, tidal volume of 450, FiO2 of 100% with a PEEP of 5. Blood cultures showed a pH of 7.28 with a pCO2 of 51 and pO2 112. Chest x-ray shows adequate expansion of both lungs. No pneumothorax. The patient has a right pleural, left total and mediastinal chest tube. The patient's cardiac output is currently at 8.7 with an index of 4.4. Pulmonary artery pressure 34/23. The patient is on vasopressin physiologic dose, dopamine infusion running at 0.03 microvascular kilogram per minute and norepinephrine is running at 0.05 microvascular kilogram per minutes. the cardiac rhythm Is sinus and the patient is on amiodarone at 1 mg/m. Patient is also on insulin drip at 2.5 units an hour. The patient has increased output from the chest tube. The right pleural in the left pleural chest tubes are connected output has been in the order of 400 mL and the mediastinal chest tube has drained approximately 130 mL since arrival from the operating room. Intraoperatively, the patient received a total of 2 units of packed RBC, platelet concentrate, 4.5 L of albumin, 3 L of crystalloids and 2 L of Cell Savers. Estimated blood loss was around 4 L. The patient is currently hypothermic with a temperature of 35.7C. The CBC showed a hemoglobin of 8.7, white cell count of 8.5, platelet count of 78, and electrodes are still pending for now. Meanwhile, a cognition profile showed an INR of 1.8 with a PT of 18.5 and a PTT of 65.3. The patient was also given protamine. His well sedated and is, comfortable at this point in time. Surgical one-sided dry clean and intact. On 08/24/2023, the patient is extubated and sitting up on a chair and currently he is on oxygen at 4 L. He was quite unstable after he came into the ICU. His condition progressively stabilized with output from the chest to progressively dropped. His vaccination improved. He was gradually weaned off the mechanical ventilator and he was extubated without having any major difficulties. The chest x-ray from today shows atelectatic changes in the right upper lobe. Geneva- Vijay catheter still in place. He has cardiomegaly. He also has some mild pulm onary vascular congestion. The Geneva-Vijay catheter is in place. PA pressures are 24/10. Cardiac output is 5.8 with an index of 3.0. Adequate urine output. All of the pressors have been discontinued. He remains on insulin drip at 3 units an hour. Amiodarone drip has been discontinued and the patient is currently on oral amiodarone. He is also in a normal sinus rhythm. Is using the incentive spirometer. He is falling approximately 1250 mL. His only complaint is some nausea for which the patient was given Zofran. Chest tubes are in place. The patient has a right pleural, left pleural chest tube which are connected and there is no evidence of any air leak. The patient also has a mediastinal chest tube. Output from the chest tubes have been slowing down progressively. On today's evaluation of 08/25/2022, the patient is slightly confused. Is having some difficulties in finding appropriate words. His we'll go 4 extremities. I feel that his mentation is waxing and waning. On certain occasions, is very much appropriate. Other times, he was noted to have some difficulties noted during words. No aphasia. No facial asymmetry. No headaches. In fact his blood pressure is soft and the patient is atrial fibrillation with a heart rate between 110 and 1:30, irregular. In same time the patient has of an acute kidney injury. Creatinine is up to 2.4 with a BUN of 31 and his sodium levels of 137. Hemoglobin stable at 9.1. The patient continues to have a right and a left pleural chest tube and a mediastinal chest tube. No evidence of any pneumothorax. Output from the chest abdomen 250 mL from MEDIASTINAL and the pleural chest tubes and there is no evidence of any air leak. Chest x-ray shows atelectatic changes in the right lung and the patient has a congested cough. Suspect a component of mucus plugging as the patient had some right upper lobe atelectasis immediately postop. He is currently on 7 L of oxygen high flow with a pulse ox of 92%. He is receiving a dose of IV albumin, 2 50 mL, 12.5 g. Urine output is in order of 30 mL an hour and the patient was given oxycodone 5 mg on 2 separate occasions for pain control. Using the incentive spirometer. Sternum is stable clean and intact. On 08/26/2023, the patient is being seen for a follow-up. The patient is oxygen at 4 L/m nasal cannula. Breathing is labored and the patient is unable to perform adequate pulmonary toileting. He is trying to use incentive spirometer. He has a congested cough. Surgical one-sided dry clean and intact. The chest x-ray from today shows some volume loss in the lung bases. Limited atelectatic changes in the right midlung area. He does have some increased gaseous distention of the bowel in the abdomen. His chest tubes are split. Mediastinal chest tubes are out and the patient continues to have a right pleural left lower chest tube. I do not appreciate any pneumothorax. Meanwhile, he was found to have a component of rhabdomyolysis. CPK level was as high as 13,000 and is currently slightly lower compared to yesterday. He has sustained an acute k idney injury. Creatinine 2.4 and the patient is currently on normal saline at rate of 75 mL an hour. His overall fluid balance has been -757 mL over the past 24 hours. His diuretics are currently on hold. His cardiac rhythm is sinus. He remains on amiodarone. He remains on metoprolol 25 mg by mouth 3 times a day. Statins were discontinued. He remains on aspirin. Is working on his incentive spirometer. On 08/27/2023, the patient is resting comfortably in bed. Chest tubes were removed. No major significant is for now. No shortness of breath. No other significant events overnight. Urine output is adequate. The patient's creatinine is also improving is currently down to 2. all within a 49. Sodium levels along 35, the bronchoscope was of 9.8 with a hemoglobin of 7.3. Moving all 4 extremities. No limitation. No cardiac arrhythmias at this point in time. The patient is essentially stable for the time being. The patient remains on amiodarone 400 mg by mouth twice a day. The patient is on metoprolol 25 mg 3 times a day. The patient is currently on a combination of aspirin and Plavix. Patient is also on Flomax. IV fluids are in the form of normal saline 75 mL an hour. Tolerating diet. Using the senna spirometer. Currently on 2 L of oxygen by nasal cannula with a pulse ox of 97%. Chest x-ray showing stable cardiomegaly with postoperative changes Objective - Vital Signs Vital signs: Vital Signs Temp 98.3 F 08/27/23 08:00 Pulse 90 08/27/23 09:00 Resp 27 H 08/27/23 09:00 BP 110/60 08/27/23 09:00 Pulse Ox 94 L 08/27/23 09:00 FiO2 50 08/24/23 00:45 Intake & Output 08/26/23 08/27/23 08/27/23 18:59 06:59 18:59 Intake Total 1036 1086 156 Output Total 890 565 245 Balance 146 521 -89 Weight 76.7 kg Intake: IV 1036 936 156 .9NS Pressure bag 36 36 6 Magnesium Sulfate-D5w Pmx 100 1 gm In Dextrose/Water 1 100ml.bag @ 100 mls/hr IVPB ONCE ONE Rx#: [id number] Sodium Chloride 0.9% 1, 900 900 150 000 ml @ 75 mls/hr IV . [id number] [facility] Rx#:[id number] Oral 150 Output: Chest Tube Drainage 240 130 90 Left Pleural Chest Tube 160 50 40 Right Pleural Chest Tube 80 80 50 Urine 650 435 155 Other: Voiding Method Indwelling Catheter Indwelling Catheter ABP, PAP, CO, CI - Last Documented Arterial Blood Pressure 43/40 Pulmonary Artery Pressure 29/14 Cardiac Output 4.4 Cardiac Index 2.2 - Exam GENERAL EXAM: Alert, 73-year-old white male , comfortable in no apparent distress. 2 L nasal cannula HEAD: Normocephalic and atraumatic EYES: Normal reaction of pupils, equal size. NOSE: Clear with pink turbinates. THROAT: No erythema or exudates. NECK: No masses, no JVD. The patient has a Geneva-Vijay catheter in the right IJ. CHEST: No chest wall deformity. LUNGS: Equal air entry with no crackles, wheeze, rhonchi or dullness. Chest using the removed CVS: S1 and S2 normal with no audible murmur, regular rhythm. No extra heart sounds ABDOMEN: No hepatosplenomegaly, active bowel sounds, no guarding or rigidity. SPINE: No scoliosis or deformity SKIN: No rashes CENTRAL NERVOUS SYSTEM: No focal deficits multiple occasional confusion is noted without any focal neurological deficits. EXTREMITIES: There is no peripheral edema, clubbing, or cyanosis. Peripheral pulses are intact. - Labs CBC & Chem 7: 08/27/23 04:23 08/27/23 04:23 Labs: Abnormal Lab Results - Last 24 Hours (Table) 08/27/23 08/27/23 08/27/23 Range/Units 04:23 04:23 06:41 RBC 2.27 L (4.30-5.90) m/uL Hgb 7.3 L (13.0-17.5) gm/dL Hct 22.0 L (39.0-53.0) % Plt Count 134 L D (150-450) k/uL Sodium 135 L (137-145) mmol/L Carbon Dioxide 21 L (22-30) mmol/L BUN 49 H (9-20) mg/dL Creatinine 2.19 H (0.66-1.25) mg/dL Glucose 70 L (74-99) mg/dL POC Glucose (mg/dL) 67 L (70-110) mg/dL Calcium 7.6 L (8.4-10.2) mg/dL AST 206 H (17-59) U/L Total Protein 4.8 L (6.3-8.2) g/dL Albumin 2.8 L (3.5-5.0) g/dL Assessment and Plan Assessment: Triple-vessel coronary artery disease, and the patient is status post Off pump converted to cardiopulmonary bypass assisted coronary artery bypass grafting x 3. Right internal thoracic artery (in-situ) to left anterior descending coronary artery. Left anterior descending coronary artery (in-situ) to obtuse marginal artery #3. Reversed lesser saphenous vein from aorta to distal right coronary artery. The patient is currently postop day #5 Postthoracotomy, currently intubated on a mechanical ventilator. Chest x-ray was noted. The patient is currently extubated on 2 L chest is in the remote acute kidney injury, nonoliguric and the patient is producing better urine output and the creatinine is on a decline Acute rhabdomyolysis, improving Hyperglycemia, the patient is currently off insulin drip and he is on sliding- scale insulin coverage COPD, FEV1 65% Blood loss Anemia, expected outcome of surgery and the patient was transfused with a total of 2 units of packed RBC, hemoglobin is stable since yesterday at 7.8 Benign essential hypertension Hyperlipidemia History of TIA Chronic kidney disease stage III Significant history of tobacco dependence, over 50 pack years History of asbestos exposure, with pleural plaquing noted on chest CT Benign prosthetic hyperplasia Nonobstructive carotid artery disease based on CT angiogram, bilateral in the order of 50% Encephalopathy, mild, no focal neurological deficit at this point in time. stabl e Plan: Incentive spirometer Continue 2 L of action by nasal cannula wean it off Gradually dropped down FiO2 to maintain a saturation above 90% Chest tube is removed Stop Lasix for now Hold statins Metoprolol as been increased up to 25 mg TID a day Continue amiodarone Continue Plavix, no anticoagulants otherwise for now. Mucinex for pulmonary toileting and congestion Monitor the mental status. Monitor hemoglobin Chest x-ray was reviewed Condition is critical and we'll continue to follow, collaborate with the surgical team and will make further recommendations.
--- NOTE | 2023-08-27 14:57 | P.PN ---
Subjective Progress Note Date: 08/27/23 Follow-up for acute kidney injury. Urine output of 1.4 L in the last 24 hours. Objective - Vital Signs Vital signs: Vital Signs Temp 98.0 F 08/27/23 12:00 Pulse 96 08/27/23 14:00 Resp 17 08/27/23 14:00 BP 111/57 08/27/23 14:00 Pulse Ox 99 08/27/23 14:00 FiO2 50 08/24/23 00:45 Intake & Output 08/26/23 08/27/23 08/27/23 18:59 06:59 18:59 Intake Total 1036 1086 771 Output Total 890 565 445 Balance 146 521 326 Weight 76.7 kg Intake: IV 1036 936 531 .9NS Pressure bag 36 36 6 Magnesium Sulfate-D5w Pmx 100 1 gm In Dextrose/Water 1 100ml.bag @ 100 mls/hr IVPB ONCE ONE Rx#: [id number] Sodium Chloride 0.9% 1, 900 900 525 000 ml @ 75 mls/hr IV . [id number] [facility] Rx#:[id number] Oral 150 240 Output: Chest Tube Drainage 240 130 90 Left Pleural Chest Tube 160 50 40 Right Pleural Chest Tube 80 80 50 Urine 650 435 155 Urine/Stool Mix 200 Other: Voiding Method Indwelling Catheter Indwelling Catheter Urinal ABP, PAP, CO, CI - Last Documented Arterial Blood Pressure 43/40 Pulmonary Artery Pressure 29/14 Cardiac Output 4.4 Cardiac Index 2.2 - Exam No acute distress S1-S2 heard Decreased breath sounds Edema - Labs CBC & Chem 7: 08/27/23 04:23 08/27/23 04:23 Labs: Abnormal Lab Results - Last 24 Hours (Table) 08/27/23 08/27/23 08/27/23 Range/Units 04:23 04:23 06:41 RBC 2.27 L (4.30-5.90) m/uL Hgb 7.3 L (13.0-17.5) gm/dL Hct 22.0 L (39.0-53.0) % Plt Count 134 L D (150-450) k/uL Sodium 135 L (137-145) mmol/L Carbon Dioxide 21 L (22-30) mmol/L BUN 49 H (9-20) mg/dL Creatinine 2.19 H (0.66-1.25) mg/dL Glucose 70 L (74-99) mg/dL POC Glucose (mg/dL) 67 L (70-110) mg/dL Calcium 7.6 L (8.4-10.2) mg/dL AST 206 H (17-59) U/L Creatine Kinase (55-170) U/L Total Protein 4.8 L (6.3-8.2) g/dL Albumin 2.8 L (3.5-5.0) g/dL 08/27/23 Range/Units 11:06 RBC (4.30-5.90) m/uL Hgb (13.0-17.5) gm/dL Hct (39.0-53.0) % Plt Count (150-450) k/uL Sodium (137-145) mmol/L Carbon Dioxide (22-30) mmol/L BUN (9-20) mg/dL Creatinine (0.66-1.25) mg/dL Glucose (74-99) mg/dL POC Glucose (mg/dL) (70-110) mg/dL Calcium (8.4-10.2) mg/dL AST (17-59) U/L Creatine Kinase 7368 H* (55-170) U/L Total Protein (6.3-8.2) g/dL Albumin (3.5-5.0) g/dL Assessment and Plan Assessment: #1 acute kidney injury secondary to multifactorial ATN. -Hemodynamics/contrast -Baseline creatinine 1.4 MG per DL in 2018. -Urine analysis hematuria. No proteinuria. -Renal ultrasound no hydronephrosis. #2 chronic kidney disease stage III a suspected nephrosclerosis. #3 coronary artery disease status post CABG #4 atrial fibrillation with RVR #5 rhabdomyolysis Plan: #1 renal function stable and improving. Good urine output. #2 continue with IV fluids for now. #3 avoid nephrotoxic agents and hypotensive episodes. #4 ICU care
[2023-08-27] MEDS: DEXTROSE 5% IN WATER 100 ML with AMIODARONE 150 MG IV PRN (16:13)
[2023-08-27 16:28] LABS: Glucose,Whole Blood 124 mg/dL (70-110)
[2023-08-27] MEDS: TAMSULOSIN 0.4 MG CAP.ER.24H PO SCH (18:17)
[2023-08-27 21:02] LABS: Glucose,Whole Blood 116 mg/dL (70-110)
[2023-08-27] MEDS: SENNOSIDES-DOCUSATE SODIUM 1 EACH TAB PO SCH (21:25)
[2023-08-28] MEDS: HEPARIN SODIUM,PORCINE 5,000 UNIT/ML 1 ML VIAL SQ SCH ×4 (00:22→23:42)
[2023-08-28 05:41] LABS: Basophils % (A) 0 %; Eosinophils # (A) 0.3 k/uL (0-0.7); Eosinophils % (A) 3 %; Lymphocytes # (A) 1.1 k/uL (1.0-4.8); Lymphocytes % (A) 13 %; MCH 32.7 pg (25.0-35.0); MCHC 33.3 g/dL (31.0-37.0); MCV 98.1 fL (80.0-100.0); Mean Platelet Volume 8.1; Monocytes # (A) 0.9 k/uL (0-1.0); Monocytes % (A) 10 %; Neutrophils # (A) 6.2 k/uL (1.3-7.7); Neutrophils % (A) 71 %; Platelet Count 161 k/uL (150-450); RBC 2.04 m/uL (4.30-5.90); RDW 14.5 % (11.5-15.5); WBC 8.8 k/uL (3.8-10.6)
[2023-08-28 05:46] LABS: HGB 6.7 gm/dL (13.0-17.5)
[2023-08-28 05:54] LABS: ALT 31 U/L (4-49); AST 140 U/L (17-59); African American GFR (CKD) 33 (>60 ml/min/1.73 sqM); Albumin 2.5 g/dL (3.5-5.0); Alkaline Phosphatase 55 U/L (38-126); Anion Gap 8 mmol/L; Blood Urea Nitrogen 57 mg/dL (9-20); Calcium 7.3 mg/dL (8.4-10.2); Carbon Dioxide 23 mmol/L (22-30); Chloride 106 mmol/L (98-107); Glucose 88 mg/dL (74-99); Non-African American GFR(CKD) 29 (>60 ml/min/1.73 sqM); Sodium 137 mmol/L (137-145); Total Bilirubin 0.9 mg/dL (0.2-1.3); Total Protein 4.6 g/dL (6.3-8.2)
[2023-08-28 07:09] LABS: Basophils % (A) 0 %; Eosinophils # (A) 0.4 k/uL (0-0.7); Eosinophils % (A) 4 %; HCT 22.8 % (39.0-53.0); HGB 7.5 gm/dL (13.0-17.5); Lymphocytes # (A) 1.3 k/uL (1.0-4.8); Lymphocytes % (A) 13 %; MCH 32.6 pg (25.0-35.0); MCHC 32.9 g/dL (31.0-37.0); Macrocytosis Slight; Mean Platelet Volume 8.1; Monocytes # (A) 0.8 k/uL (0-1.0); Monocytes % (A) 8 %; Neutrophils % (A) 71 %; Platelet Count 179 k/uL (150-450); RBC 2.31 m/uL (4.30-5.90); RDW 14.5 % (11.5-15.5); WBC 9.8 k/uL (3.8-10.6)
[2023-08-28 07:10] LABS: Glucose,Whole Blood 82 mg/dL (70-110)
[2023-08-28] MEDS: PANTOPRAZOLE 40 MG TABLET PO SCH (07:10)
[2023-08-28] MEDS: INSULIN ASPART (NovoLOG) 100 UNIT/ML VIAL SQ SCH ×4 (07:10→20:05)
--- NOTE | 2023-08-28 07:19 | P.PN ---
Subjective Progress Note Date: 08/27/23 Principal diagnosis: Triple-vessel coronary artery disease, unstable angina. History of hypertension, hyperlipidemia, chronic kidney disease stage III, previous tobacco dependence with recent cessation, mild COPD, TIA in 2014 with no residual, BPH, bilateral vein stripping, bilateral carotid stenosis POD #4 off pump converted to cardiopulmonary bypass assisted coronary artery bypass grafting 3, right internal thoracic artery in situ to the left anterior descending coronary artery, left anterior coronary artery in situ to the third obtuse marginal artery, reverse lesser saphenous vein from the aorta to the distal right coronary artery, left atrial appendage ligation using a 35 mm AtriClip, endoscopic right tennis vein harvest, graft flow measurements using the Medistim flowmeter, intraoperative transesophageal echocardiogram Post operative acute blood loss anemia and thrombocytopenia, expected given significant hemodilution. Intraoperative and postoperative paroxysmal atrial fibrillation, unexpected but a known common occurrence after open heart surgery. Intraoperative and postoperative hypotension expected due to vasoplegia, atrial fibrillation. The patient was seen and examined in follow-up today 08/27/2023 at his bedside in the intensive care unit. He is currently sitting up to the bedside chair, is awake, alert, oriented [address], disoriented to time. He is in no acute apparent distress. He is still having episodes of confusion as reported from the shift foreman nurse. He remained hemodynamically stable and is currently on no inotropic or pressor support. Oxygen saturation are 98% on 4 L nasal cannula and he is achieving 1000 mL on his incentive spirometry with much encouragement. Bedside telemetry showing normal sinus rhythm heart rate 95 BPM. Ventricular epicardial pacemaker wires are in place and connected the backup bedside pacemaker generator on a VVI mode of 50 BPM. He has been up ambulating in the intensive care unit hallway with standby assistance from nursing and therapy staff and tolerating well. Right IJ cordis remains in place with continuous CVP monitoring, current CVP pressure 2 mmHg. Left and right pleural chest tubes remain in place to low continuous wall suction -20 cm H2O. No air leak is present. Draining thin serosanguineous drainage. Left pleural chest tube drain 10 mL output in the last 8 hours and 230 mL output in the last 24 hours. His right pleural chest tube drained 20 mL output in the last 8 hours and 200 mL output in the last 24 hours. IV fluids remained infusing 0.9% normal saline at 75 mL per hour as the patient's CKs yesterday were as high as 12,963 ruling him in for acute rhabdomyolysis. He has been afebrile the last 24 hours. Laboratory and chest x-ray results reviewed. Objective - Vital Signs Vital signs: Vital Signs Temp 98.2 F 08/27/23 04:00 Pulse 91 08/27/23 07:00 Resp 21 08/27/23 07:00 BP 93/50 08/27/23 07:00 Pulse Ox 98 08/27/23 07:00 FiO2 50 08/24/23 00:45 Intake & Output 08/26/23 08/27/23 08/27/23 18:59 06:59 18:59 Intake Total 1036 1086 78 Output Total 890 565 30 Balance 146 521 48 Weight 76.7 kg Intake: IV 1036 936 78 .9NS Pressure bag 36 36 3 Magnesium Sulfate-D5w Pmx 100 1 gm In Dextrose/Water 1 100ml.bag @ 100 mls/hr IVPB ONCE ONE Rx#: [id number] Sodium Chloride 0.9% 1, 900 900 75 000 ml @ 75 mls/hr IV . [id number] [facility] Rx#:[id number] Oral 150 Output: Chest Tube Drainage 240 130 Left Pleural Chest Tube 160 50 Right Pleural Chest Tube 80 80 Urine 650 435 30 Other: Voiding Method Indwelling Catheter Indwelling Catheter ABP, PAP, CO, CI - Last Documented Arterial Blood Pressure 43/40 Pulmonary Artery Pressure 29/14 Cardiac Output 4.4 Cardiac Index 2.2 - Exam CONSTITUTIONAL: Sitting up to the bedside chair in the intensive care unit, appears comfortable, cooperative, no apparent acute distress. HEENT: Neck is supple, no JVD, no lymphadenopathy. Right IJ Cordis in place and functioning. RESPIRATORY: Lungs sounds with few scattered coarse rhonchi throughout, diminished to his bilateral bases. Respirations are symmetrical and nonlabored. Currently on 4 L nasal cannula with oxygen saturations 98%. Able to achieve 1000 mL on his incentive spirometry. Strong cough, nonproductive and loose. CARDIOVASCULAR: Regular rhythm and rate. S1 and S2 present, negative for S3, gallop or murmur. Sternum is stable. Palpable peripheral pulses bilaterally, trace generalized edema. No calf pain or tenderness noted. Heart hugger in place with patient demonstrating appropriate use. Knee-high ALBERT hose and sequential compression devices in place to his bilateral lower extremities. GASTROINTESTINAL: Abdomen soft, nontender, and slightly distended. Active bowel sounds present 4 quadrants. Tolerating diet. Passing flatus. No guarding or rigidity. GENITOURINARY: Rincon present draining clear, yellow urine. 310 mL urine output in the last 8 hours. INTEGUMENTARY: Skin is warm and dry with no evidence of clubbing or cyanosis. Midline sternal incision clean dry and well approximated, covered with dry intact dressing. Bilateral lower extremity EVH sites well approximated without redness or drainage. No drainage or redness is present. NEUROLOGIC: Cranial nerves II through XII intact. No focal deficits. MUSKULOSKELETAL: Able to move all extremities, strength equal bilaterally, generalized weakness. PSYCHIATRIC: Alert and oriented to person place and time, appropriate affect, intact judgment and insight. INVASIVE LINES AND TUBES: Left/right pleural chest tubes present and connected to low continuous wall suction, no air leaks present. Left pleural chest tube with 10 mL of thin serosanguineous drainage overnight, 230 mL output in the last 24 hours. Right pleural chest tube with 20 mL of thin serosanguineous drainage overnight, 200 mL output in the last 24 hours. Ventricular epicardial pacemaker wires present, connected to generator, VVI backup rate 50 bpm. Right internal jugular Cordis, Current CVP 2 mmHg. - Allied health notes Allied health notes reviewed: nursing - Labs CBC & Chem 7: 08/27/23 04:23 08/27/23 04:23 Labs: Abnormal Lab Results - Last 24 Hours (Table) 08/27/23 08/27/23 08/27/23 Range/Units 04:23 04:23 06:41 RBC 2.27 L (4.30-5.90) m/uL Hgb 7.3 L (13.0-17.5) gm/dL Hct 22.0 L (39.0-53.0) % Plt Count 134 L D (150-450) k/uL Sodium 135 L (137-145) mmol/L Carbon Dioxide 21 L (22-30) mmol/L BUN 49 H (9-20) mg/dL Creatinine 2.19 H (0.66-1.25) mg/dL Glucose 70 L (74-99) mg/dL POC Glucose (mg/dL) 67 L (70-110) mg/dL Calcium 7.6 L (8.4-10.2) mg/dL AST 206 H (17-59) U/L Total Protein 4.8 L (6.3-8.2) g/dL Albumin 2.8 L (3.5-5.0) g/dL - Imaging and Cardiology Chest x-ray: report reviewed, image reviewed Assessment and Plan Assessment: Triple-vessel coronary artery disease, unstable angina, status post 3 vessel CABG History of hypertension Hyperlipidemia, cholesterol 215, LDL 143, triglycerides 185 Chronic kidney disease stage III, with a baseline creatinine of 1.4-1.6 Remote history of tobacco dependence with recent cessation Mild COPD, preoperative FEV1 of 65% of predicted History of asbestosis exposure, CT of the chest showing pleural plaquing TIA in 2013 with no residual BPH on Flomax Bilateral vein stripping in the Bilateral carotid stenosis by carotid Doppler, greater than 70% on the left, 50- 69% on the right based on velocities; 50% proximal ROMMEL stenosis and 50% left carotid artery stenosis at the bifurcation per CTA Post operative acute blood loss anemia and thrombocytopenia, expected given significant hemodilution Paroxysmal intraoperative and postoperative atrial fibrillation, unexpected but common after open heart surgery, status post exclusion left atrial appendage with a 35 mm Atriclip Intraoperative and postoperative hypotension expected due to vasoplegia, atrial fibrillation Acute kidney injury, nonoliguric, BUN 39 and creatinine 2.49 today Acute rhabdomyolysis, unknown etiology Plan: Continue to maximize medical therapy with aspirin, plavix, and beta maria luisa. Will increase metoprolol tartrate as tolerated. Currently on metoprolol tartrate 25 mg by mouth 3 times a day with hold parameters. Continue amiodarone 400 mg by mouth twice a day for afib prophylaxis. Continue to hold Statin due to the rhabdomyolysis. Continue IV fluids 0.9% normal saline at 75 mL per hour managed by nephrology. CK 12,963 yesterday 08/26/2023. Wean oxygen as tolerated, encourage incentive spirometer use 10x every hour while awake, bronchodilators per pulmonology. Continue Mucinex, Mucomyst, Flutter valve and chest physiotherapy as ordered. Increase activity, ambulate as tolerated. PT/OT/cardiac rehab following. Will monitor daily labs and chest x-ray. Electrolyte replacement per protocol. Pain control with current medication regimen, no toradol due to CKD. Continue to hold Narcotics due to the patient's confusion. Continue to use Tylenol for pain control. Insulin management per internal medicine. Hemoglobin A1c 5.9% preoperatively. Remove right IJ Cordis. Discussed the importance of risk modification including encouragement of Continued smoking cessation. We will remove his right/left pleural chest tubes today. Remove rincon catheter, continue to record strict and necrotizing O's. May bladder scan every 6 hours and when necessary postvoid residual, if greater than 300 mL of urine please straight cath. Daily weights. More recommendations to follow based on patient's clinical course. Time with Patient: Greater than 30
--- NOTE | 2023-08-28 07:41 | P.PN ---
Subjective Progress Note Date: 08/28/23 Principal diagnosis: Status post CABG The patient is a pleasant 73-year-old gentleman who is status post CABG. 08/28/2023 The patient was seen and evaluated this morning. He is stable hemodynamically beside mild sinus tachycardia. Temperature appeared to be stable. He is on dual antiplatelet therapy but for some reason he is not on any statin at this point. Would explore the reason why he is not on statin. Beside that he has been in and out atrial fibrillation but currently is in sinus rhythm. He is on amiodarone orally. The examination is remarkable for regular rhythm with distant heart sounds and diminished breathing sounds bilaterally Assessment CAD and status post CABG Paroxysmal atrial fibrillation History of rhabdomyolysis and that's why the patient was not on statin Multiple comorbid conditions Plan Continue the current medical regimen Consider starting the patient back on statin down the line Follow-up with the patient Objective - Vital Signs Vital signs: Vital Signs Temp 98.6 F 08/28/23 04:00 Pulse 89 08/28/23 07:00 Resp 18 08/28/23 07:00 BP 107/58 08/28/23 07:00 Pulse Ox 96 08/28/23 07:00 FiO2 50 08/24/23 00:45 Intake & Output 08/27/23 08/28/23 08/28/23 18:59 06:59 18:59 Intake Total 1171 900 75 Output Total 595 600 0 Balance 576 300 75 Weight 82.2 kg Intake: IV 931 900 75 .9NS Pressure bag 6 Dextrose 5% in Water 100 100 ml @ 618 mls/hr IV .Q10M PRN with Amiodarone 150 mg Rx#:[id number] Sodium Chloride 0.9% 1, 825 900 75 000 ml @ 75 mls/hr IV . [id number] [facility] Rx#:[id number] Oral 240 Output: Chest Tube Drainage 90 Left Pleural Chest Tube 40 Right Pleural Chest Tube 50 Urine 155 0 0 Urine/Stool Mix 350 600 Other: Voiding Method Bedside Commode Bedside Commode # Voids 1 1 ABP, PAP, CO, CI - Last Documented Arterial Blood Pressure 43/40 Pulmonary Artery Pressure 29/14 Cardiac Output 4.4 Cardiac Index 2.2 - Labs CBC & Chem 7: 08/28/23 06:54 08/28/23 04:57 Labs: Abnormal Lab Results - Last 24 Hours (Table) 08/27/23 08/27/23 08/27/23 Range/Units 11:06 16:16 21:00 RBC (4.30-5.90) m/uL Hgb (13.0-17.5) gm/dL Hct (39.0-53.0) % BUN (9-20) mg/dL Creatinine (0.66-1.25) mg/dL POC Glucose (mg/dL) 124 H 116 H (70-110) mg/dL Calcium (8.4-10.2) mg/dL AST (17-59) U/L Creatine Kinase 7368 H* (55-170) U/L CK-MB (CK-2) (0.0-3.4) ng/mL Total Protein (6.3-8.2) g/dL Albumin (3.5-5.0) g/dL 08/28/23 08/28/23 08/28/23 Range/Units 04:57 04:57 06:54 RBC 2.04 L (4.30-5.90) m/uL Hgb 6.7 L* (13.0-17.5) gm/dL Hct 20.0 L (39.0-53.0) % BUN 57 H (9-20) mg/dL Creatinine 2.18 H (0.66-1.25) mg/dL POC Glucose (mg/dL) (70-110) mg/dL Calcium 7.3 L (8.4-10.2) mg/dL AST 140 H (17-59) U/L Creatine Kinase (55-170) U/L CK-MB (CK-2) 5.0 H (0.0-3.4) ng/mL Total Protein 4.6 L (6.3-8.2) g/dL Albumin 2.5 L (3.5-5.0) g/dL 08/28/23 Range/Units 06:54 RBC 2.31 L (4.30-5.90) m/uL Hgb 7.5 L (13.0-17.5) gm/dL Hct 22.8 L (39.0-53.0) % BUN (9-20) mg/dL Creatinine (0.66-1.25) mg/dL POC Glucose (mg/dL) (70-110) mg/dL Calcium (8.4-10.2) mg/dL AST (17-59) U/L Creatine Kinase (55-170) U/L CK-MB (CK-2) (0.0-3.4) ng/mL Total Protein (6.3-8.2) g/dL Albumin (3.5-5.0) g/dL
[2023-08-28] MEDS: IPRATROPIUM-ALBUTEROL 3 ML NEB INHALATION SCH ×4 (07:53→19:48)
[2023-08-28] MEDS: THIAMINE 100 MG TAB PO SCH (08:05)
[2023-08-28] MEDS: guaiFENesin 600 MG TABLET.ER PO SCH ×2 (08:05→20:13)
[2023-08-28] MEDS: FOLIC ACID 1 MG TAB PO SCH (08:05)
[2023-08-28] MEDS: ASPIRIN 325 MG TAB PO SCH (08:05)
[2023-08-28] MEDS: AMIODARONE 200 MG TAB PO SCH ×2 (08:05→20:13)
[2023-08-28] MEDS: CLOPIDOGREL 75 MG TAB PO SCH (08:06)
[2023-08-28] MEDS: METOPROLOL TARTRATE 25 MG TAB PO SCH ×3 (08:06→22:19)
--- NOTE | 2023-08-28 08:57 | XR ---
EXAMINATION TYPE: XR chest 1V portable DATE OF EXAM: 08/28/2023 HISTORY: Shortness of breath. COMPARISON: 08/27/2023 TECHNIQUE: Single view of the chest is submitted. FINDINGS: Demonstrated are scattered senescent parenchymal change. Upper lobe hazy density pulmonary venous congestion with cardiomegaly persists. Indwelling tubes and catheters have been removed. Sternotomy wires are in place. Left atrial clip noted. The heart is stable. Hilar and mediastinal structures are within normal limits. Degenerative changes are seen of the dorsal spine. IMPRESSION: 1. Postoperative changes as noted.
[2023-08-28] MEDS: ASCORBIC ACID 500 MG TAB PO SCH (09:09)
[2023-08-28] MEDS: SODIUM FERRIC GLUCONAT-SUCROSE 125 MG in SODIUM CHLORIDE 0.9% 100 ML IVPB SCH (09:09)
[2023-08-28] MEDS: SODIUM CHLORIDE 0.9% 1,000 ML IV SCH (09:09)
[2023-08-28 11:24] LABS: Glucose,Whole Blood 87 mg/dL (70-110)
--- NOTE | 2023-08-28 11:58 | P.PN ---
Subjective Patient is seen for follow-up for acute kidney injury 24 hour urine output documented at 1 L however urine is mixed with stool. No complaints of chest pains or shortness of breath. Hemoglobin 6.7 g/dL today however repeat draw showed 7.5 g deciliter. No active bleeding noted. Serum creatinine stable at 2.1 mg/dL. IV iron ordered by cardiothoracic surgery. Objective - Vital Signs Vital signs: Vital Signs Temp 97.6 F 08/28/23 08:00 Pulse 88 08/28/23 11:48 Resp 18 08/28/23 11:48 BP 107/58 08/28/23 11:00 Pulse Ox 98 08/28/23 11:00 FiO2 50 08/24/23 00:45 Intake & Output 08/27/23 08/28/23 08/28/23 18:59 06:59 18:59 Intake Total 1171 900 475 Output Total 595 600 0 Balance 576 300 475 Weight 82.2 kg Intake: IV 931 900 475 .9NS Pressure bag 6 Calcium Gluconate in NaCl 100 2 gm In Saline 1 100ml. bag @ 100 mls/hr IVPB ONCE PRN Rx#:[id number] Dextrose 5% in Water 100 100 ml @ 618 mls/hr IV .Q10M PRN with Amiodarone 150 mg Rx#:[id number] Sodium Chloride 0.9% 1, 825 900 375 000 ml @ 75 mls/hr IV . [id number] [facility] Rx#:[id number] Oral 240 Output: Chest Tube Drainage 90 Left Pleural Chest Tube 40 Right Pleural Chest Tube 50 Urine 155 0 0 Urine/Stool Mix 350 600 Other: Voiding Method Bedside Commode Bedside Commode Bedside Commode # Voids 1 1 ABP, PAP, CO, CI - Last Documented Arterial Blood Pressure 43/40 Pulmonary Artery Pressure 29/14 Cardiac Output 4.4 Cardiac Index 2.2 - Exam Awake, comfortable, no acute distress Examination of the heart S1 and S2 Examination lungs decreased breath sounds at the bases [place] abdomen is soft nontender Examination lower extremities shows edema trace bilaterally 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 - Labs CBC & Chem 7: 08/28/23 06:54 08/28/23 04:57 Labs: Abnormal Lab Results - Last 24 Hours (Table) 08/27/23 08/27/23 08/27/23 Range/Units 11:06 16:16 21:00 RBC (4.30-5.90) m/uL Hgb (13.0-17.5) gm/dL Hct (39.0-53.0) % BUN (9-20) mg/dL Creatinine (0.66-1.25) mg/dL POC Glucose (mg/dL) 124 H 116 H (70-110) mg/dL Calcium (8.4-10.2) mg/dL AST (17-59) U/L Creatine Kinase 7368 H* (55-170) U/L CK-MB (CK-2) (0.0-3.4) ng/mL Total Protein (6.3-8.2) g/dL Albumin (3.5-5.0) g/dL 08/28/23 08/28/23 08/28/23 Range/Units 04:57 04:57 06:54 RBC 2.04 L (4.30-5.90) m/uL Hgb 6.7 L* (13.0-17.5) gm/dL Hct 20.0 L (39.0-53.0) % BUN 57 H (9-20) mg/dL Creatinine 2.18 H (0.66-1.25) mg/dL POC Glucose (mg/dL) (70-110) mg/dL Calcium 7.3 L (8.4-10.2) mg/dL AST 140 H (17-59) U/L Creatine Kinase (55-170) U/L CK-MB (CK-2) 5.0 H (0.0-3.4) ng/mL Total Protein 4.6 L (6.3-8.2) g/dL Albumin 2.5 L (3.5-5.0) g/dL 08/28/23 Range/Units 06:54 RBC 2.31 L (4.30-5.90) m/uL Hgb 7.5 L (13.0-17.5) gm/dL Hct 22.8 L (39.0-53.0) % BUN (9-20) mg/dL Creatinine (0.66-1.25) mg/dL POC Glucose (mg/dL) (70-110) mg/dL Calcium (8.4-10.2) mg/dL AST (17-59) U/L Creatine Kinase (55-170) U/L CK-MB (CK-2) (0.0-3.4) ng/mL Total Protein (6.3-8.2) g/dL Albumin (3.5-5.0) g/dL Assessment and Plan Assessment: 1. Acute kidney injury, ATN currently nonoliguric. Etiology includes hemodynamic instability and IV contrast. Renal function currently stable. Maintained on IV fluids. 2. CK D stage III a secondary to nephrosclerosis with baseline creatinine around 1.4 mg/dL 3. Coronary artery disease status post coronary artery bypass surgery x3 on 08/23/2023 4. A. fib with RVR 5. Anemia, receiving IV iron. No active bleeding noted. Plan: Continue with IV fluids Repeat labs in a.m. Add Aranesp Continue to avoid nephrotoxic agents.
--- NOTE | 2023-08-28 12:16 | P.PN ---
Subjective Progress Note Date: 08/28/23 Patient is a 73-year-old male with hypertension, chronic kidney disease, BPH initially presented to the emergency department with complaints of chest pain. He was subsequently admitted for chest pain observation. Troponins were trended and remained negative. Patient was seen by cardiology and was subsequently taken for cardiac cath on 08/20/23 which showed significant multivessel coronary artery disease. Cardiothoracic surgery was subsequently consulted and patient was worked up for possible CABG. Carotid Dopplers were completed showing greater than 75% stenosis of bilateral carotids. Patient underwent off pump CABG on 08/23/23. He did develop some acute kidney injury, contrast induced and rhabdomyolysis. 08/28 Patient was seen and examined. CBC Hg 6.7. Repeat Hg 7.5 (initial likely lab error). CMP BUN 57, Cr 2.18, Ca 7.3, AST 140, albumin 2.5. CXR shows mild pulmonary vascular congestion. Currently on Amiodarone PO. On ASA, Metoprolol and Plavix. Urine output 155+950 cc. Vital signs reviewed General:non toxic, no distress, appears at stated age Cardiovascular: S1S2 reg, no murmur Lungs: Course bs b/l bilateral, no rhonchi, no rales , no accessory muscle use Abdominal: soft, nontender to palpation, no guarding, no appreciable organomegaly Ext: no gross muscle atrophy, no edema b/l lower extremities, no contractures Psych: Awake, follows commands, unable to answer year Unstable angina with severe multivessel coronary artery disease status post CABG 3 on 08/23/23 KATHY on chronic kidney disease stage IIIA, likely secondary to Rhabdo versus contrast-induced Rhabdomyolysis Hypertension Carotid artery stenosis, 25-50% stenosis bilaterally on CTA neck Acute blood loss anemia, anticipated outcome of surgery AST elevation BPH Renal cyst Pancreatic cyst Liver nodule Resolved: Thrombocytopenia Based on my assessment of this patient, this patient meets a moderate complexity level of care. Patient has an acute diagnosis of unstable angina with multivessel CAD status post CABG on 08/23 that poses a threat to life or bodily function. Acute blood loss anemia: Anticipated outcome of surgery. Status post 2 units PRBC. Status post 1 unit Plt. Started on ferric gluconate 125 mg IV QD. Transfuse if Hg < 7. Unstable angina with severe multivessel CAD: Status post CABG 3 on 08/23/23. ASA 325 mg PO QD. Plavix 75 mg PO QD. Metoprolol 25 mg PO TID. Statin when rhabdomyolysis improves. Cardiology on board. KATHY on chronic kidney disease stage IIIA: Likely secondary to Rhabdo versus contrast-induced. Continue NS at 75 cc/hr. Nephrology on board. Rhabdomyolysis: Improving. IV hydration as above. Hypertension: Metoprolol as above. Carotid artery stenosis: 25-50% stenosis bilaterally on CTA neck AST elevation BPH: Flomax 0.4 mg PO QHS. Renal cyst: Outpatient workup. Pancreatic cyst: Outpatient workup. Liver nodule: Marginally increased in size since 2014 likely benign. PMR consulted for possible IPR. CODE STATUS: FULL CODE. DVT Prophylaxis: Heparin SQ. GI Prophylaxis: Protonix PO Designated medical POA if patient is not able to make medical decisions for themselves: I have reviewed the following homemaking rehabilitation consultant notes: Pulm, CT surgery, Cardio, Nephro note. I have reviewed the results of the following tests: CBC, CMP. I have ordered the following tests: CBC, CMP, CXR. I have discussed the care of this patient with the following independent historian: I have independently interpreted the following test below: CXR as above. I have discussed the management of this patient with the following physician: Objective - Vital Signs Vital signs: Vital Signs Temp 97.6 F 08/28/23 08:00 Pulse 101 H 08/28/23 08:02 Resp 18 08/28/23 08:02 BP 111/51 08/28/23 08:00 Pulse Ox 96 08/28/23 08:00 FiO2 50 08/24/23 00:45 Intake & Output 08/27/23 08/28/23 08/28/23 18:59 06:59 18:59 Intake Total 1171 900 150 Output Total 595 600 0 Balance 576 300 150 Weight 82.2 kg Intake: IV 931 900 150 .9NS Pressure bag 6 Dextrose 5% in Water 100 100 ml @ 618 mls/hr IV .Q10M PRN with Amiodarone 150 mg Rx#:[id number] Sodium Chloride 0.9% 1, 825 900 150 000 ml @ 75 mls/hr IV . [id number] [facility] Rx#:[id number] Oral 240 Output: Chest Tube Drainage 90 Left Pleural Chest Tube 40 Right Pleural Chest Tube 50 Urine 155 0 0 Urine/Stool Mix 350 600 Other: Voiding Method Bedside Commode Bedside Commode # Voids 1 1 ABP, PAP, CO, CI - Last Documented Arterial Blood Pressure 43/40 Pulmonary Artery Pressure 29/14 Cardiac Output 4.4 Cardiac Index 2.2 - Labs CBC & Chem 7: 08/28/23 06:54 08/28/23 04:57 Labs: Abnormal Lab Results - Last 24 Hours (Table) 08/27/23 08/27/23 08/27/23 Range/Units 11:06 16:16 21:00 RBC (4.30-5.90) m/uL Hgb (13.0-17.5) gm/dL Hct (39.0-53.0) % BUN (9-20) mg/dL Creatinine (0.66-1.25) mg/dL POC Glucose (mg/dL) 124 H 116 H (70-110) mg/dL Calcium (8.4-10.2) mg/dL AST (17-59) U/L Creatine Kinase 7368 H* (55-170) U/L CK-MB (CK-2) (0.0-3.4) ng/mL Total Protein (6.3-8.2) g/dL Albumin (3.5-5.0) g/dL 08/28/23 08/28/23 08/28/23 Range/Units 04:57 04:57 06:54 RBC 2.04 L (4.30-5.90) m/uL Hgb 6.7 L* (13.0-17.5) gm/dL Hct 20.0 L (39.0-53.0) % BUN 57 H (9-20) mg/dL Creatinine 2.18 H (0.66-1.25) mg/dL POC Glucose (mg/dL) (70-110) mg/dL Calcium 7.3 L (8.4-10.2) mg/dL AST 140 H (17-59) U/L Creatine Kinase (55-170) U/L CK-MB (CK-2) 5.0 H (0.0-3.4) ng/mL Total Protein 4.6 L (6.3-8.2) g/dL Albumin 2.5 L (3.5-5.0) g/dL 08/28/23 Range/Units 06:54 RBC 2.31 L (4.30-5.90) m/uL Hgb 7.5 L (13.0-17.5) gm/dL Hct 22.8 L (39.0-53.0) % BUN (9-20) mg/dL Creatinine (0.66-1.25) mg/dL POC Glucose (mg/dL) (70-110) mg/dL Calcium (8.4-10.2) mg/dL AST (17-59) U/L Creatine Kinase (55-170) U/L CK-MB (CK-2) (0.0-3.4) ng/mL Total Protein (6.3-8.2) g/dL Albumin (3.5-5.0) g/dL
--- NOTE | 2023-08-28 14:23 | P.PN ---
Subjective Progress Note Date: 08/28/23 Principal diagnosis: Triple-vessel coronary artery disease, unstable angina. History of hypertension, hyperlipidemia, chronic kidney disease stage III, previous tobacco dependence with recent cessation, mild COPD, TIA in 2014 with no residual deficits, BPH, bilateral greater saphenous vein stripping, bilateral carotid stenosis POD #5 off pump converted to cardiopulmonary bypass assisted coronary artery bypass grafting 3, right internal thoracic artery in situ to the left anterior descending coronary artery, left anterior coronary artery in situ to the third obtuse marginal artery, reverse lesser saphenous vein from the aorta to the distal right coronary artery, left atrial appendage ligation using a 35 mm AtriClip, endoscopic right tennis vein harvest, graft flow measurements using the Medistim flowmeter, intraoperative transesophageal echocardiogram Post operative acute blood loss anemia and thrombocytopenia, expected given significant hemodilution. Intraoperative and postoperative paroxysmal atrial fibrillation, unexpected but a known common occurrence after open heart surgery. Intraoperative and postoperative hypotension expected due to vasoplegia, atrial fibrillation. The patient was seen and examined in follow-up today 08/28/2023 at his bedside i n the intensive care unit. He is currently sitting up to the bedside chair, is awake, alert, oriented 3 and is in no acute apparent distress. No further episodes of confusion reported this morning. Patient's nurse from nights reports that he did have an episode of confusion at the beginning of the night. He remains hemodynamically stable and is currently on no inotropic or pressor support. Oxygen saturations are 97% on 2 L nasal cannula and he is achieving 1150-7180 mL on his incentive spirometry with much encouragement. Bedside telemetry showing normal sinus rhythm heart rate 92 BPM at this time. Ventricular epicardial pacemaker wires remained in place and are grounded. Pleural chest tubes were removed yesterday without incident. He remains on 0.9% normal saline at 75 mL per hour for rhabdomyolysis, his CK was trending down yesterday and was 7368. He's been up ambulating in the intensive care unit hallway with standby assistance of nursing and therapy staff and tolerating w ell. The patient has been complaining of some loose stools, although denies any complaints of pain or shortness of breath at this time. He's been afebrile the last 24 hours. Laboratory and chest x-ray results reviewed. Objective - Vital Signs Vital signs: Vital Signs Temp 98.6 F 08/28/23 04:00 Pulse 84 11/20/23 06:00 Resp 23 08/28/23 06:00 BP 94/51 08/28/23 06:00 Pulse Ox 93 L 08/28/23 06:00 FiO2 50 08/24/23 00:45 Intake & Output 08/27/23 08/27/23 08/28/23 06:59 18:59 06:59 Intake Total 1086 1171 900 Output Total 565 595 600 Balance 521 576 300 Weight 76.7 kg 82.2 kg Intake: IV 936 931 900 .9NS Pressure bag 36 6 Dextrose 5% in Water 100 100 ml @ 618 mls/hr IV .Q10M PRN with Amiodarone 150 mg Rx#:[id number] Sodium Chloride 0.9% 1, 900 825 900 000 ml @ 75 mls/hr IV . [id number] [facility] Rx#:[id number] Oral 150 240 Output: Chest Tube Drainage 130 90 Left Pleural Chest Tube 50 40 Right Pleural Chest Tube 80 50 Urine 435 155 0 Urine/Stool Mix 350 600 Other: Voiding Method Indwelling Catheter Bedside Commode Bedside Commode # Voids 1 1 ABP, PAP, CO, CI - Last Documented Arterial Blood Pressure 43/40 Pulmonary Artery Pressure 29/14 Cardiac Output 4.4 Cardiac Index 2.2 - Exam CONSTITUTIONAL: Sitting up to the bedside chair in the intensive care unit, appears comfortable, cooperative, no apparent acute distress. HEENT: Neck is supple, no JVD, no lymphadenopathy. RESPIRATORY: Lungs sounds with few scattered coarse rhonchi throughout, diminished to his bilateral bases. Respirations are symmetrical and nonlabored. Currently on 2 L nasal cannula with oxygen saturations 97%. Able to achieve 7538-8455 mL on his incentive spirometry. Strong cough, nonproductive and loose. CARDIOVASCULAR: Regular rhythm and rate. S1 and S2 present, negative for S3, gallop or murmur. Sternum is stable. Palpable peripheral pulses bilaterally, trace generalized edema. No calf pain or tenderness noted. Heart hugger in place with patient demonstrating appropriate use. Knee-high ALBERT hose and sequential compression devices in place to his bilateral lower extremities. GASTROINTESTINAL: Abdomen soft, nontender, nondistended. Active bowel sounds present 4 quadrants. Tolerating diet. Passing flatus. No guarding or rigidity. Loose bowel movements. GENITOURINARY: Continues to void. Urine output 300 mL in the last 8 hours. INTEGUMENTARY: Skin is warm and dry with no evidence of clubbing or cyanosis. Midline sternal incision clean dry and well approximated, covered with dry inta ct dressing. Bilateral lower extremity EVH sites well approximated without redness or drainage. No drainage or redness is present. NEUROLOGIC: Cranial nerves II through XII intact. No focal deficits. MUSKULOSKELETAL: Able to move all extremities, strength equal bilaterally, generalized weakness. PSYCHIATRIC: Alert and oriented to person place and time, appropriate affect, intact judgment and insight. INVASIVE LINES AND TUBES: Ventricular epicardial pacemaker wires present, and grounded. - Allied health notes Allied health notes reviewed: nursing - Labs CBC & Chem 7: 08/28/23 06:54 08/28/23 04:57 Labs: Abnormal Lab Results - Last 24 Hours (Table) 08/27/23 08/27/23 08/27/23 Range/Units 11:06 16:16 21:00 RBC (4.30-5.90) m/uL Hgb (13.0-17.5) gm/dL Hct (39.0-53.0) % BUN (9-20) mg/dL Creatinine (0.66-1.25) mg/dL POC Glucose (mg/dL) 124 H 116 H (70-110) mg/dL Calcium (8.4-10.2) mg/dL AST (17-59) U/L Creatine Kinase 7368 H* (55-170) U/L Total Protein (6.3-8.2) g/dL Albumin (3.5-5.0) g/dL 08/28/23 08/28/23 Range/Units 04:57 04:57 RBC 2.04 L (4.30-5.90) m/uL Hgb 6.7 L* (13.0-17.5) gm/dL Hct 20.0 L (39.0-53.0) % BUN 57 H (9-20) mg/dL Creatinine 2.18 H (0.66-1.25) mg/dL POC Glucose (mg/dL) (70-110) mg/dL Calcium 7.3 L (8.4-10.2) mg/dL AST 140 H (17-59) U/L Creatine Kinase (55-170) U/L Total Protein 4.6 L (6.3-8.2) g/dL Albumin 2.5 L (3.5-5.0) g/dL - Imaging and Cardiology Chest x-ray: report reviewed, image reviewed Assessment and Plan Assessment: Triple-vessel coronary artery disease, unstable angina, status post 3 vessel CABG History of hypertension Hyperlipidemia, cholesterol 215, LDL 143, triglycerides 185 Chronic kidney disease stage III, with a baseline creatinine of 1.4-1.6 Remote history of tobacco dependence with recent cessation Mild COPD, preoperative FEV1 of 65% of predicted History of asbestosis exposure, CT of the chest showing pleural plaquing TIA in 2013 with no residual BPH on Flomax Bilateral vein stripping in the Bilateral carotid stenosis by carotid Doppler, greater than 70% on the left, 50- 69% on the right based on velocities; 50% proximal ROMMEL stenosis and 50% left carotid artery stenosis at the bifurcation per CTA Post operative acute blood loss anemia and thrombocytopenia, expected given significant hemodilution Paroxysmal intraoperative and postoperative atrial fibrillation, unexpected but common after open heart surgery, status post exclusion left atrial appendage with a 35 mm Atriclip Intraoperative and postoperative hypotension expected due to vasoplegia, atrial fibrillation, resolved Acute kidney injury, nonoliguric, BUN 57 and creatinine 2.18 today Acute rhabdomyolysis, unknown etiology, CK yesterday was 7368 trending down Plan: Continue to maximize medical therapy with aspirin, plavix, and beta maria luisa. Will increase metoprolol tartrate as tolerated. Currently on metoprolol tartrate 25 mg by mouth 3 times a day with hold parameters. Continue amiodarone 400 mg by mouth twice a day for afib prophylaxis. Continue to hold Statin due to the rhabdomyolysis. Continue IV fluids 0.9% normal saline at 75 mL per hour managed by nephrology. CK 7368 yesterday 08/27/2023. Wean oxygen as tolerated, encourage incentive spirometer use 10x every hour while awake, bronchodilators per pulmonology. Continue Mucinex, Mucomyst, Flu tter valve and chest physiotherapy as ordered. Increase activity, ambulate as tolerated. PT/OT/cardiac rehab following. Will monitor daily labs and chest x-ray. Electrolyte replacement per protocol. Pain control with current medication regimen, no toradol due to CKD. Continue to hold Narcotics due to the patient's confusion. Continue to use Tylenol for pain control. Insulin management per internal medicine. Hemoglobin A1c 5.9% preoperatively. Discussed the importance of risk modification including encouragement of Continued smoking cessation. We will remove his ventricular epicardial pacemaker wires today, bed rest for 1 hour post a wire removal. Remove rincon catheter, continue to record strict and necrotizing O's. May bladder scan every 6 hours and when necessary postvoid residual, if greater than 300 mL of urine please straight cath. Daily weights. More recommendations to follow based on patient's clinical course. Time with Patient: Greater than 30
--- NOTE | 2023-08-28 14:24 | P.PN ---
Subjective Progress Note Date: 08/28/23 Principal diagnosis: Triple-vessel coronary artery disease, and the patient is status post Off pump converted to cardiopulmonary bypass assisted coronary artery bypass grafting x 3. Right internal thoracic artery (in-situ) to left anterior descending coronary artery. Left anterior descending coronary artery (in-situ) to obtuse marginal artery #3. Reversed lesser saphenous vein from aorta to distal right coronary artery. The patient is currently postop day #6 , the patient is being seen immediately following bypass surgery. The patient a complicated surgery. The patient will Off pump converted to cardiopulmonary bypass assisted coronary artery bypass grafting x 3. Right internal thoracic artery (in-situ) to left anterior descending coronary artery. Left anterior descending coronary artery (in-situ) to obtuse marginal artery #3. Reversed lesser saphenous vein from aorta to distal right coronary artery. The patient was brought into the intensive care unit and the patient is currently on propofol running at 20 mcg/kg/m. Intubated on a mechanical ventilator. Is currently on assist control mode at a rate of 12, tidal volume of 450, FiO2 of 100% with a PEEP of 5. Blood cultures showed a pH of 7.28 with a pCO2 of 51 and pO2 112. Chest x-ray shows adequate expansion of both lungs. No pneumothorax. The patient has a right pleural, left total and mediastinal chest tube. The patient's cardiac output is currently at 8.7 with an index of 4.4. Pulmonary artery pressure 34/23. The patient is on vasopressin physiologic dose, dopamine infusion running at 0.03 microvascular kilogram per minute and norepinephrine is running at 0.05 microvascular kilogram per minutes. the cardiac rhythm Is sinus and the patient is on amiodarone at 1 mg/m. Patient is also on insulin drip at 2.5 units an hour. The patient has increased output from the chest tube. The right pleural in the left pleural chest tubes are connected output has been in the order of 400 mL and the mediastinal chest tube has drained approximately 130 mL since arrival from the operating room. Intraoperatively, the patient received a total of 2 units of packed RBC, platelet concentrate, 4.5 L of albumin, 3 L of crystalloids and 2 L of Cell Savers. Estimated blood loss was around 4 L. The patient is currently hypothermic with a temperature of 35.7C. The CBC showed a hemoglobin of 8.7, white cell count of 8.5, platelet count of 78, and electrodes are still pending for now. Meanwhile, a cognition profile showed an INR of 1.8 with a PT of 18.5 and a PTT of 65.3. The patient was also given protamine. His well sedated and is, comfortable at this point in time. Surgical one-sided dry clean and intact. On 08/24/2023, the patient is extubated and sitting up on a chair and currently he is on oxygen at 4 L. He was quite unstable after he came into the ICU. His condition progressively stabilized with output from the chest to progressively dropped. His vaccination improved. He was gradually weaned off the mechanical ventilator and he was extubated without having any major difficulties. The chest x-ray from today shows atelectatic changes in the right upper lobe. [place]- [place] catheter still in place. He has cardiomegaly. He also has some mild pulmonary vascular congestion. The [place] catheter is in place. PA pressures are 24/10. Cardiac output is 5.8 with an index of 3.0. Adequate urine output. All of the pressors have been discontinued. He remains on insulin drip at 3 units an hour. Amiodarone drip has been discontinued and the patient is currently on oral amiodarone. He is also in a normal sinus rhythm. Is using the incentive spirometer. He is falling approximately 1250 mL. His only complaint is some nausea for which the patient was given Zofran. Chest tubes are in place. The patient has a right pleural, left pleural chest tube which are connected and there is no evidence of any air leak. The patient also has a mediastinal chest tube. Output from the chest tubes have been slowing down progressively. On today's evaluation of 08/25/2022, the patient is slightly confused. Is having some difficulties in finding appropriate words. His we'll go 4 extremities. I feel that his mentation is waxing and waning. On certain occasions, is very much appropriate. Other times, he was noted to have some difficulties noted during words. No aphasia. No facial asymmetry. No headaches. In fact his blood pressure is soft and the patient is atrial fibrillation with a heart rate between 110 and 1:30, irregular. In same time the patient has of an acute kidney injury. Creatinine is up to 2.4 with a BUN of 31 and his sodium levels of 137. Hemoglobin stable at 9.1. The patient continues to have a right and a left pleural chest tube and a mediastinal chest tube. No evidence of any pneumothorax. Output from the chest abdomen 250 mL from MEDIASTIN[employer] and the pleural chest tubes and there is no evidence of any air leak. Chest x-ray shows atelectatic changes in the right lung and the patient has a congested cough. Suspect a component of mucus plugging as the patient had some right upper lobe atelectasis immediately postop. He is currently on 7 L of oxygen high flow with a pulse ox of 92%. He is receiving a dose of IV albumin, 2 50 mL, 12.5 g. Urine output is in order of 30 mL an hour and the patient was given oxycodone 5 mg on 2 separate occasions for pain control. Using the incentive spirometer. Sternum is stable clean and intact. On 08/26/2023, the patient is being seen for a follow-up. The patient is oxygen at 4 L/m nasal cannula. Breathing is labored and the patient is unable to perform adequate pulmonary toileting. He is trying to use incentive spirometer. He has a congested cough. Surgical one-sided dry clean and intact. The chest x-ray from today shows some volume loss in the lung bases. Limited atelectatic changes in the right midlung area. He does have some increased gaseous distention of the bowel in the abdomen. His chest tubes are split. Mediastinal chest tubes are out and the patient continues to have a right pleural left lower chest tube. I do not appreciate any pneumothorax. Meanwhile, he was found to have a component of rhabdomyolysis. CPK level was as high as 13,000 and is currently slightly lower compared to yesterday. He has sustained an acute kidney injury. Creatinine 2.4 and the patient is currently on normal saline at rate of 75 mL an hour. His overall fluid balance has been -757 mL over the past 24 hours. His diuretics are currently on hold. His cardiac rhythm is sinus. He remains on amiodarone. He remains on metoprolol 25 mg by mouth 3 times a day. Statins were discontinued. He remains on aspirin. Is working on his incentive spirometer. On 08/27/2023, the patient is resting comfortably in bed. Chest tubes were removed. No major significant is for now. No shortness of breath. No other significant events overnight. Urine output is adequate. The patient's creatinine is also improving is currently down to 2. all within a 49. Sodium levels along 35, the bronchoscope was of 9.8 with a hemoglobin of 7.3. Moving all 4 extremities. No limitation. No cardiac arrhythmias at this point in time. The patient is essentially stable for the time being. The patient remains on amiodarone 400 mg by mouth twice a day. The patient is on metoprolol 25 mg 3 times a day. The patient is currently on a combination of aspirin and Plavix. Patient is also on Flomax. IV fluids are in the form of normal saline 75 mL an hour. Tolerating diet. Using the [employer] spirometer. Currently on 2 L of oxygen by nasal cannula with a pulse ox of 97%. Chest x-ray showing stable cardiomegaly with postoperative changes Reevaluated today on 08/28/2023, patient remains in the ICU, he is status post CABG postoperative day #6, patient is doing fairly well, he is on 2 L nasal cannula, does not seem to be in distress, seems to be admitted generally weak otherwise unremarkable findings. Chest x-ray is reassuring. Patient is receiving iron supplements IV. WBC count is 9.8 hemoglobin is 7.5 basic metabolic profile is normal BUN is 57 creatinine 2.18 being followed by nephrology. Objective - Vital Signs Vital signs: Vital Signs Temp 98.0 F 08/28/23 12:00 Pulse 98 08/28/23 13:00 Resp 12 08/28/23 13:00 BP 107/50 08/28/23 13:00 Pulse Ox 94 L 08/28/23 13:00 FiO2 50 08/24/23 00:45 Intake & Output 08/27/23 08/28/23 08/28/23 18:59 06:59 18:59 Intake Total 1171 900 625 Output Total 595 600 0 Balance 576 300 625 Weight 82.2 kg Intake: IV 931 900 625 .9NS Pressure bag 6 Calcium Gluconate in NaCl 100 2 gm In Saline 1 100ml. bag @ 100 mls/hr IVPB ONCE PRN Rx#:[id number] Dextrose 5% in Water 100 100 ml @ 618 mls/hr IV .Q10M PRN with Amiodarone 150 mg Rx#:[id number] Sodium Chloride 0.9% 1, 825 900 525 000 ml @ 75 mls/hr IV . [id number] [facility] Rx#:[id number] Oral 240 Output: Chest Tube Drainage 90 Left Pleural Chest Tube 40 Right Pleural Chest Tube 50 Urine 155 0 0 Urine/Stool Mix 350 600 Other: Voiding Method Bedside Commode Bedside Commode Bedside Commode # Voids 1 1 ABP, PAP, CO, CI - Last Documented Arterial Blood Pressure 43/40 Pulmonary Artery Pressure 29/14 Cardiac Output 4.4 Cardiac Index 2.2 - Exam Physical Exam: Revealed a 73-year-old white male in no distress on 2 L nasal cannula Head: Atraumatic, normocephalic. HEENT:[Neck is supple.] [No neck masses.] [No thyromegaly.] [No JVD.] Chest: [Clear throughout, no crackles, no rhonchi, no wheezes.] Cardiac Exam: [Normal S1 and S2, no S3 gallop, no murmur.] Abdomen: [Soft, nontender, no megaly, no rebound, no guarding, normal bowel sounds.] Extremities: [No clubbing, no edema, no cyanosis.] Neurological Exam: [No focal neurologic deficit.] Alert and oriented 3. Psychiatric: Normal mood affect and normal sinus examination. Skin: No rashes. - Labs CBC & Chem 7: 08/28/23 06:54 08/28/23 04:57 Labs: Abnormal Lab Results - Last 24 Hours (Table) 08/27/23 08/27/23 08/28/23 Range/Units 16:16 21:00 04:57 RBC 2.04 L (4.30-5.90) m/uL Hgb 6.7 L* (13.0-17.5) gm/dL Hct 20.0 L (39.0-53.0) % BUN (9-20) mg/dL Creatinine (0.66-1.25) mg/dL POC Glucose (mg/dL) 124 H 116 H (70-110) mg/dL Calcium (8.4-10.2) mg/dL AST (17-59) U/L CK-MB (CK-2) (0.0-3.4) ng/mL Total Protein (6.3-8.2) g/dL Albumin (3.5-5.0) g/dL 08/28/23 08/28/23 08/28/23 Range/Units 04:57 06:54 06:54 RBC 2.31 L (4.30-5.90) m/uL Hgb 7.5 L (13.0-17.5) gm/dL Hct 22.8 L (39.0-53.0) % BUN 57 H (9-20) mg/dL Creatinine 2.18 H (0.66-1.25) mg/dL POC Glucose (mg/dL) (70-110) mg/dL Calcium 7.3 L (8.4-10.2) mg/dL AST 140 H (17-59) U/L CK-MB (CK-2) 5.0 H (0.0-3.4) ng/mL Total Protein 4.6 L (6.3-8.2) g/dL Albumin 2.5 L (3.5-5.0) g/dL Assessment and Plan Assessment: Impression: Triple-vessel coronary artery disease, and the patient is status post Off pump converted to cardiopulmonary bypass assisted coronary artery bypass grafting x 3. Right internal thoracic artery (in-situ) to left anterior descending coronary artery. Left anterior descending coronary artery (in-situ) to obtuse marginal artery #3. Reversed lesser saphenous vein from aorta to distal right coronary artery. The patient is currently postop day #6 Acute kidney injury being addressed by nephrology on the case Acute rhabdomyolysis, improving/resolved Moderate severe COPD with FEV1 of 65% Acute blood loss anemia, expected Benign essential hypertension Chronic kidney disease stage III History of TIA History of asbestos exposure with pleural plaques noted on previous CT of the chest Recommendation: Continue incentive spirometry Continue, aspirin, Plavix, and beta blockers Continue to ambulate Hold diuretics for now with worsening renal status Continue Mucinex Continue amiodarone Continue to monitor hemoglobin and addressed accordingly Will continue to follow Time with Patient: Less than 30
[2023-08-28 16:43] LABS: Glucose,Whole Blood 104 mg/dL (70-110)
--- NOTE | 2023-08-28 17:08 | P.CONS ---
History of Present Illness - Reason for Consult Consult date: 08/28/23 rehab recommendations - Chief Complaint debility s/p CABG - History of Present Illness Mr Calvo is a 73 y/o left handed single male who lives alone in a first floor apartment with ramp entry walkway. He was independent for mobility and ADLs without assistive device prior to admission. He drives. He does have some friends that live local that can help, but does not have 01/05. He presented to the hospital with complaints of chest pain and epigastric pain x 2 weeks with exertional SOB. EKF with T wave inversion in leads V1 and V2. He was supposed to have outpatient stress test done, but due to unstable angina, cardiology consulted and heart cath was recommended on 08/20/23. They recommended a CABG. After his CABG he was transferred to the ICU. Chest x-ray shows adequate expansion of both lungs. No pneumothorax. He had increased output from the chest tube. The right pleural in the left pleural chest tubes are connected output has been in the order of 400 mL and the mediastinal chest tube has drained approximately 130 mL since arrival from the operating room. Intraoperatively, the patient received a total of 2 units of packed RBC. On 08/24/2023, the patient is extubated and sitting up on a chair and currently he is on oxygen at 4 L. On 08/25/2022, he had some confusion, difficulty finding words. He was found to have labile BP and Afib. His Creatinine is up to 2.4 with a BUN of 31 and his sodium levels of 137, given IV fluids. Hemoglobin stable at 9.1. He was given IV albumin and O2 increased. He was found to have a component of rhabdomyolysis, CPK level was as high as 13,000. On 08/27/2023 Chest tubes were removed. HGb dropped to 7.3, started on iron supplements IV. WBC count is 9.8 hemoglobin is 7.5 basic metabolic profile is normal BUN is 57 creatinine 2.18 being followed by nephrology. PM&R consulted for rehab recommendations. Patient was seen by PT today, min assist x 2 for transfers, min assist x 2 [employer] 94 ft ambulation, OT no notes since 08/24 UB dressing mod assist, LB dressing total assist. 08/28/23 patient sitting in recliner, sitter at bedside. Patient has had some intermittent confusion. He denies CP and sternal pain, admits to cough and SOB, on O2 which he does not wear at home, denies abdominal pain. He had a BM yesterday, urination. He has no complaints of pain. He is open to rehab when feeling better. Review of Systems reviewed, negative unless stated above in HPI Past Medical History Past Medical History: Coronary Artery Disease (CAD), Chest Pain / Angina, CVA/TIA, Hyperlipidemia, Hypertension, Renal Disease Additional Past Medical History / Comment(s): TIA-no residual approx 2013 History of Any Multi-Drug Resistant Organisms: None Reported Past Surgical History: Back Surgery Past Anesthesia/Blood Transfusion Reactions: No Reported Reaction Past Psychological History: No Psychological Hx Reported Smoking Status: Former smoker Past Alcohol Use History: Occasional Additional Past Alcohol Use History / Comment(s): started smoking at age 18,<1ppd Past Drug Use History: None Reported - Past Family History Mother Family Medical History: No Reported History Medications and Allergies Home Medications Medication Instructions Recorded Confirmed Type Aspirin 81 mg PO MOWEFR 08/06/14 08/19/23 History Tamsulosin HCl [Flomax] 0.4 mg PO HS 08/19/23 08/19/23 History amLODIPine [Norvasc] 10 mg PO HS 08/19/23 08/19/23 History Allergies Allergy/AdvReac Type Severity Reaction Status Date / Time No Known Allergies Allergy Verified 08/19/23 19:22 Physical Exam Vitals: Vital Signs Temp Pulse Resp BP Pulse Ox 08/28/23 16:00 97.4 F L 92 25 H 100/51 98 08/28/23 15:53 90 16 08/28/23 15:43 89 16 08/28/23 15:33 90 25 H 97 08/28/23 14:00 95 21 108/50 96 08/28/23 13:00 98 12 107/50 94 L 08/28/23 12:00 98.0 F 97 20 99/49 96 08/28/23 11:48 88 18 08/28/23 11:37 80 18 08/28/23 11:00 80 15 107/58 98 08/28/23 10:00 78 14 106/57 96 08/28/23 09:00 80 22 112/95 96 08/28/23 08:02 101 H 18 08/28/23 08:00 97.6 F 100 20 111/51 96 08/28/23 07:54 100 18 97 08/28/23 07:00 89 18 107/58 96 08/28/23 06:00 84 23 94/51 93 L 08/28/23 05:00 83 10 L 113/36 100 08/28/23 04:00 98.6 F 86 17 107/58 100 08/28/23 03:00 81 16 100/51 99 08/28/23 02:00 79 11 L 103/51 98 08/28/23 01:00 80 20 104/54 97 08/28/23 00:19 80 19 100 08/28/23 00:00 98.6 F 82 17 106/59 99 08/27/23 23:00 84 24 104/60 97 08/27/23 22:00 87 15 102/55 98 08/27/23 21:00 89 24 102/55 100 08/27/23 20:34 88 08/27/23 20:25 90 08/27/23 20:00 95 18 100/53 96 08/27/23 19:00 89 15 122/57 98 08/27/23 18:00 90 19 107/56 98 08/27/23 17:00 95 15 102/54 98 Intake and Output 08/28/23 08/28/23 08/28/23 06:59 14:59 22:59 Intake Total 600 700 150 Output Total 400 0 0 Balance 200 700 150 Intake: IV 600 700 150 Calcium Gluconate in NaCl 100 2 gm In Saline 1 100ml. bag @ 100 mls/hr IVPB ONCE PRN Rx#:[id number] Sodium Chloride 0.9% 1, 600 600 150 000 ml @ 75 mls/hr IV . [id number] [facility] Rx#:[id number] Output: Urine 0 0 0 Urine/Stool Mix 400 Other: Voiding Method Bedside Commode Bedside Commode Bedside Commode # Voids 1 Weight 82.2 kg General: Well-developed, well-nourished, elderly male sitting in recliner with legs elevated, in no acute distress HEENT: NC/AT, external ears intact, slightly [place] Cardiovascular: midline sternal incision dressed, B/L calves are supple, nontender, no cords, without peripheral edema, SCDs and compression stockings on Respiratory: Even and unlabored breathing on O2; audible wheezing and cough Abdomen: Soft, rounded, nontender, nondistended Musculoskeletal: ROM WFL EXCEPT: MMT: Bilateral SABD limited- chronic per patient, R 3-/5, L 4/5 B/L EE, EF, HG 4+/5 B/L HF, KE, DF 5/5 Skin: Skin intact where visible to head, neck, and bilateral upper and lower extremities EXCEPT: for sternal incision and right IJ dressing Neurological: Alert and oriented x 3 (year reported 2222). CN II-XII: Grossly intact. Speech is clear, fluent Reflexes: 2/3 UE and LE symmetric Sensation: intact to light touch BUE and BLE Psychiatric: Mood calm, affect appropriate, cooperative, some confusion Results CBC & Chem 7: 08/29/23 04:44 08/29/23 03:34 Labs: Abnormal Lab Results - Last 24 Hours (Table) 08/27/23 08/28/23 08/28/23 Range/Units 21:00 04:57 04:57 RBC 2.04 L (4.30-5.90) m/uL Hgb 6.7 L* (13.0-17.5) gm/dL Hct 20.0 L (39.0-53.0) % BUN 57 H (9-20) mg/dL Creatinine 2.18 H (0.66-1.25) mg/dL POC Glucose (mg/dL) 116 H (70-110) mg/dL Calcium 7.3 L (8.4-10.2) mg/dL AST 140 H (17-59) U/L CK-MB (CK-2) (0.0-3.4) ng/mL Total Protein 4.6 L (6.3-8.2) g/dL Albumin 2.5 L (3.5-5.0) g/dL 08/28/23 08/28/23 Range/Units 06:54 06:54 RBC 2.31 L (4.30-5.90) m/uL Hgb 7.5 L (13.0-17.5) gm/dL Hct 22.8 L (39.0-53.0) % BUN (9-20) mg/dL Creatinine (0.66-1.25) mg/dL POC Glucose (mg/dL) (70-110) mg/dL Calcium (8.4-10.2) mg/dL AST (17-59) U/L CK-MB (CK-2) 5.0 H (0.0-3.4) ng/mL Total Protein (6.3-8.2) g/dL Albumin (3.5-5.0) g/dL Assessment and Plan Assessment: # Cardiac debility secondary to Triple-vessel coronary artery disease s/p CABG -PT/OT # impaired gait and ADLs secondary to above #Acute kidney injury #Acute rhabdomyolysis # Acute confusion, intermittent -patient had sitter at bedside #Moderate severe COPD with FEV1 of 65% #Acute blood loss anemia s/p transfusion #Benign essential hypertension #Chronic kidney disease stage III #History of TIA #History of asbestos exposure with pleural plaques # BPH # Pain management -tylenol prn # DVT Proph -Sub Q heparin # Your medical dx and management Goals: Modified Independent mobility and ADLS both basic and advanced; increased functional mobility/strength; increased balance, safety, endurance. Improvement in medical issues through your care. Barriers:endurance, O2, lives alone Discharge recommendation:Patient is pending medical stability, still having some confusion and low hgb. Potential IPR candidate but need updated OT notes, will follow. Patient seen and examined in coordination with Dr Wallis via audio and visual telemedicine Patient seen and examined in coordination with BABITA Tolentino via visual telemedicine; agree with above. Thank you for this consultation.
[2023-08-28] MEDS: TAMSULOSIN 0.4 MG CAP.ER.24H PO SCH (17:24)
[2023-08-28 19:42] LABS: Glucose,Whole Blood 141 mg/dL (70-110)
[2023-08-28] MEDS: SENNOSIDES-DOCUSATE SODIUM 1 EACH TAB PO SCH (20:05)
[2023-08-28 20:44] LABS: Glucose,Whole Blood 122 mg/dL (70-110)
[2023-08-29] MEDS: SODIUM CHLORIDE 0.9% 1,000 ML IV SCH (02:00)
[2023-08-29 04:26] LABS: ALT 29 U/L (4-49); AST 98 U/L (17-59); African American GFR (CKD) 37 (>60 ml/min/1.73 sqM); Albumin 2.5 g/dL (3.5-5.0); Alkaline Phosphatase 56 U/L (38-126); Anion Gap 8 mmol/L; Blood Urea Nitrogen 45 mg/dL (9-20); Calcium 7.3 mg/dL (8.4-10.2); Carbon Dioxide 21 mmol/L (22-30); Chloride 109 mmol/L (98-107); Glucose 92 mg/dL (74-99); Non-African American GFR(CKD) 32 (>60 ml/min/1.73 sqM); Potassium 3.9 mmol/L (3.5-5.1); Sodium 138 mmol/L (137-145); Total Bilirubin 0.8 mg/dL (0.2-1.3); Total Protein 4.6 g/dL (6.3-8.2)
[2023-08-29 04:28] LABS: Basophils % (A) 0 %; Eosinophils # (A) 0.4 k/uL (0-0.7); Eosinophils % (A) 4 %; HCT 20.2 % (39.0-53.0); Hypochromasia Slight; Lymphocytes % (A) 12 %; MCH 32.2 pg (25.0-35.0); MCHC 32.6 g/dL (31.0-37.0); MCV 98.9 fL (80.0-100.0); Macrocytosis Slight; Mean Platelet Volume 8.2; Monocytes # (A) 0.6 k/uL (0-1.0); Monocytes % (A) 7 %; Neutrophils # (A) 6.2 k/uL (1.3-7.7); Neutrophils % (A) 72 %; Platelet Count 204 k/uL (150-450); RBC 2.04 m/uL (4.30-5.90); RDW 14.8 % (11.5-15.5); WBC 8.6 k/uL (3.8-10.6)
[2023-08-29 04:34] LABS: HGB 6.6 gm/dL (13.0-17.5)
[2023-08-29] MEDS: ACETAMINOPHEN TAB 500 MG TAB PO PRN ×2 (04:47→20:34)
[2023-08-29 04:52] LABS: MCHC 32.6 g/dL (31.0-37.0); MCV 98.1 fL (80.0-100.0); Mean Platelet Volume 8.4; Platelet Count 188 k/uL (150-450); RBC 2.03 m/uL (4.30-5.90); RDW 14.9 % (11.5-15.5); WBC 9.2 k/uL (3.8-10.6)
[2023-08-29 04:54] LABS: HGB 6.5 gm/dL (13.0-17.5)
[2023-08-29 06:22] LABS: Glucose,Whole Blood 104 mg/dL (70-110)
[2023-08-29] MEDS: PANTOPRAZOLE 40 MG TABLET PO SCH (06:38)
[2023-08-29] MEDS: INSULIN ASPART (NovoLOG) 100 UNIT/ML VIAL SQ SCH ×4 (06:44→20:30)
--- NOTE | 2023-08-29 07:30 | P.PN ---
Subjective Progress Note Date: 08/29/23 Principal diagnosis: Status post CABG The patient is a pleasant 73-year-old gentleman who is status post CABG. 08/28/2023 The patient was seen and evaluated this morning. He is stable hemodynamically beside mild sinus tachycardia. Temperature appeared to be stable. He is on dual antiplatelet therapy but for some reason he is not on any statin at this point. Would explore the reason why he is not on statin. Beside that he has been in and out atrial fibrillation but currently is in sinus rhythm. He is on amiodarone orally. The examination is remarkable for regular rhythm with distant heart sounds and diminished breathing sounds bilaterally August [id number] The patient was seen and evaluated this morning. He is maintaining normal sinus mechanism and he is hemodynamically stable. His hemoglobin this morning below 7. I will suggest transfuse the patient was one unit of packed RBC. This will be discussed with the surgical team. Otherwise continue the current medical regimen and follow-up with the patient Assessment CAD and status post CABG Paroxysmal atrial fibrillation History of rhabdomyolysis and that's why the patient was not on statin Multiple comorbid conditions Plan Consider blood transfusion Continue the current medical regimen Consider starting the patient back on statin down the line Follow-up with the patient Objective - Vital Signs Vital signs: Vital Signs Temp 98.5 F 08/29/23 04:00 Pulse 92 08/29/23 07:00 Resp 22 08/29/23 07:00 BP 112/53 08/29/23 07:00 Pulse Ox 99 08/29/23 07:00 FiO2 50 08/24/23 00:45 Intake & Output 08/28/23 08/29/23 08/29/23 18:59 06:59 18:59 Intake Total 1000 825 75 Output Total 200 700 0 Balance 800 125 75 Weight 82.7 kg Intake: IV 1000 825 75 Calcium Gluconate in NaCl 100 2 gm In Saline 1 100ml. bag @ 100 mls/hr IVPB ONCE PRN Rx#:[id number] Sodium Chloride 0.9% 1, 900 825 75 000 ml @ 75 mls/hr IV . [id number] [facility] Rx#:[id number] Output: Urine 200 700 0 Other: Voiding Method Bedside Commode Urinal # Voids 1 ABP, PAP, CO, CI - Last Documented Arterial Blood Pressure 43/40 Pulmonary Artery Pressure 29/14 Cardiac Output 4.4 Cardiac Index 2.2 - Labs CBC & Chem 7: 08/29/23 04:44 08/29/23 03:34 Labs: Abnormal Lab Results - Last 24 Hours (Table) 08/28/23 08/28/23 08/29/23 Range/Units 19:41 20:43 03:34 RBC 2.04 L (4.30-5.90) m/uL Hgb 6.6 L* (13.0-17.5) gm/dL Hct 20.2 L (39.0-53.0) % Chloride (98-107) mmol/L Carbon Dioxide (22-30) mmol/L BUN (9-20) mg/dL Creatinine (0.66-1.25) mg/dL POC Glucose (mg/dL) 141 H 122 H (70-110) mg/dL Calcium (8.4-10.2) mg/dL AST (17-59) U/L Total Protein (6.3-8.2) g/dL Albumin (3.5-5.0) g/dL 08/29/23 08/29/23 Range/Units 03:34 04:44 RBC 2.03 L (4.30-5.90) m/uL Hgb 6.5 L* (13.0-17.5) gm/dL Hct 20.0 L (39.0-53.0) % Chloride 109 H (98-107) mmol/L Carbon Dioxide 21 L (22-30) mmol/L BUN 45 H (9-20) mg/dL Creatinine 2.01 H (0.66-1.25) mg/dL POC Glucose (mg/dL) (70-110) mg/dL Calcium 7.3 L (8.4-10.2) mg/dL AST 98 H (17-59) U/L Total Protein 4.6 L (6.3-8.2) g/dL Albumin 2.5 L (3.5-5.0) g/dL
[2023-08-29] MEDS ORDERED: POTASSIUM CHLORIDE ER 20 MEQ TAB.ER PO SCH (08:00)
[2023-08-29] MEDS: IPRATROPIUM-ALBUTEROL 3 ML NEB INHALATION SCH ×4 (08:15→21:12)
--- NOTE | 2023-08-29 08:16 | P.PN ---
Subjective Progress Note Date: 08/29/23 Principal diagnosis: Triple-vessel coronary artery disease, unstable angina. History of hypertension, hyperlipidemia, chronic kidney disease stage III, previous tobacco dependence with recent cessation, mild COPD, TIA in 2014 with no residual deficits, BPH, bilateral greater saphenous vein stripping, bilateral carotid stenosis POD #6 off pump converted to cardiopulmonary bypass assisted coronary artery bypass grafting 3, right internal thoracic artery in situ to the left anterior descending coronary artery, left anterior coronary artery in situ to the third obtuse marginal artery, reverse lesser saphenous vein from the aorta to the distal right coronary artery, left atrial appendage ligation using a 35 mm AtriClip, endoscopic right tennis vein harvest, graft flow measurements using the Medistim flowmeter, intraoperative transesophageal echocardiogram Post operative acute blood loss anemia and thrombocytopenia, expected given significant hemodilution. Intraoperative and postoperative paroxysmal atrial fibrillation, unexpected but a known common occurrence after open heart surgery. Intraoperative and postoperative hypotension expected due to vasoplegia, atrial fibrillation. The patient was seen and examined in follow-up today 08/29/2023 at his bedside i n the intensive care unit. He is currently sitting up to bedside chair, is awake, alert, oriented 3 and is in no acute apparent distress. No further episodes of confusion reported. He denies any complaints of shortness of breath at this time or pain, although he reports he did have some pain this morning requiring Tylenol which he states helped decrease his pain. Currently rates his pain 2-3 out of 10 on the pain scale. Oxygen saturations are 98% on 2 L nasal cannula and he is achieving 1500 mL on his incentive spirometry with much encouragement. Bedside telemetry is showing normal sinus rhythm heart rate 90 BPM. Ventricular epicardial pacemaker wires remained in place and are grounded. The patient has been up ambulating in the intensive care unit hallway with standby assistance from nursing and therapy staff and tolerating well. His been afebrile the last 24 hours. Laboratory and chest x-ray results reviewed. Objective - Vital Signs Vital signs: Vital Signs Temp 98.5 F 08/29/23 04:00 Pulse 92 08/29/23 07:00 Resp 22 08/29/23 07:00 BP 112/53 08/29/23 07:00 Pulse Ox 99 08/29/23 07:00 FiO2 50 08/24/23 00:45 Intake & Output 08/28/23 08/29/23 08/29/23 18:59 06:59 18:59 Intake Total 1000 825 75 Output Total 200 700 0 Balance 800 125 75 Weight 82.7 kg Intake: IV 1000 825 75 Calcium Gluconate in NaCl 100 2 gm In Saline 1 100ml. bag @ 100 mls/hr IVPB ONCE PRN Rx#:[id number] Sodium Chloride 0.9% 1, 900 825 75 000 ml @ 75 mls/hr IV . [id number] [facility] Rx#:[id number] Output: Urine 200 700 0 Other: Voiding Method Bedside Commode Urinal # Voids 1 ABP, PAP, CO, CI - Last Documented Arterial Blood Pressure 43/40 Pulmonary Artery Pressure 29/14 Cardiac Output 4.4 Cardiac Index 2.2 - Exam CONSTITUTIONAL: Sitting up to the bedside chair in the intensive care unit, appears comfortable, cooperative, no apparent acute distress. HEENT: Neck is supple, no JVD, no lymphadenopathy. RESPIRATORY: Lungs sounds essentially clear throughout, diminished to his bilateral bases. Respirations are symmetrical and nonlabored. Currently on 2 L nasal cannula with oxygen saturations 98%. Able to achieve 1500 mL on his incentive spirometry. Strong cough, nonproductive and loose. CARDIOVASCULAR: Regular rhythm and rate. S1 and S2 present, negative for S3, gallop or murmur. Sternum is stable. Palpable peripheral pulses bilaterally, trace generalized edema. No calf pain or tenderness noted. Heart hugger in p lace with patient demonstrating appropriate use. Knee-high ALBERT hose and sequential compression devices in place to his bilateral lower extremities. GASTROINTESTINAL: Abdomen soft, nontender, nondistended. Active bowel sounds present 4 quadrants. Tolerating diet. Passing flatus. No guarding or rigidity. Bowel movement yesterday 08/28/2023 GENITOURINARY: Continues to void. Urine output 700 mL in the last 8 hours. INTEGUMENTARY: Skin is warm and dry with no evidence of clubbing or cyanosis. Midline sternal incision clean dry and well approximated, covered with dry intact dressing. Bilateral lower extremity EVH sites well approximated without redness or drainage. No drainage or redness is present. NEUROLOGIC: Cranial nerves II through XII intact. No focal deficits. MUSKULOSKELETAL: Able to move all extremities, strength equal bilaterally, generalized weakness. PSYCHIATRIC: Alert and oriented to person place and time, appropriate affect, intact judgment and insight. INVASIVE LINES AND TUBES: Ventricular epicardial pacemaker wires present, and grounded. - Allied health notes Allied health notes reviewed: nursing - Labs CBC & Chem 7: 08/29/23 04:44 08/29/23 03:34 Labs: Abnormal Lab Results - Last 24 Hours (Table) 08/28/23 08/28/23 08/29/23 Range/Units 19:41 20:43 03:34 RBC 2.04 L (4.30-5.90) m/uL Hgb 6.6 L* (13.0-17.5) gm/dL Hct 20.2 L (39.0-53.0) % Chloride (98-107) mmol/L Carbon Dioxide (22-30) mmol/L BUN (9-20) mg/dL Creatinine (0.66-1.25) mg/dL POC Glucose (mg/dL) 141 H 122 H (70-110) mg/dL Calcium (8.4-10.2) mg/dL AST (17-59) U/L Total Protein (6.3-8.2) g/dL Albumin (3.5-5.0) g/dL 08/29/23 08/29/23 Range/Units 03:34 04:44 RBC 2.03 L (4.30-5.90) m/uL Hgb 6.5 L* (13.0-17.5) gm/dL Hct 20.0 L (39.0-53.0) % Chloride 109 H (98-107) mmol/L Carbon Dioxide 21 L (22-30) mmol/L BUN 45 H (9-20) mg/dL Creatinine 2.01 H (0.66-1.25) mg/dL POC Glucose (mg/dL) (70-110) mg/dL Calcium 7.3 L (8.4-10.2) mg/dL AST 98 H (17-59) U/L Total Protein 4.6 L (6.3-8.2) g/dL Albumin 2.5 L (3.5-5.0) g/dL - Imaging and Cardiology Chest x-ray: report reviewed, image reviewed Assessment and Plan Assessment: Triple-vessel coronary artery disease, unstable angina, status post 3 vessel CABG History of hypertension Hyperlipidemia, cholesterol 215, LDL 143, triglycerides 185 Chronic kidney disease stage III, with a baseline creatinine of 1.4-1.6 Remote history of tobacco dependence with recent cessation Mild COPD, preoperative FEV1 of 65% of predicted History of asbestosis exposure, CT of the chest showing pleural plaquing TIA in 2013 with no residual BPH on Flomax Bilateral vein stripping in the 1970s Bilateral carotid stenosis by carotid Doppler, greater than 70% on the left, 50- 69% on the right based on velocities; 50% proximal ROMMEL stenosis and 50% left carotid artery stenosis at the bifurcation per CTA Post operative acute blood loss anemia and thrombocytopenia, expected given significant hemodilution Paroxysmal intraoperative and postoperative atrial fibrillation, unexpected but common after open heart surgery, status post exclusion left atrial appendage with a 35 mm Atriclip Intraoperative and postoperative hypotension expected due to vasoplegia, atrial fibrillation, resolved Acute kidney injury, nonoliguric, BUN 57 and creatinine 2.18 today Acute rhabdomyolysis, unknown etiology, CK trending down Plan: Continue to maximize medical therapy with aspirin, plavix, and beta maria luisa. Will increase metoprolol tartrate as tolerated. Currently on metoprolol tartrate 25 mg by mouth 3 times a day with hold parameters. Continue amiodarone 400 mg by mouth twice a day for afib prophylaxis. We will decrease amiodarone to 200 mg by mouth twice a day on 08/31/2023. Continue to hold Statin due to the rhabdomyolysis. Discontinue 0.9% normal saline. Wean oxygen as tolerated, encourage incentive spirometer use 10x every hour while awake, bronchodilators per pulmonology. Continue Mucinex, Mucomyst, Flutter valve and chest physiotherapy as ordered. Increase activity, ambulate as tolerated. PT/OT/cardiac rehab following. Will monitor daily labs and chest x-ray. Electrolyte replacement per protocol. Pain control with current medication regimen, no toradol due to CKD. Insulin management per internal medicine. Hemoglobin A1c 5.9% preoperatively. Discussed the importance of risk modification including encouragement of Continued smoking cessation. We will remove his ventricular epicardial pacemaker wires today, bed rest for 1 hour post a wire removal. Continue to record strict and accurate I's and O's. May bladder scan every 6 hours and when necessary postvoid residual, if greater than 300 mL of urine please straight cath. Daily weights. Hemoglobin 6.5 this morning, we will transfuse for 1 unit of PRBCs followed by Lasix 20 mg IV 1 post transfusion of the PRBCs. Discharge planning is in place, anticipate discharge to inpatient rehab in the next 24 hours. Transfer orders placed to the third floor cardiac stepdown unit. More recommendations to follow based on patient's clinical course. Time with Patient: Greater than 30
--- NOTE | 2023-08-29 08:22 | XR ---
EXAMINATION TYPE: XR chest 2V DATE OF EXAM: 08/29/2023 6:14 AM CLINICAL INDICATION:Male, 73 years old with history of Post op CABG; [facility] COMPARISON: Chest radiographs from 08/28/2023 TECHNIQUE: XR chest 2V Frontal and lateral views of the chest. FINDINGS: Lungs/Pleura: 27 mm left upper lung nodular-like opacity. This is new from prior. Prominent interstit ial lung markings are seen scattered throughout the lungs with flattening of the diaphragm and increa sed lucency of the lung apices. No evidence of focal consolidation, pneumothorax or pleural effusion. Pulmonary vascularity: Pulmonary vascular congestion. Heart/mediastinum: Cardiomediastinal silhouette is unremarkable. Left atrial appendage occlusion so ce is present. Musculoskeletal: No acute osseous pathology. Midline sternotomy wires are noted. Other findings: None Lines/Tubes: IJ sheath seen on prior is not definitively visualized and is likely absent. IMPRESSION: 1. New left lower lung airspace opacity correlate for developing pneumonia. 2. Stable pulmonary vascular congestion. 3. COPD changes.
[2023-08-29] MEDS ORDERED: FUROSEMIDE 10 MG/ML 2 ML VIAL IV ONE (08:41)
[2023-08-29] MEDS: HEPARIN SODIUM,PORCINE 5,000 UNIT/ML 1 ML VIAL SQ SCH ×3 (09:10→23:47)
[2023-08-29] MEDS: guaiFENesin 600 MG TABLET.ER PO SCH ×2 (09:11→20:35)
[2023-08-29] MEDS: METOPROLOL TARTRATE 25 MG TAB PO SCH ×3 (09:11→21:01)
[2023-08-29] MEDS: AMIODARONE 200 MG TAB PO SCH ×2 (09:11→20:35)
[2023-08-29] MEDS: ASPIRIN 325 MG TAB PO SCH (09:11)
[2023-08-29] MEDS: CLOPIDOGREL 75 MG TAB PO SCH (09:11)
[2023-08-29] MEDS: FOLIC ACID 1 MG TAB PO SCH (09:11)
[2023-08-29] MEDS: ASCORBIC ACID 500 MG TAB PO SCH (09:11)
[2023-08-29] MEDS: THIAMINE 100 MG TAB PO SCH (09:23)
[2023-08-29] MEDS ORDERED: DARBEPOETIN ALFA 40 MCG/0.4 ML SYRINGE SQ SCH (10:00)
[2023-08-29] MEDS: SODIUM FERRIC GLUCONAT-SUCROSE 125 MG in SODIUM CHLORIDE 0.9% 100 ML IVPB SCH (10:14)
--- NOTE | 2023-08-29 11:09 | P.PN ---
Subjective Progress Note Date: 08/29/23 Patient is a 73-year-old male with hypertension, chronic kidney disease, BPH initially presented to the emergency department with complaints of chest pain. He was subsequently admitted for chest pain observation. Troponins were trended and remained negative. Patient was seen by cardiology and was subsequently taken for cardiac cath on 08/20/23 which showed significant multivessel coronary artery disease. Cardiothoracic surgery was subsequently consulted and patient was worked up for possible CABG. Carotid Dopplers were completed showing greater than 75% stenosis of bilateral carotids. Patient underwent off pump CABG on 08/23/23. He did develop some acute kidney injury, contrast induced and rhabdomyolysis. 08/28 Patient was seen and examined. CBC Hg 6.7. Repeat Hg 7.5 (initial likely lab error). CMP BUN 57, Cr 2.18, Ca 7.3, AST 140, albumin 2.5. CXR shows mild pulmonary vascular congestion. Currently on Amiodarone PO. On ASA, Metoprolol and Plavix. Urine output 155+950 cc. 08/29 Patient was seen and examined. He reports no complaints today. CBC done today shows Hg 6.6 and 6.5. Plans for 1 unit PRBC today. CMP shows Cl 109, bicarb 21, BUN 45, Cr 2.01, Ca 7.3, AST 98, albumin 2.5. CXR shows mild pulmonary vascular congestion similar to previous CXR. Started on ferric gluconate 125 mg IV QD yesterday. Vital signs reviewed General:non toxic, no distress, appears at stated age Cardiovascular: S1S2 reg, no murmur Lungs: Course bs b/l bilateral, no rhonchi, no rales , no accessory muscle use Abdominal: soft, nontender to palpation, no guarding, no appreciable organomegaly Ext: no gross muscle atrophy, no edema b/l lower extremities, no contractures Psych: Awake, follows commands, unable to answer year Unstable angina with severe multivessel coronary artery disease status post CABG 3 on 08/23/23 KATHY on chronic kidney disease stage IIIA, likely secondary to Rhabdo versus contrast-induced Rhabdomyolysis Hypertension Carotid artery stenosis, 25-50% stenosis bilaterally on CTA neck Acute blood loss anemia, anticipated outcome of surgery AST elevation BPH Renal cyst Pancreatic cyst Liver nodule Resolved: Thrombocytopenia Based on my assessment of this patient, this patient meets a moderate complexity level of care. Patient has an acute diagnosis of unstable angina with multivessel CAD status post CABG on 08/23 that poses a threat to life or bodily function. Acute blood loss anemia: Anticipated outcome of surgery. Status post 2 units PRBC. Status post 1 unit Plt. Started on ferric gluconate 125 mg IV QD. 1 unit PRBC today. Transfuse if Hg < 7. Unstable angina with severe multivessel CAD: Status post CABG 3 on 08/23/23. ASA 325 mg PO QD. Plavix 75 mg PO QD. Metoprolol 25 mg PO TID. Statin when rhabdomyolysis improves. Cardiology on board. KATHY on chronic kidney disease stage IIIA: Likely secondary to Rhabdo versus contrast-induced. Improving. Nephrology on board. Rhabdomyolysis: Improving. Hypertension: Metoprolol as above. Carotid artery stenosis: 25-50% stenosis bilaterally on CTA neck. ASA, statin and Plavix as above. AST elevation BPH: Flomax 0.4 mg PO QHS. Renal cyst: Outpatient workup. Pancreatic cyst: Outpatient workup. Liver nodule: Marginally increased in size since 2013 likely benign. PMR on board for possible IPR. CODE STATUS: FULL CODE. DVT Prophylaxis: Heparin SQ. GI Prophylaxis: Protonix PO Designated medical POA if patient is not able to make medical decisions for themselves: I have reviewed the following art consultant notes: Pulm, CT surgery, Cardio, Nephro note. I have reviewed the results of the following tests: CBC, CMP, CPK I have ordered the following tests: CBC, CMP. I have discussed the care of this patient with the following independent historian: I have independently interpreted the following test below: CXR as above. I have discussed the management of this patient with the following physician: Objective - Vital Signs Vital signs: Vital Signs Temp 98.5 F 08/29/23 04:00 Pulse 92 08/29/23 07:00 Resp 22 08/29/23 07:00 BP 112/53 08/29/23 07:00 Pulse Ox 99 08/29/23 07:00 FiO2 50 08/24/23 00:45 Intake & Output 08/28/23 08/29/23 08/29/23 18:59 06:59 18:59 Intake Total 1000 825 75 Output Total 200 700 0 Balance 800 125 75 Weight 82.7 kg Intake: IV 1000 825 75 Calcium Gluconate in NaCl 100 2 gm In Saline 1 100ml. bag @ 100 mls/hr IVPB ONCE PRN Rx#:[id number] Sodium Chloride 0.9% 1, 900 825 75 000 ml @ 75 mls/hr IV . [id number] [facility] Rx#:[id number] Output: Urine 200 700 0 Other: Voiding Method Bedside Commode Urinal # Voids 1 ABP, PAP, CO, CI - Last Documented Arterial Blood Pressure 43/40 Pulmonary Artery Pressure 29/14 Cardiac Output 4.4 Cardiac Index 2.2 - Labs CBC & Chem 7: 08/29/23 04:44 08/29/23 03:34 Labs: Abnormal Lab Results - Last 24 Hours (Table) 08/28/23 08/28/23 08/29/23 Range/Units 19:41 20:43 03:34 RBC 2.04 L (4.30-5.90) m/uL Hgb 6.6 L* (13.0-17.5) gm/dL Hct 20.2 L (39.0-53.0) % Chloride (98-107) mmol/L Carbon Dioxide (22-30) mmol/L BUN (9-20) mg/dL Creatinine (0.66-1.25) mg/dL POC Glucose (mg/dL) 141 H 122 H (70-110) mg/dL Calcium (8.4-10.2) mg/dL AST (17-59) U/L Total Protein (6.3-8.2) g/dL Albumin (3.5-5.0) g/dL 08/29/23 08/29/23 Range/Units 03:34 04:44 RBC 2.03 L (4.30-5.90) m/uL Hgb 6.5 L* (13.0-17.5) gm/dL Hct 20.0 L (39.0-53.0) % Chloride 109 H (98-107) mmol/L Carbon Dioxide 21 L (22-30) mmol/L BUN 45 H (9-20) mg/dL Creatinine 2.01 H (0.66-1.25) mg/dL POC Glucose (mg/dL) (70-110) mg/dL Calcium 7.3 L (8.4-10.2) mg/dL AST 98 H (17-59) U/L Total Protein 4.6 L (6.3-8.2) g/dL Albumin 2.5 L (3.5-5.0) g/dL
--- NOTE | 2023-08-29 11:31 | P.PN ---
Subjective Patient is seen for follow-up for acute kidney injury 24 hour urine output documented at 900 mL however urine is mixed with stool. No complaints of chest pains or shortness of breath. Hemoglobin 6.5 g/dL again today, receiving packed RBCs transfusion No active bleeding noted. Serum creatinine stable at 2.01 mg/dL. Receiving IV iron. Maintained on IV fluids at 50 mL an hour. Tolerating oral intake fairly well. Objective - Vital Signs Vital signs: Vital Signs Temp 97.8 F 08/29/23 10:40 Pulse 77 08/29/23 11:00 Resp 16 08/29/23 11:00 BP 115/59 08/29/23 11:00 Pulse Ox 95 08/29/23 11:00 FiO2 50 08/24/23 00:45 Intake & Output 08/28/23 08/29/23 08/29/23 18:59 06:59 18:59 Intake Total 1000 825 210 Output Total 200 700 220 Balance 800 125 -10 Weight 82.7 kg Intake: IV 1000 825 210 Calcium Gluconate in NaCl 100 2 gm In Saline 1 100ml. bag @ 100 mls/hr IVPB ONCE PRN Rx#:[id number] Sodium Chloride 0.9% 1, 900 825 210 000 ml @ 75 mls/hr IV . [id number] [facility] Rx#:[id number] Blood Product 0 Unit 0 Output: Urine 200 700 220 Other: Voiding Method Bedside Commode Urinal # Voids 1 ABP, PAP, CO, CI - Last Documented Arterial Blood Pressure 43/40 Pulmonary Artery Pressure 29/14 Cardiac Output 4.4 Cardiac Index 2.2 - Exam Awake, comfortable, no acute distress Examination of the heart S1 and S2 Examination lungs decreased breath sounds at the bases Abdomen is soft nontender Examination lower extremities shows edema trace bilaterally [employer]ER exam 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 - Labs CBC & Chem 7: 08/29/23 04:44 08/29/23 03:34 Labs: Abnormal Lab Results - Last 24 Hours (Table) 08/20/23 08/28/23 08/28/23 Range/Units 14:59 19:41 20:43 RBC (4.30-5.90) m/uL Hgb (13.0-17.5) gm/dL Hct (39.0-53.0) % Chloride (98-107) mmol/L Carbon Dioxide (22-30) mmol/L BUN (9-20) mg/dL Creatinine (0.66-1.25) mg/dL POC Glucose (mg/dL) 141 H 122 H (70-110) mg/dL Calcium (8.4-10.2) mg/dL AST (17-59) U/L Creatine Kinase (55-170) U/L Total Protein (6.3-8.2) g/dL Albumin (3.5-5.0) g/dL Crossmatch See Detail 08/29/23 08/29/23 08/29/23 Range/Units 03:34 03:34 03:34 RBC 2.04 L (4.30-5.90) m/uL Hgb 6.6 L* (13.0-17.5) gm/dL Hct 20.2 L (39.0-53.0) % Chloride 109 H (98-107) mmol/L Carbon Dioxide 21 L (22-30) mmol/L BUN 45 H (9-20) mg/dL Creatinine 2.01 H (0.66-1.25) mg/dL POC Glucose (mg/dL) (70-110) mg/dL Calcium 7.3 L (8.4-10.2) mg/dL AST 98 H (17-59) U/L Creatine Kinase 2476 H* (55-170) U/L Total Protein 4.6 L (6.3-8.2) g/dL Albumin 2.5 L (3.5-5.0) g/dL Crossmatch 08/29/23 08/29/23 Range/Units 04:44 08:25 RBC 2.03 L (4.30-5.90) m/uL Hgb 6.5 L* (13.0-17.5) gm/dL Hct 20.0 L (39.0-53.0) % Chloride (98-107) mmol/L Carbon Dioxide (22-30) mmol/L BUN (9-20) mg/dL Creatinine (0.66-1.25) mg/dL POC Glucose (mg/dL) (70-110) mg/dL Calcium (8.4-10.2) mg/dL AST (17-59) U/L Creatine Kinase (55-170) U/L Total Protein (6.3-8.2) g/dL Albumin (3.5-5.0) g/dL Crossmatch See Detail Assessment and Plan Assessment: 1. Acute kidney injury, ATN currently nonoliguric. Etiology includes hemodynamic instability and IV contrast. Renal function currently stable. Maintained on IV fluids. 2. CK D stage III a secondary to nephrosclerosis with baseline creatinine around 1.4 mg/dL 3. Coronary artery disease status post coronary artery bypass surgery x3 on 08/23/2023 4. A. fib with RVR 5. Anemia, receiving IV iron. No active bleeding noted. Hemoglobin at 6.5 g/dL today, receiving 1 unit packed RBCs. Maintained on Aranesp Plan: Okay to DC IV fluids Repeat labs in a.m. Continue Aranesp Continue to avoid nephrotoxic agents.
[2023-08-29 11:55] LABS: Glucose,Whole Blood 91 mg/dL (70-110)
--- NOTE | 2023-08-29 15:50 | P.PN ---
Subjective Progress Note Date: 08/29/23 Principal diagnosis: Triple-vessel coronary artery disease, and the patient is status post Off pump converted to cardiopulmonary bypass assisted coronary artery bypass grafting x 3. Right internal thoracic artery (in-situ) to left anterior descending coronary artery. Left anterior descending coronary artery (in-situ) to obtuse marginal artery #3. Reversed lesser saphenous vein from aorta to distal right coronary artery. The patient is currently postop day #7 , the patient is being seen immediately following bypass surgery. The patient a complicated surgery. The patient will Off pump converted to cardiopulmonary bypass assisted coronary artery bypass grafting x 3. Right internal thoracic artery (in-situ) to left anterior descending coronary artery. Left anterior descending coronary artery (in-situ) to obtuse marginal artery #3. Reversed lesser saphenous vein from aorta to distal right coronary artery. The patient was brought into the intensive care unit and the patient is currently on propofol running at 20 mcg/kg/m. Intubated on a mechanical ventilator. Is currently on assist control mode at a rate of 12, tidal volume of 450, FiO2 of 100% with a PEEP of 5. Blood cultures showed a pH of 7.28 with a pCO2 of 51 and pO2 112. Chest x-ray shows adequate expansion of both lungs. No pneumothorax. The patient has a right pleural, left total and mediastinal chest tube. The patient's cardiac output is currently at 8.7 with an index of 4.4. Pulmonary artery pressure 34/23. The patient is on vasopressin physiologic dose, dopamine infusion running at 0.03 microvascular kilogram per minute and norepinephrine is running at 0.05 microvascular kilogram per minutes. the cardiac rhythm Is sinus and the patient is on amiodarone at 1 mg/m. Patient is also on insulin drip at 2.5 units an hour. The patient has increased output from the chest tube. The right pleural in the left pleural chest tubes are connected output has been in the order of 400 mL and the mediastinal chest tube has drained approximately 130 mL since arrival from the operating room. Intraoperatively, the patient received a total of 2 units of packed RBC, platelet concentrate, 4.5 L of albumin, 3 L of crystalloids and 2 L of Cell [employer]. Estimated blood loss was around 4 L. The patient is currently hypothermic with a temperature of 35.7C. The CBC showed a hemoglobin of 8.7, white cell count of 8.5, platelet count of 78, and electrodes are still pending for now. Meanwhile, a cognition profile showed an INR of 1.8 with a PT of 18.5 and a PTT of 65.3. The patient was also given protamine. His well sedated and is, comfortable at this point in time. Surgical one-sided dry clean and intact. On 08/24/2023, the patient is extubated and sitting up on a chair and currently he is on oxygen at 4 L. He was quite unstable after he came into the ICU. His condition progressively stabilized with output from the chest to progressively dropped. His vaccination improved. He was gradually weaned off the mechanical ventilator and he was extubated without having any major difficulties. The chest x-ray from today shows atelectatic changes in the right upper lobe. Sherwood- Vijay catheter still in place. He has cardiomegaly. He also has some mild pulmonary vascular congestion. The Sherwood-Vijay catheter is in place. PA pressures are 24/10. Cardiac output is 5.8 with an index of 3.0. Adequate urine output. All of the pressors have been discontinued. He remains on insulin drip at 3 units an hour. Amiodarone drip has been discontinued and the patient is currently on oral amiodarone. He is also in a normal sinus rhythm. Is using the incentive spirometer. He is falling approximately 1250 mL. His only complaint is some nausea for which the patient was given Zofran. Chest tubes are in place. The patient has a right pleural, left pleural chest tube which are connected and there is no evidence of any air leak. The patient also has a mediastinal chest tube. Output from the chest tubes have been slowing down progressively. On today's evaluation of 08/25/2022, the patient is slightly confused. Is having some difficulties in finding appropriate words. His we'll go 4 extremities. I feel that his mentation is waxing and waning. On certain occasions, is very much appropriate. Other times, he was noted to have some difficulties noted during words. No aphasia. No facial asymmetry. No headaches. In fact his blood pressure is soft and the patient is atrial fibrillation with a heart rate between 110 and 1:30, irregular. In same time the patient has of an acute kidney injury. Creatinine is up to 2.4 with a BUN of 31 and his sodium levels of 137. Hemoglobin stable at 9.1. The patient continues to have a right and a left pleural chest tube and a mediastinal chest tube. No evidence of any pneumothorax. Output from the chest abdomen 250 mL from [employer] and the pleural chest tubes and there is no evidence of any air leak. Chest x-ray shows atelectatic changes in the right lung and the patient has a congested cough. Suspect a component of mucus plugging as the patient had some right upper lobe atelectasis immediately postop. He is currently on 7 L of oxygen high flow with a pulse ox of 92%. He is receiving a dose of IV albumin, 2 50 mL, 12.5 g. Urine output is in order of 30 mL an hour and the patient was given oxycodone 5 mg on 2 separate occasions for pain control. Using the incentive spirometer. Sternum is stable clean and intact. On 08/26/2023, the patient is being seen for a follow-up. The patient is oxygen at 4 L/m nasal cannula. Breathing is labored and the patient is unable to perform adequate pulmonary toileting. He is trying to use incentive spirometer. He has a congested cough. Surgical one-sided dry clean and intact. The chest x-ray from today shows some volume loss in the lung bases. Limited atelectatic changes in the right midlung area. He does have some increased gaseous distention of the bowel in the abdomen. His chest tubes are split. Mediastinal chest tubes are out and the patient continues to have a right pleural left lower chest tube. I do not appreciate any pneumothorax. Meanwhile, he was found to have a component of rhabdomyolysis. CPK level was as high as 13,000 and is currently slightly lower compared to yesterday. He has sustained an acute kidney injury. Creatinine 2.4 and the patient is currently on normal saline at rate of 75 mL an hour. His overall fluid balance has been -757 mL over the past 24 hours. His diuretics are currently on hold. His cardiac rhythm is sinus. He remains on amiodarone. He remains on metoprolol 25 mg by mouth 3 times a day. Statins were discontinued. He remains on aspirin. Is working on his incentive spirometer. On 08/27/2023, the patient is resting comfortably in bed. Chest tubes were removed. No major significant is for now. No shortness of breath. No other significant events overnight. Urine output is adequate. The patient's creatinine is also improving is currently down to 2. all within a 49. Sodium levels along 35, the bronchoscope was of 9.8 with a hemoglobin of 7.3. Moving all 4 extremities. No limitation. No cardiac arrhythmias at this point in time. The patient is essentially stable for the time being. The patient remains on amiodarone 400 mg by mouth twice a day. The patient is on metoprolol 25 mg 3 times a day. The patient is currently on a combination of aspirin and Plavix. Patient is also on Flomax. IV fluids are in the form of normal saline 75 mL an hour. Tolerating diet. Using the [employer] spirometer. Currently on 2 L of oxygen by nasal cannula with a pulse ox of 97%. Chest x-ray showing stable cardiomegaly with postoperative changes Reevaluated today on 08/28/2023, patient remains in the ICU, he is status post CABG postoperative day #6, patient is doing fairly well, he is on 2 L nasal cannula, does not seem to be in distress, seems to be admitted generally weak otherwise unremarkable findings. Chest x-ray is reassuring. Patient is receiving iron supplements IV. WBC count is 9.8 hemoglobin is 7.5 basic metabolic profile is normal BUN is 57 creatinine 2.18 being followed by nephrology. Patient was reevaluated today on 08/29/23, sitting at a bedside chair, on 2 L nasal cannula, hemoglobin is down to 6.5 today, and the patient will receive a unit of packed RBCs his BUN is 45 creatinine 2.0, patient is having some liquid stools. No further confusion episodes, he seems to be less confused today, has been ambulating in the intensive care unit hallway, with assistance. Improvement noted in his incentive spirometry. Patient is on 2 L nasal cannula with O2 saturation of 96% via chest x-ray showed minimal atelectasis, clearly I doubt pneumonia, there is minimal pulmonary vascular congestion and COPD changes Objective - Vital Signs Vital signs: Vital Signs Temp 97.8 F 08/29/23 12:29 Pulse 90 08/29/23 15:40 Resp 17 08/29/23 15:00 BP 120/64 08/29/23 15:00 Pulse Ox 93 L 08/29/23 15:00 FiO2 50 08/24/23 00:45 Intake & Output 08/28/23 08/29/23 08/29/23 18:59 06:59 18:59 Intake Total 1000 825 820 Output Total 200 700 495 Balance 800 125 325 Weight 82.7 kg Intake: IV 1000 825 210 Calcium Gluconate in NaCl 100 2 gm In Saline 1 100ml. bag @ 100 mls/hr IVPB ONCE PRN Rx#:[id number] Sodium Chloride 0.9% 1, 900 825 210 000 ml @ 75 mls/hr IV . [id number] [facility] Rx#:[id number] Tube Feeding 250 Blood Product 310 Rc As-1 Unit 310 [id number] Other 50 Rc As-1 Unit 50 [id number] Output: Urine 200 700 495 Other: Voiding Method Bedside Commode Urinal Bedside Commode # Voids 1 ABP, PAP, CO, CI - Last Documented Arterial Blood Pressure 43/40 Pulmonary Artery Pressure 29/14 Cardiac Output 4.4 Cardiac Index 2.2 - Exam Physical Exam: Revealed a 73-year-old white male in no distress on 2 L nasal cannula Head: Atraumatic, normocephalic. HEENT:[Neck is supple.] [No neck masses.] [No thyromegaly.] [No JVD.] Chest: [Clear throughout, no crackles, no rhonchi, no wheezes.] Cardiac Exam: [Normal S1 and S2, no S3 gallop, no murmur.] Abdomen: [Soft, nontender, no megaly, no rebound, no guarding, normal bowel sounds.] Extremities: [No clubbing, no edema, no cyanosis.] Neurological Exam: [No focal neurologic deficit.] Alert and oriented 3. Psychiatric: Normal mood affect and normal sinus examination. Skin: No rashes. - Labs CBC & Chem 7: 08/29/23 04:44 08/29/23 03:34 Labs: Abnormal Lab Results - Last 24 Hours (Table) 08/20/23 08/28/23 08/28/23 Range/Units 14:59 19:41 20:43 RBC (4.30-5.90) m/uL Hgb (13.0-17.5) gm/dL Hct (39.0-53.0) % Chloride (98-107) mmol/L Carbon Dioxide (22-30) mmol/L BUN (9-20) mg/dL Creatinine (0.66-1.25) mg/dL POC Glucose (mg/dL) 141 H 122 H (70-110) mg/dL Calcium (8.4-10.2) mg/dL AST (17-59) U/L Creatine Kinase (55-170) U/L Total Protein (6.3-8.2) g/dL Albumin (3.5-5.0) g/dL Crossmatch See Detail 08/29/23 08/29/23 08/29/23 Range/Units 03:34 03:34 03:34 RBC 2.04 L (4.30-5.90) m/uL Hgb 6.6 L* (13.0-17.5) gm/dL Hct 20.2 L (39.0-53.0) % Chloride 109 H (98-107) mmol/L Carbon Dioxide 21 L (22-30) mmol/L BUN 45 H (9-20) mg/dL Creatinine 2.01 H (0.66-1.25) mg/dL POC Glucose (mg/dL) (70-110) mg/dL Calcium 7.3 L (8.4-10.2) mg/dL AST 98 H (17-59) U/L Creatine Kinase 2476 H* (55-170) U/L Total Protein 4.6 L (6.3-8.2) g/dL Albumin 2.5 L (3.5-5.0) g/dL Crossmatch 08/29/23 08/29/23 Range/Units 04:44 08:25 RBC 2.03 L (4.30-5.90) m/uL Hgb 6.5 L* (13.0-17.5) gm/dL Hct 20.0 L (39.0-53.0) % Chloride (98-107) mmol/L Carbon Dioxide (22-30) mmol/L BUN (9-20) mg/dL Creatinine (0.66-1.25) mg/dL POC Glucose (mg/dL) (70-110) mg/dL Calcium (8.4-10.2) mg/dL AST (17-59) U/L Creatine Kinase (55-170) U/L Total Protein (6.3-8.2) g/dL Albumin (3.5-5.0) g/dL Crossmatch See Detail Assessment and Plan Assessment: Impression: Triple-vessel coronary artery disease, and the patient is status post Off pump converted to cardiopulmonary bypass assisted coronary artery bypass grafting x 3. Right internal thoracic artery (in-situ) to left anterior descending coronary artery. Left anterior descending coronary artery (in-situ) to obtuse marginal artery #3. Reversed lesser saphenous vein from aorta to distal right coronary artery. The patient is currently postop day #7 Acute kidney injury being addressed by nephrology on the case Acute rhabdomyolysis, improving/resolved Moderate severe COPD with FEV1 of 65% Acute blood loss anemia, expected Benign essential hypertension Chronic kidney disease stage III History of TIA History of asbestos exposure with pleural plaques noted on previous CT of the chest Recommendation: Continue incentive spirometry Continue, aspirin, Plavix, and beta blockers, continue amiodarone Continue to ambulate Transfuse for low hemoglobin of 6.5, Continue to monitor hemoglobin and addressed accordingly Will continue to follow
[2023-08-29 16:59] LABS: Glucose,Whole Blood 91 mg/dL (70-110)
[2023-08-29] MEDS: TAMSULOSIN 0.4 MG CAP.ER.24H PO SCH (18:08)
[2023-08-29 19:42] LABS: Glucose,Whole Blood 102 mg/dL (70-110)
[2023-08-29] MEDS: SENNOSIDES-DOCUSATE SODIUM 1 EACH TAB PO SCH (20:35)
[2023-08-29 20:47] LABS: HCT 24.1 % (39.0-53.0); Hypochromasia Slight; MCH 32.9 pg (25.0-35.0); MCHC 33.6 g/dL (31.0-37.0); Macrocytosis Slight; Mean Platelet Volume 7.7; Platelet Count 242 k/uL (150-450); RBC 2.46 m/uL (4.30-5.90); WBC 10.4 k/uL (3.8-10.6)
[2023-08-29 20:51] LABS: HGB 8.1 gm/dL (13.0-17.5)
[2023-08-30] MEDS: ACETAMINOPHEN TAB 500 MG TAB PO PRN (02:44)
[2023-08-30 04:41] LABS: ALT 31 U/L (4-49); AST 68 U/L (17-59); African American GFR (CKD) 42 (>60 ml/min/1.73 sqM); Albumin 2.5 g/dL (3.5-5.0); Alkaline Phosphatase 63 U/L (38-126); Anion Gap 10 mmol/L; Blood Urea Nitrogen 40 mg/dL (9-20); Calcium 7.6 mg/dL (8.4-10.2); Carbon Dioxide 18 mmol/L (22-30); Chloride 110 mmol/L (98-107); Glucose 81 mg/dL (74-99); Non-African American GFR(CKD) 36 (>60 ml/min/1.73 sqM); Potassium 3.7 mmol/L (3.5-5.1); Sodium 138 mmol/L (137-145); Total Protein 4.8 g/dL (6.3-8.2)
[2023-08-30 04:47] LABS: HCT 22.9 % (39.0-53.0); HGB 7.6 gm/dL (13.0-17.5); MCH 32.2 pg (25.0-35.0); MCHC 33.2 g/dL (31.0-37.0); MCV 96.9 fL (80.0-100.0); Mean Platelet Volume 8.3; Platelet Count 239 k/uL (150-450); RBC 2.37 m/uL (4.30-5.90); RDW 15.4 % (11.5-15.5); WBC 10.5 k/uL (3.8-10.6)
[2023-08-30] MEDS ORDERED: POTASSIUM CHLORIDE ER 20 MEQ TAB.ER PO SCH (06:00)
[2023-08-30] MEDS: INSULIN ASPART (NovoLOG) 100 UNIT/ML VIAL SQ SCH ×2 (06:31→11:35)
[2023-08-30 06:35] LABS: Glucose,Whole Blood 94 mg/dL (70-110)
--- NOTE | 2023-08-30 07:39 | P.PN ---
Subjective Progress Note Date: 08/30/23 Principal diagnosis: Triple-vessel coronary artery disease, unstable angina. History of hypertension, hyperlipidemia, chronic kidney disease stage III, previous tobacco dependence with recent cessation, mild COPD, TIA in 2014 with no residual deficits, BPH, bilateral greater saphenous vein stripping, bilateral carotid stenosis POD #7 off pump converted to cardiopulmonary bypass assisted coronary artery bypass grafting 3, right internal thoracic artery in situ to the left anterior descending coronary artery, left anterior coronary artery in situ to the third obtuse marginal artery, reverse lesser saphenous vein from the aorta to the distal right coronary artery, left atrial appendage ligation using a 35 mm AtriClip, endoscopic right tennis vein harvest, graft flow measurements using the Medistim flowmeter, intraoperative transesophageal echocardiogram Post operative acute blood loss anemia and thrombocytopenia, expected given significant hemodilution. Intraoperative and postoperative paroxysmal atrial fibrillation, unexpected but a known common occurrence after open heart surgery. Intraoperative and postoperative hypotension expected due to vasoplegia, atrial fibrillation. The patient was seen and examined in follow-up today 08/30/2023 at his bedside i n the intensive care unit. He is currently sitting up to the bedside chair, is awake, alert, oriented 3 and is in no acute distress. He reports that this is the best he's felt since surgery. He denies any complaints of pain or shortness of breath at this time. He has been up ambulating in the intensive care unit hallway with standby assistance of nursing at therapy staff and tolerating well. Oxygen saturations are 96% on room air and he is achieving 1215-3084 mL on his incentive spirometry with encouragement. Bedside telemetry showing normal sinus rhythm heart rate 84 BPM. He remains hemodynamically stable and is currently on no inotropic or pressor support. He is awaiting a bed on third floor cardiac stepdown unit as he is transfer orders placed. His ventricular epicardial pacem soheila wires were removed yesterday without incident. Discharge planning is in place, and we anticipate discharge to inpatient rehab today. Laboratory and chest x-ray results reviewed. Objective - Vital Signs Vital signs: Vital Signs Temp 97.8 F 08/29/23 20:00 Pulse 80 08/30/23 07:00 Resp 19 08/30/23 07:00 BP 113/55 08/30/23 07:00 Pulse Ox 96 08/30/23 07:00 FiO2 50 08/24/23 00:45 Intake & Output 08/29/23 08/30/23 08/30/23 18:59 06:59 18:59 Intake Total 920 Output Total 695 550 Balance 225 -550 Weight 84.6 kg Intake: IV 210 Sodium Chloride 0.9% 1, 210 000 ml @ 75 mls/hr IV . [id number] [facility] Rx#:[id number] Oral 100 Tube Feeding 250 Blood Product 310 Rc As-1 Unit 310 [id number] Other 50 Rc As-1 Unit 50 [id number] Output: Urine 695 550 Other: Voiding Method Urinal Bedside Commode Urinal # Voids 1 ABP, PAP, CO, CI - Last Documented Arterial Blood Pressure 43/40 Pulmonary Artery Pressure 29/14 Cardiac Output 4.4 Cardiac Index 2.2 - Exam CONSTITUTIONAL: Sitting up to the bedside chair in the intensive care unit, appears comfortable, cooperative, no apparent acute distress. HEENT: Neck is supple, no JVD, no lymphadenopathy. RESPIRATORY: Lungs sounds essentially clear throughout, diminished to his bilateral bases. Respirations are symmetrical and nonlabored. Currently on room air with oxygen saturations 96%. Able to achieve 5694-2972 mL on his incentive spirometry. Strong cough, nonproductive and loose. CARDIOVASCULAR: Regular rhythm and rate. S1 and S2 present, negative for S3, gallop or murmur. Sternum is stable. Palpable peripheral pulses bilaterally, trace generalized edema. No calf pain or tenderness noted. Heart hugger in place with patient demonstrating appropriate use. Knee-high ALBERT hose and sequential compression devices in place to his bilateral lower extremities. GASTROINTESTINAL: Abdomen soft, nontender, nondistended. Active bowel sounds present 4 quadrants. Tolerating diet. Passing flatus. No guarding or rigidity. Bowel movement 08/28/2023 GENITOURINARY: Continues to void. Urine output 350 mL in the last 8 hours. INTEGUMENTARY: Skin is warm and dry with no evidence of clubbing or cyanosis. Midline sternal incision clean dry and well approximated, covered with dry intact dressing. Bilateral lower extremity EVH sites well approximated without redness or drainage. No drainage or redness is present. NEUROLOGIC: Cranial nerves II through XII intact. No focal deficits. MUSKULOSKELETAL: Able to move all extremities, strength equal bilaterally, generalized weakness. PSYCHIATRIC: Alert and oriented to person place and time, appropriate affect, intact judgment and insight. - Allied health notes Allied health notes reviewed: nursing - Labs CBC & Chem 7: 08/30/23 03:57 08/30/23 03:57 Labs: Abnormal Lab Results - Last 24 Hours (Table) 08/20/23 08/29/23 08/29/23 Range/Units 14:59 03:34 08:25 RBC (4.30-5.90) m/uL Hgb (13.0-17.5) gm/dL Hct (39.0-53.0) % Chloride (98-107) mmol/L Carbon Dioxide (22-30) mmol/L BUN (9-20) mg/dL Creatinine (0.66-1.25) mg/dL Calcium (8.4-10.2) mg/dL AST (17-59) U/L Creatine Kinase 2476 H* (55-170) U/L Total Protein (6.3-8.2) g/dL Albumin (3.5-5.0) g/dL Crossmatch See Detail See Detail 08/29/23 08/30/23 08/30/23 Range/Units 19:46 03:57 03:57 RBC 2.46 L 2.37 L (4.30-5.90) m/uL Hgb 8.1 L D 7.6 L (13.0-17.5) gm/dL Hct 24.1 L 22.9 L (39.0-53.0) % Chloride 110 H (98-107) mmol/L Carbon Dioxide 18 L (22-30) mmol/L BUN 40 H (9-20) mg/dL Creatinine 1.81 H (0.66-1.25) mg/dL Calcium 7.6 L (8.4-10.2) mg/dL AST 68 H (17-59) U/L Creatine Kinase (55-170) U/L Total Protein 4.8 L (6.3-8.2) g/dL Albumin 2.5 L (3.5-5.0) g/dL Crossmatch - Imaging and Cardiology Chest x-ray: report reviewed, image reviewed Assessment and Plan Assessment: Triple-vessel coronary artery disease, unstable angina, status post 3 vessel CABG History of hypertension Hyperlipidemia, cholesterol 215, LDL 143, triglycerides 185 Chronic kidney disease stage III, with a baseline creatinine of 1.4-1.6 Remote history of tobacco dependence with recent cessation Mild COPD, preoperative FEV1 of 65% of predicted History of asbestosis exposure, CT of the chest showing pleural plaquing TIA in 2013 with no residual BPH on Flomax Bilateral vein stripping in the Bilateral carotid stenosis by carotid Doppler, greater than 70% on the left, 50- 69% on the right based on velocities; 50% proximal ROMMEL stenosis and 50% left carotid artery stenosis at the bifurcation per CTA Post operative acute blood loss anemia and thrombocytopenia, expected given significant hemodilution Paroxysmal intraoperative and postoperative atrial fibrillation, unexpected but common after open heart surgery, status post exclusion left atrial appendage with a 35 mm Atriclip Intraoperative and postoperative hypotension expected due to vasoplegia, atrial fibrillation, resolved Acute kidney injury, nonoliguric, BUN 57 and creatinine 2.18 today Acute rhabdomyolysis, unknown etiology, CK trending down Plan: Continue to maximize medical therapy with aspirin, plavix, and beta maria luisa. Will increase metoprolol tartrate 50 mg by mouth twice a day with hold parameters. Continue amiodarone, decrease amiodarone to 200 mg by mouth twice a day for afib prophylaxis. Encourage incentive spirometer use 10x every hour while awake, bronchodilators per pulmonology. Continue Mucinex, Mucomyst, Flutter valve and chest physiotherapy as ordered. Increase activity, ambulate as tolerated. PT/OT/cardiac rehab following. Will monitor daily labs and chest x-ray. Electrolyte replacement per protocol. Pain control with current medication regimen, no toradol due to CKD. Insulin management per internal medicine. Hemoglobin A1c 5.9% preoperatively. Discussed the importance of risk modification including encouragement of Continued smoking cessation. Continue to record strict and accurate I's and O's. May bladder scan every 6 hours and when necessary postvoid residual, if greater than [address] ease straight cath. Daily weights. Discharge planning is in place, anticipate discharge to inpatient rehab in the next 24 hours. Transfer to the third floor cardiac stepdown unit bed available. More recommendations to follow based on patient's clinical course. Time with Patient: Greater than 30
--- NOTE | 2023-08-30 07:42 | XR ---
EXAMINATION TYPE: XR chest 1V portable DATE OF EXAM: 08/30/2023 Comparison: 08/29/2023 Clinical History: 73-year-old male Postoperative cardiac surgery Findings: Median sternotomy wires was proptotic changes. Rightward patient rotation alters the normal cardiomed iastinal contours. Heart mildly enlarged. Hyperinflation. Mild interstitial prominence. External dirk facts project over the lower chest. Additional linear extraluminal artifacts projecting at the periph soumya of the left upper lobe. Lung markings are seen beyond this line arguing against pneumothorax. No ralph consolidation or pleural effusion. Aeration is improving prior. Trace pleural effusion remains on the left. Impression: Improving aeration. Limitations due to patient rotation and multiple overlying external artifacts. Th ere is COPD with similar mild pulmonary vascular congestion and ongoing trace left effusion.
[2023-08-30] MEDS: IPRATROPIUM-ALBUTEROL 3 ML NEB INHALATION SCH ×2 (08:09→11:42)
[2023-08-30] MEDS: THIAMINE 100 MG TAB PO SCH (08:47)
[2023-08-30] MEDS: FOLIC ACID 1 MG TAB PO SCH (08:47)
[2023-08-30] MEDS: ASCORBIC ACID 500 MG TAB PO SCH (08:47)
[2023-08-30] MEDS: ASPIRIN 325 MG TAB PO SCH (08:47)
[2023-08-30] MEDS: guaiFENesin 600 MG TABLET.ER PO SCH (08:47)
[2023-08-30] MEDS: CLOPIDOGREL 75 MG TAB PO SCH (08:47)
[2023-08-30] MEDS: HEPARIN SODIUM,PORCINE 5,000 UNIT/ML 1 ML VIAL SQ SCH (08:47)
[2023-08-30] MEDS: SODIUM FERRIC GLUCONAT-SUCROSE 125 MG in SODIUM CHLORIDE 0.9% 100 ML IVPB SCH (08:48)
[2023-08-30] MEDS: PANTOPRAZOLE 40 MG TABLET PO SCH (08:50)
[2023-08-30] MEDS ORDERED: METOPROLOL TARTRATE 50 MG TAB PO SCH (09:00)
[2023-08-30] MEDS ORDERED: AMIODARONE 200 MG TAB PO SCH ×2 (09:00→21:00)
[2023-08-30 11:35] LABS: Glucose,Whole Blood 86 mg/dL (70-110)
[2023-08-30 11:47] VITALS: PULSE 78
--- NOTE | 2023-08-30 11:58 | P.PN ---
Subjective Progress Note Date: 08/30/23 Principal diagnosis: Status post CABG The patient is a pleasant 73-year-old gentleman who is status post CABG. 08/28/2023 The patient was seen and evaluated this morning. He is stable hemodynamically beside mild sinus tachycardia. Temperature appeared to be stable. He is on dual antiplatelet therapy but for some reason he is not on any statin at this point. Would explore the reason why he is not on statin. Beside that he has been in and out atrial fibrillation but currently is in sinus rhythm. He is on amiodarone orally. The examination is remarkable for regular rhythm with distant heart sounds and diminished breathing sounds bilaterally August [id number] The patient was seen and evaluated this morning. He is maintaining normal sinus mechanism and he is hemodynamically stable. His hemoglobin this morning below 7. I will suggest transfuse the patient was one unit of packed RBC. This will be discussed with the surgical team. Otherwise continue the current medical regimen and follow-up with the patient August [id number] The patient was seen and evaluated this morning. Overall seems to be stable. The plan is to pursue to transferring the patient into rehab facility. No symptoms of chest pain or chest discomfort. Assessment CAD and status post CABG Paroxysmal atrial fibrillation History of rhabdomyolysis and that's why the patient was not on statin Multiple comorbid conditions Plan Consider blood transfusion Continue the current medical regimen The patient to be transferred to extended care facility/rehab Objective - Vital Signs Vital signs: Vital Signs Temp 98.2 F 08/30/23 08:00 Pulse 78 08/30/23 11:42 Resp 21 08/30/23 08:00 BP 121/59 08/30/23 08:00 Pulse Ox 95 08/30/23 08:00 FiO2 50 08/24/23 00:45 Intake & Output 08/29/23 08/30/23 08/30/23 18:59 06:59 18:59 Intake Total 920 340 Output Total 695 550 300 Balance 225 -550 40 Weight 84.6 kg Intake: IV 210 Sodium Chloride 0.9% 1, 210 000 ml @ 75 mls/hr IV . [id number] [facility] Rx#:[id number] Intake, IV Titration 100 Amount Sodium Ferric Gluconat- 100 Sucrose 125 mg In Sodium Chloride 0.9% 100 ml @ 100 mls/hr IVPB DAILY [facility] Rx#:[id number] Oral 100 240 Tube Feeding 250 Blood Product 310 Rc As-1 Unit 310 [id number] Other 50 Rc As-1 Unit 50 [id number] Output: Urine 695 550 300 Other: Voiding Method Urinal Bedside Commode Bedside Commode Urinal Urinal # Voids 1 # Bowel Movements 1 ABP, PAP, CO, CI - Last Documented Arterial Blood Pressure 43/40 Pulmonary Artery Pressure 29/14 Cardiac Output 4.4 Cardiac Index 2.2 - Labs CBC & Chem 7: 08/30/23 03:57 08/30/23 03:57 Labs: Abnormal Lab Results - Last 24 Hours (Table) 08/29/23 08/29/23 08/30/23 Range/Units 08:25 19:46 03:57 RBC 2.46 L 2.37 L (4.30-5.90) m/uL Hgb 8.1 L D 7.6 L (13.0-17.5) gm/dL Hct 24.1 L 22.9 L (39.0-53.0) % Chloride (98-107) mmol/L Carbon Dioxide (22-30) mmol/L BUN (9-20) mg/dL Creatinine (0.66-1.25) mg/dL Calcium (8.4-10.2) mg/dL AST (17-59) U/L Total Protein (6.3-8.2) g/dL Albumin (3.5-5.0) g/dL Crossmatch See Detail 08/30/23 Range/Units 03:57 RBC (4.30-5.90) m/uL Hgb (13.0-17.5) gm/dL Hct (39.0-53.0) % Chloride 110 H (98-107) mmol/L Carbon Dioxide 18 L (22-30) mmol/L BUN 40 H (9-20) mg/dL Creatinine 1.81 H (0.66-1.25) mg/dL Calcium 7.6 L (8.4-10.2) mg/dL AST 68 H (17-59) U/L Total Protein 4.8 L (6.3-8.2) g/dL Albumin 2.5 L (3.5-5.0) g/dL Crossmatch
[2023-08-30 12:03] LABS: HCT 24.2 % (39.0-53.0); HGB 8.1 gm/dL (13.0-17.5); Hypochromasia Slight; MCH 32.8 pg (25.0-35.0); MCHC 33.4 g/dL (31.0-37.0); MCV 98.2 fL (80.0-100.0); Macrocytosis Slight; Mean Platelet Volume 7.9; Platelet Count 260 k/uL (150-450); RBC 2.46 m/uL (4.30-5.90); RDW 15.1 % (11.5-15.5); WBC 11.8 k/uL (3.8-10.6)
[2023-08-30 12:15] VITALS: BP 115/61; RESP 18; TEMP 98
[2023-08-30] MEDS ORDERED: FERROUS SULFATE 325 MG TAB PO SCH (12:30)
--- NOTE | 2023-08-30 13:19 | P.PN ---
Subjective Progress Note Date: 08/30/23 Principal diagnosis: s/p CABG Mr Calvo is a 73 y/o left handed single male who lives alone in a first floor apartment with ramp entry walkway. He was independent for mobility and ADLs without assistive device prior to admission. He drives. He does have some friends that live local that can help, but does not have 24/7. He presented to the hospital with complaints of chest pain and epigastric pain x 2 weeks with exertional SOB. EKF with T wave inversion in leads V1 and V2. He was supposed to have outpatient stress test done, but due to unstable angina, cardiology consulted and heart cath was recommended on 08/20/23. They recommended a CABG. After his CABG he was transferred to the ICU. Chest x-ray shows adequate expansion of both lungs. No pneumothorax. He had increased output from the chest tube. The right pleural in the left pleural chest tubes are connected output has been in the order of 400 mL and the mediastinal chest tube has drained approximately 130 mL since arrival from the operating room. Intraoperatively, the patient received a total of 2 units of packed RBC. On 08/24/2023, the patient is extubated and sitting up on a chair and currently he is on oxygen at 4 L. On 08/25/2022, he had some confusion, difficulty finding words. He was found to have labile BP and Afib. His Creatinine is up to 2.4 with a BUN of 31 and his sodium levels of 137, given IV fluids. Hemoglobin stable at 9.1. He was given IV albumin and O2 increased. He was found to have a component of rhabdomyolysis, CPK level was as high as 13,000. On 08/27/2023 Chest tubes were removed. HGb dropped to 7.3, started on iron supplements IV. WBC count is 9.8 hemoglobin is 7.5 basic metabolic profile is normal BUN is 57 creatinine 2.18 being followed by nephrology. PM&R consulted for rehab recommendations. 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 08/28/23 patient sitting in recliner, sitter at bedside. Patient has had some intermittent confusion. He denies CP and sternal pain, admits to cough and SOB, on O2 which he does not wear at home, denies abdominal pain. He had a BM yesterday, urination. He has no complaints of pain. He is open to rehab when feeling better. 08/30/23: Patient states he is feeling better than a couple of days ago. He is no longer on oxygen, can get SOB with exertion, intermittent cough. He denies abdominal pain, reports no sternal pain. He denies issues with bowel and bladder. He has worked with therapy, still needing assistance but getting better. He is agreeable to IPR. He did have a blood transfusion yesterday due to hgb 6.5, Hgb has improved, to 7.6, requested repeat which came back at 8.1. Discussed with [employer] Unruly Santo, patient can admit to IPR at [facility] today. Therapy: mod to max assist with ADLs, Min assist with bed mobility, transfers, gait 2 people with walker for safety/ LOB. Objective - Vital Signs Vital signs: Vital Signs Temp 98 F 08/30/23 12:00 Pulse 78 08/30/23 12:00 Resp 18 08/30/23 12:00 BP 115/61 08/30/23 12:00 Pulse Ox 96 08/30/23 12:00 FiO2 50 08/24/23 00:45 Intake & Output 08/29/23 08/30/23 08/30/23 18:59 06:59 18:59 Intake Total 920 340 Output Total 695 550 300 Balance 225 -550 40 Weight 84.6 kg Intake: IV 210 Sodium Chloride 0.9% 1, 210 000 ml @ 75 mls/hr IV . [id number] [facility] Rx#:[id number] Intake, IV Titration 100 Amount Sodium Ferric Gluconat- 100 Sucrose 125 mg In Sodium Chloride 0.9% 100 ml @ 100 mls/hr IVPB DAILY [facility] Rx#:[id number] Oral 100 240 Tube Feeding 250 Blood Product 310 Rc As-1 Unit 310 [id number] Other 50 Rc As-1 Unit 50 [id number] Output: Urine 695 550 300 Other: Voiding Method Urinal Bedside Commode Bedside Commode Urinal Urinal # Voids 1 # Bowel Movements 1 ABP, PAP, CO, CI - Last Documented Arterial Blood Pressure 43/40 Pulmonary Artery Pressure 29/14 Cardiac Output 4.4 Cardiac Index 2.2 - Exam General: Well-developed, well-nourished, elderly male sitting in recliner with legs elevated, in no acute distress HEENT: NC/AT, external ears intact, slightly [place] Cardiovascular: midline sternal incision with clear tape dressing, B/L calves are supple, nontender, no cords, without peripheral edema, SCDs and compression stockings on Respiratory: Even and unlabored breathing on RA Abdomen: Soft, rounded, nontender, nondistended Musculoskeletal: ROM WFL EXCEPT shoulder abduction- limited and sternal precautions MMT: Bilateral SABD limited- chronic per patient, R 3/5, L 4/5, B/L EE, EF, HG 4+/5, B/L HF, KE, DF 5/5 Skin: Skin intact where visible to head, neck, and bilateral upper and lower extremities EXCEPT: for sternal incision and right IJ site-healing, leg incisions not visualized Neurological: Alert and oriented x 4 CN II-XII: Grossly intact. Speech is clear, fluent Sensation: intact to light touch BUE and BLE Psychiatric: Mood calm, affect appropriate, cooperative - Labs CBC & Chem 7: 08/30/23 12:00 08/30/23 03:57 Labs: Abnormal Lab Results - Last 24 Hours (Table) 08/29/23 08/30/23 08/30/23 Range/Units 19:46 03:57 03:57 WBC (3.8-10.6) k/uL RBC 2.46 L 2.37 L (4.30-5.90) m/uL Hgb 8.1 L D 7.6 L (13.0-17.5) gm/dL Hct 24.1 L 22.9 L (39.0-53.0) % Chloride 110 H (98-107) mmol/L Carbon Dioxide 18 L (22-30) mmol/L BUN 40 H (9-20) mg/dL Creatinine 1.81 H (0.66-1.25) mg/dL Calcium 7.6 L (8.4-10.2) mg/dL AST 68 H (17-59) U/L Total Protein 4.8 L (6.3-8.2) g/dL Albumin 2.5 L (3.5-5.0) g/dL 08/30/23 Range/Units 12:00 WBC 11.8 H (3.8-10.6) k/uL RBC 2.46 L (4.30-5.90) m/uL Hgb 8.1 L (13.0-17.5) gm/dL Hct 24.2 L (39.0-53.0) % Chloride (98-107) mmol/L Carbon Dioxide (22-30) mmol/L BUN (9-20) mg/dL Creatinine (0.66-1.25) mg/dL Calcium (8.4-10.2) mg/dL AST (17-59) U/L Total Protein (6.3-8.2) g/dL Albumin (3.5-5.0) g/dL Assessment and Plan Assessment: # Cardiac debility secondary to Triple-vessel coronary artery disease s/p CABG -PT/OT # impaired gait and ADLs secondary to above #Acute kidney injury --creatinine improving #Acute rhabdomyolysis # Acute confusion, improved #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 Improvement in medical issues through your care. Barriers:endurance, O2, lives alone Discharge recommendation:Patient is stable for discharge and admission to [facility] IPR, he is excited to get started with rehab. Discussed with nursing staff and [employer] Unruly Santo, [facility] Liaison Isabella castañeda. Patient reports he will need transportation set up Patient seen and examined in coordination with Dr Wallis Thank you for this consultation.
--- NOTE | 2023-08-30 13:30 | P.DS ---
Providers Date of admission: 08/19/23 18:33 Expected date of discharge: 08/30/23 Attending physician: Adan Jacobs MD Consults: 08/19/23 18:33 Consult Physician Urgent Consulting Provider: Omari Fernandez Consult Reason/Comments: chest pain Do you want consulting provider notified?: Yes 08/20/23 11:57 Consult Physician Routine Consulting Provider: Adan Jacobs Consult Reason/Comments: heart cath with triple vessel disease Do you want consulting provider notified?: Already Contacted 08/20/23 12:44 Consult Physician Routine Consulting Provider: Pardeep Hill Consult Reason/Comments: pulm clearance; open heart 08/21/23 Do you want consulting provider notified?: Yes 08/22/23 09:30 Consult to Anesthesia Routine Consulting Provider: Anesthesia,Services Consult Reason/Comments: Cardiac Surgery Pre-Op 08/23/23 15:33 Consult Physician Routine Consulting Provider: Anne Mario Consult Reason/Comments: med mgmt Do you want consulting provider notified?: Already Contacted 08/25/23 11:36 Consult Physician Routine Consulting Provider: Efrain Pennington Consult Reason/Comments: Evaluation for inpatient rehab Do you want consulting provider notified?: Yes 08/25/23 12:24 Consult Physician Routine Consulting Provider: Raciel Plascencia Consult Reason/Comments: elevated BUN/Cr Do you want consulting provider notified?: Already Contacted Primary care physician: [facility] Course: FINAL DIAGNOSIS: Triple-vessel coronary artery disease, unstable angina, status post 3 vessel coronary artery bypass grafting surgery History of hypertension Hyperlipidemia, cholesterol 215, LDL 143, triglycerides 185 Chronic kidney disease stage III, with a baseline creatinine of 1.4-1.6 Remote history of tobacco dependence with recent cessation Mild COPD, preoperative FEV1 of 65% of predicted History of asbestosis exposure, CT of the chest showing pleural plaquing TIA in 2013 with no residual Benign prostatic hypertrophy on Flomax Bilateral vein stripping in the Bilateral carotid stenosis by carotid Doppler, greater than 70% on the left, 50- 69% on the right based on velocities; 50% proximal ROMMEL stenosis and 50% left carotid artery stenosis at the bifurcation per CTA Post operative acute blood loss anemia and thrombocytopenia, expected given significant hemodilution Paroxysmal intraoperative and postoperative atrial fibrillation, unexpected but common after open heart surgery, status post exclusion left atrial appendage with a 35 mm Atriclip Intraoperative and postoperative hypotension expected due to vasoplegia, atrial fibrillation, resolved Acute kidney injury, nonoliguric, BUN and creatinine trending down to baseline Acute rhabdomyolysis, unknown etiology, CK trending down PRINCIPAL PROCEDURE: 1. Off-pump converted to cardiopulmonary bypass assisted coronary artery bypass grafting 3, right internal thoracic artery in situ to the left anterior setting coronary artery, left anterior coronary artery in situ to the third obtuse marginal coronary artery, a reverse lesser saphenous vein from the aorta to the distal right coronary artery 2. Left atrial appendage ligation using a 35 mm Atriclip 3. Endoscopic right lesser vein harvest 4. Graft flow measurements using the Medistim flowmeter 5. Intraoperative transesophageal echocardiogram HISTORY OF PRESENT ILLNESS: This is a 73-year-old gentleman who follows on an outpatient basis for his primary care with the [facility]. On 08/19/2023 he presented to the emergency department here at [facility] with complaints of intermittent chest pain over the last couple of weeks with radiation to his left arm. The chest pain was also associated with some shortness of breath as well as some episodes of dizziness with walking fast. Due to the above-mentioned complaints he was seen by Dr. Fernandez from cardiology in the office, and was scheduled for a stress test and echo, although it was not scheduled until the end of September. The patient continued to have the above mentioned symptoms and felt he could not wait until September for the test and presented to the emergency department for further evaluation and treatment recommendations. In the emergency department an EKG was completed which demonstrated sinus rhythm with T-wave inversion in leads aVL, V1V3. Serial troponins were negative. A chest x-ray was completed which demonstrated COPD changes but no acute cardiopulmonary process. For further evaluation and a CT chest was completed without contrast which demonstrated mild to moderate 3 vessel coronary artery calcifications, mild to moderate atherosclerotic calcification throughout the aorta and proximal left subclavian artery, no gross evidence of aneurysm, few calcified pleural plaques bilaterally, suggesting sequela of prior asbestos exposure, partially seen hypodense nodules in the upper kidneys, most likely cysts, cystic-appearing 2.8 cm nodule in the proximal pancreatic body, incidental 1.4 cm hypodense nodule in the right hepatic lobe, and faint sludge or small calculi in the gallbladder. Subsequently, due to the patient's presenting symptoms, he was recommended to undergo a cardiac catheterization which demonstrated triple-vessel coronary artery disease with proximal LAD stenosis of 80%, and 90% stenosis to his circumflex coronary artery, and an 80-90% stenosis to his right coronary artery. Due to the findings on the cardiac catheterization a consult was placed to Dr. Adan Jacobs from cardiothoracic surgery for further evaluation and treatment recommendations including myocardial revascularization surgery. Dr. Jacobs met with the patient, discussed with the patient the findings on the cardiac catheterization, treatment options were discussed including myocardial revascularization surgery, risks and benefits of surgery were discussed including the STS risk score. Knowing and understanding the risks of surgery the patient wished to proceed with the surgical option. HOSPITAL COURSE: The patient was admitted to the hospital, and on 08/23/2023, after obtaining consent, the patient was taken to the preoperative area, prepared in the usual fashion and subsequently taken to the operating room where Dr. Jacobs performed an off-pump converted to cardiopulmonary bypass assisted coronary artery bypass grafting 3, right internal thoracic artery in situ to the left anterior setting coronary artery, left anterior coronary artery in situ to the third obtuse marginal coronary artery, a reverse lesser saphenous vein from the aorta to the distal right coronary artery. Upon completion of the surgery, the patient was transferred to the cardiovascular intensive care unit where he was monitored hemodynamically and was recovered. He was extubated, all lines, tubes and supportive drips were discontinued when appropriate and transfer orders were placed for the third floor cardiac stepdown unit, although due lack of bed availability he was kept in the intensive care unit until discharge. His oxygen was titrated down, he continued to work with physical and occupational therapy, cardiac rehab, he was tolerating an oral diet, his pain w as well-controlled and he was ready to be discharged to inpatient rehab at [facility] on postoperative day #7. He has received written and verbal instructions regarding his medications, activity restrictions, signs and symptoms requiring physician notification and his follow-up appointments. Risk modification including smoking cessation was also discussed in detail with the patient. The patient is being discharged to [facility] inpatient rehab, he is being discharged on amiodarone 200 mg by mouth twice a day until 09/06/2023, on 09/06/2023 he will start on amiodarone 200 mg by mouth daily for 7 days until 09/13/2023, after 09/13/2023 the amiodarone will be discontinued. Patient Condition at Discharge: Fair Plan - Discharge Summary Discharge Rx Participant: No New Discharge Prescriptions: New Darbepoetin Pawan [Aranesp] 40 mcg SQ Q7D each bisacodyL [Dulcolax] 10 mg RECTAL DAILY PRN suppositor PRN Reason: Constipation Ipratropium-Albuterol Nebulize [Duoneb 0.5 mg-3 mg/3 ml Soln] 3 ml INHALATION RT-QID each Ipratropium-Albuterol Nebulize [Duoneb 0.5 mg-3 mg/3 ml Soln] 3 ml INHALATION RT-Q2H PRN each PRN Reason: Shortness Of Breath Or Wheezing Tamsulosin [Flomax] 0.4 mg PO PC-SUPPER cap Folic Acid 1 mg PO DAILY tab Heparin Sodium,Porcine (1 ml) [Heparin Sodium] 5,000 unit SQ Q8HR each Atorvastatin [Lipitor] 20 mg PO DAILY tab Magnesium Hydroxide [Milk of Magnesia] 2,400 mg PO BID PRN ml PRN Reason: Constipation INSULIN ASPART (NovoLOG) [NovoLOG (formulary)] 0 unit SQ ACHS each Clopidogrel [Plavix] 75 mg PO DAILY tab Pantoprazole [Protonix] 40 mg PO AC-BRKFST tab Sennosides-Docusate Sodium [Senokot-S] 2 each PO HS tab Thiamine [Vitamin B-1] 100 mg PO DAILY tab Aspirin 325 mg PO DAILY tab Amiodarone [Cordarone] 0 mg PO BID tab Ferrous Sulfate [Iron (65 MG Elemental)] 325 mg PO W/LUNCH tab Metoprolol Tartrate [Lopressor] 50 mg PO BID tab guaiFENesin [Mucinex] 1,200 mg PO Q12HR tab Acetaminophen Tab [Tylenol] 1,000 mg PO Q6HR PRN tab PRN Reason: Fever And/ Or Pain Ascorbic Acid [Vitamin C] 500 mg PO DAILY tab Discontinued Aspirin 81 mg PO MOWEFR amLODIPine [Norvasc] 10 mg PO HS Tamsulosin HCl [Flomax] 0.4 mg PO HS Discharge Medication List Acetaminophen Tab [Tylenol] 1,000 mg PO Q6HR PRN tab 08/30/23 [Rx] Amiodarone [Cordarone] 0 mg PO BID tab 08/30/23 [Rx] Ascorbic Acid [Vitamin C] 500 mg PO DAILY tab 08/30/23 [Rx] Aspirin 325 mg PO DAILY tab 08/30/23 [Rx] Atorvastatin [Lipitor] 20 mg PO DAILY tab 08/30/23 [Rx] Clopidogrel [Plavix] 75 mg PO DAILY tab 08/30/23 [Rx] Darbepoetin Pawan [Aranesp] 40 mcg SQ Q7D each 08/30/23 [Rx] Ferrous Sulfate [Iron (65 MG Elemental)] 325 mg PO W/LUNCH tab 08/30/23 [Rx] Folic Acid 1 mg PO DAILY tab 08/30/23 [Rx] Heparin Sodium,Porcine (1 ml) [Heparin Sodium] 5,000 unit SQ Q8HR each 08/30/23 [Rx] INSULIN ASPART (NovoLOG) [NovoLOG (formulary)] 0 unit SQ ACHS each 08/30/23 [Rx] Ipratropium-Albuterol Nebulize [Duoneb 0.5 mg-3 mg/3 ml Soln] 3 ml INHALATION RT-Q2H PRN each 08/30/23 [Rx] Ipratropium-Albuterol Nebulize [Duoneb 0.5 mg-3 mg/3 ml Soln] 3 ml INHALATION RT-QID each 08/30/23 [Rx] Magnesium Hydroxide [Milk of Magnesia] 2,400 mg PO BID PRN ml 08/30/23 [Rx] Metoprolol Tartrate [Lopressor] 50 mg PO BID tab 08/30/23 [Rx] Pantoprazole [Protonix] 40 mg PO AC-BRKFST tab 08/30/23 [Rx] Sennosides-Docusate Sodium [Senokot-S] 2 each PO HS tab 08/30/23 [Rx] Tamsulosin [Flomax] 0.4 mg PO PC-SUPPER cap 08/30/23 [Rx] Thiamine [Vitamin B-1] 100 mg PO DAILY tab 08/30/23 [Rx] bisacodyL [Dulcolax] 10 mg RECTAL DAILY PRN suppositor 08/30/23 [Rx] guaiFENesin [Mucinex] 1,200 mg PO Q12HR tab 08/30/23 [Rx] Follow up Appointment(s)/Referral(s): [facility],Cardiac [NON-STAFF] - 4 Weeks Omari Fernandez DO [STAFF PHYSICIAN] - 09/13/23 8:45 am Adan Jacobs MD [STAFF PHYSICIAN] - 09/15/23 9:15 am Lizzie Blanton MD [STAFF PHYSICIAN] - 09/19/23 10:30 am [facility] [Primary Care Provider] - 1-2 days (Once discharged from inpatient rehab.) Activity/Diet/Wound Care/Special Instructions: Please consult Dr. Plascencia/Peter from nephrology, Dr. Walsh from cardiology associates when the patient arrives to [facility]. DISCHARGE INSTRUCTIONS: 1. No driving for 4 weeks, or until physician gives their ok. 2. The patient should sleep in their own bed, no medical bed needed. 3. Stairs are not an issue. If the bedroom is upstairs, it is advised that the patient go up at night and down in the morning for the first week. Go slowly, using handrail and take 1 step at a time. 4. ALBERT hose are to be worn for 30 days post surgery or until physician discontinues. 5. Heart hugger is to be worn 100% of the time until physician discontinues.(except when showering) 6. No lifting, pushing, or pulling more than 10 pounds for 12 weeks. The physician will advise of any restriction changes. 7. The patient is expected to continue the prescribed walking program. 8. Continue pain control per as needed orders. 9. Continue with incentive spirometry and splinting/heart hugger until otherwise directed by the physician. 10. Must shower daily using liquid antibacterial soap 11. Routine sternal incision care. No powders, lotions, ointments on incisions. No dressings are necessary on incisions unless they are draining. Dermabond tape is to remain on sternal incision until surgeon follow-up. 12. Please call surgeon/GAUGE AND WEIGH MACHINE OPERATOR for temp greater than 101 F or purulent drainage from incisions. 13. You should weigh yourself daily, record and bring log with you to follow up appointments. 14. All prescriptions given by surgeon for 30 days. Refills need to be filled through [employer]/primary care physician. 15. A Red armband has been placed on the patient. It should be worn for 30 days post discharge from surgery and will be removed by the cardiac surgeons. If an ER visit is necessary, please make sure the number on the Red armband is called before going to ER. 16. You have been referred to and are expected to begin Cardiac Rehab in approximately 4-6 weeks. 17. Quitting smoking is the most important step you can take to improve your health. For additional information and assistance to quit smoking, please call the [place] tobacco quit line (7-761-GBWQ-NOW/ ) or online: [email or web address] :[email or web address]-[email or web address] HOME HEALTH SERVICES TO PROVIDE: RN SKILLED HOME CARE SERVICES FOR POST-OP SURGICAL PATIENTS WITH THE FOLLOWING: Coronary Artery Bypass Surgery (CABG), Mitral Valve Replacement/Repair ( MVR), Aortic Valve Replacement/Repair (AVR) RN TO CONTINUE EDUCATION FROM ``ROAD TO A HEALTH HEART PATIENT EDUCATION MANUAL (GIVEN TO PATIENT IN THE HOSPITAL) MEDICATION RECONCILIATION WITH EDUCATION NEEDED ON FIRST HOME VISIT EMPHASIZE IMPORTANCE OF WEARING BREAST SUPPORT/HEART HUGGER ENCOURAGE USE OF INCENTIVE SPIROMETER 10 X EVERY HOUR WHILE AWAKE ENCOURAGE UTILIZATION OF LOWER EXTREMITY COMPRESSION STOCKINGS/ALBERT HOSE and ELEVATE LEGS ABOVE LEVEL OF HEART WHILE AT REST. ENCOURAGE AMBULATION 3-5x/day INCREASING TOLERATES, WHILE AVOIDING EXTREMES IN TEMPERATURE FREQUENCY: RN TO OPEN THE PATIENT WITHIN 24 HOURS OF DISCHARGE FROM THE HOSPITAL WITH TELEHEALTH INSTALLED AT [facility] [place], RN TO VISIT 2-3 X A WEEK FOR 4 WEEKS ESTABLISHED BY PATIENT NEEDS. LABORATORY: CBC, CMP TO BE DRAWN ON THE THIRD DAY HOME, (RAN STAT) FAX RESULTS TO [phone]. TELEHEALTH PARAMETERS: WEIGHT: NOTIFY MD OF WEIGHT GAIN OF 2 LBS IN 24 HOURS OR 5 LBS IN ONE WEEK HR: NOTIFY MD OF HR <55 BPM OR HR>100 BPM BP: NOTIFY MD IF BP <90/55 OR BP>140/100 O2 SAT: NOTIFY MD IF PO2<93% ON ROOM AIR SEND TELEHEALTH REPORT TO FIREWORKS INSPECTOR AND CARDIOVASCULAR SURGEON THE FIRST WEEK OF CARE AND THEN BI-WEEKLY. PLEASE ADDITIONALLY COMMUNICATE ANY ABNORMALS AND NEW FINDINGS TO THE SURGEONS OFFICE. Activity: Diet: Heart healthy and carb consistent diet. Avoid salts, or foods with hidden salts such as canned or boxed foods and frozen dinners. Extra salt makes your heart work harder and traps the fluid in your body for longer. Special Instructions: Take all of your medications as directed and remember to keep all of your doctor's appointments and follow-up as needed. For renal cysts incidentally noted on CT, you will need to follow up outpatient with [facility] for scheduling of renal ultrasound to follow up and further evaluate. For findings of pancreatic cyst, again you will need to follow up outpatient with [facility] for scheduling of pancreatic MRI. Also per CT report, liver nodule was again noted and reported to appear stable and is likely benign, however it is recommend that you continue to follow with [facility] for long-term outpatient monitoring/management with repeat imaging in the future. I would like to thank you again for your service, it is always an honor to have the opportunity to provide care for a and it was truly a pleasure having you for our patient!!! Discharge Disposition: OTHER INSTITUTION NOT DEFINED
--- NOTE | 2023-08-30 13:31 | P.PN ---
Subjective Progress Note Date: 08/30/23 Patient is a 73-year-old male with hypertension, chronic kidney disease, BPH initially presented to the emergency department with complaints of chest pain. He was subsequently admitted for chest pain observation. Troponins were trended and remained negative. Patient was seen by cardiology and was subsequently taken for cardiac cath on 08/20/23 which showed significant multivessel coronary artery disease. Cardiothoracic surgery was subsequently consulted and patient was worked up for possible CABG. Carotid Dopplers were completed showing greater than 75% stenosis of bilateral carotids. Patient underwent off pump CABG on 08/23/23. He did develop some acute kidney injury, contrast induced and rhabdomyolysis. 08/28 Patient was seen and examined. CBC Hg 6.7. Repeat Hg 7.5 (initial likely lab error). CMP BUN 57, Cr 2.18, Ca 7.3, AST 140, albumin 2.5. CXR shows mild pulmonary vascular congestion. Currently on Amiodarone PO. On ASA, Metoprolol and Plavix. Urine output 155+950 cc. 08/29 Patient was seen and examined. He reports no complaints today. CBC done today shows Hg 6.6 and 6.5. Plans for 1 unit PRBC today. CMP shows Cl 109, bicarb 21, BUN 45, Cr 2.01, Ca 7.3, AST 98, albumin 2.5. CXR shows mild pulmonary vascular congestion similar to previous CXR. Started on ferric gluconate 125 mg IV QD yesterday. 08/30 Patient was seen and examined. Feeling well. Plans for inpatient rehab to day. CBC shows Hg 7.6. BMP Cl 110, bicarb 18, BUN 40, Cr 1.81, Ca 7.6, AST 68, albumin 2.5. CXR shows improved pulmonary vascular congestion. Vital signs reviewed General:non toxic, no distress, appears at stated age Cardiovascular: S1S2 reg, no murmur Lungs: Decreased bs b/l bilateral, no rhonchi, no rales , no accessory muscle use Abdominal: soft, nontender to palpation, no guarding, no appreciable organomegaly Ext: no gross muscle atrophy, no edema b/l lower extremities, no contractures Psych: Awake, follows commands, unable to answer year Unstable angina with severe multivessel coronary artery disease status post CABG 3 on 08/23/23 KATHY on chronic kidney disease stage IIIA, likely secondary to Rhabdo versus contrast-induced Rhabdomyolysis Hypertension Carotid artery stenosis, 25-50% stenosis bilaterally on CTA neck Acute blood loss anemia, anticipated outcome of surgery AST elevation BPH Renal cyst Pancreatic cyst Liver nodule Resolved: Thrombocytopenia Based on my assessment of this patient, this patient meets a moderate complexity level of care. Patient has an acute diagnosis of unstable angina with multivessel CAD status post CABG on 08/23 that poses a threat to life or bodily function. Acute blood loss anemia: Anticipated outcome of surgery. Status post 3 units P RBC. Status post 1 unit Plt. Started on ferric gluconate 125 mg IV QD. Transfuse if Hg < 7. Unstable angina with severe multivessel CAD: Status post CABG 3 on 08/23/23. ASA 325 mg PO QD. Plavix 75 mg PO QD. Metoprolol 25 mg PO TID. Statin when rhabdomyolysis improves. Cardiology on board. KATHY on chronic kidney disease stage IIIA: Likely secondary to Rhabdo versus contrast-induced. Improving. Nephrology on board. Rhabdomyolysis: Improving. Hypertension: Metoprolol as above. Carotid artery stenosis: 25-50% stenosis bilaterally on CTA neck. ASA, statin and Plavix as above. AST elevation BPH: Flomax 0.4 mg PO QHS. Renal cyst: Outpatient workup. Pancreatic cyst: Outpatient workup. Liver nodule: Marginally increased in size since 2014 likely benign. PMR on board for possible IPR. CODE STATUS: FULL CODE. DVT Prophylaxis: Heparin SQ. GI Prophylaxis: Protonix PO Designated medical POA if patient is not able to make medical decisions for themselves: I have reviewed the following real estate consultant notes: Pulm, CT surgery, Cardio, Nephro note. I have reviewed the results of the following tests: CBC, CMP. I have ordered the following tests: CBC, CMP. I have discussed the care of this patient with the following independent historian: I have independently interpreted the following test below: CXR as above. I have discussed the management of this patient with the following physician: Objective - Vital Signs Vital signs: Vital Signs Temp 97.8 F 08/29/23 20:00 Pulse 80 08/30/23 07:00 Resp 19 08/30/23 07:00 BP 113/55 08/30/23 07:00 Pulse Ox 96 08/30/23 07:00 FiO2 50 08/24/23 00:45 Intake & Output 08/29/23 08/30/23 08/30/23 18:59 06:59 18:59 Intake Total 920 Output Total 695 550 Balance 225 -550 Weight 84.6 kg Intake: IV 210 Sodium Chloride 0.9% 1, 210 000 ml @ 75 mls/hr IV . [id number] [facility] Rx#:[id number] Oral 100 Tube Feeding 250 Blood Product 310 Rc As-1 Unit 310 [id number] Other 50 Rc As-1 Unit 50 [id number] Output: Urine 695 550 Other: Voiding Method Urinal Bedside Commode Urinal # Voids 1 ABP, PAP, CO, CI - Last Documented Arterial Blood Pressure 43/40 Pulmonary Artery Pressure 29/14 Cardiac Output 4.4 Cardiac Index 2.2 - Labs CBC & Chem 7: 08/30/23 12:00 08/30/23 03:57 Labs: Abnormal Lab Results - Last 24 Hours (Table) 08/20/23 08/29/23 08/29/23 Range/Units 14:59 03:34 08:25 RBC (4.30-5.90) m/uL Hgb (13.0-17.5) gm/dL Hct (39.0-53.0) % Chloride (98-107) mmol/L Carbon Dioxide (22-30) mmol/L BUN (9-20) mg/dL Creatinine (0.66-1.25) mg/dL Calcium (8.4-10.2) mg/dL AST (17-59) U/L Creatine Kinase 2476 H* (55-170) U/L Total Protein (6.3-8.2) g/dL Albumin (3.5-5.0) g/dL Crossmatch See Detail See Detail 08/29/23 08/30/23 08/30/23 Range/Units 19:46 03:57 03:57 RBC 2.46 L 2.37 L (4.30-5.90) m/uL Hgb 8.1 L D 7.6 L (13.0-17.5) gm/dL Hct 24.1 L 22.9 L (39.0-53.0) % Chloride 110 H (98-107) mmol/L Carbon Dioxide 18 L (22-30) mmol/L BUN 40 H (9-20) mg/dL Creatinine 1.81 H (0.66-1.25) mg/dL Calcium 7.6 L (8.4-10.2) mg/dL AST 68 H (17-59) U/L Creatine Kinase (55-170) U/L Total Protein 4.8 L (6.3-8.2) g/dL Albumin 2.5 L (3.5-5.0) g/dL Crossmatch
--- NOTE | 2023-08-30 13:50 | P.PN ---
Subjective Progress Note Date: 08/30/23 Principal diagnosis: Triple-vessel coronary artery disease, and the patient is status post Off pump converted to cardiopulmonary bypass assisted coronary artery bypass grafting x 3. Right internal thoracic artery (in-situ) to left anterior descending coronary artery. Left anterior descending coronary artery (in-situ) to obtuse marginal artery #3. Reversed lesser saphenous vein from aorta to distal right coronary artery. The patient is currently postop day # 8 , the patient is being seen immediately following bypass surgery. The patient a complicated surgery. The patient will Off pump converted to cardiopulmonary bypass assisted coronary artery bypass grafting x 3. Right internal thoracic artery (in-situ) to left anterior descending coronary artery. Left anterior descending coronary artery (in-situ) to obtuse marginal artery #3. Reversed lesser saphenous vein from aorta to distal right coronary artery. The patient was brought into the intensive care unit and the patient is currently on propofol running at 20 mcg/kg/m. Intubated on a mechanical ventilator. Is currently on assist control mode at a rate of 12, tidal volume of 450, FiO2 of 100% with a PEEP of 5. Blood cultures showed a pH of 7.28 with a pCO2 of 51 and pO2 112. Chest x-ray shows adequate expansion of both lungs. No pneumothorax. The patient has a right pleural, left total and mediastinal chest tube. The patient's cardiac output is currently at 8.7 with an index of 4.4. Pulmonary artery pressure 34/23. The patient is on vasopressin physiologic dose, dopamine infusion running at 0.03 microvascular kilogram per minute and norepinephrine is running at 0.05 microvascular kilogram per minutes. the cardiac rhythm Is sinus and the patient is on amiodarone at 1 mg/m. Patient is also on insulin drip at 2.5 units an hour. The patient has increased output from the chest tube. The right pleural in the left pleural chest tubes are connected output has been in the order of 400 mL and the mediastinal chest tube has drained approximately 130 mL since arrival from the operating room. Intraoperatively, the patient received a total of 2 units of packed RBC, platelet concentrate, 4.5 L of albumin, 3 L of crystalloids and 2 L of Cell Savers. Estimated blood loss was around 4 L. The patient is currently hypothermic with a temperature of 35.7C. The CBC showed a hemoglobin of 8.7, white cell count of 8.5, platelet count of 78, and electrodes are still pending for now. Meanwhile, a cognition profile showed an INR of 1.8 with a PT of 18.5 and a PTT of 65.3. The patient was also given protamine. His well sedated and is, comfortable at this point in time. Surgical one-sided dry clean and intact. On 08/24/2023, the patient is extubated and sitting up on a chair and currently he is on oxygen at 4 L. He was quite unstable after he came into the ICU. His condition progressively stabilized with output from the chest to progressively dropped. His vaccination improved. He was gradually weaned off the mechanical ventilator and he was extubated without having any major difficulties. The chest x-ray from today shows atelectatic changes in the right upper lobe. [place]- Vijay catheter still in place. He has cardiomegaly. He also has some mild pulmonary vascular congestion. The [place]-Vijay catheter is in place. PA pressures are 24/10. Cardiac output is 5.8 with an index of 3.0. Adequate urine output. All of the pressors have been discontinued. He remains on insulin drip at 3 units an hour. Amiodarone drip has been discontinued and the patient is currently on oral amiodarone. He is also in a normal sinus rhythm. Is using the incentive spirometer. He is falling approximately 1250 mL. His only complaint is some nausea for which the patient was given Zofran. Chest tubes are in place. The patient has a right pleural, left pleural chest tube which are connected and there is no evidence of any air leak. The patient also has a mediastinal chest tube. Output from the chest tubes have been slowing down progressively. On today's evaluation of 08/25/2022, the patient is slightly confused. Is having some difficulties in finding appropriate words. His we'll go 4 extremities. I feel that his mentation is waxing and waning. On certain occasions, is very much appropriate. Other times, he was noted to have some difficulties noted during words. No aphasia. No facial asymmetry. No headaches. In fact his blood pressure is soft and the patient is atrial fibrillation with a heart rate between 110 and 1:30, irregular. In same time the patient has of an acute kidney injury. Creatinine is up to 2.4 with a BUN of 31 and his sodium levels of 137. Hemoglobin stable at 9.1. The patient continues to have a right and a left pleural chest tube and a mediastinal chest tube. No evidence of any pneumothorax. Output from the chest abdomen 250 mL from MEDIASTINAL and the pleural chest tubes and there is no evidence of any air leak. Chest x-ray shows atelectatic changes in the right lung and the patient has a congested cough. Suspect a component of mucus plugging as the patient had some right upper lobe atelectasis immediately postop. He is currently on 7 L of oxygen high flow with a pulse ox of 92%. He is receiving a dose of IV albumin, 2 50 mL, 12.5 g. Urine output is in order of 30 mL an hour and the patient was given oxycodone 5 mg on 2 separate occasions for pain control. Using the incentive spirometer. Sternum is stable clean and intact. On 08/26/2023, the patient is being seen for a follow-up. The patient is oxygen at 4 L/m nasal cannula. Breathing is labored and the patient is unable to perform adequate pulmonary toileting. He is trying to use incentive spirometer. He has a congested cough. Surgical one-sided dry clean and intact. The chest x-ray from today shows some volume loss in the lung bases. Limited atelectatic changes in the right midlung area. He does have some increased gaseous distention of the bowel in the abdomen. His chest tubes are split. Mediastinal chest tubes are out and the patient continues to have a right pleural left lower chest tube. I do not appreciate any pneumothorax. Meanwhile, he was found to have a component of rhabdomyolysis. CPK level was as high as 13,000 and is currently slightly lower compared to yesterday. He has sustained an acute kidney injury. Creatinine 2.4 and the patient is currently on normal saline at rate of 75 mL an hour. His overall fluid balance has been -757 mL over the past 24 hours. His diuretics are currently on hold. His cardiac rhythm is sinus. He remains on amiodarone. He remains on metoprolol 25 mg by mouth 3 times a day. Statins were discontinued. He remains on aspirin. Is working on his incentive spirometer. On 08/27/2023, the patient is resting comfortably in bed. Chest tubes were removed. No major significant is for now. No shortness of breath. No other significant events overnight. Urine output is adequate. The patient's creatinine is also improving is currently down to 2. all within a 49. Sodium levels along 35, the bronchoscope was of 9.8 with a hemoglobin of 7.3. Moving all 4 extremities. No limitation. No cardiac arrhythmias at this point in time. The patient is essentially stable for the time being. The patient remains on amiodarone 400 mg by mouth twice a day. The patient is on metoprolol 25 mg 3 times a day. The patient is currently on a combination of aspirin and Plavix. Patient is also on Flomax. IV fluids are in the form of normal saline 75 mL an hour. Tolerating diet. Using the Sonos spirometer. Currently on 2 L of oxygen by nasal cannula with a pulse ox of 97%. Chest x-ray showing stable cardiomegaly with postoperative changes Reevaluated today on 08/28/2023, patient remains in the ICU, he is status post CABG postoperative day #6, patient is doing fairly well, he is on 2 L nasal cannula, does not seem to be in distress, seems to be admitted generally weak otherwise unremarkable findings. Chest x-ray is reassuring. Patient is receiving iron supplements IV. WBC count is 9.8 hemoglobin is 7.5 basic metabolic profile is normal BUN is 57 creatinine 2.18 being followed by nephrology. Patient was reevaluated today on 08/29/23, sitting at a bedside chair, on 2 L nasal cannula, hemoglobin is down to 6.5 today, and the patient will receive a unit of packed RBCs his BUN is 45 creatinine 2.0, patient is having some liquid stools. No further confusion episodes, he seems to be less confused today, has been ambulating in the intensive care unit hallway, with assistance. Improvement noted in his incentive spirometry. Patient is on 2 L nasal cannula with O2 saturation of 96% via chest x-ray showed minimal atelectasis, clearly I doubt pneumonia, there is minimal pulmonary vascular congestion and COPD changes Reevaluated today on 08/30/23, patient is doing great, relatively asymptomatic, he is not in any distress, patient is on room air, doing much better with his incentive spirometry. His creatinine is improving, chest x-ray is reassuring, remains on iron supplements, patient may be discharged to inpatient rehab today. Objective - Vital Signs Vital signs: Vital Signs Temp 98 F 08/30/23 12:00 Pulse 78 08/30/23 12:00 Resp 18 08/30/23 12:00 BP 115/61 08/30/23 12:00 Pulse Ox 96 08/30/23 12:00 FiO2 50 08/24/23 00:45 Intake & Output 08/29/23 08/30/23 08/30/23 18:59 06:59 18:59 Intake Total 920 340 Output Total 695 550 300 Balance 225 -550 40 Weight 84.6 kg Intake: IV 210 Sodium Chloride 0.9% 1, 210 000 ml @ 75 mls/hr IV . [id number] [facility] Rx#:[id number] Intake, IV Titration 100 Amount Sodium Ferric Gluconat- 100 Sucrose 125 mg In Sodium Chloride 0.9% 100 ml @ 100 mls/hr IVPB DAILY [facility] Rx#:[id number] Oral 100 240 Tube Feeding 250 Blood Product 310 Rc As-1 Unit 310 [id number] Other 50 Rc As-1 Unit 50 [id number] Output: Urine 695 550 300 Other: Voiding Method Urinal Bedside Commode Bedside Commode Urinal Urinal # Voids 1 # Bowel Movements 1 ABP, PAP, CO, CI - Last Documented Arterial Blood Pressure 43/40 Pulmonary Artery Pressure 29/14 Cardiac Output 4.4 Cardiac Index 2.2 - Exam Physical Exam: Revealed a 73-year-old white male in no distress on room air Head: Atraumatic, normocephalic. HEENT:[Neck is supple.] [No neck masses.] [No thyromegaly.] [No JVD.] Chest: [Clear throughout, no crackles, no rhonchi, no wheezes.] Cardiac Exam: [Normal S1 and S2, no S3 gallop, no murmur.] Abdomen: [Soft, nontender, no megaly, no rebound, no guarding, normal bowel sounds.] Extremities: [No clubbing, no edema, no cyanosis.] Neurological Exam: [No focal neurologic deficit.] Alert and oriented 3. Psychiatric: Normal mood affect and normal sinus examination. Skin: No rashes. - Labs CBC & Chem 7: 08/30/23 12:00 08/30/23 03:57 Labs: Abnormal Lab Results - Last 24 Hours (Table) 08/29/23 08/30/23 08/30/23 Range/Units 19:46 03:57 03:57 WBC (3.8-10.6) k/uL RBC 2.46 L 2.37 L (4.30-5.90) m/uL Hgb 8.1 L D 7.6 L (13.0-17.5) gm/dL Hct 24.1 L 22.9 L (39.0-53.0) % Chloride 110 H (98-107) mmol/L Carbon Dioxide 18 L (22-30) mmol/L BUN 40 H (9-20) mg/dL Creatinine 1.81 H (0.66-1.25) mg/dL Calcium 7.6 L (8.4-10.2) mg/dL AST 68 H (17-59) U/L Total Protein 4.8 L (6.3-8.2) g/dL Albumin 2.5 L (3.5-5.0) g/dL 08/30/23 Range/Units 12:00 WBC 11.8 H (3.8-10.6) k/uL RBC 2.46 L (4.30-5.90) m/uL Hgb 8.1 L (13.0-17.5) gm/dL Hct 24.2 L (39.0-53.0) % Chloride (98-107) mmol/L Carbon Dioxide (22-30) mmol/L BUN (9-20) mg/dL Creatinine (0.66-1.25) mg/dL Calcium (8.4-10.2) mg/dL AST (17-59) U/L Total Protein (6.3-8.2) g/dL Albumin (3.5-5.0) g/dL Assessment and Plan Assessment: Impression: Triple-vessel coronary artery disease, and the patient is status post Off pump converted to cardiopulmonary bypass assisted coronary artery bypass grafting x 3. Right internal thoracic artery (in-situ) to left anterior descending coronary artery. Left anterior descending coronary artery (in-situ) to obtuse marginal a rtery #3. Reversed lesser saphenous vein from aorta to distal right coronary artery. The patient is currently postop day #8 Acute kidney injury being addressed by nephrology on the case Acute rhabdomyolysis, improving/resolved Moderate severe COPD with FEV1 of 65% Acute blood loss anemia, expected Benign essential hypertension Chronic kidney disease stage III History of TIA History of asbestos exposure with pleural plaques noted on previous CT of the chest Recommendation: Continue incentive spirometry Continue, aspirin, Plavix, and beta blockers, continue amiodarone Continue to ambulate Agree with discharge planning to inpatient rehab Will follow as needed Time with Patient: Less than 30
[2023-08-30] MEDS ORDERED: SODIUM BICARBONATE TAB 650 MG TAB PO SCH ×2 (14:00→18:00)
--- NOTE | 2023-08-30 14:01 | P.PN ---
Subjective Patient is seen in follow-up for acute kidney injury. Renal function better. Creatinine 1.81 today. Sitting up in chair. Denies chest pain or shortness of breath. Nonoliguric. Vital signs are stable. General: No acute distress. HEENT: Head exam is unremarkable. LUNGS: No audible rhonchi or wheezes. HEART: Rate and Rhythm are regular. ABDOMEN: Nontender. EXTREMITITES: No edema. Objective - Vital Signs Vital signs: Vital Signs Temp 98 F 08/30/23 12:00 Pulse 78 08/30/23 12:00 Resp 18 08/30/23 12:00 BP 115/61 08/30/23 12:00 Pulse Ox 96 08/30/23 12:00 FiO2 50 08/24/23 00:45 Intake & Output 08/29/23 08/30/23 08/30/23 18:59 06:59 18:59 Intake Total 920 340 Output Total 695 550 300 Balance 225 -550 40 Weight 84.6 kg Intake: IV 210 Sodium Chloride 0.9% 1, 210 000 ml @ 75 mls/hr IV . [id number] [facility] Rx#:[id number] Intake, IV Titration 100 Amount Sodium Ferric Gluconat- 100 Sucrose 125 mg In Sodium Chloride 0.9% 100 ml @ 100 mls/hr IVPB DAILY [facility] Rx#:[id number] Oral 100 240 Tube Feeding 250 Blood Product 310 Rc As-1 Unit 310 [id number] Other 50 Rc As-1 Unit 50 [id number] Output: Urine 695 550 300 Other: Voiding Method Urinal Bedside Commode Bedside Commode Urinal Urinal # Voids 1 # Bowel Movements 1 ABP, PAP, CO, CI - Last Documented Arterial Blood Pressure 43/40 Pulmonary Artery Pressure 29/14 Cardiac Output 4.4 Cardiac Index 2.2 - Labs CBC & Chem 7: 08/30/23 12:00 08/30/23 03:57 Labs: Abnormal Lab Results - Last 24 Hours (Table) 08/29/23 08/30/23 08/30/23 Range/Units 19:46 03:57 03:57 WBC (3.8-10.6) k/uL RBC 2.46 L 2.37 L (4.30-5.90) m/uL Hgb 8.1 L D 7.6 L (13.0-17.5) gm/dL Hct 24.1 L 22.9 L (39.0-53.0) % Chloride 110 H (98-107) mmol/L Carbon Dioxide 18 L (22-30) mmol/L BUN 40 H (9-20) mg/dL Creatinine 1.81 H (0.66-1.25) mg/dL Calcium 7.6 L (8.4-10.2) mg/dL AST 68 H (17-59) U/L Total Protein 4.8 L (6.3-8.2) g/dL Albumin 2.5 L (3.5-5.0) g/dL 08/30/23 Range/Units 12:00 WBC 11.8 H (3.8-10.6) k/uL RBC 2.46 L (4.30-5.90) m/uL Hgb 8.1 L (13.0-17.5) gm/dL Hct 24.2 L (39.0-53.0) % Chloride (98-107) mmol/L Carbon Dioxide (22-30) mmol/L BUN (9-20) mg/dL Creatinine (0.66-1.25) mg/dL Calcium (8.4-10.2) mg/dL AST (17-59) U/L Total Protein (6.3-8.2) g/dL Albumin (3.5-5.0) g/dL Assessment and Plan Plan: Assessment: 1. Acute kidney injury secondary to hemodynamic ATN. Also received IV contrast dye for a CTA done 08/21/2023. Creatinine peaked at 2.58 this admission and is 1.8 today. Nonoliguric. No hydronephrosis noted on kidney ultrasound. 2. Chronic kidney disease stage IIIa with creatinine near 1.4 in January 2018. Suspect nephrosclerosis. No proteinuria on UA. 3. Coronary artery disease status post CABG 08/23/2023. 4. A. fib with RVR maintained on oral amiodarone and Lopressor. 5. Metabolic acidosis secondary to acute kidney injury. 6. Rhabdomyolysis. CK levels trending down. 7. Postoperative acute blood loss anemia. Status post blood transfusions this admission. Hemoglobin 8.1 today. On Aranesp. Plan: Stop milk of magnesia. Avoid nephrotoxins. Add oral bicarbonate. Awaits discharged to inpatient rehab.
[2023-08-31] MEDS ORDERED: ATORVASTATIN 20 MG TAB PO SCH (09:00)
== END 2023-08-30 15:29 | DRG 233 ==
LOC: EC 16:02 → 6NMEDSUR 18:33 → OBSVTOIN 18:33 → 6NMEDSUR 19:42 → 3SCARD 08-20 11:36 → 2SICU 08-23 08:01
PROVIDERS: ADMIT Thoracic Surgery (Cardiothoracic Vascular Surgery); ATTEND Thoracic Surgery (Cardiothoracic Vascular Surgery)
PROC: 06BP4ZZ Excision of Right Saphenous Vein, Percutaneous Endoscopic Approach (ICD-10-PCS; 2023-08-23)
PROC: 02100ZC Bypass Coronary Artery, One Artery from Thoracic Artery, Open Approach (ICD-10-PCS; 2023-08-23)
PROC: 02100Z3 Bypass Coronary Artery, One Artery from Coronary Artery, Open Approach (ICD-10-PCS; 2023-08-23)
PROC: B2111ZZ Fluoroscopy of Multiple Coronary Arteries using Low Osmolar Contrast (ICD-10-PCS; 2023-08-23)
PROC: 02L70CK Occlusion of Left Atrial Appendage with Extraluminal Device, Open Approach (ICD-10-PCS; 2023-08-23)
PROC: 3E033XZ Introduction of Vasopressor into Peripheral Vein, Percutaneous Approach (ICD-10-PCS; 2023-08-23)
PROC: B24BZZ4 Ultrasonography of Heart with Aorta, Transesophageal (ICD-10-PCS; 2023-08-23)
PROC: 5A1221Z Performance of Cardiac Output, Continuous (ICD-10-PCS; 2023-08-23)
PROC: 30233J1 Transfusion of Nonautologous Serum Albumin into Peripheral Vein, Percutaneous Approach (ICD-10-PCS; 2023-08-23)
PROC: 30233K1 Transfusion of Nonautologous Frozen Plasma into Peripheral Vein, Percutaneous Approach (ICD-10-PCS; 2023-08-23)
PROC: 4A0305C Measurement of Arterial Flow, Coronary, Open Approach (ICD-10-PCS; 2023-08-23)
PROC: 30233N1 Transfusion of Nonautologous Red Blood Cells into Peripheral Vein, Percutaneous Approach (ICD-10-PCS; 2023-08-23)
PROC: 30233H1 Transfusion of Nonautologous Whole Blood into Peripheral Vein, Percutaneous Approach (ICD-10-PCS; 2023-08-23)
PROC: 5A0935A Assistance with Respiratory Ventilation, Less than 24 Consecutive Hours, High Flow/Velocity Cannula (ICD-10-PCS; 2023-08-23)
PROC: 021009W Bypass Coronary Artery, One Artery from Aorta with Autologous Venous Tissue, Open Approach (ICD-10-PCS; principal; 2023-08-23 07:30)
PROC: 4A023N7 Measurement of Cardiac Sampling and Pressure, Left Heart, Percutaneous Approach (ICD-10-PCS; 2023-08-23 07:30)
DX: I21.4 Non-ST elevation (NSTEMI) myocardial infarction (principal); I49.01 Ventricular fibrillation; N17.0 Acute kidney failure with tubular necrosis; D68.9 Coagulation defect, unspecified; I97.791 Other intraoperative cardiac functional disturbances during other surgery; G93.40 Encephalopathy, unspecified; K86.2 Cyst of pancreas; M62.82 Rhabdomyolysis; E87.20 Acidosis, unspecified; D62 Acute posthemorrhagic anemia; J44.9 Chronic obstructive pulmonary disease, unspecified; N18.31 Chronic kidney disease, stage 3a; I25.110 Atherosclerotic heart disease of native coronary artery with unstable angina pectoris; I48.0 Paroxysmal atrial fibrillation; I95.89 Other hypotension; D69.59 Other secondary thrombocytopenia; I13.10 Hypertensive heart and chronic kidney disease without heart failure, with stage 1 through stage 4 chronic kidney disease, or unspecified chronic kidney disease; K76.89 Other specified diseases of liver; I65.23 Occlusion and stenosis of bilateral carotid arteries; N40.0 Benign prostatic hyperplasia without lower urinary tract symptoms; E78.5 Hyperlipidemia, unspecified; J92.0 Pleural plaque with presence of asbestos; T50.8X5A Adverse effect of diagnostic agents, initial encounter; J98.4 Other disorders of lung; N28.1 Cyst of kidney, acquired; R26.9 Unspecified abnormalities of gait and mobility; R68.0 Hypothermia, not associated with low environmental temperature; R73.9 Hyperglycemia, unspecified; R31.9 Hematuria, unspecified; Z77.090 Contact with and (suspected) exposure to asbestos; Z86.73 Personal history of transient ischemic attack (TIA), and cerebral infarction without residual deficits; Z28.310 Unvaccinated for COVID-19; Z87.891 Personal history of nicotine dependence; Z79.82 Long term (current) use of aspirin
CPT/HCPCS: 36415; 36600; 70496; 70498; 71045; 71046; 71250; 76770; 80048; 80053; 80061; 80074; 81001; 82330; 82550; 82553; 82805; 83010; 83036; 83615; 83735; 84100; 84132; 84145; 84443; 84484; 85025; 85027; 85384; 85610; 85730; 86850; 86891; 86900; 86901; 86920; 87070; 87324; 93005; 93306; 93458; 93880; 93970; 94002; 94150; 94640; 94667; 94760; 99285

== ENCOUNTER 2023-11-24 17:31 | Observation (INO) | payer MEDICARE ==
--- NOTE | 2023-11-24 18:10 | ED ---
Recheck HPI - General Source: patient, RN notes reviewed Mode of arrival: ambulatory Limitations: physical limitation <Ameena Jauregui - Last Filed: 11/24/23 18:08> - General Source: patient, RN notes reviewed, old records reviewed <Alexi Cook - Last Filed: 11/25/23 07:38> - General Chief Complaint: Recheck/Abnormal Lab/Rx Stated Complaint: Abnormal Labs Time Seen by Provider: 11/24/23 18:09 - History of Present Illness Initial Comments: Patient is a 73-year-old male presented ER with chief complaint of abnormal labs. Patient seen by [facility] and had routine lab work drawn. Patient stated BUN/creatinine were elevated. Patient denies any fevers, chills, nausea, vomiting, chest pain, shortness of breath or urinary complaints. (Ameena Jauregui) Patient is a 73-year-old male who presents emergency department for lab recheck. Patient originally seen as a quick note. I evaluated the patient when he was placed in a room. Labs are still pending. Patient has a history of hypertension, hyperlipidemia, coronary bypass, who [facility] and BUN on basic labs. He has no complaints. Was seen for regular checkup. Recently got out of rehab following the surgery, as it was back in August 2023. He denies chest pain or shortness of breath. Denies any issues with urination, abdominal pain, nausea, vomiting. Denies any blood in his urine. Did not take his afternoon or evening antihypertensive medication, metoprolol 50 mg 3 times daily. Presents for reeva luation at this time. (Alexi Cook) - Related Data Previous Rx's Medication Instructions Recorded Acetaminophen Tab [Tylenol] 1,000 mg PO Q6HR PRN tab 08/30/23 Amiodarone [Cordarone] 0 mg PO BID tab 08/30/23 Ascorbic Acid [Vitamin C] 500 mg PO DAILY tab 08/30/23 Aspirin 325 mg PO DAILY tab 08/30/23 Atorvastatin [Lipitor] 20 mg PO DAILY tab 08/30/23 Clopidogrel [Plavix] 75 mg PO DAILY tab 08/30/23 Darbepoetin Pawan [Aranesp] 40 mcg SQ Q7D each 08/30/23 Ferrous Sulfate [Iron (65 MG 325 mg PO W/LUNCH tab 08/30/23 Elemental)] Folic Acid 1 mg PO DAILY tab 08/30/23 Heparin Sodium,Porcine (1 ml) 5,000 unit SQ Q8HR each 08/30/23 [Heparin Sodium] INSULIN ASPART (NovoLOG) [NovoLOG 0 unit SQ ACHS each 08/30/23 (formulary)] Ipratropium-Albuterol Nebulize 3 ml INHALATION RT-Q2H PRN each 08/30/23 [Duoneb 0.5 mg-3 mg/3 ml Soln] Ipratropium-Albuterol Nebulize 3 ml INHALATION RT-QID each 08/30/23 [Duoneb 0.5 mg-3 mg/3 ml Soln] Magnesium Hydroxide [Milk of 2,400 mg PO BID PRN ml 08/30/23 Magnesia] Metoprolol Tartrate [Lopressor] 50 mg PO BID tab 08/30/23 Pantoprazole [Protonix] 40 mg PO AC-BRKFST tab 08/30/23 Sennosides-Docusate Sodium 2 each PO HS tab 08/30/23 [Senokot-S] Tamsulosin [Flomax] 0.4 mg PO PC-SUPPER cap 08/30/23 Thiamine [Vitamin B-1] 100 mg PO DAILY tab 08/30/23 bisacodyL [Dulcolax] 10 mg RECTAL DAILY PRN suppositor 08/30/23 guaiFENesin [Mucinex] 1,200 mg PO Q12HR tab 08/30/23 Allergies Allergy/AdvReac Type Severity Reaction Status Date / Time No Known Allergies Allergy Verified 11/24/23 17:53 Review of Systems ROS Other: All systems not noted in ROS Statement are negative. <Ameena Jauregui - Last Filed: 11/24/23 18:08> ROS Other: All systems not noted in ROS Statement are negative. <Alexi Cook - Last Filed: 11/25/23 07:38> ROS Statement: Those systems with pertinent positive or pertinent negative responses have been documented in the HPI. Review of Systems: CONST: Denies fever EYES: Denies blurry vision ENT: Denies nasal congestion C/V: Denies Chest pain RESP: Denies shortness of breath GI: Denies abdominal pain : Denies dysuria SKIN: Denies rash. MSK: Denies joint pain. NEURO: Denies headache (Alexi Cook) Past Medical History Past Medical History: Coronary Artery Disease (CAD), Chest Pain / Angina, CVA/TIA, Hyperlipidemia, Hypertension, Renal Disease Additional Past Medical History / Comment(s): TIA-no residual approx 2013 History of Any Multi-Drug Resistant Organisms: None Reported Past Surgical History: Back Surgery Past Anesthesia/Blood Transfusion Reactions: No Reported Reaction Past Psychological History: No Psychological Hx Reported Smoking Status: Former smoker Past Alcohol Use History: Occasional Past Drug Use History: None Reported - Past Family History Mother Family Medical History: No Reported History <Ameena Jauregui - Last Filed: 11/24/23 18:08> General Exam Limitations: physical limitation <Ameena Jauregui - Last Filed: 11/24/23 18:08> <Alexi Cook - Last Filed: 11/25/23 07:38> - General Exam Comments Initial Comments: Visual Physical Exam Vital signs reviewed General: Well-appearing, nontoxic, no acute distress. Head: Normocephalic, atraumatic Eyes: PERRLA, EOMI ENT: Airway patent Chest: Nonlabored breathing Skin: No visual rash, normal skin tone Neuro: Alert and oriented 3 Musculoskeletal: No gross abnormalities (Ameena Jauregui) General: Appears in no acute distress. HEAD: Normal with no signs of head trauma. EYES: PERRLA, EOMI, conjunctiva normal, no discharge. ENT: Hearing 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, normal oropharynx. RESPIRATORY: Clear breath sounds bilaterally. No wheezes, rales, or rhonchi. C/V: Regular rate and rhythm. S1 and S2 auscultated, no edema, peripheral pulses 2+ and intact throughout ABD: Abd is soft, nontender, nondistended EXT: Normal range of motion, no obvious deformity SKIN: No rashes or lesions observed on exposed skin. NEURO: Alert and oriented x 4. (Alexi Cook) Course Vital Signs 11/24/23 11/24/23 11/24/23 17:49 23:06 23:50 Temperature 98.4 F Pulse Rate 71 70 73 Respiratory 118 H 18 18 Rate Blood Pressure 186/81 192/92 192/98 O2 Sat by Pulse 98 97 97 Oximetry Medical Decision Making <Ameena Jauregui - Last Filed: 02/16/24 18:08> - Lab Data Result diagrams: 11/24/23 21:59 11/24/23 21:59 - EKG Data -: EKG Interpreted by Me <Alexi Cook - Last Filed: 11/25/23 07:38> - Medical Decision Making I performed the quick note portion of the exam. Electronically signed by Ameena Jauregui PA-C (Ameena Jauregui) Was pt. sent in by a medical professional or institution (, [facility], [facility], urgent care, hospital, or usp...) When possible be specific @ -No Did you speak to anyone other than the patient for history (EMS, parent, family, police, friend...)? What history was obtained from this source @ -No Did you review nursing and triage notes (agree or disagree)? Why? @ -I reviewed and agree with nursing and triage notes Were old charts reviewed (outside hosp., previous admission, EMS record, old EKG, old radiological studies, urgent care reports/EKG's, usp records)? Report findings @ -No old charts were reviewed Differential Diagnosis (chest pain, altered mental status, abdominal pain women, abdominal pain men, vaginal bleeding, weakness, fever, dyspnea, syncope, headache, dizziness, GI bleed, back pain, seizure, CVA, palpatations, mental health, musculoskeletal)? @ -KATHY, CKD, electrolyte abnormality, dehydration. This list is not all inclusive. EKG interpreted by me (3pts min.). @ -As above X-rays interpreted by me (1pt min.). @ -None done CT interpreted by me (1pt min.). @ -None done U/S interpreted by me (1pt. min.). @ -Ultrasound of the bladder and kidneys shows a small AAA at 4.1 cm however this is an incidental finding. No other obvious explanation for the patient's known CKD. There is a nonobstructing left renal calculus. She also has a renal cyst. What testing was considered but not performed or refused? (CT, X-rays, U/S, labs)? Why? @ -None What meds were considered but not given or refused? Why? @ -None Did you discuss the management of the patient with other professionals (miguel alvarenga i.e. [facility] Yin, [employer], lab, RT, psych nurse, drug abuse social worker, bumper operator, teacher, chief contract officer, director case)? Give summary @ - I spoke with the admitting physician, Dr. Barrow of [facility] who accepted the patient. Was smoking cessation discussed for >3mins.? @ -No Was critical care preformed (if so, how long)? @ -No Were there social determinants of health that impacted care today? How? (Homelessness, low income, unemployed, alcoholism, drug addiction, transportation, low edu. Level, literacy, decrease access to med. care, fpc, rehab)? @ -No Was there de-escalation of care discussed even if they declined (Discuss DNR or withdrawal of care, Hospice)? DNR status @ -No What co-morbidities impacted this encounter? (DM, HTN, Smoking, COPD, CAD, Cancer, CVA, ARF, Chemo, Hep., AIDS, mental health diagnosis, sleep apnea, morbid obesity)? @ -None Was patient admitted / discharged? Hospital course, mention meds given and route, prescriptions, significant lab abnormalities, going to OR and other pertinent info. @ -Presents emergency department for laboratory draw and reevaluation. Had elevated BUN and creatinine in an outpatient visit and has no complaints otherwise. Vital signs remarkable for mild tachycardia as well as hypertension but patient did not take his afternoon or evening doses of metoprolol. We will provide him with a dose of metoprolol, and obtain repeat laboratory studies. Screening EKG will also be obtained. Patient was in agreement this plan. I evaluated patient when he is placed in room 19. Workup has not been initiated as of yet at 2145, time of my evaluation. Still awaiting laboratory studies. Laboratory studies remarkable for a chronic anemia, as well as KATHY on CKD. Patient's BUN is currently 48 and creatinine is 3.88. Upon most recent discharge from our facility in August, creatinine was 1.8. Urinalysis unremarkable except for small amount of blood. I updated the patient. We will obtain an ultrasound. He will be admitted for nephrology evaluation. He was placed on gentle fluid hydration. He was in agreement this plan. I spoke with the admitting physician, Dr. Barrow of [facility] who accepted the patient. Undiagnosed new problem with uncertain prognosis? @ -No Drug Therapy requiring intensive monitoring for toxicity (Heparin, Nitro, Insulin, Cardizem)? @ -No Were any procedures done? @ -No Diagnosis/symptom? @ -KATHY on CKD Acute, or Chronic, or Acute on Chronic? @ -Acute Uncomplicated (without systemic symptoms) or Complicated (systemic symptoms)? @ -Complicated Side effects of treatment? @ -None Exacerbation, Progression, or Severe Exacerbation] @ -No Poses a threat to life or bodily function? @ -Yes (Alexi Cook) - Lab Data Lab Results 11/24/23 11/24/23 11/24/23 Range/Units 21:59 21:59 21:59 WBC 8.6 (3.8-10.6) k/uL RBC 3.55 L (4.30-5.90) m/uL Hgb 11.2 L (13.0-17.5) gm/dL Hct 35.6 L (39.0-53.0) % MCV 100.5 H (80.0-100.0) fL MCH 31.5 (25.0-35.0) pg MCHC 31.4 (31.0-37.0) g/dL RDW 14.8 (11.5-15.5) % Plt Count 185 (150-450) k/uL MPV 8.3 Hypochromasia Slight Macrocytosis Slight Sodium 145 (137-145) mmol/L Potassium 4.6 (3.5-5.1) mmol/L Chloride 112 H (98-107) mmol/L Carbon Dioxide 24 (22-30) mmol/L Anion Gap 9 mmol/L BUN 48 H (9-20) mg/dL Creatinine 3.88 H (0.66-1.25) mg/dL Est GFR (CKD-EPI)AfAm 17 (>60 ml/min/1.73 sqM) Est GFR (CKD-EPI)NonAf 14 (>60 ml/min/1.73 sqM) Glucose 103 H (74-99) mg/dL Calcium 8.8 (8.4-10.2) mg/dL Total Bilirubin 0.6 (0.2-1.3) mg/dL AST 26 (17-59) U/L ALT 20 (4-49) U/L Alkaline Phosphatase 108 (38-126) U/L Total Protein 7.0 (6.3-8.2) g/dL Albumin 3.8 (3.5-5.0) g/dL Urine Color Colorless Urine Appearance Clear (Clear) Urine pH 6.0 (5.0-8.0) Ur Specific [place] 1.015 (1.001-1.035) Urine Protein 1+ H (Negative) Urine Glucose (UA) Negative (Negative) Urine Ketones Negative (Negative) Urine Blood Small H (Negative) Urine Nitrite Negative (Negative) Urine Bilirubin Negative (Negative) Urine Urobilinogen <2.0 (<2.0) mg/dL Ur Leukocyte Esterase Negative (Negative) Urine RBC 31 H (0-5) /hpf Urine WBC 1 (0-5) /hpf Hyaline Casts 3 H (0-2) /lpf Urine Mucus Rare H (None) /hpf - EKG Data EKG Comments: 12-lead Electrocardiogram Interpretation Note EKG was reviewed and interpreted by myself. 12-lead ECG performed at 2203 is interpreted by me as revealing normal sinus rhythm at a rate of 71 beats per minute. [place] is normal. SC interval is 182 ms, QRS duration is 90 ms, QTc is 414 ms.. There were no ST or T wave abnormalities to suggest myocardial ischemia or injury. R wave progression across the precordium was satisfactory. By my interpretation this EKG is non-diagnostic for acute ischemia. (Alexi Cook) Disposition <Ameena Jauregui - Last Filed: 11/24/23 18:08> Time of Disposition: 22:52 <Alexi Cook - Last Filed: 11/25/23 07:38> Clinical Impression: Acute kidney injury superimposed on CKD Disposition: ADMITTED IP TO THIS HOSP Condition: Stable
[2023-11-24] MEDS: METOPROLOL TARTRATE 50 MG TAB PO STA (21:57)
[2023-11-24 22:15] LABS: HCT 35.6 % (39.0-53.0); HGB 11.2 gm/dL (13.0-17.5); Hypochromasia Slight; MCH 31.5 pg (25.0-35.0); MCHC 31.4 g/dL (31.0-37.0); MCV 100.5 fL (80.0-100.0); Macrocytosis Slight; Mean Platelet Volume 8.3; Platelet Count 185 k/uL (150-450); RBC 3.55 m/uL (4.30-5.90); RDW 14.8 % (11.5-15.5); WBC 8.6 k/uL (3.8-10.6)
[2023-11-24 22:18] LABS: Appearance,Urine Clear (Clear); Bilirubin,Urine Negative (Negative); Blood,Urine Small (Negative); Color,Urine Colorless; Glucose,Urine (UA) Negative (Negative); Hyaline Casts,Urine 3 /lpf (0-2); Ketones,Urine Negative (Negative); Leukocyte Esterase,Urine Negative (Negative); Mucus,Urine Rare /hpf; Nitrite,Urine Negative (Negative); Protein,Urine 1+ (Negative); RBC,Urine 31 /hpf (0-5); Specific Gravity,Urine 1.015 (1.001-1.035); Urobilinogen,Urine <2.0 mg/dL (<2.0); WBC,Urine 1 /hpf (0-5)
[2023-11-24 22:31] LABS: ALT 20 U/L (4-49); AST 26 U/L (17-59); African American GFR (CKD) 17 (>60 ml/min/1.73 sqM); Albumin 3.8 g/dL (3.5-5.0); Alkaline Phosphatase 108 U/L (38-126); Anion Gap 9 mmol/L; Blood Urea Nitrogen 48 mg/dL (9-20); Calcium 8.8 mg/dL (8.4-10.2); Carbon Dioxide 24 mmol/L (22-30); Chloride 112 mmol/L (98-107); Glucose 103 mg/dL (74-99); Non-African American GFR(CKD) 14 (>60 ml/min/1.73 sqM); Potassium 4.6 mmol/L (3.5-5.1); Sodium 145 mmol/L (137-145); Total Bilirubin 0.6 mg/dL (0.2-1.3)
[2023-11-24] MEDS: SODIUM CHLORIDE 0.9% 1,000 ML IV STA (22:45)
[2023-11-24] MEDS ORDERED: NALOXONE 0.4 MG/ML 1 ML VIAL IV PRN (22:56)
[2023-11-24] MEDS ORDERED: ACETAMINOPHEN TAB 325 MG TAB PO PRN (22:56)
[2023-11-24] MEDS: HEPARIN SODIUM,PORCINE 5,000 UNIT/ML 1 ML VIAL SQ SCH (23:48)
--- NOTE | 2023-11-25 00:06 | US ---
EXAMINATION TYPE: US kidneys/renal and bladder DATE OF EXAM: 11/24/2023 COMPARISON: US 08/25/23 CLINICAL INDICATION: Male, 73 years old with history of kathy; KATHY EXAM MEASUREMENTS: Right Kidney: 8.9x4.1x4.7 cm Left Kidney: 9.2x39x4.0 cm Right Kidney: irregular contour again noted, junctional parenchymal defect vs. other. Patient denies surgery or injury. There is a1.5x1.3x1.4cm cystic area not noted on 08/25/23 prior Left Kidney: large superior/medial cyst again seen: 4.7x4.1x5.3cm, there is also a 0.6cm echogenic sh adowing structure near the hilum ?calcified vessel vs. stone? Bladder: poorly distended, jets not visualized due to flash artifact from overlying bowel There appears to be an infrarenal AAA measuring 4.1x4.2x4.7cm with atherosclerotic plaque throughout the visualized aorta. Examination of this area is limited by bowel gas IMPRESSION: 1. Abdominal aortic aneurysm measuring up to 4.1 cm further evaluation CTA abdomen pelvis may be of benefit if not recently performed. 2. No evidence for obstructive uropathy. 3. Bilateral simple appearing renal cysts. 4. Nonobstructing left calculus.
--- NOTE | 2023-11-25 02:50 | P.HPIM ---
History of Present Illness H&P Date: 11/24/23 Chief Complaint: Abnormal labs 73-year-old male with recent triple-vessel coronary artery bypass surgery back in August 2023 Patient coming in due to abnormal blood work, he received a call from his primary care physician notifying him that his renal function was deteriorating for which she was advised to go to the hospital for evaluation he reports history of hypertension which is controlled with medications he claims that since his surgery he has been more compliant with his medications he takes his blood pressure at home usually it is under control. Today upon arrival to the ED he was found to have uncontrolled blood pressure he denies any associated changes in his vision hearing denies any headache or focal neurodeficits. Patient renal function has been getting worse since surgery he reports that he is having good urine output denies any nausea vomiting chest pain trouble breathing denies any hematuria. Patient had triple-vessel coronary artery bypass surgery back in August or unstable angina and troponin coronary artery disease Patient denies smoking he reports history of asbestos exposure and COPD review of systems Pertinent positives as noted in HPI. All other systems were reviewed and are negative on exam Constitutional: No acute distress, conversant, pleasant Eyes: Anicteric sclerae, moist conjunctiva, Pupils equal round reactive to light ENMT: NC/AT Oropharynx clear, no erythema, or exudates Neck: Supple, no masses, or JVD No carotid bruits No thyromegaly Lungs: Clear to auscultation Clear to percussion Normal respiratory effort, no accessory muscle use Cardiovascular: Heart regular in rate and rhythm, No murmurs, gallops, or rubs No peripheral edema Abdominal: Soft Nontender, no guarding, rebound or rigidity Abdomen moving with respiration Normoactive bowel sounds No hepatomegaly, No splenomegaly No palpable mass No abdominal wall hernia noted Extremities: No digital cyanosis No clubbing Pedal pulses intact and symmetrical Radial pulses intact and symmetrical No calf tenderness Psychiatric: Alert and oriented to person, place and time Appropriate affect fair judgement Neuro Muscles Strength 5/5 in all 4 extremities Sensation to light touch grossly present throughout Cranial nerves II-XII 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 Lymphatics: no palpable cervical or supraclavicular lymph nodes Past Medical History Past Medical History: Coronary Artery Disease (CAD), Chest Pain / Angina, CVA/TIA, Hyperlipidemia, Hypertension, Renal Disease Additional Past Medical History / Comment(s): TIA-no residual approx 2013 History of Any Multi-Drug Resistant Organisms: None Reported Past Surgical History: Back Surgery Past Anesthesia/Blood Transfusion Reactions: No Reported Reaction Past Psychological History: No Psychological Hx Reported Smoking Status: Former smoker Past Alcohol Use History: Occasional Additional Past Alcohol Use History / Comment(s): started smoking at age 18,<1ppd Past Drug Use History: None Reported - Past Family History Mother Family Medical History: No Reported History Medications and Allergies Home Medications Medication Instructions Recorded Confirmed Type Acetaminophen Tab [Tylenol] 1,000 mg PO Q6HR PRN tab 08/30/23 Rx Amiodarone [Cordarone] 0 mg PO BID tab 08/30/23 Rx Ascorbic Acid [Vitamin C] 500 mg PO DAILY tab 08/30/23 Rx Aspirin 325 mg PO DAILY tab 08/30/23 Rx Atorvastatin [Lipitor] 20 mg PO DAILY tab 08/30/23 Rx Clopidogrel [Plavix] 75 mg PO DAILY tab 08/30/23 Rx Darbepoetin Pawan [Aranesp] 40 mcg SQ Q7D each 08/30/23 Rx Ferrous Sulfate [Iron (65 MG 325 mg PO W/LUNCH tab 08/30/23 Rx Elemental)] Folic Acid 1 mg PO DAILY tab 08/30/23 Rx Heparin Sodium,Porcine (1 ml) 5,000 unit SQ Q8HR each 08/30/23 Rx [Heparin Sodium] INSULIN ASPART (NovoLOG) [NovoLOG 0 unit SQ ACHS each 08/30/23 Rx (formulary)] Ipratropium-Albuterol Nebulize 3 ml INHALATION RT-Q2H PRN each 08/30/23 Rx [Duoneb 0.5 mg-3 mg/3 ml Soln] Ipratropium-Albuterol Nebulize 3 ml INHALATION RT-QID each 08/30/23 Rx [Duoneb 0.5 mg-3 mg/3 ml Soln] Magnesium Hydroxide [Milk of 2,400 mg PO BID PRN ml 08/30/23 Rx Magnesia] Metoprolol Tartrate [Lopressor] 50 mg PO BID tab 08/30/23 Rx Pantoprazole [Protonix] 40 mg PO AC-BRKFST tab 08/30/23 Rx Sennosides-Docusate Sodium 2 each PO HS tab 08/30/23 Rx [Senokot-S] Tamsulosin [Flomax] 0.4 mg PO PC-SUPPER cap 08/30/23 Rx Thiamine [Vitamin B-1] 100 mg PO DAILY tab 08/30/23 Rx bisacodyL [Dulcolax] 10 mg RECTAL DAILY PRN suppositor 08/30/23 Rx guaiFENesin [Mucinex] 1,200 mg PO Q12HR tab 08/30/23 Rx Allergies Allergy/AdvReac Type Severity Reaction Status Date / Time No Known Allergies Allergy Verified 11/24/23 17:53 Physical Exam Vitals: Vital Signs Temp Pulse Pulse Resp BP BP Pulse Ox 11/25/23 02:23 72 16 11/25/23 01:11 97.5 F L 72 16 193/88 98 11/24/23 23:50 73 18 192/98 97 11/24/23 23:06 70 18 192/92 97 11/24/23 17:49 98.4 F 71 118 H 186/81 98 Intake and Output 11/24/23 11/24/23 11/25/23 14:59 22:59 06:59 Other: Voiding Method Toilet Weight 68.039 kg 68.039 kg Results CBC & Chem 7: 11/24/23 21:59 11/24/23 21:59 Labs: Abnormal Lab Results - Last 24 Hours (Table) 11/24/23 11/24/23 11/24/23 Range/Units 21:59 21:59 21:59 RBC 3.55 L (4.30-5.90) m/uL Hgb 11.2 L (13.0-17.5) gm/dL Hct 35.6 L (39.0-53.0) % MCV 100.5 H (80.0-100.0) fL Chloride 112 H (98-107) mmol/L BUN 48 H (9-20) mg/dL Creatinine 3.88 H (0.66-1.25) mg/dL Glucose 103 H (74-99) mg/dL Urine Protein 1+ H (Negative) Urine Blood Small H (Negative) Urine RBC 31 H (0-5) /hpf Hyaline Casts 3 H (0-2) /lpf Urine Mucus Rare H (None) /hpf Thrombosis Risk Factor Assmnt - Choose All That Apply Any of the Below Risk Factors Present?: No Other Risk Factors: Yes Each Risk Factor Represents 2 Points: Age 61-74 years Other congenital or acquired thrombophilia - If yes, enter type in comment: No Thrombosis Risk Factor Assessment Total Risk Factor Score: 2 Thrombosis Risk Factor Assessment Level: Low Risk Assessment and Plan Assessment: 73-year-old male recent coronary artery bypass surgery in August since then his renal function has been getting worse today is coming in for evaluation due to abnormal blood work I discussed case with ED doctor and accepted the admission for acute on chronic kidney disease for further nephrology evaluation, hypertensive emergency for blood pressure control with anticipated length of st ay more than 2 midnights Acute kidney injury on chronic kidney disease possibly related to poorly c ontrolled blood pressure with hypertensive nephrosclerosis Avoid nephrotoxic meds Monitor urine output Monitor renal function Nephrology consult Renal ultrasound showed no obstructive uropathy Sodium 145 potassium 4.6 BUN 48 creatinine 3.88 Hypertensive emergency, elevated blood pressure with acute kidney injury Continue with metoprolol Add clonidine 0.2 mg as needed for systolic blood pressure above 180 Continue with amlodipine Chronic conditions Paroxysmal A-fib Continue with amiodarone patient not on blood thinners Coronary artery disease status post CABG Continue with atorvastatin, aspirin, Plavix 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
[2023-11-25] MEDS ORDERED: IPRATROPIUM-ALBUTEROL 3 ML NEB INHALATION PRN (02:54)
[2023-11-25] MEDS: cloNIDine HCL 0.2 MG TAB PO STA (03:05)
[2023-11-25] MEDS: PANTOPRAZOLE 40 MG TABLET PO SCH ×2 (05:56→18:54)
[2023-11-25 07:31] LABS: Basophils # (A) 0.1 k/uL (0-0.2); Basophils % (A) 1 %; Eosinophils # (A) 0.5 k/uL (0-0.7); Eosinophils % (A) 7 %; HCT 30.4 % (39.0-53.0); Hypochromasia Slight; Lymphocytes # (A) 1.6 k/uL (1.0-4.8); Lymphocytes % (A) 22 %; MCH 32.2 pg (25.0-35.0); MCV 100.5 fL (80.0-100.0); Macrocytosis Slight; Mean Platelet Volume 7.9; Monocytes # (A) 0.4 k/uL (0-1.0); Monocytes % (A) 6 %; Neutrophils # (A) 4.5 k/uL (1.3-7.7); Neutrophils % (A) 61 %; Platelet Count 163 k/uL (150-450); RBC 3.02 m/uL (4.30-5.90); RDW 14.8 % (11.5-15.5); WBC 7.3 k/uL (3.8-10.6)
[2023-11-25 07:55] LABS: HGB 9.7 gm/dL (13.0-17.5)
[2023-11-25 08:03] LABS: African American GFR (CKD) 17 (>60 ml/min/1.73 sqM); Anion Gap 4 mmol/L; Blood Urea Nitrogen 47 mg/dL (9-20); Calcium 8.1 mg/dL (8.4-10.2); Carbon Dioxide 26 mmol/L (22-30); Chloride 112 mmol/L (98-107); Glucose 96 mg/dL (74-99); Non-African American GFR(CKD) 15 (>60 ml/min/1.73 sqM); Potassium 4.7 mmol/L (3.5-5.1); Sodium 142 mmol/L (137-145)
[2023-11-25] MEDS: CLOPIDOGREL 75 MG TAB PO SCH (09:42)
[2023-11-25] MEDS: METOPROLOL TARTRATE 50 MG TAB PO SCH (09:42)
[2023-11-25] MEDS: ASPIRIN 325 MG TAB PO SCH (09:42)
[2023-11-25] MEDS: ATORVASTATIN 20 MG TAB PO SCH (09:43)
[2023-11-25] MEDS: AMIODARONE 200 MG TAB PO SCH (09:43)
--- NOTE | 2023-11-25 11:35 | P.PN ---
Subjective Progress Note Date: 11/25/23 Hospital course: Patient is a pleasant 73-year-old male with a past medical history of CAD status post CABG x 3 08/2023, hypertension, hyperlipidemia, TIA, chronic kidney disease, and BPH. He presented to the emergency department on 11/24/2023 secondary to concerns of abnormal blood work. Upon arrival to our facility, patient underwent full evaluation. Vital signs upon arrival show blood pressure elevated at 186/81, heart rate 71, respiratory rate 18, temp 98.4 F, and SpO2 of 98% on room air. EKG completed showing normal sinus rhythm at 71 bpm with T wave inversion in leads aVL otherwise no significant T wave or ST abnormalities showing no signs of acute ischemia. Abdominal ultrasound completed showing abdominal aortic aneurysm measuring up to 4.1 cm with bilateral simple appearing renal cysts and nonobstructing left calculus. Labs completed and reviewed. CBC showing macrocytic anemia with hemoglobin of 11.2. BMP revealing acute kidney injury on stage IIIb chronic kidney disease with BUN of 48, creatinine 3.88, and GFR 14 with baseline creatinine of 1.8. Liver profile was unremarkable. Urinalysis positive for protein, blood, and 31 RBCs otherwise negative for infection. Patient was admitted under our services with consultation to ne phrology. Physical exam: Vital signs reviewed and stable. General: Nontoxic, no distress and appears stated age. Derm: Skin warm and dry, normal coloration for ethnicity. Head: Atraumatic, normocephalic and symmetric. Eyes: EOMs intact, no lid lag, and anicteric sclera Mouth: no lip lesions, mucus membranes moist Cardiovascular: regular rate and rhythm with normal S1S2, no murmur, positive posterior tibial pulses bilaterally, and cap refill < 2 seconds. Lungs: Respirations even, regular, and unlabored on room air. Lungs CTA bilaterally, no rhonchi, no rales, no wheezing, and no accessory muscle usage. Abdominal: soft, nontender to palpation, no guarding, no appreciable organomegaly Ext: ROM intact. No gross muscle atrophy, no edema, no contractures Neuro: Speech clear, face symmetrical and CN II-XII 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 with no noted focal neuro deficits Psych: Alert and oriented to person, place, time, and situation. Appropriate and pleasant affect. Assessment and Plan of Care: 73-year-old male recent CABG x 3 in August and has since been experiencing a decline in his renal function. This has been being monitored closely by his primary care doctor and he was sent to the emergency department for evaluation secondary to worsening renal function from blood work on outpatient follow-up. Patient underwent evaluation in the emergency department and was found to be in hypertensive urgency and have an acute kidney injury on chronic kidney disease with creatinine of 3.88 with baseline creatinine of 1.8. Acute kidney injury on stage IIIb chronic kidney disease, possibly related to p oorly controlled blood pressure with hypertensive nephrosclerosis Macrocytic anemia, appears chronic secondary to CKD. -Abdominal/renal ultrasound completed and reviewed showing no acute process, obstruction or hydronephrosis revealing an abdominal aortic aneurysm measuring up to 4.1 cm with bilateral simple appearing renal cysts and nonobstructing left calculus. -Urinalysis positive for protein, blood, and 31 RBCs negative for infection. -Avoid nephrotoxic medications -Continue with gentle IV fluid hydration with 0.9% normal saline at 50 cc/h pending further recommendations from nephrology. -Monitor urine output with strict I's and O's -Order placed for bladder scanning to monitor for any signs of postvoid residuals. -Nephrology consulted, appreciate recommendations. -Continued close monitoring of renal function with repeat morning BMP. -Hemoglobin stable at 9.7 baseline hemoglobin around 8. Patient to continue with ferrous sulfate 325 mg daily and darbepoetin 40 mcg subcu every 7 days. Hypertensive emergency, elevated blood pressure with acute kidney injury -Continue daily medication regimen with amiodarone 200 mg twice daily and metoprolol 50 mg twice daily. Orders also placed for clonidine 0.2 mg to be given as needed for systolic pressure greater than 180. -Blood pressures much better controlled this morning and is currently 128/57 with heart rate of 72. Coronary artery disease status post CABG x 3 Paroxysmal atrial fibrillation -Patient is not on any anticoagulation, continue with dual antiplatelet therapy with aspirin 81 mg daily and Plavix 75 mg daily. Hyperlipidemia - Continue daily medication regimen with atorvastatin 20 mg daily. COPD secondary to history of asbestos exposure compensated -Continue with DuoNebs 4 times daily as needed for shortness of breath and/or wheezing. BPH -Continue with Flomax 0.4 mg daily. Incidental finding of 4.1 cm AAA, will need outpatient follow-up with vascular surgery for long-term monitoring and possible management if indicated Data reviewed: Vital signs reviewed and stable with blood pressure 128/57, heart rate 72, respiratory rate 19, temp 97.4 F, SpO2 of 96% on room air. CODE STATUS: Full code DVT prophylaxis: Heparin Anticipated discharge date: Clinical course to determine Anticipated discharge place: Clinical course to determine Patient was seen independently by Nurse Pracitioner. This document was prepared using [employer] dictation software. Please allow for errors in lumber estimator, while rare they do occur. This patient was seen independently by Codi AUGER MACHINE OFFBEARER. I agree with the assessment and plan done by my colleague. Objective - Vital Signs Vital signs: Vital Signs Temp 97.4 F L 11/25/23 07:00 Pulse 72 11/25/23 07:00 Resp 19 11/25/23 07:00 BP 128/57 11/25/23 07:00 Pulse Ox 96 11/25/23 07:00 FiO2 Intake & Output 11/24/23 11/25/23 11/25/23 18:59 06:59 18:59 Weight 68.039 kg 68.039 kg Other: Voiding Method Toilet # Voids 1 - Labs CBC & Chem 7: 11/26/23 07:18 11/26/23 07:18 Labs: Abnormal Lab Results - Last 24 Hours (Table) 11/24/23 11/24/23 11/24/23 Range/Units 21:59 21:59 21:59 RBC 3.55 L (4.30-5.90) m/uL Hgb 11.2 L (13.0-17.5) gm/dL Hct 35.6 L (39.0-53.0) % MCV 100.5 H (80.0-100.0) fL Chloride 112 H (98-107) mmol/L BUN 48 H (9-20) mg/dL Creatinine 3.88 H (0.66-1.25) mg/dL Glucose 103 H (74-99) mg/dL Calcium (8.4-10.2) mg/dL Urine Protein 1+ H (Negative) Urine Blood Small H (Negative) Urine RBC 31 H (0-5) /hpf Hyaline Casts 3 H (0-2) /lpf Urine Mucus Rare H (None) /hpf 11/25/23 11/25/23 Range/Units 06:57 06:57 RBC 3.02 L (4.30-5.90) m/uL Hgb 9.7 L D (13.0-17.5) gm/dL Hct 30.4 L (39.0-53.0) % MCV 100.5 H (80.0-100.0) fL Chloride 112 H (98-107) mmol/L BUN 47 H (9-20) mg/dL Creatinine 3.79 H (0.66-1.25) mg/dL Glucose (74-99) mg/dL Calcium 8.1 L (8.4-10.2) mg/dL Urine Protein (Negative) Urine Blood (Negative) Urine RBC (0-5) /hpf Hyaline Casts (0-2) /lpf Urine Mucus (None) /hpf
[2023-11-25] MEDS: FERROUS SULFATE 325 MG TAB PO SCH (12:49)
[2023-11-25] MEDS: DARBEPOETIN ALFA 40 MCG/0.4 ML SYRINGE SQ SCH (16:01)
--- NOTE | 2023-11-25 18:53 | P.NPCON ---
History of Present Illness - Reason for Consult Consult date: 11/25/23 - Chief Complaint Abnormal labs - History of Present Illness Patient is a 73-year-old male presented ER with chief complaint of abnormal labs. Patient seen by GA and had routine lab work drawn. Patient stated BUN/creatinine were elevated. Patient denies any fevers, chills, nausea, vomiting, chest pain, shortness of breath or urinary complaints. He denies any history of CKD or kidney issues. Was in hospital few months ago and was discharged to rehab for many weeks. He was discharged home few weeks ago and has been taking home medications but cannot recall what medications he is on. Does admit to having prostate issue in past. Patient had triple-vessel coronary artery bypass surgery back in August or unstable angina and troponin coronary artery disease and renal function has been worsening since. VS stable. HEENT: No JVD. HEART: regular rate and rhythm. Abdomen: soft, non-tender. Ext: No edema. Past Medical History Past Medical History: Coronary Artery Disease (CAD), Chest Pain / Angina, CVA/TIA, Hyperlipidemia, Hypertension, Renal Disease Additional Past Medical History / Comment(s): TIA-no residual approx 2013 History of Any Multi-Drug Resistant Organisms: None Reported Past Surgical History: Back Surgery Past Anesthesia/Blood Transfusion Reactions: No Reported Reaction Past Psychological History: No Psychological Hx Reported Smoking Status: Former smoker Past Alcohol Use History: Occasional Additional Past Alcohol Use History / Comment(s): started smoking at age 18,<1ppd Past Drug Use History: None Reported - Past Family History Mother Family Medical History: No Reported History Medications and Allergies Home Medications Medication Instructions Recorded Confirmed Type Clopidogrel [Plavix] 75 mg PO DAILY tab 08/30/23 11/25/23 Rx Tamsulosin [Flomax] 0.4 mg PO PC-SUPPER cap 08/30/23 11/25/23 Rx Apixaban [Eliquis] 5 mg PO BID 11/25/23 11/25/23 History Atorvastatin Calcium [Lipitor] 40 mg PO HS 11/25/23 11/25/23 History Gabapentin [Neurontin] 300 mg PO DAILY 11/25/23 11/25/23 History Metoprolol Tartrate [Lopressor] 100 mg PO BID 11/25/23 11/25/23 History Pantoprazole [Protonix] 40 mg PO DAILY 11/25/23 11/25/23 History Allergies Allergy/AdvReac Type Severity Reaction Status Date / Time No Known Allergies Allergy Verified 11/25/23 13:23 Physical Exam Vitals: Vital Signs Temp Pulse Pulse Resp BP BP Pulse Ox 11/25/23 14:03 97.5 F L 65 19 106/56 100 11/25/23 07:00 97.4 F L 72 19 128/57 96 11/25/23 02:23 72 16 11/25/23 01:11 97.5 F L 72 16 193/88 98 11/24/23 23:50 73 18 192/98 97 11/24/23 23:06 70 18 192/92 97 Intake and Output 11/25/23 11/25/23 11/25/23 06:59 14:59 22:59 Other: Voiding Method Toilet # Voids 1 Weight 68.039 kg Results - Lab Results Most recent lab results Calcium 8.1 mg/dL (8.4-10.2) L 11/25/23 06:57 11/25/23 06:57 11/25/23 06:57 Assessment and Plan Plan: Assessment: 1. Non-oliguric KATHY likely hemodynamic ATN. Baseline creatinine 1.1, Novermber 23, was worsening upon discharge. Presented with creatinine 3.9, US no hydronephrosis and negative PVR. 2. Hypertensive Urgency-Improved 3. BPH on Flomax 4. ASCAD with recent CABG Plan: UA showed hylaline casts. HOld IV Ffor now as can worsen BP. Check CPK, strict I/O's. Avoid large BP fluctuations, BP dropped from 192/98-->128/57 over few hours, monitor for worsening renal function. Trend daily BMP, no indications for HD at this time. Continue Metoprolol, clonidine discontinued, avoid ACEi/ARB due to KATHY. If worsens consider adding Amlodipine.
[2023-11-25] MEDS: TAMSULOSIN 0.4 MG CAP.ER.24H PO SCH (18:54)
[2023-11-26 08:06] LABS: HCT 29.3 % (39.0-53.0); HGB 9.5 gm/dL (13.0-17.5); MCH 32.3 pg (25.0-35.0); MCHC 32.5 g/dL (31.0-37.0); MCV 99.3 fL (80.0-100.0); Macrocytosis Slight; Mean Platelet Volume 8.4; Platelet Count 149 k/uL (150-450); RBC 2.95 m/uL (4.30-5.90); RDW 14.9 % (11.5-15.5); WBC 6.1 k/uL (3.8-10.6)
[2023-11-26 08:18] LABS: ALT 14 U/L (4-49); AST 21 U/L (17-59); African American GFR (CKD) 18 (>60 ml/min/1.73 sqM); Albumin 2.7 g/dL (3.5-5.0); Alkaline Phosphatase 89 U/L (38-126); Anion Gap 5 mmol/L; Blood Urea Nitrogen 47 mg/dL (9-20); Calcium 8.1 mg/dL (8.4-10.2); Carbon Dioxide 22 mmol/L (22-30); Chloride 112 mmol/L (98-107); Globulin 2.7 g/dL; Glucose 74 mg/dL (74-99); Magnesium 1.6 mg/dL (1.6-2.3); Non-African American GFR(CKD) 16 (>60 ml/min/1.73 sqM); Potassium 4.5 mmol/L (3.5-5.1); Sodium 139 mmol/L (137-145); Total Bilirubin 0.5 mg/dL (0.2-1.3); Total Protein 5.4 g/dL (6.3-8.2)
[2023-11-26] MEDS: ASPIRIN 81 MG PO SCH (08:58)
[2023-11-26] MEDS: MAGNESIUM SULFATE-D5W PMX 1 GM in DEXTROSE/WATER 1 100ML.BAG IVPB SCH (11:12)
--- NOTE | 2023-11-26 11:43 | P.PN ---
Subjective Progress Note Date: 11/26/23 Hospital course: Patient is a pleasant 73-year-old male with a past medical history of CAD status post CABG x 3 08/2023, hypertension, hyperlipidemia, paroxysmal atrial fibrillation on anticoagulation with Eliquis TIA, chronic kidney disease, and BPH. He presented to the emergency department on 11/24/2023 secondary to concerns of abnormal blood work. Upon arrival to our facility, patient underwent full evaluation. Vital signs upon arrival show blood pressure elevated at 186/81, heart rate 71, respiratory rate 18, temp 98.4 F, and SpO2 of 98% on room air. EKG completed showing normal sinus rhythm at 71 bpm with T wave inversion in leads aVL otherwise no significant T wave or ST abnormalities showing no signs of acute ischemia. Abdominal ultrasound completed showing abdominal aortic aneurysm measuring up to 4.1 cm with bilateral simple appearing renal cysts and nonobstructing left calculus. Labs completed and reviewed. CBC showing macrocytic anemia with hemoglobin of 11.2. BMP revealing acute kidney injury on stage IIIb chronic kidney disease with BUN of 48, creatinine 3.88, and GFR 14 with baseline creatinine of 1.8. Liver profile was unremarkable. Urinalysis positive for protein, blood, and 31 RBCs otherwise negative for infection. Patient was admitted under our services with consultation to nephrology. Physical exam: Patient seen and fully evaluated at bedside this morning. He appears to be doing well. Blood pressures remain elevated 170 systolic. Pharmacy updated patient's home medications after verification from outpatient pharmacy. Changes made to antihypertensive medication regimen. Patient denies having any headache, lightheadedness, dizziness, chest pain, palpitations, shortness of breath, or any other complaints at this time. Vital signs reviewed and stable. General: Nontoxic, no distress and appears stated age. Derm: Skin warm and dry, normal coloration for ethnicity. Head: Atraumatic, normocephalic and symmetric. Eyes: EOMs intact, no lid lag, and anicteric sclera Mouth: no lip lesions, mucus membranes moist Cardiovascular: regular rate and rhythm with normal S1S2, no murmur, positive posterior tibial pulses bilaterally, and cap refill < 2 seconds. Lungs: Respirations even, regular, and unlabored on room air. Lungs CTA bilaterally, no rhonchi, no rales, no wheezing, and no accessory muscle usage. Abdominal: soft, nontender to palpation, no guarding, no appreciable organomegaly Ext: ROM intact. No gross muscle atrophy, no edema, no contractures Neuro: Speech clear, face symmetrical and CN II-XII 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 with no noted focal neuro deficits Psych: Alert and oriented to person, place, time, and situation. Appropriate and pleasant affect. Assessment and Plan of Care: 73-year-old male recent CABG x 3 in August and has since been experiencing a decline in his renal function. This has been being monitored closely by his primary care doctor and he was sent to the emergency department for evaluation secondary to worsening renal function from blood work on outpatient follow-up. Patient underwent evaluation in the emergency department and was found to be in hypertensive urgency and have an acute kidney injury on chronic kidney disease with creatinine of 3.88 with baseline creatinine of 1.8. Acute kidney injury on stage IIIb chronic kidney disease, possibly related to poorly controlled blood pressure with hypertensive nephrosclerosis Macrocytic anemia, appears chronic secondary to CKD. -Abdominal/renal ultrasound completed and reviewed showing no acute process, obstruction or hydronephrosis revealing an abdominal aortic aneurysm measuring up to 4.1 cm with bilateral simple appearing renal cysts and nonobstructing left calculus. -Urinalysis positive for protein, blood, and 31 RBCs negative for infection. -Avoid nephrotoxic medications -Monitor urine output with strict I's and O's. Documented output over the past 24 hours is 450 cc. -Continue bladder scanning to monitor for any signs of postvoid residuals. -Nephrology consulted, reviewed documentation in chart. -Continued close monitoring of renal function with repeat morning BMP. -Hemoglobin stable at 9.5 baseline hemoglobin around 8. Patient to continue with ferrous sulfate 325 mg daily and darbepoetin 40 mcg subcu every 7 days. -Optimize blood pressure control. Home medications were updated, patient is no longer on amiodarone and metoprolol is 100 mg twice daily. Patient to continue with metoprolol 100 mg twice daily and was started on amlodipine 5 mg daily. Hypertensive emergency, elevated blood pressure with acute kidney injury -Optimize blood pressure control. Home medications were updated, patient is no longer on amiodarone and metoprolol is 100 mg twice daily. Patient to continue with metoprolol 100 mg twice daily and was started on amlodipine 5 mg daily. -Blood pressures much better controlled this morning and is currently 128/57 with heart rate of 72. Coronary artery disease status post CABG x 3 Paroxysmal atrial fibrillation -Home medications were updated, patient is on anticoagulation with Eliquis 5 mg twice daily and to continue Plavix 75 mg daily. Hyperlipidemia - Continue daily medication regimen with atorvastatin 20 mg daily. COPD secondary to history of asbestos exposure compensated -Continue with DuoNebs 4 times daily as needed for shortness of breath and/or wheezing. BPH -Continue with Flomax 0.4 mg daily. Incidental finding of 4.1 cm AAA, will need outpatient follow-up with vascular surgery for long-term monitoring and possible management if indicated Data reviewed: Morning labs reviewed. CBC showing stable normocytic anemia with hemoglobin of 9.5 and thrombocytopenia with platelet count of 149. BMP continues to show mild hyperchloremia with chloride of 112 and elevated renal function with BUN of 47, creatinine 3.55, GFR of 16. Magnesium low at 1.6. Documented urinary output over the past 24 hours is 450 cc. Vital signs reviewed. Blood pressure 173/74, heart rate 63, respiratory rate 19, temp 97.4 F, and SpO2 of 95% on room air. CODE STATUS: Full code DVT prophylaxis: Eliquis Anticipated discharge date: Likely tomorrow morning Anticipated discharge place: Home Patient was seen independently by Nurse Pracitioner. This document was prepared using [employer] dictation software. Please allow for errors in juvenile officer, while rare they do occur. This patient was seen independently by Codi BOYER. I agree with the assessment and plan done by my colleague. Objective - Vital Signs Vital signs: Vital Signs Temp 97.4 F L 11/26/23 07:00 Pulse 63 11/26/23 07:00 Resp 19 11/26/23 07:00 BP 173/74 11/26/23 07:00 Pulse Ox 95 11/26/23 07:00 FiO2 Intake & Output 11/25/23 11/26/23 11/26/23 18:59 06:59 18:59 Output Total 450 Balance -450 Output: Urine 450 Other: Voiding Method Toilet # Voids 1 - Labs CBC & Chem 7: 11/26/23 07:18 11/26/23 07:18 Labs: Abnormal Lab Results - Last 24 Hours (Table) 11/26/23 11/26/23 Range/Units 07:18 07:18 RBC 2.95 L (4.30-5.90) m/uL Hgb 9.5 L (13.0-17.5) gm/dL Hct 29.3 L (39.0-53.0) % Plt Count 149 L (150-450) k/uL Chloride 112 H (98-107) mmol/L BUN 47 H (9-20) mg/dL Creatinine 3.55 H (0.66-1.25) mg/dL Calcium 8.1 L (8.4-10.2) mg/dL Total Protein 5.4 L (6.3-8.2) g/dL Albumin 2.7 L (3.5-5.0) g/dL
[2023-11-26] MEDS: METOPROLOL TARTRATE 50 MG TAB PO STA (12:39)
[2023-11-26] MEDS: APIXABAN 5 MG TAB PO SCH (12:40)
[2023-11-26] MEDS: amLODIPine 5 MG TAB PO SCH (12:42)
--- NOTE | 2023-11-26 13:09 | P.PN ---
Subjective Progress Note Date: 11/26/23 Patient follow-up for KATHY on CKD. He is currently feeling well and denies any new complaints. Hoping to go home tomorrow if able. VS stable. HEENT: No JVD. HEART: regular rate and rhythm. Abdomen: soft, non-tender. Ext: No edema. Objective - Vital Signs Vital signs: Vital Signs Temp 97.4 F L 11/26/23 07:00 Pulse 66 11/26/23 11:22 Resp 17 11/26/23 11:22 BP 152/81 11/26/23 11:22 Pulse Ox 97 11/26/23 11:22 FiO2 Intake & Output 11/25/23 11/26/23 11/26/23 18:59 06:59 18:59 Intake Total 618 Output Total 450 300 Balance -450 318 Intake: Oral 618 Output: Urine 450 300 Other: Voiding Method Toilet # Voids 1 - Labs CBC & Chem 7: 11/26/23 07:18 11/26/23 07:18 Labs: Abnormal Lab Results - Last 24 Hours (Table) 11/25/23 11/26/23 11/26/23 Range/Units 06:57 07:18 07:18 RBC 2.95 L (4.30-5.90) m/uL Hgb 9.5 L (13.0-17.5) gm/dL Hct 29.3 L (39.0-53.0) % Plt Count 149 L (150-450) k/uL Chloride 112 H (98-107) mmol/L BUN 47 H (9-20) mg/dL Creatinine 3.55 H (0.66-1.25) mg/dL Calcium 8.1 L (8.4-10.2) mg/dL Creatine Kinase 30 L (35-257) U/L Total Protein 5.4 L (6.3-8.2) g/dL Albumin 2.7 L (3.5-5.0) g/dL Assessment and Plan Plan: Assessment: 1. Non-oliguric KATHY likely hemodynamic ATN. Presented with creatinine 3.9, improved to 3.5 today. US no hydronephrosis and negative PVR. 2. Hypertensive Urgency-Improved 3. BPH on Flomax 4. ASCAD with recent CABG 5. CKD stage IIIB likely due to ischemic nephropathy. Plan: UA showed hylaline casts. Renal function continues to improve without any uremic symptoms. Good urine output recorded. Primary with the addition of amlodipine for his blood pressure, could also consider changing metoprolol to Coreg for better blood pressure control Cleared for discharge from nephrology standpoint and follow-up outpatient in [address] Plascencia Discussed with the primary team.
[2023-11-26] MEDS: GABAPENTIN 300 MG CAP PO SCH (18:02)
[2023-11-26] MEDS: METOPROLOL TARTRATE 50 MG TAB PO SCH (21:34)
[2023-11-27 08:36] VITALS: BP 164/80; PULSE 61; RESP 15; TEMP 97.7
--- NOTE | 2023-11-27 10:09 | P.DS ---
Providers Date of admission: 11/24/23 22:57 Expected date of discharge: 11/27/23 Attending physician: Latha Barrow MD Consults: 11/24/23 22:56 Consult Physician Routine Consulting Provider: Magdaleno Mayer Consult Reason/Comments: bakari on ckd Do you want consulting provider notified?: Yes Primary care physician: [facility] Hospital Course: Discharge Diagnosis: Acute kidney injury on stage IIIb chronic kidney disease, possibly related to poorly controlled blood pressure with hypertensive nephrosclerosis. Blood pressure is much better controlled. Patient cleared from nephrology standpoint recommending outpatient follow-up in their office in 1 to 2 weeks. Patient provided with prescription for repeat BMP in 3 days with results to be sent to PCP and rn patient care. Hypertensive urgency, elevated blood pressure with acute kidney injury. Patient to continue with metoprolol 100 mg twice daily and was started on amlodipine 5 mg daily. Macrocytic anemia, appears chronic secondary to CKD. Hemoglobin stable at 9.1 on day of discharge. Coronary artery disease status post CABG x 3. Patient to continue anticoagulation with Eliquis 5 mg twice daily, metoprolol 100 mg twice daily, atorvastatin 40 mg daily, and Plavix 75 mg daily. Paroxysmal atrial fibrillation. Patient to continue anticoagulation with Eliquis 5 mg twice daily and metoprolol 100 mg twice daily Hyperlipidemia. Continue daily medication regimen with atorvastatin 40 mg daily. COPD secondary to history of asbestos exposure compensated. Continue use of home nebulizer BPH. Continue with Flomax 0.4 mg daily. Incidental finding of 4.1 cm AAA, will need outpatient follow-up with vascular surgery for long-term monitoring and possible management if indicated Hospital Course: Patient is a pleasant 73-year-old male with a past medical history of CAD status post CABG x 3 08/2023, hypertension, hyperlipidemia, paroxysmal atrial fibrillation on anticoagulation with Eliquis TIA, chronic kidney disease, and BPH. He presented to the emergency department on 11/24/2023 secondary to concerns of abnormal blood work. Upon arrival to our facility, patient underwe nt full evaluation. Vital signs upon arrival show blood pressure elevated at 186/81, heart rate 71, respiratory rate 18, temp 98.4 F, and SpO2 of 98% on room air. EKG completed showing normal sinus rhythm at 71 bpm with T wave inversion in leads aVL otherwise no significant T wave or ST abnormalities showing no signs of acute ischemia. Abdominal ultrasound completed showing abdominal aortic aneurysm measuring up to 4.1 cm with bilateral simple appearing renal cysts and nonobstructing left calculus. Labs completed and reviewed. CBC showing macrocytic anemia with hemoglobin of 11.2. BMP revealing acute kidney injury on stage IIIb chronic kidney disease with BUN of 48, creatinine 3.88, and GFR 14 with baseline creatinine of 1.8. Liver profile was unremarkable. Urinalysis positive for protein, blood, and 31 RBCs otherwise negative for infection. Patient was admitted under our services with consultation to nephrology. Abdominal/renal ultrasound completed and reviewed showing no acute process, obstruction or hydronephrosis revealing an abdominal aortic aneurysm measuring up to 4.1 cm with bilateral simple appearing renal cysts and nonobstructing left calculus. Changes were made to patient's blood pressure medications, resulting in better control of hypertension. Patient to continue with metoprolol 100 mg twice daily and was started on amlodipine 5 mg daily. Patient was followed closely by nephrology and rn patient care clearing patient from nephrology standpoint for discharge recommending outpatient follow-up in their office in 1 week. Patient provided with a prescription to have repeat BMP completed in 3 days with results to be sent to both PCP and rn patient care. Physical exam: Vital signs reviewed and stable. General: Nontoxic, no distress and appears stated age. Derm: Skin warm and dry, normal coloration for ethnicity. Head: Atraumatic, normocephalic and symmetric. Eyes: EOMs intact, no lid lag, and anicteric sclera Mouth: no lip lesions, mucus membranes moist Cardiovascular: regular rate and rhythm with normal S1S2, no murmur, positive posterior tibial pulses bilaterally, and cap refill < 2 seconds. Lungs: Respirations even, regular, and unlabored on room air. Lungs CTA bilaterally, no rhonchi, no rales, no wheezing, and no accessory muscle usage. Abdominal: soft, nontender to palpation, no guarding, no appreciable organomegaly Ext: ROM intact. No gross muscle atrophy, no edema, no contractures Neuro: Speech clear, face symmetrical and CN II-XII 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 with no noted focal neuro deficits Psych: Alert and oriented to person, place, time, and situation. Appropriate and pleasant affect. A total of 36 minutes of time were spent preparing this complex discharge summary. Pt was discharged on 11/27/2023 at 10:04 AM Patient was seen independently by Nurse Practitioner. This document was prepared using Social Touch dictation software. Please allow for errors in digital marketing apprentice while rare they do occur. This patient was seen independently by my colleague Codi BOYER. I agree with the assessment and plan. Patient Condition at Discharge: Stable Plan - Discharge Summary Discharge Rx Participant: No New Discharge Prescriptions: New amLODIPine [Norvasc] 5 mg PO DAILY 30 Days #30 tab Continue Tamsulosin [Flomax] 0.4 mg PO PC-SUPPER cap Clopidogrel [Plavix] 75 mg PO DAILY tab Metoprolol Tartrate [Lopressor] 100 mg PO BID Atorvastatin Calcium [Lipitor] 40 mg PO HS Fluticasone/Umeclidin/Vilanter [Trelegy Ellipta 100-62.5-25] 1 puff INHALATION RT-DAILY Pantoprazole [Protonix] 40 mg PO DAILY Gabapentin [Neurontin] 300 mg PO DAILY Apixaban [Eliquis] 5 mg PO BID Promethazine HCl 25 mg PO Q6H PRN PRN Reason: Nausea Albuterol Inhaler [Ventolin Hfa Inhaler] 1 - 2 puff INHALATION RT-Q6H PRN PRN Reason: Shortness Of Breath Discharge Medication List Clopidogrel [Plavix] 75 mg PO DAILY tab 08/30/23 [Rx] Tamsulosin [Flomax] 0.4 mg PO PC-SUPPER cap 08/30/23 [Rx] Apixaban [Eliquis] 5 mg PO BID 11/25/23 [History] Atorvastatin Calcium [Lipitor] 40 mg PO HS 11/25/23 [History] Gabapentin [Neurontin] 300 mg PO DAILY 11/25/23 [History] Metoprolol Tartrate [Lopressor] 100 mg PO BID 11/25/23 [History] Pantoprazole [Protonix] 40 mg PO DAILY 11/25/23 [History] Albuterol Inhaler [Ventolin Hfa Inhaler] 1 - 2 puff INHALATION RT-Q6H PRN 11/27/23 [History] Fluticasone/Umeclidin/Vilanter [Trelegy Ellipta 100-62.5-25] 1 puff INHALATION RT-DAILY 11/27/23 [History] Promethazine HCl 25 mg PO Q6H PRN 11/27/23 [History] amLODIPine [Norvasc] 5 mg PO DAILY 30 Days #30 tab 11/27/23 [Rx] Follow up Appointment(s)/Referral(s): Omari Feranndez DO [STAFF PHYSICIAN] - As Needed (Follow up with Dr. Fernandez this week as scheduled and as needed. ) Kylee Roman DO [STAFF PHYSICIAN] - 1 Week (Need to schedule appointment with vascular surgery for continued follow-up and close monitoring of 4.1 cm abdominal aortic aneurysm) Raciel Plascencia DO [STAFF PHYSICIAN] - 12/15/23 10:20 am (Appt at [place] office with the Nurse Practioner) [facility],Clinic [Primary Care Provider] - 1-2 days Ambulatory/Diagnostic Orders: Basic Metabolic Panel [LAB.AMB] Time Frame: 3 Days, Location: None Selected Patient Instructions/Handouts: Acute Kidney Injury (DC), Chronic Kidney Disease (DC), Chronic Kidney Disease Diet (DC), Hypertensive Crisis (DC) Activity/Diet/Wound Care/Special Instructions: Activity: As tolerated. Take breaks as needed. Diet: Heart healthy and carb consistent diet. Avoid salts, or foods with hidden salts such as canned or boxed foods and frozen dinners. Extra salt makes your heart work harder and traps the fluid in your body for longer. Special Instructions: Take all of your medications as directed and remember to keep all of your doctor's appointments and follow-up as needed. Again, thank you for your service, it is always an honor to have the opportunity to provide care for a !!! Thank you for allowing us to participate in your care, it was truly a pleasure having you for our patient!!! Discharge Disposition: HOME SELF-CARE
[2023-11-27 10:59] LABS: HCT 28.8 % (39.6-50.0); HGB 9.1 g/dL (13.0-17.0); MCH 31.6 pg (27.0-32.0); MCHC 31.6 g/dL (32.0-37.0); Mean Platelet Volume 10.7 FL (9.5-12.2); NRBC Per 100 WBC 0 X 10*3/uL (0.00-0.01); Platelet Count 147 X 10*3/uL (140-440); RBC 2.88 X 10*6/uL (4.40-5.60); RDW 14.6 % (11.5-14.5); WBC 7.13 X 10*3/uL (4.50-10.00)
[2023-11-27 11:10] LABS: ALT 14 U/L (10-49); AST 14 U/L (14-35); Albumin 3.1 g/dL (3.8-4.9); Albumin/Globulin Ratio 1.35 Ratio (1.60-3.17); Alkaline Phosphatase 88 U/L (41-126); BUN/Creat Ratio 11.11 Ratio (12.00-20.00); Calcium 8.2 mg/dL (8.7-10.3); Carbon Dioxide 21.9 mmol/L (21.6-31.8); Chloride 108 mmol/L (96-109); Globulin 2.3 g/dL (1.6-3.3); Glucose 75 mg/dL (70-110); Magnesium 2.2 mg/dL (1.5-2.4); Potassium 4.2 mmol/L (3.5-5.5); Sodium 141 mmol/L (135-145); Total Bilirubin 0.3 mg/dL (0.3-1.2); Total Protein 5.4 g/dL (6.2-8.2)
--- NOTE | 2023-11-27 14:04 | P.PN ---
Subjective Patient is seen for follow-up for acute kidney injury on top of chronic kidney disease. Plans for discharge today. No significant complaints. Good urine output. Objective - Vital Signs Vital signs: Vital Signs Temp 97.7 F 11/27/23 07:00 Pulse 61 11/27/23 07:00 Resp 15 11/27/23 07:00 BP 164/80 11/27/23 07:00 Pulse Ox 95 11/27/23 07:00 FiO2 Intake & Output 11/26/23 11/27/23 11/27/23 18:59 06:59 18:59 Intake Total 618 118 Output Total 300 Balance 318 118 Intake: Oral 618 118 Output: Urine 300 Other: Voiding Method Toilet Toilet # Voids 1 - Exam patient is awake, comfortable, no acute distress Alert oriented 3 Examination of the heart S1 and S2 Examination of the lungs bilateral breath sounds are heard Abdomen is soft nontender Examination of lower extremities shows no significant edema FUR LINER exam 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 - Labs CBC & Chem 7: 11/27/23 06:33 11/27/23 06:33 Labs: Abnormal Lab Results - Last 24 Hours (Table) 11/27/23 11/27/23 Range/Units 06:33 06:33 RBC 2.88 L (4.40-5.60) X 10*6/uL Hgb 9.1 L (13.0-17.0) g/dL Hct 28.8 L (39.6-50.0) % MCV 100.0 H (80.0-97.0) FL MCHC 31.6 L (32.0-37.0) g/dL RDW 14.6 H (11.5-14.5) % BUN 40.0 H (9.0-27.0) mg/dL Creatinine 3.6 H (0.6-1.5) mg/dL Est GFR (CKD-EPI) 17 L (>=60) BUN/Creatinine Ratio 11.11 L (12.00-20.00) Ratio Calcium 8.2 L (8.7-10.3) mg/dL Total Protein 5.4 L (6.2-8.2) g/dL Albumin 3.1 L (3.8-4.9) g/dL Albumin/Globulin Ratio 1.35 L (1.60-3.17) Ratio Assessment and Plan Assessment: 1. Non-oliguric KATHY likely hemodynamic ATN. Presented with creatinine 3.9, improved to 3.6 today. US no hydronephrosis and negative PVR. 2. Hypertensive Urgency-Improved 3. BPH on Flomax 4. ASCAD with recent CABG 5. CKD stage IIIB likely due to ischemic nephropathy. Plan: Patient can be discharged from nephrology standpoint. Follow-up as outpatient in 1-2 weeks. Patient will need close follow-up as outpatient given his advanced CK D.
== END 2023-11-27 12:30 | disposition home or self-care (01) ==
LOC: EC 17:31 → 6NMEDSUR 22:57
PROVIDERS: ADMIT Internal Medicine; ATTEND Internal Medicine
DX: N17.9 Acute kidney failure, unspecified (principal); I12.9 Hypertensive chronic kidney disease with stage 1 through stage 4 chronic kidney disease, or unspecified chronic kidney disease; N18.32 Chronic kidney disease, stage 3b; D53.9 Nutritional anemia, unspecified; I16.0 Hypertensive urgency; I25.10 Atherosclerotic heart disease of native coronary artery without angina pectoris; I48.0 Paroxysmal atrial fibrillation; E78.5 Hyperlipidemia, unspecified; J44.9 Chronic obstructive pulmonary disease, unspecified; N40.0 Benign prostatic hyperplasia without lower urinary tract symptoms; I71.40 Abdominal aortic aneurysm, without rupture, unspecified; Z79.01 Long term (current) use of anticoagulants; Z95.1 Presence of aortocoronary bypass graft; Z79.899 Other long term (current) drug therapy; Z86.73 Personal history of transient ischemic attack (TIA), and cerebral infarction without residual deficits; Z79.82 Long term (current) use of aspirin; Z79.4 Long term (current) use of insulin; Z77.090 Contact with and (suspected) exposure to asbestos; Z79.02 Long term (current) use of antithrombotics/antiplatelets; Z87.891 Personal history of nicotine dependence
CPT/HCPCS: 96361; 96365; 96366; 96372 ×2; 99285; 36415; 93005; 80053 ×3; 80048; 82550; 83735 ×2; 85025; 85027 ×3; 81001; 76770; G0378 ×4; J1644 ×2; J3475; J0881

== ENCOUNTER 2024-08-04 21:32 | Emergency (ER) | payer MEDICARE ==
[2024-08-04 21:35] VITALS: TEMP 97.9
--- NOTE | 2024-08-04 21:48 | ED ---
General Adult HPI - General Chief complaint: Back Pain/Injury Stated complaint: Back Pain Time Seen by Provider: 08/04/24 21:37 Source: patient Mode of arrival: ambulatory Limitations: no limitations - History of Present Illness Initial comments: Dictation was produced using [employer] dictation software. please excuse any grammatical, word or spelling errors. Chief Complaint: 74-year-old male with history of back surgery presents to the emergency department with back pain History of Present Illness: Patient is a 74-year-old male he has multiple comor bidities. Patient states that over the last few days he has been having increased symptoms of back pain. States that his pain is most present with certain twisting and certain positions. States that feels like a sharp spasm. Denies any radiation of symptoms. Has history of herniated disc. Denies any fever chills or night sweats. Denies any loss of bowel or bladder control. The ROS documented in this emergency department record has been reviewed and confirmed by me. Those systems with pertinent positive or negative responses have been documented in the HPI. All other systems are other negative and/or noncontributory. - Related Data Home Medications Medication Instructions Recorded Confirmed Apixaban [Eliquis] 5 mg PO BID 11/25/23 11/25/23 Atorvastatin Calcium [Lipitor] 40 mg PO HS 11/25/23 11/25/23 Gabapentin [Neurontin] 300 mg PO DAILY 11/25/23 11/25/23 Metoprolol Tartrate [Lopressor] 100 mg PO BID 11/25/23 11/25/23 Pantoprazole [Protonix] 40 mg PO DAILY 11/25/23 11/25/23 Albuterol Inhaler [Ventolin Hfa 1 - 2 puff INHALATION RT-Q6H PRN 11/27/23 11/27/23 Inhaler] Fluticasone/Umeclidin/Vilanter 1 puff INHALATION RT-DAILY 11/27/23 11/27/23 [Trelegy Ellipta 100-62.5-25] Promethazine HCl 25 mg PO Q6H PRN 11/27/23 11/27/23 Previous Rx's Medication Instructions Recorded Clopidogrel [Plavix] 75 mg PO DAILY tab 08/30/23 Tamsulosin [Flomax] 0.4 mg PO PC-SUPPER cap 08/30/23 amLODIPine [Norvasc] 5 mg PO DAILY 30 Days #30 tab 11/27/23 traMADol HCl [Ultram] 50 mg PO Q6HR PRN 3 Days #12 tab 08/04/24 Allergies Allergy/AdvReac Type Severity Reaction Status Date / Time No Known Allergies Allergy Verified 08/04/24 21:35 Review of Systems ROS Statement: Those systems with pertinent positive or pertinent negative responses have been documented in the HPI. ROS Other: All systems not noted in ROS Statement are negative. Past Medical History Past Medical History: Coronary Artery Disease (CAD), Chest Pain / Angina, CVA/TIA, Hyperlipidemia, Hypertension, Renal Disease Additional Past Medical History / Comment(s): TIA-no residual approx 2013 History of Any Multi-Drug Resistant Organisms: None Reported Past Surgical History: Back Surgery Past Anesthesia/Blood Transfusion Reactions: No Reported Reaction Past Psychological History: No Psychological Hx Reported Smoking Status: Former smoker Past Alcohol Use History: Occasional Past Drug Use History: None Reported - Past Family History Mother Family Medical History: No Reported History General Exam - General Exam Comments Initial Comments: PHYSICAL EXAM: General Impression: Alert and oriented x3, not in acute distress HEENT: Normocephalic atraumatic, extra-ocular movements intact, pupils equal and reactive to light bilaterally, mucous membranes moist. Cardiovascular: Heart regular rate and rhythm Chest: Able to complete full sentences, no retractions, no tachypnea Abdomen: abdomen soft, non-tender, non-distended, no organomegaly Musculoskeletal: Pulses present and equal in all extremities, no peripheral edema Motor: no focal deficits noted Neurological: CN II-XII 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, no focal motor or sensory deficits noted Skin: Intact with no visualized rashes Psych: Normal affect and mood Limitations: no limitations Course Vital Signs 08/04/24 08/04/24 21:33 23:21 Temperature 97.9 F Pulse Rate 77 61 Respiratory 16 18 Rate Blood Pressure 116/62 127/71 O2 Sat by Pulse 100 97 Oximetry Medical Decision Making - Medical Decision Making Was pt. sent in by a medical professional or institution (, PA, BOAT TESTER, urgent care, hospital, or assisted...) When possible be specific @ -No Did you speak to anyone other than the patient for history (EMS, parent, family, police, friend...)? What history was obtained from this source @ -No Did you review nursing and triage notes (agree or disagree)? Why? @ -I reviewed and agree with nursing and triage notes Were old charts reviewed (outside hosp., previous admission, EMS record, old EKG, old radiological studies, urgent care reports/EKG's, assisted records)? Report findings @ -No old charts were reviewed Differential Diagnosis (chest pain, altered mental status, abdominal pain women, abdominal pain men, vaginal bleeding, musculoskeletal, weakness, fever, dyspnea, syncope, headache, dizziness, GI bleed, back pain, seizure, CVA, palpatations, mental health)? @ -Differential Back Pain: Strain, zoster, cauda equina syndrome, epidural abscess, vertebral osteomyelitis, discitis, fracture, subluxation, disc herniation, DJD, spinal stenosis, dissection, AAA, pancreatitis, peptic ulcer disease, pyelonephritis, k idney stone, this is not meant to be an all-inclusive list. EKG interpreted by me (3pts min.). @ -None done X-rays interpreted by me (1pt min.). @ -None done CT interpreted by me (1pt min.). @ -CT lumbar spine shows no acute fractures. Patient has a abdominal aortic aneurysm. U/S interpreted by me (1pt. min.). @ -None done What testing was considered but not performed or refused? (CT, X-rays, U/S, labs)? Why? @ -None What meds were considered but not given or refused? Why? @ -None Was smoking cessation discussed for >3mins.? @ -No Were there social determinants of health that impacted care today? How? (Homelessness, low income, unemployed, alcoholism, drug addiction, transportation, low edu. Level, literacy, decrease access to med. care, group home, rehab)? @ -No Was there de-escalation of care discussed even if they declined (Discuss DNR or withdrawal of care, Hospice)? DNR status @ -No What co-morbidities impacted this encounter? (DM, HTN, Smoking, COPD, CAD, Cancer, CVA, ARF, Chemo, Hep., AIDS, mental health diagnosis, sleep apnea, morbid obesity)? @ -Herniated disc Was patient admitted / discharged? Hospital course, mention meds given and route, prescriptions, significant lab abnormalities, going to OR and other pertinent info. @ -74-year-old male with musculoskeletal back pain. Vital signs stable. Patient has some high risk features prompting CT imaging studies. Laboratory evaluation obtained found to be within acceptable limits. Urinalysis negative. Lumbar CT shows no significant acute musculoskeletal issues. There does however to be an abdominal aortic aneurysm. Patient was questioned about this states that he does have known aortic aneurysm that he follows up with vascular surgery for. Patient well-appearing given prescription for tramadol. Told to follow-up with his vascular doctor regarding his aneurysm and also his primary care doctor for his back pain. Did you discuss the management of the patient with other professionals (professionals i.e. , PA, BOAT TESTER, lab, RT, psych nurse, social and political studies professor, wheel aligner, teacher, parole or probation officer, rn case manager)? Give summary @ -No Was critical care preformed (if so, how long)? @ -No Undiagnosed new problem with uncertain prognosis? @ -No Drug Therapy requiring intensive monitoring for toxicity (Heparin, Nitro, Insulin, Cardizem)? @ -No Were any procedures done? @ -No Diagnosis/symptom? Acute, or Chronic, or Acute on Chronic? Uncomplicated (without systemic symptoms) or Complicated (systemic symptoms)? @ -Back strain Side effects of treatment? @ -No Exacerbation, Progression, or Severe Exacerbation? @ -No Poses a threat to life or bodily function? How? (Chest pain, [place], [place], pneumonia, PE, COPD, DKA, ARF, appy, cholecystitis, CVA, Diverticulitis, Homicidal, Suicidal, threat to staff... and all critical care pts) @ -yes - Lab Data Result diagrams: 08/04/24 21:53 08/04/24 21:53 Lab Results 08/04/24 08/04/24 08/04/24 Range/Units 21:46 21:53 21:53 WBC 10.2 (3.8-10.6) k/uL RBC 3.92 L (4.30-5.90) m/uL Hgb 12.6 L (13.0-17.5) gm/dL Hct 38.5 L (39.0-53.0) % MCV 98.3 (80.0-100.0) fL MCH 32.2 (25.0-35.0) pg MCHC 32.8 (31.0-37.0) g/dL RDW 13.0 (11.5-15.5) % Plt Count 201 (150-450) k/uL MPV 7.1 Neutrophils % 62 % Lymphocytes % 24 % Monocytes % 5 % Eosinophils % 5 % Basophils % 1 % Neutrophils # 6.3 (1.3-7.7) k/uL Lymphocytes # 2.4 (1.0-4.8) k/uL Monocytes # 0.6 (0-1.0) k/uL Eosinophils # 0.5 (0-0.7) k/uL Basophils # 0.1 (0-0.2) k/uL Sodium 138 (137-145) mmol/L Potassium 4.8 (3.5-5.1) mmol/L Chloride 112 H (98-107) mmol/L Carbon Dioxide 16 L (22-30) mmol/L Anion Gap 10 mmol/L BUN 49 H (9-20) mg/dL Creatinine 3.06 H (0.66-1.25) mg/dL Est GFR (CKD-EPI)AfAm 22 (>60 ml/min/1.73 sqM) Est GFR (CKD-EPI)NonAf 19 (>60 ml/min/1.73 sqM) Glucose 85 (74-99) mg/dL Calcium 8.8 (8.4-10.2) mg/dL Urine Color Colorless Urine Appearance Clear (Clear) Urine pH 5.5 (5.0-8.0) Ur Specific [place] 1.008 (1.001-1.035) Urine Protein Negative (Negative) Urine Glucose (UA) Negative (Negative) Urine Ketones Negative (Negative) Urine Blood Trace H (Negative) Urine Nitrite Negative (Negative) Urine Bilirubin Negative (Negative) Urine Urobilinogen <2.0 (<2.0) mg/dL Ur Leukocyte Esterase Negative (Negative) Urine RBC 2 (0-5) /hpf Urine WBC <1 (0-5) /hpf Ur Squamous Epith Cells <1 (0-4) /hpf Hyaline Casts 4 H (0-2) /lpf Urine Mucus Rare H (None) /hpf Disposition Clinical Impression: Back strain Disposition: HOME SELF-CARE Condition: Good Instructions (If sedation given, give patient instructions): Acute Low Back Pain (ED) Prescriptions: traMADol HCl [Ultram] 50 mg PO Q6HR PRN 3 Days #12 tab PRN Reason: back pain Is patient prescribed a controlled substance at d/c from ED?: Yes If prescribed controlled substance>3 days was MAPS reviewed?: Prescribed <3 Days Referrals: [facility],Clinic [Primary Care Provider] - 1-2 days Kylee Roman DO [STAFF PHYSICIAN] - 1-2 days Time of Disposition: 23:56
[2024-08-04] MEDS: methocarbamoL 500 MG TAB PO STA (21:55)
[2024-08-04 22:04] LABS: Basophils # (A) 0.1 k/uL (0-0.2); Basophils % (A) 1 %; Eosinophils # (A) 0.5 k/uL (0-0.7); Eosinophils % (A) 5 %; HCT 38.5 % (39.0-53.0); HGB 12.6 gm/dL (13.0-17.5); Lymphocytes # (A) 2.4 k/uL (1.0-4.8); Lymphocytes % (A) 24 %; MCH 32.2 pg (25.0-35.0); MCHC 32.8 g/dL (31.0-37.0); MCV 98.3 fL (80.0-100.0); Mean Platelet Volume 7.1; Monocytes # (A) 0.6 k/uL (0-1.0); Monocytes % (A) 5 %; Neutrophils # (A) 6.3 k/uL (1.3-7.7); Neutrophils % (A) 62 %; Platelet Count 201 k/uL (150-450); RBC 3.92 m/uL (4.30-5.90); WBC 10.2 k/uL (3.8-10.6)
[2024-08-04 22:15] LABS: Appearance,Urine Clear (Clear); Bilirubin,Urine Negative (Negative); Blood,Urine Trace (Negative); Color,Urine Colorless; Glucose,Urine (UA) Negative (Negative); Hyaline Casts,Urine 4 /lpf (0-2); Ketones,Urine Negative (Negative); Leukocyte Esterase,Urine Negative (Negative); Mucus,Urine Rare /hpf; Nitrite,Urine Negative (Negative); PH, Urine 5.5 (5.0-8.0); Protein,Urine Negative (Negative); RBC,Urine 2 /hpf (0-5); Specific Gravity,Urine 1.008 (1.001-1.035); Squamous Epithelial Cell,Urine <1 /hpf (0-4); Urobilinogen,Urine <2.0 mg/dL (<2.0); WBC,Urine <1 /hpf (0-5)
[2024-08-04 22:18] LABS: African American GFR (CKD) 22 (>60 ml/min/1.73 sqM); Anion Gap 10 mmol/L; Blood Urea Nitrogen 49 mg/dL (9-20); Calcium 8.8 mg/dL (8.4-10.2); Carbon Dioxide 16 mmol/L (22-30); Chloride 112 mmol/L (98-107); Glucose 85 mg/dL (74-99); Non-African American GFR(CKD) 19 (>60 ml/min/1.73 sqM); Potassium 4.8 mmol/L (3.5-5.1); Sodium 138 mmol/L (137-145)
[2024-08-04 23:23] VITALS: BP 127/71; PULSE 61; RESP 18
--- NOTE | 2024-08-04 23:47 | CT ---
EXAM: CT Lumbar Spine Without Intravenous Contrast CLINICAL HISTORY: ITS.REASON CT Reason: back pain TECHNIQUE: Axial computed tomography images of the lumbar spine without intravenous contrast. CTDI is 19.4 mGy and DLP is 672.4 mGy-cm. This CT exam was performed using one or more of the following dose reduction techniques: automated exposure control, adjustment of the mA and/or kV according to patient size, and/or use of iterative reconstruction technique. COMPARISON: No relevant prior studies available. FINDINGS: Chronic, mild compression deformity involving the superior plate of T12. No acute lumbar spine fracture. The lumbar lordosis is preserved. There is no spondylolisthesis. The posterior elements are maintained, without evidence of acute fracture. Bilateral pars defects at L5. Multilevel lumbar spondylosis and degenerative disc disease. Osseous demineralization. Small LEFT pleural effusion. Aneurysm of the infrarenal abdominal aorta, measuring 5.0 x 5.0 cm. IMPRESSION: No acute fracture or subluxation of the lumbar spine. Small LEFT pleural effusion. Aneurysm of the infrarenal abdominal aorta, measuring 5.0 x 5.0 cm.
== END 2024-08-05 00:06 | disposition home or self-care (01) ==
LOC: EC 21:32
CPT/HCPCS: 36415; 72131; 80048; 81001; 85025; 99284